=== PATIENT | female | born 1935 | race Caucasian/White ===

== ENCOUNTER 2016-10-14 21:22 | Inpatient (IN) ==
--- NOTE | 2016-10-14 21:45 | EKG Report ---
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
--- NOTE | 2016-10-14 22:12 | CT Report ---
Referring physician: Masood Johnson Exam: CT brain without contrast Date: October 14, 2016 Comparison: CT brain without contrast August 17, 2014 Reason: Right leg numbness The patient is an Emergency Department patient on October 14, 2016. Technique: Axial images of the head were obtained without the use of contrast. Total DLP was 970.1 mGy*cm. Findings: There is mild generalized cerebral and cerebellar atrophy/volume loss and probable chronic microvascular ischemic change. 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 No hydrocephalus or midline shift is present. There is no evidence of recent intracranial hemorrhage, abnormal mass effect or acute infarction. No acute osseous process is seen. There is mild fluid within the right sphenoid sinus. The mastoid air cells are clear. Impression: 1. No acute intracranial process process is identified. 2. Chronic intracranial findings, similar to before. 3. Mild right sphenoid sinus disease. The CT exam was performed using one or more of the following dose reduction techniques: Automated exposure control and adjustment of the mA and/or kV according to patient size. PROCEDURE INTERPRETED AT [facility] DEPARTMENT OF RADIOLOGY Final Report Signed by: Dr. Annabelle Kruse
[2016-10-14 22:17] LABS: Basophils % 0.5 % (0.0-0.8); Eosinophils # 0.1 10*3/uL (0.0-0.87); Eosinophils % 2.7 % (0.00-10.9); Hematocrit 27.5 VOL% (35.7-47.0); Hemoglobin 9.3 GM/DL (12.0-16.0); Immature Granulocytes % 0.2 %; Immature Granulocytes Absolute 0.01 #; Lymphocytes # 1.1 10*3/uL (1.4-4.0); Lymphocytes % 27.2 % (21.3-54.2); Mean Corpuscular HGB Conc 33.8 GM/DL (32-36); Mean Corpuscular Hemoglobin 31 PG (27-34); Mean Corpuscular Volume 90.2 FL (87-102); Mean Platelet Volume 10.1 FL (9.6-12.0); Monocytes # 0.6 10*3/uL (0.11-0.8); Monocytes % 15.7 % (1.7-12.7); Neutrophils # 2.2 10*3/uL (1.4-7.4); Neutrophils % 53.7 % (38.7-73.9); Platelet Count 271 T/CUMM (130-400); Red Blood Count 3.05 MC/CUMM (3.8-5.5); Red Cell Distribution Width 13.8 % (9.3-17.3); White Blood Count 4.1 T/CUMM (4-12)
[2016-10-14 22:41] LABS: Band Neutrophils 2 % (0-10); Lymphocytes 17 % (20-55); Segmented Neutrophils 70 % (50-85); Total Cells Counted 100
[2016-10-14 22:45] LABS: INR 3.3
[2016-10-14 22:47] LABS: PT Patient Result 38.1 SECS; Partial Thromboplastin Time 45.7 SECS (0-40)
--- NOTE | 2016-10-14 22:47 | XRay Report ---
Referring Physician: Masood Johnson Exam: XR chest 1V portable Date: October 14, 2016 at 10:21 PM Reason: Chest pain Comparison: Chest one view portable July 29, 2016 Findings: The cardiac silhouette is mildly enlarged, and the patient is status post sternotomy. A cardiac pacing device is also again present. A nonspecific linear metallic device projects at the heart today. No focal consolidation, pneumothorax or pleural effusion is identified. No acute osseous process is seen. Impression: 1. Cardiomegaly. 2. No acute pulmonary process is identified. PROCEDURE INTERPRETED AT [facility] DEPARTMENT OF RADIOLOGY Final Report Signed by: Dr. Annabelle Kruse
[2016-10-14 23:21] LABS: Blood Urea Nitrogen 19 MG/DL (7-18); Calcium 8.6 MG/DL (8.5-10.1); Glucose 101 MG/DL (74-106); Magnesium 2.1 MG/DL (1.8-2.4); Osmolality,Calculated 280.4 MOS/KG (273-304); Potassium 3.4 MMOL/L (3.5-5.1); Sodium 140 MMOL/L (136-145); Troponin I Only < 0.015 NG/ML (0.00-0.045)
--- NOTE | 2016-10-14 23:29 | Emergency Department Note ---
I, Mely Dinh, am scribing for, and in the presence of, Masood Johnson MD 21:48 . IElizabeth Hans, MD, personally performed the services described in this documentation, ascribed by Mely Dinh in my presence, and it is both accurate and complete 328 . Arrival - Arrival Chief Complaint: Chest Pain Stated Complaint: chest pain ED Nursing Triage Note: patient to room via ems. 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 Pt has associated sxs of nausea and right leg numbness but denies diaphoresis. Pt describes the CP as a heavy feeling and states it has eased up some. Pt reports she took nitroglycerin at home with no relief. Pt states she had a TIA 3 years ago and sxs are similar. Pt has a PMHx of HTN and states her blood pressure was elevated tonight along with the current sxs. Pt reports her blood pressure has been under control lately with an increase in her dosage of Norvasc. Pt denies a Hx of CO but states she has a mechanical mitrovalve, Afib, and AV node ablation. Pt reports she does have a pacemaker. Pt denies tobacco use or alcohol consumption. Pt's desktop support engineer is Dr. Rios and she last seen him in May 2016 or June 2016. No other complaints/pain in ED. Onset (ago): hour(s) Consistency: constant Severity: moderate Severity scale (1-10): 4 Quality: other Allergies/Adverse Reactions: Allergies Allergy/AdvReac Type Severity Reaction Status Date / Time atropine Allergy Unknown/Unable Verified 10/14/16 21:30 to obtain Beta-Blockers Allergy Unknown/Unable Verified 10/14/16 21:30 (Beta-Adrenergic Bloc to obtain cephalexin Allergy Unknown/Unable Verified 10/14/16 21:30 to obtain citalopram [From Celexa] Allergy Unknown/Unable Verified 10/14/16 21:30 to obtain clindamycin Allergy Unknown/Unable Verified 10/14/16 21:30 to obtain clonazepam Allergy Unknown/Unable Verified 10/14/16 21:30 to obtain codeine Allergy Unknown/Unable Verified 10/14/16 21:30 to obtain diatrizoate meglumine Allergy Unknown/Unable Verified 10/14/16 21:30 to obtain Diatrizoic Acid Allergy Unknown/Unable Verified 10/14/16 21:30 [From Hypaque] to obtain digoxin Allergy Unknown/Unable Verified 10/14/16 21:30 to obtain diltiazem [From Cardizem] Allergy Unknown/Unable Verified 10/14/16 21:30 to obtain Diphenoxylate Allergy Unknown/Unable Verified 10/14/16 21:30 to obtain duloxetine [From Cymbalta] Allergy Unknown/Unable Verified 10/14/16 21:30 to obtain Erythromycin Base Allergy Unknown/Unable Verified 10/14/16 21:30 to obtain guaifenesin Allergy Unknown/Unable Verified 10/14/16 21:30 to obtain hydrocodone Allergy Unknown/Unable Verified 10/14/16 21:30 to obtain Hydromorphone [From Dilaudid] Allergy Unknown/Unable Verified 10/14/16 21:30 to obtain Hyoscyamine Allergy Unknown/Unable Verified 10/14/16 21:30 to obtain Imipramine Allergy Unknown/Unable Verified 10/14/16 21:30 to obtain isradipine [From DynaCirc] Allergy Unknown/Unable Verified 10/14/16 21:30 to obtain levofloxacin Allergy Unknown/Unable Verified 10/14/16 21:30 to obtain lincomycin Allergy Unknown/Unable Verified 10/14/16 21:30 to obtain morphine Allergy Unknown/Unable Verified 10/14/16 21:30 to obtain Nisoldipine Allergy Unknown/Unable Verified 10/14/16 21:30 to obtain Nortriptyline [From Pamelor] Allergy Unknown/Unable Verified 10/14/16 21:30 to obtain omeprazole Allergy Unknown/Unable Verified 10/14/16 21:30 to obtain Opium (Anthroposophic) Allergy Unknown/Unable Verified 10/14/16 21:30 to obtain Oxycodone Allergy Unknown/Unable Verified 10/14/16 21:30 to obtain pantoprazole [From Protonix] Allergy Unknown/Unable Verified 10/14/16 21:30 to obtain Paregoric Allergy Unknown/Unable Verified 10/14/16 21:30 to obtain pentazocine Allergy Unknown/Unable Verified 10/14/16 21:30 to obtain potassium guaiacolsulfonate Allergy Unknown/Unable Verified 10/14/16 21:30 [From Humibid L.A.] to obtain pregabalin [From Lyrica] Allergy Unknown/Unable Verified 10/14/16 21:30 to obtain prochlorperazine Allergy Unknown/Unable Verified 10/14/16 21:30 to obtain promethazine Allergy Unknown/Unable Verified 10/14/16 21:30 to obtain propoxyphene [From Darvon] Allergy Unknown/Unable Verified 10/14/16 21:30 to obtain quinidine Allergy Unknown/Unable Verified 10/14/16 21:30 to obtain rosuvastatin [From Crestor] Allergy Unknown/Unable Verified 10/14/16 21:30 to obtain Sulfa (Sulfonamide Allergy Unknown/Unable Verified 10/14/16 21:30 Antibiotics) to obtain tramadol Allergy Unknown/Unable Verified 10/14/16 21:30 to obtain aspirin [From Percodan] AdvReac Unknown/Unable Verified 10/14/16 21:30 to obtain Home Medications: Home Medications Medication Instructions Recorded Confirmed Type ALPRAZolam [Xanax] 0.5 tablet PO BID 12/13/14 03/17/16 History Aspirin [Ecotrin] 325 mg PO DAILY 12/13/14 03/17/16 History Chlorthalidone 25 mg PO DAILY 12/13/14 03/17/16 History Cyanocobalamin Inj [Vitamin B12 1,000 mcg SUBCUT Q30D 12/13/14 03/17/16 History Inj] Gemfibrozil [Lopid] 600 mg PO BIDAC 12/13/14 03/17/16 History Levothyroxine Tab [Synthroid Tab] 25 mcg PO DAILY@0700 12/13/14 03/17/16 History Nitroglycerin [place] 1 spray TRANSLING PRN PRN 12/13/14 03/17/16 History Potassium Chloride Cap/Tab [K Dur] 10 meq PO DAILY 12/13/14 03/17/16 History Warfarin [Coumadin] 5 mg PO DAILY@1800 #30 tablet 03/14/15 03/17/16 Rx Famotidine Tab [Pepcid Tab] 20 mg PO BID 03/17/16 03/17/16 History Ipratropium Inhaler [Atrovent 2 puff INH Q6HR PRN 03/17/16 03/17/16 History Inhaler] Loratadine 10 mg PO BEDTIME 03/17/16 03/17/16 History Losartan Potassium [Losartan 50 mg PO BID 03/17/16 03/17/16 History Potassium] Montelukast Tab [Singulair Tab] 10 mg PO BEDTIME 03/17/16 03/17/16 History Nitrofurantoin Macro/[place] 100 mg PO BID 03/17/16 03/17/16 History [Macrobid] Metoprolol Tartrate Tab [Lopressor 25 mg PO BID #10 tablet 07/29/16 Rx Tab] Review of System - Review of System 12 point system: reviewed and no additional remarkable complaints except as stated - Review of System Constitutional: Absent: chills, diaphoresis, fever Respiratory: Absent: cough Cardiovascular: Present: chest pain Gastrointestinal: Present: nausea. Absent: abdominal pain, vomiting Musculoskeletal: Absent: arm pain, back pain, leg pain, neck pain Neurological: Present: numbness (numbness in right leg). Absent: headache, confusion Psychiatric: Absent: anxiety Medical,Surgical,& Family Hx - Medical History Cardio: History of: Cardiac Dysrhythmia (afib), Cerebrovascular Disease, CHF ( diastolic yes grade Sarath ([place] and no wheezing or ON Tuesday but quit que), Hypertension, Pacemaker, Valvular Heart Disease, Cardiovascular Problems ( Ablation 2004) Psychological: History of: Anxiety Disorders Neurology: History of: Cerebrovascular Accident, Migraine, TIA No history of: Seizures HEENT: History of: Eye Problem, Glaucoma Endocrine: History of: Dyslipidemia, Thyroid Disorder (hypothyroidism) Rheumatology: History of;: Rheumatological Problems Respiratory: History of: Asthma, Bronchitis, Obstructive Sleep Apnea Renal: No history of: Renal Failure Gastrointestinal: History of: Diverticulitis/ Diverticulosis, GERD, Hemorrhoids , GI Problems Musculoskeletal: History of: Musculoskeletal Problems Hematology: History of: Anemia (pre-hysterectomy), Clotting Problems Other: History of: Miscellaneous Medical Problems - Surgical History Cardiac Surgeries: Sugical HX of: Cardiac Catheterization, Cardiac Surgery ( VVIR pacemaker) HEENT Surgeries: Surgical HX of: Eye Surgery (cataract bilat), Tonsilectomy & Adenoidectomy Abdominal Surgeries: Surgical HX of: Cholecystectomy, Colonoscopy, EGD ( esophageal dilation) Reproductive Surgeries: Surgical HX of;: Hysterectomy - Family History Family History: Reports;: Family Heart Disease, Family Hypertension, Family Stroke - Social History Smoking Status: Never smoker Frequency of Alcohol Use: None Type of Drug Use: None Exam Vital Signs: Vital Signs Temperature 96.5 F L 10/14/16 21:22 Pulse Rate 70 10/14/16 21:22 Respiratory Rate 17 10/14/16 21:22 Blood Pressure 164/59 10/14/16 21:22 O2 Sat by Pulse Oximetry 100 10/14/16 21:22 - General General appearance: alert, in no apparent distress - Head Head exam: Present: atraumatic, normocephalic - Eye Eye exam: Present: PERRL, EOMI - ENT ENT exam: Present: mucous membranes moist. Absent: mucous membranes dry - Neck Neck exam: Present: full ROM. Absent: tenderness - Chest Chest inspection: Present: symmetric chest wall rise. Absent: tenderness - Respiratory Respiratory exam: Present: normal lung sounds bilaterally. Absent: respiratory distress - Cardiovascular Cardiovascular exam: Present: regular rate, normal rhythm, normal heart sounds - Abdominal Exam Abdominal exam: Present: soft. Absent: tenderness - Back Exam Back exam: Present: full ROM. Absent: tenderness - Neurological Exam Neurological exam: Present: alert, oriented X3, CN II-XII intact. Absent: motor sensory deficit - Psychiatric Psychiatric exam: Present: normal affect, normal mood - Skin Skin exam: Present: warm, dry Course Course Narrative: This patient was evaluated with a chest x-ray, EKG, and lab work. She had a normal troponin and no significant ST changes. She also had a head CT for some right leg numbness which was negative. She will be admitted for anginal symptoms to Dr. Zavaleta and I discussed her care with Dr. Jewell who is covering for her. A cardiology consult has been placed for the a.m. Her INR is therapeutic. Results - Labs CBC & BMP: 10/14/16 22:11 10/14/16 22:11 Lab Results: I have reviewed the patients labs Labs: Laboratory Tests 10/14/16 22:11 RBC 3.05 L Hgb 9.3 L Hct 27.5 L Cannon % (Auto) 15.7 H Lymph # (Auto) 1.1 L Laboratory Tests 10/14/16 22:11 Lymphocytes 17 L Laboratory Tests 10/14/16 22:11 INR 3.3 PT Patient/Control Mix 38.1 Circ Anticoag PTT 45.7 H Laboratory Tests 10/14/16 22:11 Potassium 3.4 L Chloride 108 H BUN 19 H Creatinine 1.10 H - Diagnostic Findings Procedure: Chest x-ray: report reviewed by me (1. Cardiomegaly. 2. No acute pulmonary process is identified.), CT: report reviewed by me (Head: 1. No acute intracranial process is identified. 2. Chronic intracranial findings, similar to before. 3. Mild right sphenoid sinus disease.) Disposition Clinical Impression: Chest pain Case discussed with: patient Disposition: Still a Patient Condition: Stable Instructions: Angina (ED) Time of Disposition: 23:28
[2016-10-15] MEDS ORDERED: MAGNESIUM SULF RIDER 2 GM in PREMIX 1 EACH IV PRN (00:15)
[2016-10-15] MEDS ORDERED: MAGNESIUM SULF RIDER 4 GM in PREMIX 1 EACH IV PRN (00:15)
--- NOTE | 2016-10-15 08:26 | EKG Report ---
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
[2016-10-15] MEDS ORDERED: IPRATROPIUM 500 MCG/2.5 ML NEB RESP TX PRN (11:01)
[2016-10-15] MEDS ORDERED: NITROGLYCERIN TRANSLING PRN (11:01)
[2016-10-15] MEDS ORDERED: LORATADINE 10 MG TABLET PO PRN (11:01)
[2016-10-15] MEDS ORDERED: POTASSIUM CHLORIDE RIDER 10 MEQ in PREMIX 1 EACH IV PRN (11:06)
--- NOTE | 2016-10-15 11:08 | Cardiology Consult Note ---
<Yady Dotson - Last Filed: 10/15/16 11:55> Assessment and Plan - Time spent with patient Time spent with patient: Greater than 30 minutes (1) Chest pain Status: Acute Assessment and plan: See plan of care listed below. Current Visit: Yes (2) Anemia Status: Acute Assessment and plan: See plan of care listed below. Current Visit: No (3) Anxiety Status: Chronic Assessment and plan: See plan of care listed below. Current Visit: No (4) Chronic anticoagulation Status: Chronic Assessment and plan: See plan of care listed below. Current Visit: No (5) History of GI bleed Problem details: She was scheduled for colonoscopy on Tuesday. She will require IV heparin. Plan to monitor in the hospital. IV heparin when INR is less than 2. She has had a TIA in the past when not adequately anticoagulated. I feel there is a component of anxiety involved here. Status: Chronic Assessment and plan: See plan of care listed below. Current Visit: No (6) History of mitral valve replacement with mechanical valve Status: Chronic Assessment and plan: See plan of care listed below. Current Visit: No (7) Pacemaker Status: Chronic Assessment and plan: See plan of care listed below. Current Visit: No (8) Sleep apnea Status: Chronic Assessment and plan: See plan of care listed below. Current Visit: No (9) Asthma Status: Chronic Assessment and plan: See plan of care listed below. Current Visit: Yes (10) Hypertension Status: Chronic Assessment and plan: See plan of care listed below. Current Visit: Yes (11) Hyperlipidemia Status: Acute Current Visit: Yes (12) Status post ablation of atrial fibrillation Status: Chronic Current Visit: Yes (13) Hypothyroidism Status: Chronic Assessment and plan: See plan of care listed below. Current Visit: Yes (14) History of rheumatic heart disease Status: Chronic Current Visit: Yes (15) GERD (gastroesophageal reflux disease) Status: Chronic Current Visit: Yes (16) History of TIA (transient ischemic attack) Status: Chronic Current Visit: Yes History of Present Illness - Data of Consult Consult date: 10/15/16 Requesting Physician: Masood Johnson Primary care physician: Lou Zavaleta - Consult Narrative Reason for consult: Chest pain History of present illness: Silk Spreader: Dr. Rios PCP: Dr. Lou Zavaleta Ms. Faith is a 81 year old female patient without known history of coronary artery disease, routinely followed by Dr. Rios. Patient presented to emergency department yesterday evening with complaints of chest pain and weakness. Patient has cardiac risk factors significant for hypertension, hyperlipidemia, sedentary lifestyle, advanced age and family history of coronary artery disease (father age 57 from myocardial infarction). Patient confirms that she is a lifetime non-smoker. She has a past medical history of TIA, atrial fibrillation (status post AV ablation at [facility]), pacemaker , irritable bowel syndrome, asthma, diverticulosis, obstructive sleep apnea ( wears CPAP), hypothyroidism, anxiety, rheumatic heart disease and mechanical mitral valve with chronic anticoagulation with Coumadin. Her last heart catheterization was done in 2003. She reports that she has had 4 heart catheterizations which did not reveal any significant obstructive coronary artery disease. She last saw Dr. Rios in the cardiology clinic May 2016. At that time she had complaints of dyspnea on exertion. He offered her a cardiac stress test at that time. However she declined having this done at that time. Patient presented to [facility] yesterday evening with complaints of moderate chest pain and weakness. She reports that she did not feel well all day yesterday. After waking up from a nap, she experienced tingling in her hands and feet. At that time, she took her blood pressure. Systolic blood pressure was 190. She also reports blurry vision in her left eye. Shortly after that, her right leg became extremely weak. She reports that she could not ambulate for several hours because of this. She had a TIA approximately three years ago, reports symptoms are somewhat similar. Several hours later, she developed chest pain. She describes this as a heaviness located under her left breast that radiates to her neck and left shoulder. She rates her chest pain and 8 out of 10. She reports that this was not worsened with exertion or activity. She is unable to identify any alleviating or aggravating factors. Her chest pain was ongoing for about 1 hour. She reports that it was made better after receiving nitroglycerin in the ambulance. This was associated with nausea, shortness of breath and diaphoresis. Chest pain was relieved after arriving in the ER. Patient has been admitted under Dr. Lou Zavaleta's service and housed on the telemetry unit. Cardiology has been consulted to further evaluate patient's chest pain. Of note, she also reports a 3 month history of dyspnea on exertion and easy fatigability. She reports that she can only walk a very short distance before having to stop and rest. She does report a history of asthma with longstanding history of shortness of breath. She denies chest pain, heaviness or tightness with exertion. She was offered cardiac stress test by Dr. Rios in the cardiology clinic May of 2016. She declined at that time. Patient was seen and examined on the telemetry unit. Patient continues to complain of mild chest discomfort. Currently, she is describing her pain as a burning/heaviness located under her left breast. She rates his pain a 4 out of 10 currently. Troponin has been negative 1 check. EKG is unchanged. On exam , patient's chest is tender to light palpation. However, she reports that this is not the same pain that this is a different pain. Chest x-ray does not reveal any acute cardiopulmonary processes. Head CT did not reveal any acute intracranial processes. Patient is anemic with H&H of 9.3 and 27.5. INR today was therapeutic at 3.3. Potassium is borderline low at 3.4. Patient is currently in pacer rhythm. Will keep patient NPO at this time and further discuss with Dr. Simpson. Further plan and an addendum to follow. Assessment/plan: 1. CHEST PAIN: Patient's troponin has been negative 1 check. EKG is unchanged. Patient was offered cardiac stress test May 2016 in the cardiology clinic. However, at that time she declined having this done. Will discuss his case further with Dr. Simpson and await his recommendations. 2. HYPERTENSION: Patient's home medications have been reinitiated. Will adjust as needed during her hospitalization. 3. STATUS POST MECHANICAL MITRAL VALVE WITH CHRONIC ANTICOAGULATION: Coumadin has been reinitiated. INR today is therapeutic at 3.4. Daily INRs. 4. HYPERLIPIDEMIA: Lipid-lowering agent has been continued. I will check a lipid panel. Patient reports that she is statin intolerant. 5. OBSTRUCTIVE SLEEP APNEA: CPAP nightly. 6. HYPOTHYROIDISM: Synthroid has been reinitiated. I will check a TSH and make further adjustments if needed. 7. ANXIETY: This is clinically stable. Defer management to attending. 8. RIGHT LEG WEAKNESS: This is now resolved. Head CT did not reveal any acute intracranial processes. I have ordered carotid Dopplers. Consider consulting neurology. 9. DYSPNEA ON EXERTION: I have ordered echocardiogram. We will review these results and make further recommendations thereafter. 10. HYPOKALEMIA: Potassium 3.4. Potassium replaced per protocol ordered. 11. ASTHMA: This possibly contributing to her dyspnea on exertion. Will defer further management of this to her attending. 12. ANEMIA: No overt bleeding noted. Will check stool for occult blood as patient has history of lower GI bleed. Daily CBC. Will defer further workup of this to attending. 13. GERD: Pepcid has been initiated. CC: Lou Zavaleta, DO - Home Medications and Allergies Home Medications: Home Medications Medication Instructions Recorded Confirmed Type ALPRAZolam [Xanax] 0.25 tablet PO BID 12/13/14 10/15/16 History Aspirin [Ecotrin] 325 mg PO DAILY 12/13/14 10/15/16 History Chlorthalidone 25 mg PO DAILY 12/13/14 10/15/16 History Gemfibrozil [Lopid] 600 mg PO BIDAC 12/13/14 10/15/16 History Levothyroxine Tab [Synthroid Tab] 25 mcg PO DAILY@0700 12/13/14 10/15/16 History Nitroglycerin [place] 1 spray TRANSLING PRN PRN 12/13/14 10/15/16 History Potassium Chloride Cap/Tab [K Dur] 10 meq PO DAILY 12/13/14 10/15/16 History Warfarin [Coumadin] 5 mg PO DAILY@1800 #30 tablet 03/14/15 10/15/16 Rx Famotidine Tab [Pepcid Tab] 20 mg PO BID 03/17/16 10/15/16 History Ipratropium Inhaler [Atrovent 2 puff INH Q6HR PRN 03/17/16 10/15/16 History Inhaler] Loratadine 10 mg PO BEDTIME PRN 03/17/16 10/15/16 History Losartan Potassium [Losartan 50 mg PO BID 03/17/16 10/15/16 History Potassium] Montelukast Tab [Singulair Tab] 10 mg PO BEDTIME 03/17/16 10/15/16 History Cholecalciferol (Vitamin D3) 50,000 unit PO DIRECTED 10/15/16 10/15/16 History [Vitamin D3] Ferrous Sulfate 325 mg PO DAILY W/BREAKFAST 10/15/16 10/15/16 History amLODIPine [Norvasc] 10 mg PO DAILY 10/15/16 10/15/16 History Allergies/Adverse Reactions: Allergies Allergy/AdvReac Type Severity Reaction Status Date / Time atropine Allergy Unknown/Unable Verified 10/14/16 21:30 to obtain Beta-Blockers Allergy Unknown/Unable Verified 10/14/16 21:30 (Beta-Adrenergic Bloc to obtain cephalexin Allergy Unknown/Unable Verified 10/14/16 21:30 to obtain citalopram [From Celexa] Allergy Unknown/Unable Verified 10/14/16 21:30 to obtain clindamycin Allergy Unknown/Unable Verified 10/14/16 21:30 to obtain clonazepam Allergy Unknown/Unable Verified 10/14/16 21:30 to obtain codeine Allergy Unknown/Unable Verified 10/14/16 21:30 to obtain diatrizoate meglumine Allergy Unknown/Unable Verified 10/14/16 21:30 to obtain Diatrizoic Acid Allergy Unknown/Unable Verified 10/14/16 21:30 [From Hypaque] to obtain digoxin Allergy Unknown/Unable Verified 10/14/16 21:30 to obtain diltiazem [From Cardizem] Allergy Unknown/Unable Verified 10/14/16 21:30 to obtain Diphenoxylate Allergy Unknown/Unable Verified 10/14/16 21:30 to obtain duloxetine [From Cymbalta] Allergy Unknown/Unable Verified 10/14/16 21:30 to obtain Erythromycin Base Allergy Unknown/Unable Verified 10/14/16 21:30 to obtain guaifenesin Allergy Unknown/Unable Verified 10/14/16 21:30 to obtain hydrocodone Allergy Unknown/Unable Verified 10/14/16 21:30 to obtain Hydromorphone [From Dilaudid] Allergy Unknown/Unable Verified 10/14/16 21:30 to obtain Hyoscyamine Allergy Unknown/Unable Verified 10/14/16 21:30 to obtain Imipramine Allergy Unknown/Unable Verified 10/14/16 21:30 to obtain isradipine [From DynaCirc] Allergy Unknown/Unable Verified 10/14/16 21:30 to obtain levofloxacin Allergy Unknown/Unable Verified 10/14/16 21:30 to obtain lincomycin Allergy Unknown/Unable Verified 10/14/16 21:30 to obtain morphine Allergy Unknown/Unable Verified 10/14/16 21:30 to obtain Nisoldipine Allergy Unknown/Unable Verified 10/14/16 21:30 to obtain Nortriptyline [From Pamelor] Allergy Unknown/Unable Verified 10/14/16 21:30 to obtain omeprazole Allergy Unknown/Unable Verified 10/14/16 21:30 to obtain Opium (Anthroposophic) Allergy Unknown/Unable Verified 10/14/16 21:30 to obtain Oxycodone Allergy Unknown/Unable Verified 10/14/16 21:30 to obtain pantoprazole [From Protonix] Allergy Unknown/Unable Verified 10/14/16 21:30 to obtain Paregoric Allergy Unknown/Unable Verified 10/14/16 21:30 to obtain pentazocine Allergy Unknown/Unable Verified 10/14/16 21:30 to obtain potassium guaiacolsulfonate Allergy Unknown/Unable Verified 10/14/16 21:30 [From Humibid L.A.] to obtain pregabalin [From Lyrica] Allergy Unknown/Unable Verified 10/14/16 21:30 to obtain prochlorperazine Allergy Unknown/Unable Verified 10/14/16 21:30 to obtain promethazine Allergy Unknown/Unable Verified 10/14/16 21:30 to obtain propoxyphene [From Darvon] Allergy Unknown/Unable Verified 10/14/16 21:30 to obtain quinidine Allergy Unknown/Unable Verified 10/14/16 21:30 to obtain rosuvastatin [From Crestor] Allergy Unknown/Unable Verified 10/14/16 21:30 to obtain Sulfa (Sulfonamide Allergy Unknown/Unable Verified 10/14/16 21:30 Antibiotics) to obtain tramadol Allergy Unknown/Unable Verified 10/14/16 21:30 to obtain aspirin [From Percodan] AdvReac Unknown/Unable Verified 10/14/16 21:30 to obtain - Constitutional Constitutional: Present: fatigue, headache(s), lethargy, malaise, weakness. Absent: chills, fever(s), weight gain, weight loss - EENT Eyes: Present: blurry vision - Cardiovascular Cardiovascular: Present: chest pain at rest, diaphoresis, dyspnea, dyspnea on exertion, radiating jaw, neck or arm pain. Absent: chest pain with activity, claudication, edema, lightheadedness, orthopnea, palpitations, PND - Respiratory Respiratory: Present: dyspnea, dyspnea on exertion. Absent: cough, hemoptysis, wheezing, snoring, pain on inspiration, change in phlegm color - Gastrointestinal Gastrointestinal: Present: nausea. Absent: abdominal pain, change in bowel habits, hematemesis, hematochezia, loose stools, melena, vomiting - Neurological Neurological: Present: abnormal gait, headache(s), numbness, paresthesias, other (Right leg weakness). Absent: abnormal speech, behavioral changes, confusion, dizziness, syncope - Psychiatric Psychiatric: Present: anxiety, depression Medical,Surgical,& Family Hx - Medical History Cardio: History of: Cardiac Dysrhythmia (afib, status post AV ablation), Cerebrovascular Disease, Hypertension, Pacemaker, Valvular Heart Disease Psychological: History of: Anxiety Disorders Neurology: History of: Migraine, TIA No history of: Seizures HEENT: History of: Eye Problem, Glaucoma Endocrine: History of: Dyslipidemia, Thyroid Disorder (hypothyroidism) Rheumatology: History of;: Rheumatological Problems Respiratory: History of: Asthma, Obstructive Sleep Apnea Renal: No history of: Renal Failure Gastrointestinal: History of: Diverticulitis/ Diverticulosis, GERD, Hemorrhoids , GI Problems (Irritable bowel syndrome) Musculoskeletal: History of: Musculoskeletal Problems - Surgical History Cardiac Surgeries: Sugical HX of: Cardiac Catheterization, Cardiac Surgery ( Mechanical mitral valve, pacemaker) HEENT Surgeries: Surgical HX of: Eye Surgery (cataract bilat), Tonsilectomy & Adenoidectomy Abdominal Surgeries: Surgical HX of: Cholecystectomy, Colonoscopy, EGD ( esophageal dilation) Reproductive Surgeries: Surgical HX of;: Hysterectomy - Family History Family History: Reports;: Family Heart Disease, Family Hypertension, Family Stroke - Social History Smoking Status: Never smoker Frequency of Alcohol Use: None Type of Drug Use: None Physical Examination Vital Signs Temp Pulse Resp BP Pulse Ox 96.5 F L 70 22 164/59 100 10/14/16 21:22 10/14/16 21:22 10/14/16 21:22 10/14/16 21:22 10/14/16 21:22 General: Present: Appears Well, No Apparent Distress HEENT: Present: Normocephaly Neck: Present: Supple Neck, Midline Trachea, No JVD/HJR Cardiac: Present: Reg Rate and Rhythm, Regular Rate, Regular Rhythm, S1/S2, Other (Mechanical mitral valve click appreciated. ) Lungs: Present: Normal Exam, Clear Ascult./Percussion, Normal Breath Sounds, No Wheeze, Rales, Rhonchi Neuro: Present: Grossly Intact Abdomen: Present: Soft, Active Bowel Sounds, No Masses, Non-Tender. Absent: Firm, Distended Skin: Present: Clear. Absent: Rash, Suspicious Lesions, Ulceration Extremities: Present: Normal Gait, No Clubbing, No Cyanosis, No Edema, Normal Upper Extr. Pulses, Normal Lower Extr. Pulses Result/EKG - Labs CBC & BMP: 10/14/16 22:11 10/14/16 22:11 Lab Results: I have reviewed the past 24 hour labs Specialty Discharge - Follow Up or Referrals <Charly Simpson - Last Filed: 10/15/16 12:55> History of Present Illness - Consult Narrative History of present illness: Patient personally interviewed and examined and chart reviewed. Discussed this case with Yady Dotson NP. Agree with this assessment and evaluation and plan. In summation and addition Ms. Faith is a 81 year old female who has a mitral valve replacement mechanical valve. She also has had AV node ablation because of persistent atrial fibrillation with a biventricular pacemaker. She has never had documented coronary disease or anginal symptomatology. She has had issues with acute blood pressure elevations and she had one these episodes last night. She had some chest pain below the left breast there was a sharp pain may be a little heavy but nonradiating and not short of breath. The pain that was exacerbated by motion cough and deep breath. She took a nitroglycerin in the form of the spray that may have helped some but did not resolve any symptoms. She was presented to emergency room evaluated and admitted. Her initial troponin is nondetectable. Her ECG is ventricular paced. At present she still has the pain is still exacerbated by this same movements as noted above. Impression her blood pressure stable. Exam as noted and indeed she does have chest wall tenderness below the left breast reproduces her pain. She has good mechanical valve sounds of her mitral valve replacement. Her abdomen is unremarkable. Lungs are clear. Extremities without edema. Neurologic intact. If her repeat troponins are nondetectable would carry out no further evaluation. She should be to keep her follow with Dr. Rios and [facility]. CC: Lou Zavaleta, DO Physical Examination Vital Signs Temp Pulse Resp BP Pulse Ox 96.5 F L 70 22 164/59 100 10/14/16 21:22 10/14/16 21:22 10/14/16 21:22 10/14/16 21:22 10/14/16 21:22 Result/EKG - Labs CBC & BMP: 10/14/16 22:11 10/14/16 22:11 Labs: Laboratory Results - last 24 hr 10/15/16 11:16 Total Creatine Kinase 81 CK-MB (CK-2) 2.0 Troponin I < 0.015
--- NOTE | 2016-10-15 11:27 | Ultrasound Report ---
US carotid duplex BI Indication: Dizziness, right lower extremity weakness. Comparison: None. Technique: Multiple longitudinal and transverse real-time sonographic images of the bilateral carotid arterial systems are obtained with grayscale, spectral, and color Doppler analysis. Findings: Peak systolic velocities within the right CCA, proximal ICA, and distal ICA are 63, 37, and 72 cm/s respectively. Peak systolic velocities within the left CCA, proximal ICA, and distal ICA are 66, 50, and 93 cm/s respectively. ICA/CCA ratios on the right and left are 1.1 and 1.4 respectively. Antegrade flow demonstrated within the bilateral vertebral arteries. Grayscale imaging demonstrates mild bilateral atherosclerotic plaque. IMPRESSION: No convincing sonographic evidence of significant (50% or greater) narrowing of either cervical internal carotid artery. NASCET criteria utilized. PROCEDURE INTERPRETED AT [facility] DEPARTMENT OF RADIOLOGY Final Report Signed by: Dr Corey Eaton
[2016-10-15 12:40] LABS: Troponin I Only < 0.015 NG/ML (0.00-0.045)
[2016-10-15 12:45] LABS: Risk Ratio 2.75; Thyroid Stimulating Hormone 1.53 uIU/ml (0.358-3.74); VLDL CHOLESTEROL 15.2 MG/DL
[2016-10-15] MEDS: POTASSIUM CHLORIDE 10 MEQ TABLET PO SCH (13:30)
[2016-10-15] MEDS: ASPIRIN EC 325 MG TABLET PO SCH (13:30)
[2016-10-15] MEDS: LOSARTAN 50 MG TABLET PO SCH ×2 (13:30→20:42)
[2016-10-15] MEDS: amLODIPine 10 MG TABLET PO SCH (13:31)
--- NOTE | 2016-10-15 14:27 | Internal Med History&Physical ---
Assessment and Plan (1) Chest pain Status: Acute Current Visit: Yes (2) Hyperlipidemia Status: Chronic Current Visit: Yes Qualifiers: Hyperlipidemia type: pure hypercholesterolemia Qualified Code(s): E78.00 - Pure hypercholesterolemia, unspecified; E78.0 - Pure hypercholesterolemia (3) Asthma Status: Chronic Current Visit: Yes (4) GERD (gastroesophageal reflux disease) Status: Chronic Current Visit: Yes (5) History of TIA (transient ischemic attack) Status: Chronic Current Visit: Yes (6) Hypertension Status: Chronic Current Visit: Yes Qualifiers: Hypertension type: essential hypertension Qualified Code(s): I10 - Essential (primary) hypertension (7) Hypothyroidism Status: Chronic Current Visit: No Qualifiers: Hypothyroidism type: acquired Qualified Code(s): E03.9 - Hypothyroidism, unspecified (8) Chronic atrial fibrillation Status: Chronic Current Visit: No (9) Chronic anticoagulation Status: Chronic Current Visit: Yes (10) History of GI bleed Problem details: She was scheduled for colonoscopy on Tuesday. She will require IV heparin. Plan to monitor in the hospital. IV heparin when INR is less than 2. She has had a TIA in the past when not adequately anticoagulated. I feel there is a component of anxiety involved here. Status: Chronic Current Visit: Yes (11) History of mitral valve replacement with mechanical valve Status: Chronic Current Visit: Yes (12) Pacemaker Status: Chronic Current Visit: No (13) Guaiac positive stools Status: Acute Current Visit: Yes History of Present Illness Chief complaint: chest pain History of present illness: Ms. Faith is a 81 year old female with history of HTN, dyslipidemia, DM, a fib, pacemaker, CHF, asthma, OA, stroke, TIA, multiple allergies and drug intolerances, acid reflux, who presented to ER with chest pain, acute right sided weakness, and worsening acid reflux. INR was slightly hyper therapeutic level. She has mitral valve replacement mechanical valve. She describes a heaviness in her chest with breathing. Home Medications Medication Instructions Recorded Confirmed Type ALPRAZolam [Xanax] 0.25 tablet PO BID 12/13/14 10/15/16 History Aspirin [Ecotrin] 325 mg PO DAILY 12/13/14 10/15/16 History Chlorthalidone 25 mg PO DAILY 12/13/14 10/15/16 History Gemfibrozil [Lopid] 600 mg PO BIDAC 12/13/14 10/15/16 History Levothyroxine Tab [Synthroid Tab] 25 mcg PO DAILY@0700 12/13/14 10/15/16 History Nitroglycerin [place] 1 spray TRANSLING PRN PRN 12/13/14 10/15/16 History Potassium Chloride Cap/Tab [K Dur] 10 meq PO DAILY 12/13/14 10/15/16 History Warfarin [Coumadin] 5 mg PO DAILY@1800 #30 tablet 03/14/15 10/15/16 Rx Famotidine Tab [Pepcid Tab] 20 mg PO BID 03/17/16 10/15/16 History Ipratropium Inhaler [Atrovent 2 puff INH Q6HR PRN 03/17/16 10/15/16 History Inhaler] Loratadine 10 mg PO BEDTIME PRN 03/17/16 10/15/16 History Losartan Potassium [Losartan 50 mg PO BID 03/17/16 10/15/16 History Potassium] Montelukast Tab [Singulair Tab] 10 mg PO BEDTIME 03/17/16 10/15/16 History Cholecalciferol (Vitamin D3) 50,000 unit PO DIRECTED 10/15/16 10/15/16 History [Vitamin D3] Ferrous Sulfate 325 mg PO DAILY W/BREAKFAST 10/15/16 10/15/16 History amLODIPine [Norvasc] 10 mg PO DAILY 10/15/16 10/15/16 History Allergies Allergy/AdvReac Type Severity Reaction Status Date / Time atropine Allergy Unknown/Unable Verified 10/14/16 21:30 to obtain Beta-Blockers Allergy Unknown/Unable Verified 10/14/16 21:30 (Beta-Adrenergic [place]oc to obtain cephalexin Allergy Unknown/Unable Verified 10/14/16 21:30 to obtain citalopram [From Celexa] Allergy Unknown/Unable Verified 10/14/16 21:30 to obtain clindamycin Allergy Unknown/Unable Verified 10/14/16 21:30 to obtain clonazepam Allergy Unknown/Unable Verified 10/14/16 21:30 to obtain codeine Allergy Unknown/Unable Verified 10/14/16 21:30 to obtain diatrizoate meglumine Allergy Unknown/Unable Verified 10/14/16 21:30 to obtain Diatrizoic Acid Allergy Unknown/Unable Verified 10/14/16 21:30 [From Hypaque] to obtain digoxin Allergy Unknown/Unable Verified 10/14/16 21:30 to obtain diltiazem [From Cardizem] Allergy Unknown/Unable Verified 10/14/16 21:30 to obtain Diphenoxylate Allergy Unknown/Unable Verified 10/14/16 21:30 to obtain duloxetine [From Cymbalta] Allergy Unknown/Unable Verified 10/14/16 21:30 to obtain Erythromycin Base Allergy Unknown/Unable Verified 10/14/16 21:30 to obtain guaifenesin Allergy Unknown/Unable Verified 10/14/16 21:30 to obtain hydrocodone Allergy Unknown/Unable Verified 10/14/16 21:30 to obtain Hydromorphone [From Dilaudid] Allergy Unknown/Unable Verified 10/14/16 21:30 to obtain Hyoscyamine Allergy Unknown/Unable Verified 10/14/16 21:30 to obtain Imipramine Allergy Unknown/Unable Verified 10/14/16 21:30 to obtain isradipine [From DynaCirc] Allergy Unknown/Unable Verified 10/14/16 21:30 to obtain levofloxacin Allergy Unknown/Unable Verified 10/14/16 21:30 to obtain lincomycin Allergy Unknown/Unable Verified 10/14/16 21:30 to obtain morphine Allergy Unknown/Unable Verified 10/14/16 21:30 to obtain Nisoldipine Allergy Unknown/Unable Verified 10/14/16 21:30 to obtain Nortriptyline [From Pamelor] Allergy Unknown/Unable Verified 10/14/16 21:30 to obtain omeprazole Allergy Unknown/Unable Verified 10/14/16 21:30 to obtain Opium (Anthroposophic) Allergy Unknown/Unable Verified 10/14/16 21:30 to obtain Oxycodone Allergy Unknown/Unable Verified 10/14/16 21:30 to obtain pantoprazole [From Protonix] Allergy Unknown/Unable Verified 10/14/16 21:30 to obtain Paregoric Allergy Unknown/Unable Verified 10/14/16 21:30 to obtain pentazocine Allergy Unknown/Unable Verified 10/14/16 21:30 to obtain potassium guaiacolsulfonate Allergy Unknown/Unable Verified 10/14/16 21:30 [From Humibid L.A.] to obtain pregabalin [From Lyrica] Allergy Unknown/Unable Verified 10/14/16 21:30 to obtain prochlorperazine Allergy Unknown/Unable Verified 10/14/16 21:30 to obtain promethazine Allergy Unknown/Unable Verified 10/14/16 21:30 to obtain propoxyphene [From Darvon] Allergy Unknown/Unable Verified 10/14/16 21:30 to obtain quinidine Allergy Unknown/Unable Verified 10/14/16 21:30 to obtain rosuvastatin [From Crestor] Allergy Unknown/Unable Verified 10/14/16 21:30 to obtain Sulfa (Sulfonamide Allergy Unknown/Unable Verified 10/14/16 21:30 Antibiotics) to obtain tramadol Allergy Unknown/Unable Verified 10/14/16 21:30 to obtain aspirin [From Percodan] AdvReac Unknown/Unable Verified 10/14/16 21:30 to obtain Medical,Surgical,& Family Hx - Medical History Cardio: History of: Cardiac Dysrhythmia (afib, status post AV ablation), Cerebrovascular Disease, CHF (diastolic yes grade [place] ([place] and no wheezing or ON Tuesday but quit que), Hypertension, Pacemaker, Valvular Heart Disease, Cardiovascular Problems (Ablation 2004) Psychological: History of: Anxiety Disorders Neurology: History of: Cerebrovascular Accident, Migraine, TIA No history of: Seizures HEENT: History of: Eye Problem, Glaucoma Endocrine: History of: Dyslipidemia, Thyroid Disorder (hypothyroidism) Rheumatology: History of;: Rheumatological Problems Respiratory: History of: Asthma, Bronchitis, Obstructive Sleep Apnea Renal: No history of: Renal Failure Gastrointestinal: History of: Diverticulitis/ Diverticulosis, GERD, Hemorrhoids , GI Problems (Irritable bowel syndrome) Musculoskeletal: History of: Musculoskeletal Problems Hematology: History of: Anemia (pre-hysterectomy), Clotting Problems Other: History of: Miscellaneous Medical Problems - Surgical History Cardiac Surgeries: Sugical HX of: Cardiac Catheterization, Cardiac Surgery ( Mechanical mitral valve, pacemaker) HEENT Surgeries: Surgical HX of: Eye Surgery (cataract bilat), Tonsilectomy & Adenoidectomy Abdominal Surgeries: Surgical HX of: Cholecystectomy, Colonoscopy, EGD ( esophageal dilation) Reproductive Surgeries: Surgical HX of;: Hysterectomy - Family History Family History: Reports;: Family Heart Disease, Family Hypertension, Family Stroke - Social History Smoking Status: Never smoker Frequency of Alcohol Use: None Type of Drug Use: None Functional capacity: uses cane/walker - Constitutional Constitutional: Present: fatigue, malaise, weakness - Cardiovascular Cardiovascular: Present: chest pain at rest - Respiratory Respiratory: Present: dyspnea - Gastrointestinal Gastrointestinal: Present: dyspepsia, nausea - Musculoskeletal Musculoskeletal: Present: arthralgias - Neurological Neurological: Present: headache(s) - Psychiatric Psychiatric: Present: anxiety Exam - Constitutional General appearance: no acute distress - Head Head exam: Present: normocephalic - Eye Eye exam: Present: EOMI - Respiratory Respiratory exam: Present: clear to auscultation bilaterally - Cardiovascular Cardiovascular exam: Present: regular rate and rhythm, other (mechanical valve) - GI/Abdominal GI/Abdominal exam: Present: soft. Absent: tenderness - Extremities Exam Extremities exam: Absent: edema - Neurological Exam Neurological exam: Present: alert, oriented X3 - Psychiatric Psychiatric exam: Present: normal affect, normal mood - Skin Skin exam: Present: warm, dry Results - Labs CBC & BMP: 10/14/16 22:11 10/14/16 22:11 - EKG EKG shows: atrial fibrillation (pacemaker) - Diagnostic Findings Procedure: Chest x-ray: report reviewed by me, CT: report reviewed by me
[2016-10-15] MEDS ORDERED: SODIUM CHLORIDE 0.9% 250 ML IV PRN (14:33)
[2016-10-15] MEDS ORDERED: DEXTROSE 50% 25 GM/50 ML VIAL IV PRN (14:38)
[2016-10-15] MEDS ORDERED: GLUCAGON 1 MG VIAL IM PRN (14:38)
[2016-10-15] MEDS: ALBUTEROL 2.5 MG/3 ML NEB RESP TX SCH ×2 (14:54→23:56)
[2016-10-15] MEDS: methylPREDNISolone SOD SUC 40 MG/1 ML VIAL IV SCH ×2 (16:20→22:24)
[2016-10-15] MEDS: GEMFIBROZIL 600 MG TABLET PO SCH (16:24)
[2016-10-15] MEDS: INSULIN REGULAR 100 UNIT/ML SUBCUT SCH ×2 (16:57→20:42)
--- NOTE | 2016-10-15 17:32 | ECHO Report ---
Nydia Faith Exam Date: 10/15/2016 11:34 Referring Physician: Technologist: Rita Long Age: 81 Ht (in): 66 Wt (lb): 134 Gender: F Exam Location: [facility] Echo Indications: chest pain, dyspnea, TIA, Hypothyroid, VPB, HTN, asthma BP: 123 / 60 HR: 70 Rhythm: Sinus Technical Quality: Fair IMPRESSIONS 1. Left ventricle is normal size with mild concentric left ventricular hypertrophy with hyperdynamic contractility and ejection fraction greater than 65%. 2. Right atrium is probably normal size but made worse mildly dilated. 3. Left atrium is probably moderately dilated. 4. Mitral valve is a mechanical prosthetic valve. Is functioning appropriately. 5. Aortic valve is minimally sclerotic without stenosis and only trace insufficiency. 6. Right ventricle is normal size and systolic function. 7. No evidence of elevated right-sided pressures. MEASUREMENTS (Male / Female) Normal Values 2D ECHO LV Diastolic Diameter PLAX 4.7 cm 4.2 - 5.9 / 3.9 - 5.3 cm LV Systolic Diameter PLAX 2.7 cm LV Fractional Shortening PLAX 43.4 % IVS Diastolic Thickness 1.3 cm 0.6 - 1.0 / 0.6 - 0.9 cm LVPW Diastolic Thickness 1.2 cm 0.6 - 1.0 / 0.6 - 0.9 cm RV Internal Dim ED PLAX 1.7 cm Aortic Root Diameter 2.2 cm LA Systolic Diameter LX 3.0 cm 3.0 - 4.0 / 2.7 - 3.8 cm DOPPLER Mitral E to A Ratio 1.5 TR Peak Velocity 196.0 cm/s TR Peak Gradient 15.4 mmHg FINDINGS Left Ventricle Left ventricle is normal size and systolic function in fact there is hyperdynamic contractility with an ejection fraction of greater than 65%. No segmental wall motion normality's. There is at least mild concentric left ventricular hypertrophy. Right Ventricle Normal right ventricular size. Right Atrium Right atrium is normal size to mildly dilated it worse. Left Atrium Moderately increased left atrial size. Mitral Valve Mitral valve mechanical prosthesis. Mitral valve mean gradient is 3 mmHg. Mitral valve mean gradient is 3 mmHg at a heart rate of 70 bpm. Valve appears to be well seated and functioning appropriately. Aortic Valve Aortic valve appears to be grossly a tricuspid structure with sclerosis but without stenosis and only.trace aortic valve regurgitation. Tricuspid Valve Morphologically normal tricuspid valve. Mild tricuspid valve regurgitation. Tricuspid regurgitation velocities suggest a PAP of 20 - 25 mmHg. Pulmonic Valve Pulmonic valve not well visualized. Pericardium No pericardial effusion. Aorta Normal size aortic root and proximal ascending aorta. Charly Simpson MD (Electronically Signed) Final Date: 15 Oct 2016 17:31
[2016-10-15 17:36] LABS: Troponin I Only < 0.015 NG/ML (0.00-0.045)
[2016-10-15] MEDS ORDERED: WARFARIN 5 MG TABLET PO SCH (18:00)
[2016-10-15] MEDS: MONTELUKAST 10 MG TABLET PO SCH (20:42)
[2016-10-15] MEDS: FAMOTIDINE 20 MG TABLET PO SCH (20:42)
[2016-10-15] MEDS: ALPRAZolam 0.25 MG TABLET PO SCH (20:42)
[2016-10-16 00:16] LABS: Troponin I Only < 0.015 NG/ML (0.00-0.045)
[2016-10-16 04:49] LABS: Basophils % 0.2 % (0.0-0.8); Hematocrit 33.4 VOL% (35.7-47.0); Hemoglobin 11.2 GM/DL (12.0-16.0); Immature Granulocytes % 0.8 %; Immature Granulocytes Absolute 0.05 #; Lymphocytes # 0.5 10*3/uL (1.4-4.0); Lymphocytes % 6.9 % (21.3-54.2); Mean Corpuscular HGB Conc 33.5 GM/DL (32-36); Mean Corpuscular Hemoglobin 30 PG (27-34); Mean Corpuscular Volume 89.5 FL (87-102); Mean Platelet Volume 10.1 FL (9.6-12.0); Monocytes # 0.2 10*3/uL (0.11-0.8); Monocytes % 2.8 % (1.7-12.7); Neutrophils # 5.8 10*3/uL (1.4-7.4); Neutrophils % 89.3 % (38.7-73.9); Platelet Count 285 T/CUMM (130-400); Red Blood Count 3.73 MC/CUMM (3.8-5.5); Red Cell Distribution Width 14.2 % (9.3-17.3); White Blood Count 6.5 T/CUMM (4-12)
[2016-10-16 05:00] LABS: INR 2.1
[2016-10-16 05:03] LABS: PT Patient Result 23.6 SECS
[2016-10-16 05:37] LABS: Albumin 3.7 G/DL (3.4-5.0); Bilirubin,Total 0.4 MG/DL (0.2-1.0); Calcium 9.3 MG/DL (8.5-10.1); Osmolality,Calculated 287.3 MOS/KG (273-304)
[2016-10-16] MEDS: methylPREDNISolone SOD SUC 40 MG/1 ML VIAL IV SCH ×3 (06:12→22:04)
[2016-10-16] MEDS: LEVOTHYROXINE 25 MCG TABLET PO SCH (06:12)
[2016-10-16] MEDS: ALBUTEROL 2.5 MG/3 ML NEB RESP TX SCH ×2 (07:03→15:08)
--- NOTE | 2016-10-16 07:42 | EKG Report ---
Stationary ECG Study [facility] Test Date: 10/16/2016 7:42:22 AM Pat Name: COLLEEN WAGGONER Department: Room: 289 Gender: F Manager Vehicle: INDU : 1935 Requested by: Yady Dotson Order Number: [id number] Reading MD: MAGGI SEO Intervals [place] Rate: 71 P: 70 ME: 286 QRS: 263 QRSD: 162 T: 81 QT: 471 QTc: 494 Interpretive Statements ELECTRONIC VENTRICULAR PACEMAKER NORMAL SINUS RHYTHM Electronically Signed On 10-18-16 16:32:02 CDT by MAGGI SEO [email or web address]
[2016-10-16] MEDS: INSULIN REGULAR 100 UNIT/ML SUBCUT SCH ×4 (08:27→22:00)
[2016-10-16] MEDS: ERGOCALCIFEROL 50,000 UNIT CAPSULE PO SCH (08:34)
[2016-10-16] MEDS: FAMOTIDINE 20 MG TABLET PO SCH ×2 (08:35→21:58)
[2016-10-16] MEDS: POTASSIUM CHLORIDE 10 MEQ TABLET PO SCH (08:35)
[2016-10-16] MEDS: CHLORTHALIDONE 25 MG TABLET PO SCH (08:35)
[2016-10-16] MEDS: GEMFIBROZIL 600 MG TABLET PO SCH ×2 (08:35→15:56)
[2016-10-16] MEDS: amLODIPine 10 MG TABLET PO SCH (08:35)
[2016-10-16] MEDS: ASPIRIN EC 325 MG TABLET PO SCH (08:35)
[2016-10-16] MEDS: LOSARTAN 50 MG TABLET PO SCH ×2 (08:35→21:58)
[2016-10-16] MEDS: FERROUS SULFATE 325 MG TABLET PO SCH (08:36)
[2016-10-16] MEDS: ALPRAZolam 0.25 MG TABLET PO SCH ×2 (08:36→21:59)
--- NOTE | 2016-10-16 10:30 | Cardiology Progress Note ---
Assessment and Plan (1) Occult blood positive stool Status: Acute Assessment and plan: We await GIs evaluation. She has received blood transfusions doing well. Current Visit: No (2) History of mitral valve replacement with mechanical valve Status: Chronic Assessment and plan: She is on warfarin. Her INR is adequate today. Once her INR treat just low enough we will have to start her on heparin to protect her mechanical mitral valve. Current Visit: Yes (3) Chronic anticoagulation Status: Chronic Assessment and plan: This is on hold at this time in terms of her warfarin and await GI evaluation. This is for her GI bleed/positive stools for blood. Current Visit: Yes (4) Chronic atrial fibrillation Status: Chronic Assessment and plan: This is chronic and she has had AV ablation in her electronic ventricular pacemaker is functioning appropriately. Current Visit: No (5) Pacemaker Status: Chronic Assessment and plan: This appears to be functioning appropriately. Current Visit: No Cardiology - PN: Subj Interval history: Patient cardiac standpoint is doing well. She has had transfusion and feels much better. Will await GI evaluation for her GI bleed and positive blood in stools. Her rhythm remains stable she is chronic atrial fibrillation with ventricular pacing. Her H&H is 11.2/33.4. Her INR is 2.1. Exam (Progress Note) - Constitutional Vitals: Period Temp Pulse Resp BP Sys/C[place]allos Pulse Ox Last 24 Hr 96.5 F-98.1 F 7-80 3-20 105-155/44-89 97-100 Exam: General appearance: normal weight, no acute distress HEENT exam: normal inspection, atraumatic Neck exam: normal inspection no JVD. No carotid bruit. Trachea is in midline Respiratory/lungs exam: clear to auscultation bilaterally good air movement. Cardiovascular exam: regular rate and rhythm, no murmur or gallop or rub. She has normal mechanical valve sounds for her mitral valve prosthesis. No precordial lift. Chest wall exam: nontender GI/Abdominal exam: normal bowel sounds, soft, nontender, no abdominal bruits or pulsatile masses. Extremeties/musculoskeletal: normal inspection without edema or cyanosis. Neurological exam: alert, oriented X3, no focal deficits Psychiatric exam: normal affect, normal mood. Cognitive function is grossly normal. Skin exam: normal color, warm Result/EKG - Labs CBC & BMP: 10/16/16 03:51 10/16/16 03:51 Lab Results: I have reviewed the past 24 hour labs (H&H is better.) Labs: Laboratory Results - last 24 hr 10/15/16 10/15/16 10/15/16 16:51 16:52 19:33 WBC RBC Hgb Hct MCV MCH MCHC RDW Plt Count MPV Neut % (Auto) Lymph % (Auto) [place] % (Auto) Eos % (Auto) Baso % (Auto) Neut # (Auto) Lymph # (Auto) [place] # (Auto) Eos # (Auto) Baso # (Auto) Immature Gran % Nucleated RBC % Immature Gran # Nucleated RBCs # INR PT Patient/Control Mix Sodium Potassium Chloride Carbon Dioxide Anion Gap BUN Creatinine GFR Calculation BUN/Creatinine Ratio Glucose POC Glucose 101 224 H Calculated Osmolality Calcium Total Bilirubin AST ALT Alkaline Phosphatase Total Creatine Kinase 80 CK-MB (CK-2) 1.6 Troponin I < 0.015 Total Protein Albumin Globulin Albumin/Globulin Ratio 10/15/16 10/16/16 10/16/16 23:27 03:51 03:51 WBC 6.5 D RBC 3.73 L D Hgb 11.2 L D Hct 33.4 L MCV 89.5 MCH 30 MCHC 33.5 RDW 14.2 Plt Count 285 MPV 10.1 Neut % (Auto) 89.3 H Lymph % (Auto) 6.9 L [place] % (Auto) 2.8 Eos % (Auto) 0.0 Baso % (Auto) 0.2 Neut # (Auto) 5.8 Lymph # (Auto) 0.5 L [place] # (Auto) 0.2 Eos # (Auto) 0.0 Baso # (Auto) 0.0 Immature Gran % 0.8 Nucleated RBC % 0.0 Immature Gran # 0.05 Nucleated RBCs # 0.00 INR PT Patient/Control Mix Sodium 141 Potassium 4.0 Chloride 108 H Carbon Dioxide 22 Anion Gap 15.0 BUN 20 H Creatinine 1.00 GFR Calculation 52 BUN/Creatinine Ratio 20.00 Glucose 169 H POC Glucose Calculated Osmolality 287.3 Calcium 9.3 Total Bilirubin 0.40 AST 21 ALT 15 Alkaline Phosphatase 79 Total Creatine Kinase 74 CK-MB (CK-2) 1.4 Troponin I < 0.015 Total Protein 7.0 Albumin 3.7 Globulin 3.3 Albumin/Globulin Ratio 1.1 10/16/16 10/16/16 03:51 07:26 WBC RBC Hgb Hct MCV MCH MCHC RDW Plt Count MPV Neut % (Auto) Lymph % (Auto) [place] % (Auto) Eos % (Auto) Baso % (Auto) Neut # (Auto) Lymph # (Auto) [place] # (Auto) Eos # (Auto) Baso # (Auto) Immature Gran % Nucleated RBC % Immature Gran # Nucleated RBCs # INR 2.1 PT Patient/Control Mix 23.6 D Sodium Potassium Chloride Carbon Dioxide Anion Gap BUN Creatinine GFR Calculation BUN/Creatinine Ratio Glucose POC Glucose 148 H Calculated Osmolality Calcium Total Bilirubin AST ALT Alkaline Phosphatase Total Creatine Kinase CK-MB (CK-2) Troponin I Total Protein Albumin Globulin Albumin/Globulin Ratio - Impressions Impressions: Rhythm is atrial fibrillation with electronic ventricular pacing. Specialty Discharge - Follow Up or Referrals
--- NOTE | 2016-10-16 10:34 | Gastrointestinal Consult Note ---
Assessment and Plan - Time spent with patient Time spent with patient: Greater than 30 minutes (1) Anemia Status: Acute Current Visit: No (2) Occult blood positive stool Status: Acute Current Visit: No (3) Other specified counseling Status: Acute Current Visit: Yes History of Present Illness History of present illness: Ms. Faith is a 81 year old female Home Medications Medication Instructions Recorded Confirmed Type ALPRAZolam [Xanax] 0.25 tablet PO BID 12/13/14 10/15/16 History Aspirin [Ecotrin] 325 mg PO DAILY 12/13/14 10/15/16 History Chlorthalidone 25 mg PO DAILY 12/13/14 10/15/16 History Gemfibrozil [Lopid] 600 mg PO BIDAC 12/13/14 10/15/16 History Levothyroxine Tab [Synthroid Tab] 25 mcg PO DAILY@0700 12/13/14 10/15/16 History Nitroglycerin Bonsall 1 spray TRANSLING PRN PRN 12/13/14 10/15/16 History Potassium Chloride Cap/Tab [K Dur] 10 meq PO DAILY 12/13/14 10/15/16 History Warfarin [Coumadin] 5 mg PO DAILY@1800 #30 tablet 03/14/15 10/15/16 Rx Famotidine Tab [Pepcid Tab] 20 mg PO BID 03/17/16 10/15/16 History Ipratropium Inhaler [Atrovent 2 puff INH Q6HR PRN 03/17/16 10/15/16 History Inhaler] Loratadine 10 mg PO BEDTIME PRN 03/17/16 10/15/16 History Losartan Potassium [Losartan 50 mg PO BID 03/17/16 10/15/16 History Potassium] Montelukast Tab [Singulair Tab] 10 mg PO BEDTIME 03/17/16 10/15/16 History Cholecalciferol (Vitamin D3) 50,000 unit PO DIRECTED 10/15/16 10/15/16 History [Vitamin D3] Ferrous Sulfate 325 mg PO DAILY W/BREAKFAST 10/15/16 10/15/16 History amLODIPine [Norvasc] 10 mg PO DAILY 10/15/16 10/15/16 History Allergies Allergy/AdvReac Type Severity Reaction Status Date / Time atropine Allergy Unknown/Unable Verified 10/14/16 21:30 to obtain Beta-Blockers Allergy Unknown/Unable Verified 10/14/16 21:30 (Beta-Adrenergic Bloc to obtain cephalexin Allergy Unknown/Unable Verified 10/14/16 21:30 to obtain citalopram [From Celexa] Allergy Unknown/Unable Verified 10/14/16 21:30 to obtain clindamycin Allergy Unknown/Unable Verified 10/14/16 21:30 to obtain clonazepam Allergy Unknown/Unable Verified 10/14/16 21:30 to obtain codeine Allergy Unknown/Unable Verified 10/14/16 21:30 to obtain diatrizoate meglumine Allergy Unknown/Unable Verified 10/14/16 21:30 to obtain Diatrizoic Acid Allergy Unknown/Unable Verified 10/14/16 21:30 [From Hypaque] to obtain digoxin Allergy Unknown/Unable Verified 10/14/16 21:30 to obtain diltiazem [From Cardizem] Allergy Unknown/Unable Verified 10/14/16 21:30 to obtain Diphenoxylate Allergy Unknown/Unable Verified 10/14/16 21:30 to obtain duloxetine [From Cymbalta] Allergy Unknown/Unable Verified 10/14/16 21:30 to obtain Erythromycin Base Allergy Unknown/Unable Verified 10/14/16 21:30 to obtain guaifenesin Allergy Unknown/Unable Verified 10/14/16 21:30 to obtain hydrocodone Allergy Unknown/Unable Verified 10/14/16 21:30 to obtain Hydromorphone [From Dilaudid] Allergy Unknown/Unable Verified 10/14/16 21:30 to obtain Hyoscyamine Allergy Unknown/Unable Verified 10/14/16 21:30 to obtain Imipramine Allergy Unknown/Unable Verified 10/14/16 21:30 to obtain isradipine [From DynaCirc] Allergy Unknown/Unable Verified 10/14/16 21:30 to obtain levofloxacin Allergy Unknown/Unable Verified 10/14/16 21:30 to obtain lincomycin Allergy Unknown/Unable Verified 10/14/16 21:30 to obtain morphine Allergy Unknown/Unable Verified 10/14/16 21:30 to obtain Nisoldipine Allergy Unknown/Unable Verified 10/14/16 21:30 to obtain Nortriptyline [From Pamelor] Allergy Unknown/Unable Verified 10/14/16 21:30 to obtain omeprazole Allergy Unknown/Unable Verified 10/14/16 21:30 to obtain Opium (Anthroposophic) Allergy Unknown/Unable Verified 10/14/16 21:30 to obtain Oxycodone Allergy Unknown/Unable Verified 10/14/16 21:30 to obtain pantoprazole [From Protonix] Allergy Unknown/Unable Verified 10/14/16 21:30 to obtain Paregoric Allergy Unknown/Unable Verified 10/14/16 21:30 to obtain pentazocine Allergy Unknown/Unable Verified 10/14/16 21:30 to obtain potassium guaiacolsulfonate Allergy Unknown/Unable Verified 10/14/16 21:30 [From Humibid L.A.] to obtain pregabalin [From Lyrica] Allergy Unknown/Unable Verified 10/14/16 21:30 to obtain prochlorperazine Allergy Unknown/Unable Verified 10/14/16 21:30 to obtain promethazine Allergy Unknown/Unable Verified 10/14/16 21:30 to obtain propoxyphene [From Darvon] Allergy Unknown/Unable Verified 10/14/16 21:30 to obtain quinidine Allergy Unknown/Unable Verified 10/14/16 21:30 to obtain rosuvastatin [From Crestor] Allergy Unknown/Unable Verified 10/14/16 21:30 to obtain Sulfa (Sulfonamide Allergy Unknown/Unable Verified 10/14/16 21:30 Antibiotics) to obtain tramadol Allergy Unknown/Unable Verified 10/14/16 21:30 to obtain aspirin [From Percodan] AdvReac Unknown/Unable Verified 10/14/16 21:30 to obtain Medical,Surgical,& Family Hx - Medical History Cardio: History of: Cardiac Dysrhythmia (afib, status post AV ablation), Cerebrovascular Disease, CHF (diastolic yes grade Sarath ([place] and no wheezing or ON Tuesday but quit que), Hypertension, Pacemaker, Valvular Heart Disease, Cardiovascular Problems (Ablation 2004) Psychological: History of: Anxiety Disorders Neurology: History of: Cerebrovascular Accident, Migraine, TIA No history of: Seizures HEENT: History of: Eye Problem, Glaucoma Endocrine: History of: Dyslipidemia, Thyroid Disorder (hypothyroidism) Rheumatology: History of;: Rheumatological Problems Respiratory: History of: Asthma, Bronchitis, Obstructive Sleep Apnea Renal: No history of: Renal Failure Gastrointestinal: History of: Diverticulitis/ Diverticulosis, GERD, Hemorrhoids , GI Problems (Irritable bowel syndrome) Musculoskeletal: History of: Musculoskeletal Problems Hematology: History of: Anemia (pre-hysterectomy), Clotting Problems Other: History of: Miscellaneous Medical Problems - Surgical History Cardiac Surgeries: Sugical HX of: Cardiac Catheterization, Cardiac Surgery ( Mechanical mitral valve, pacemaker) HEENT Surgeries: Surgical HX of: Eye Surgery (cataract bilat), Tonsilectomy & Adenoidectomy Abdominal Surgeries: Surgical HX of: Cholecystectomy, Colonoscopy, EGD ( esophageal dilation) Reproductive Surgeries: Surgical HX of;: Hysterectomy - Family History Family History: Reports;: Family Heart Disease, Family Hypertension, Family Stroke - Social History Smoking Status: Never smoker Frequency of Alcohol Use: None Type of Drug Use: None Exam - Constitutional Vitals: Period Temp Pulse Resp BP Sys/Ceballos Pulse Ox Last 24 Hr 96.5 F-98.1 F 7-80 3-20 105-155/44-89 97-100 Results - Labs CBC & BMP: 10/16/16 03:51 10/16/16 03:51 Specialty Discharge - Follow Up or Referrals Note Addendum: PLEASE NOTE -- automatic citation of patient information is unavoidable in this electronic note. I have made a reasonable effort to review the information cited , but it is not a part of my evaluation, impression, or recommendation unless specifically discussed in the dictated text that follows. As well, voice recognition software was used in the creation of this clinical note. Reasonable effort was made to identify and correct gross errors. Despite proofreading, errors in cookie breaker may be present, including nonsense verbiage at times. If you encounter such an error, please contact me at for discussion and correction. -- Shalonda Chief complaint: anemia, positive fecal occult blood testing History of present illness: This is a new patient, a 81-year-old female seen by consultation for evaluation of anemia in the setting of positive fecal occult blood testing. The patient is admitted to the telemetry floor under the care of Dr. Lou Zavaleta with a primary diagnosis of chest pain. The patient was admitted on October 14 through the emergency department with primary complaint of chest pain, unilateral weakness, and worsening esophageal reflux. Evaluation at that time revealed anemia with hemoglobin less than 10 g/dL, coagulopathy ( minimal), and mild electrolyte abnormalities. Cardiac consultation has been taken and, so far, there is not evidence of acute coronary syndrome. The patient was previously evaluated by gastroenterology, Dr. Goetz, in March 2015 under similar circumstances. Colonoscopy at that time revealed only diverticulosis. The patient has otherwise been treated supportively and reports she is feeling a good deal better with no further abdominal discomfort. The patient does report a history of chronic epistaxis and is treated in otolaryngology for this. While not flatly refusing, she does not wish to undergo another colonoscopy if it is avoidable. Patient denies fever, chills, night sweats, rigors, headache, dizziness, neck pain, redness of the eyes, dysphagia, odynophagia, difficulty chewing, weight loss, nausea, vomiting, regurgitation, hematemesis, diarrhea, hematochezia, melena, proctalgia, constipation, change in bowel pattern generally, dysuria, skin changes, temperature regulation issues, flushing, easy bleeding/bruising, mental status change, numbness/weakness in the extremities, yellowing of the eyes/skin, cutaneous eruptions, family history of gastrointestinal cancer and colon polyps, and other complaints in general. Review of systems: 12 point review of systems was negative except as documented above. Outpatient medications: Coumadin, potassium chloride, nitroglycerin spray, Singulair, losartan, loratadine, Synthroid, Atrovent inhaler, Kaushal, Pepcid, vitamin D3, chlorthalidone, aspirin, Xanax, Norvasc, iron sulfate Inpatient medications: albuterol, Xanax, Norvasc, aspirin, chlorthalidone, Pepcid, iron sulfate, Lopid, glucagon, Humulin, Atrovent, Synthroid, Claritin, Cozaar, magnesium sulfate, Solu-Medrol, Singulair, potassium chloride, Coumadin , normal saline infusion Past Medical History: atrial fibrillation, cerebrovascular disease, congestive heart failure, hypertension, pacemaker, mitral valve replacement, anxiety disorder, cerebrovascular accident, migraine, transient ischemic attack, glaucoma, dyslipidemia, hypothyroidism, asthma, bronchitis, abstract of sleep apnea, rheumatologic problems, diverticulitis, gastroesophageal reflux disease, hemorrhoids, irritable bowel syndrome, chronic musculoskeletal pain, anemia, others Social history: negative tobacco. Negative alcohol Family history: no gastrointestinal cancers Physical examination: Vital Signs: Current vital signs reviewed and documented above. General Appearance: well-appearing. Not acutely ill. Head: Normocephalic. Neck: Palpation of the neck revealed no abnormalities. Eyes: No scleral icterus. No scleral injection. No conjunctival pallor. Oral Cavity: Odor of breath was normal. No drooling was observed. Lips showed no abnormalities. Floor of the mouth showed no abnormalities. Pharynx: Oropharynx was normal. Lungs: Respiration rhythm and depth was normal. Cardiovascular: Heart rate and rhythm were normal. No murmurs were appreciated. Abdomen: abdomen was not distended. Abdominal palpation revealed no tenderness and no hepatosplenomegaly. Ascites was not discovered. Abdominal auscultation revealed positive bowel sounds. Musculoskeletal System: Musculoskeletal system was grossly normal. Neurological: level of consciousness was normal. Speech was normal. Skin: General appearance was normal. Color and pigmentation were normal. No skin lesions. Laboratory: white blood count 6.5, hemoglobin 11.2, hematocrit 33.4, platelets 285, PT 24, INR 2.1, ALT 15, AST 21, total bilirubin 0.4, alkaline phosphatase 79, albumin 3.7, total protein 7.0 Radiology: reviewed Prior endoscopy: -- colonoscopy, March 11, 2015: left-sided diverticulosis, otherwise normal -- upper endoscopy, March 10, 2015: no pathologic funding per the patient's recollection Impressions: 1. Anemia -- the patient notes no overt blood loss from her G.I. tract. She does have chronic epistaxis and this is a plausible explanation. She has had both upper endoscopy and colonoscopy recently with no finding and it is not clear that repeating these examinations is likely to provide additional information. Neither does the patient wish to pursue these examinations. I recommend continued monitoring with transfusion as indicated. Should the patient develop overt bleeding, we would reconsider endoscopic evaluation. 2. Positive fecal occult blood test -- while this is an important finding, the patient does admit persistent epistaxis which is a possible explanation for positive fecal occult blood testing. As well, the patient has had colonoscopy on more than one occasion in the past with no evidence of colorectal cancer. As she does not wish to pursue colonoscopy at this time, continued monitoring is reasonable. 2. Other specified counseling -- The patient was seen for greater than 30 minutes. The patient was counseled for greater than 50% of this time regarding differential diagnosis, likely diagnosis, diagnostic and therapeutic alternatives, risks/benefits/alternatives of medications and procedures, and plan of care generally. The patient expressed understanding and wishes to proceed. Recommendations: -- continued volume management -- continued monitoring of blood counts with transfusion as indicated -- repeat colonoscopy offered and declined at present -- monitor for alternative etiologies vis--vis blood loss -- thank you for this consultation. We will follow with you.
--- NOTE | 2016-10-16 13:10 | Internal Med Progress Note ---
Assessment and Plan (1) Chest pain Status: Resolved Current Visit: Yes (2) Asthma Status: Chronic Current Visit: Yes (3) GERD (gastroesophageal reflux disease) Status: Chronic Current Visit: Yes (4) History of TIA (transient ischemic attack) Status: Chronic Current Visit: Yes (5) Hypertension Status: Chronic Current Visit: Yes Qualifiers: Hypertension type: essential hypertension Qualified Code(s): I10 - Essential (primary) hypertension (6) Chronic atrial fibrillation Status: Chronic Current Visit: No (7) Chronic anticoagulation Status: Chronic Current Visit: Yes (8) History of GI bleed Problem details: She was scheduled for colonoscopy on Tuesday. She will require IV heparin. Plan to monitor in the hospital. IV heparin when INR is less than 2. She has had a TIA in the past when not adequately anticoagulated. I feel there is a component of anxiety involved here. Status: Chronic Current Visit: Yes (9) History of mitral valve replacement with mechanical valve Status: Chronic Current Visit: Yes (10) Pacemaker Status: Chronic Current Visit: No (11) Guaiac positive stools Status: Acute Current Visit: Yes Internal Medicine - PN: Subj Interval history: Ms. Faith is a 81 year old female with history of HTN, dyslipidemia, DM, a fib, pacemaker, CHF, asthma, OA, stroke, TIA, multiple allergies and drug intolerances, acid reflux, who presented to ER with chest pain, acute right sided weakness, and worsening acid reflux. INR was slightly hyper therapeutic level. She has mitral valve replacement mechanical valve. She describes a heaviness in her chest with breathing. Tuesday, she reports feeling better. Will continue current treatment. Exam (Progress Note) - Constitutional Vitals: Period Temp Pulse Resp BP Sys/Ceballos Pulse Ox Last 24 Hr 96.5 F-99 F 7-80 3-20 105-155/44-89 93-100 General appearance: no acute distress - Respiratory Respiratory exam: Present: clear to auscultation bilaterally - Cardiovascular Cardiovascular exam: Present: regular rate and rhythm - GI/Abdominal GI/Abdominal exam: Present: normal bowel sounds, soft - Extremities Exam Extremities exam: Absent: edema - Neurological Exam Neurological exam: Present: alert, oriented X3 - Psychiatric Psychiatric exam: Present: normal affect, normal mood - Skin Skin exam: Present: warm, dry Results - Labs CBC & BMP: 10/18/16 04:17 10/18/16 04:17 Specialty Discharge - Follow Up or Referrals
[2016-10-16] MEDS: MONTELUKAST 10 MG TABLET PO SCH (22:00)
[2016-10-17] MEDS ORDERED: ONDANSETRON 4 MG TABLET PO PRN (00:27)
[2016-10-17] MEDS: ALBUTEROL 2.5 MG/3 ML NEB RESP TX SCH ×3 (00:39→17:15)
[2016-10-17 04:27] LABS: Hemoglobin 10.2 GM/DL (12.0-16.0); Immature Granulocytes % 0.7 %; Immature Granulocytes Absolute 0.06 #; Lymphocytes # 0.4 10*3/uL (1.4-4.0); Lymphocytes % 4.3 % (21.3-54.2); Mean Corpuscular HGB Conc 32.9 GM/DL (32-36); Mean Corpuscular Hemoglobin 30 PG (27-34); Mean Corpuscular Volume 89.9 FL (87-102); Mean Platelet Volume 10.3 FL (9.6-12.0); Monocytes # 0.3 10*3/uL (0.11-0.8); Monocytes % 3.3 % (1.7-12.7); Neutrophils # 7.8 10*3/uL (1.4-7.4); Neutrophils % 91.7 % (38.7-73.9); Platelet Count 267 T/CUMM (130-400); Red Blood Count 3.45 MC/CUMM (3.8-5.5); Red Cell Distribution Width 14.6 % (9.3-17.3); White Blood Count 8.5 T/CUMM (4-12)
[2016-10-17 04:37] LABS: INR 1.5; PT Patient Result 15.8 SECS
[2016-10-17 04:50] LABS: Calcium 8.8 MG/DL (8.5-10.1); Osmolality,Calculated 292.3 MOS/KG (273-304)
[2016-10-17 06:48] LABS: Band Neutrophils 1 % (0-10); Lymphocytes 8 % (20-55); Myelocytes 1 %; Segmented Neutrophils 90 % (50-85)
[2016-10-17 06:49] LABS: Platelet Estimate Normal; Total Cells Counted 100
[2016-10-17] MEDS: methylPREDNISolone SOD SUC 40 MG/1 ML VIAL IV SCH ×3 (07:19→15:40)
[2016-10-17] MEDS: LEVOTHYROXINE 25 MCG TABLET PO SCH (07:20)
--- NOTE | 2016-10-17 08:37 | Gastrointestinal Progress Note ---
Assessment and Plan (1) Anemia Status: Acute Current Visit: No (2) Occult blood positive stool Status: Acute Current Visit: No (3) Other specified counseling Status: Acute Current Visit: Yes Exam (Progress Note) - Constitutional Vitals: Period Temp Pulse Resp BP Sys/Ceballos Pulse Ox Last 24 Hr 96.7 F-99.4 F 70-80 15-20 108-164/51-72 93-99 Results - Labs CBC & BMP: 10/17/16 04:06 10/17/16 04:06 Specialty Discharge - Follow Up or Referrals Note Addendum: PLEASE NOTE -- automatic citation of patient information is unavoidable in this electronic note. I have made a reasonable effort to review the information cited , but it is not a part of my evaluation, impression, or recommendation unless specifically discussed in the dictated text that follows. As well, voice recognition software was used in the creation of this clinical note. Reasonable effort was made to identify and correct gross errors. Despite proofreading, errors in cleat feeder may be present, including nonsense verbiage at times. If you encounter such an error, please contact me at for discussion and correction. -- Shalonda Chief complaint: anemia, positive fecal occult blood testing Subjective: This is a follow-up patient, a 81-year-old female seen for follow- up of anemia in the setting of positive fecal occult blood testing. The patient reports one bowel movement overnight without obvious blood. Neither has she noted other overt bleeding from any other source. She is having some abdominal cramping but that is subsiding, she reports. Review of systems: 12 point review of systems was negative except as documented above. Inpatient medications: albuterol, Xanax, Norvasc, aspirin, chlorthalidone, Pepcid, iron sulfate, Lopid, glucagon, Humulin, Atrovent, Synthroid, Claritin, Cozaar, magnesium sulfate, Solu-Medrol, Singulair, potassium chloride, Coumadin , normal saline infusion Physical examination: Vital Signs: Current vital signs reviewed and documented above. General Appearance: well-appearing. Not acutely ill. Head: Normocephalic. Neck: Palpation of the neck revealed no abnormalities. Eyes: No scleral icterus. No scleral injection. No conjunctival pallor. Oral Cavity: Odor of breath was normal. No drooling was observed. Lips showed no abnormalities. Floor of the mouth showed no abnormalities. Pharynx: Oropharynx was normal. Lungs: Respiration rhythm and depth was normal. Cardiovascular: Heart rate and rhythm were normal. No murmurs were appreciated. Abdomen: abdomen was not distended. Abdominal palpation revealed no tenderness and no hepatosplenomegaly. Ascites was not discovered. Abdominal auscultation revealed positive bowel sounds. Musculoskeletal System: Musculoskeletal system was grossly normal. Neurological: level of consciousness was normal. Speech was normal. Skin: General appearance was normal. Color and pigmentation were normal. No skin lesions. Laboratory: white blood count 8.5, hemoglobin 10.2, hematocrit 31.0, platelets 267, INR 1.5 Radiology: reviewed Prior endoscopy: -- colonoscopy, March 11, 2015: left-sided diverticulosis, otherwise normal -- upper endoscopy, March 10, 2015: no pathologic funding per the patient's recollection Impressions: 1. Anemia -- the patient notes no overt blood loss from her G.I. tract. She has had both upper endoscopy and colonoscopy recently with no finding and it is not clear that repeating these examinations is likely to provide additional information. Neither does the patient wish to pursue these examinations. I recommend continued monitoring with transfusion as indicated. Should the patient develop overt bleeding, we would reconsider endoscopic evaluation. 2. Abdominal pain -- this is likely multifactorial. The patient has extensive radiology in the past with no culprit lesion or lesions identified. The overall pattern is consistent with irritable bowel syndrome. If pain continues, some consideration could be given to cross-sectional imaging to ensure no evidence of infection/inflammation or other acute etiology. 3. Positive fecal occult blood test -- while this is an important finding, the patient does admit persistent epistaxis which is a possible explanation for positive fecal occult blood testing. As well, the patient has had colonoscopy on more than one occasion in the past with no evidence of colorectal cancer. As she does not wish to pursue colonoscopy at this time, continued monitoring is reasonable. 4. Other specified counseling -- The patient was seen for 30 minutes. The patient was counseled for greater than 50% of this time regarding differential diagnosis, likely diagnosis, diagnostic and therapeutic alternatives, risks/ benefits/alternatives of medications and procedures, and plan of care generally. The patient expressed understanding and wishes to proceed. Recommendations: -- continued volume management -- continued monitoring of blood counts with transfusion as indicated -- consider cross-sectional imaging against abdominal pain -- monitor for alternative etiologies vis--vis blood loss -- thank you for this consultation. Dr. Goetz will assume G.I. care for this patient tomorrow.
[2016-10-17] MEDS: INSULIN REGULAR 100 UNIT/ML SUBCUT SCH ×4 (09:20→21:32)
[2016-10-17] MEDS: amLODIPine 10 MG TABLET PO SCH (09:23)
[2016-10-17] MEDS: LOSARTAN 50 MG TABLET PO SCH ×2 (09:23→21:31)
[2016-10-17] MEDS: POTASSIUM CHLORIDE 10 MEQ TABLET PO SCH (09:23)
[2016-10-17] MEDS: ALPRAZolam 0.25 MG TABLET PO SCH ×2 (09:23→21:31)
[2016-10-17] MEDS: FERROUS SULFATE 325 MG TABLET PO SCH (09:23)
[2016-10-17] MEDS: FAMOTIDINE 20 MG TABLET PO SCH ×2 (09:23→21:32)
[2016-10-17] MEDS: GEMFIBROZIL 600 MG TABLET PO SCH (09:23)
[2016-10-17] MEDS: ASPIRIN EC 325 MG TABLET PO SCH (09:23)
[2016-10-17] MEDS: CHLORTHALIDONE 25 MG TABLET PO SCH (09:23)
--- NOTE | 2016-10-17 14:55 | Cardiology Progress Note ---
Assessment and Plan (1) Occult blood positive stool Status: Acute Assessment and plan: This may certainly be from her chronic epistaxis.. She has had GI evaluation recent history and had negative workup. She does have some abdominal discomfort and apparently further evaluation is planned. Current Visit: No (2) History of mitral valve replacement with mechanical valve Status: Chronic Assessment and plan: She is on warfarin. We need to restart her warfarin. Current Visit: Yes (3) Chronic anticoagulation Status: Chronic Assessment and plan: We need to restart her warfarin. Apparently she has had GI evaluations and recent history. Current Visit: Yes (4) Chronic atrial fibrillation Status: Chronic Assessment and plan: This is chronic and she has had AV ablation in her electronic ventricular pacemaker is functioning appropriately. Current Visit: No (5) Pacemaker Status: Chronic Assessment and plan: This appears to be functioning appropriately. Current Visit: No Cardiology - PN: Subj Interval history: Patient doing well without any overt bleeding issues. She really has not had any significant chest pain. His muscle skeletal anyway. In regard to her guaiac positive stools she has a lot of epistaxis and apparently has had Dr. Lou rubin cauterization as previously apparently was seen by him last week and one was carried out. According to GIs note the patient has had upper endoscopy and lower endoscopy over the last several months. Those reports are not available at this time. He has not felt that they need to be repeated. Certainly the patient's epistaxis may be causing her guaiac positive stool. She probably has some element of chronic anemia. Probably the issue is that she has a mechanical mitral valve that needs anticoagulation and we need to restart this. I will start her warfarin today. We will need to monitor this closely. Her lab is been reviewed. Her telemetry is stable electronic ventricular pacing. Exam (Progress Note) - Constitutional Vitals: Period Temp Pulse Resp BP Sys/Ceballos Pulse Ox Last 24 Hr 96.7 F-99.4 F 70-80 15-20 108-164/51-72 96-100 Exam: General appearance: normal weight, no acute distress HEENT exam: normal inspection, atraumatic Neck exam: normal inspection no JVD. No carotid bruit. Trachea is in midline Respiratory/lungs exam: clear to auscultation bilaterally good air movement. Cardiovascular exam: regular rate and rhythm, no murmur or gallop or rub. She has normal mechanical valve sounds for her mitral valve prosthesis. No precordial lift. Chest wall exam: nontender GI/Abdominal exam: normal bowel sounds, soft, nontender, no abdominal bruits or pulsatile masses. Extremeties/musculoskeletal: normal inspection without edema or cyanosis. Neurological exam: alert, oriented X3, no focal deficits Psychiatric exam: normal affect, normal mood. Cognitive function is grossly normal. Skin exam: normal color, warm Result/EKG - Labs CBC & BMP: 10/17/16 04:06 10/17/16 04:06 Lab Results: I have reviewed the past 24 hour labs Labs: Laboratory Results - last 24 hr 10/16/16 10/16/16 10/17/16 16:28 19:54 04:06 WBC 8.5 D RBC 3.45 L Hgb 10.2 L Hct 31.0 L MCV 89.9 MCH 30 MCHC 32.9 RDW 14.6 Plt Count 267 MPV 10.3 Neut % (Auto) 91.7 H Lymph % (Auto) 4.3 L [place] % (Auto) 3.3 Eos % (Auto) 0.0 Baso % (Auto) 0.0 Neut # (Auto) 7.8 H Lymph # (Auto) 0.4 L [place] # (Auto) 0.3 Eos # (Auto) 0.0 Baso # (Auto) 0.0 Total Counted 100 Immature Gran % 0.7 Nucleated RBC % 0.0 Immature Gran # 0.06 Segmented Neutrophils 90 H Band Neutrophils 1 Lymphocytes 8 L Myelocytes 1 Nucleated RBCs # 0.00 Platelet Estimate Normal INR PT Patient/Control Mix Sodium Potassium Chloride Carbon Dioxide Anion Gap BUN Creatinine GFR Calculation BUN/Creatinine Ratio Glucose POC Glucose 179 H 164 H Calculated Osmolality Calcium 10/17/16 10/17/16 10/17/16 04:06 04:06 07:50 WBC RBC Hgb Hct MCV MCH MCHC RDW Plt Count MPV Neut % (Auto) Lymph % (Auto) [place] % (Auto) Eos % (Auto) Baso % (Auto) Neut # (Auto) Lymph # (Auto) [place] # (Auto) Eos # (Auto) Baso # (Auto) Total Counted Immature Gran % Nucleated RBC % Immature Gran # Segmented Neutrophils Band Neutrophils Lymphocytes Myelocytes Nucleated RBCs # Platelet Estimate INR 1.5 PT Patient/Control Mix 15.8 D Sodium 141 Potassium 4.0 Chloride 109 H Carbon Dioxide 21 Anion Gap 15.0 BUN 31 H Creatinine 1.20 H GFR Calculation 41 BUN/Creatinine Ratio 25.00 H Glucose 181 H POC Glucose 136 H Calculated Osmolality 292.3 Calcium 8.8 - Impressions Impressions: Telemetry with atrial fibrillation electronic ventricular pacing. Specialty Discharge - Follow Up or Referrals
[2016-10-17] MEDS ORDERED: WARFARIN 10 MG TABLET PO ONE (14:59)
[2016-10-17] MEDS ORDERED: WARFARIN 5 MG TABLET ONE (15:26)
--- NOTE | 2016-10-17 15:35 | Internal Med Progress Note ---
Assessment and Plan (1) Asthma Status: Chronic Current Visit: Yes (2) GERD (gastroesophageal reflux disease) Status: Chronic Current Visit: Yes (3) History of TIA (transient ischemic attack) Status: Chronic Current Visit: Yes (4) Hypertension Status: Chronic Current Visit: Yes Qualifiers: Hypertension type: essential hypertension Qualified Code(s): I10 - Essential (primary) hypertension (5) Chronic atrial fibrillation Status: Chronic Current Visit: No (6) Chronic anticoagulation Status: Chronic Current Visit: Yes (7) History of GI bleed Problem details: She was scheduled for colonoscopy on Tuesday. She will require IV heparin. Plan to monitor in the hospital. IV heparin when INR is less than 2. She has had a TIA in the past when not adequately anticoagulated. I feel there is a component of anxiety involved here. Status: Chronic Current Visit: Yes (8) History of mitral valve replacement with mechanical valve Status: Chronic Current Visit: Yes (9) Pacemaker Status: Chronic Current Visit: No (10) Guaiac positive stools Status: Acute Current Visit: Yes Internal Medicine - PN: Subj Interval history: Ms. Faith is a 81 year old female with history of HTN, dyslipidemia, DM, a fib, pacemaker, CHF, asthma, OA, stroke, TIA, multiple allergies and drug intolerances, acid reflux, who presented to ER with chest pain, acute right sided weakness, and worsening acid reflux. INR was slightly hyper therapeutic level. She has mitral valve replacement mechanical valve. She describes a heaviness in her chest with breathing. Tuesday, she reports feeling better. Will continue current treatment. Tuesday, she reports history of diverticulitis recurrent RLQ, and feels abdominal pain. Will consult Dr. Jennifer III to further evaluate. She has never had a surgical repair, but has had multiple episodes of recurrence, about three episodes per year for several years. Will start antibiotic. She has guaiac positive stool. Had started Cipro, but Nurse called that she developed acutely red streak to her arm and shortness of breath. Cipro has now been added to allergy list ( multiple drug allergies), and Augmentin started. She reported to the nurse that she can tolerate Augmentin. She does not want to try Flagyl. Exam (Progress Note) - Constitutional Vitals: Period Temp Pulse Resp BP Sys/Ceballos Pulse Ox Last 24 Hr 96.7 F-99.4 F 70-80 16-20 108-164/51-72 96-100 General appearance: no acute distress - Respiratory Respiratory exam: Present: clear to auscultation bilaterally - Cardiovascular Cardiovascular exam: Present: regular rate and rhythm - GI/Abdominal GI/Abdominal exam: Present: normal bowel sounds, tenderness (to palapation at specific site RLQ), soft - Extremities Exam Extremities exam: Absent: edema - Neurological Exam Neurological exam: Present: alert, oriented X3 - Psychiatric Psychiatric exam: Present: normal mood - Skin Skin exam: Present: warm, dry Results - Labs CBC & BMP: 10/18/16 04:17 10/18/16 04:17 Specialty Discharge - Follow Up or Referrals
[2016-10-17] MEDS: CIPROFLOXACIN INJ 200 MG in PREMIX 1 EACH IV SCH (17:55)
[2016-10-17] MEDS ORDERED: methylPREDNISolone SOD SUC 40 MG/1 ML VIAL IV ONE (18:22)
[2016-10-17] MEDS ORDERED: ACETAMINOPHEN 500 MG TABLET PO PRN (18:35)
[2016-10-17] MEDS: OXYMETAZOLINE 0.05% NASAL SPRAY 15 ML BOTTLE BOTH NARES SCH (21:31)
[2016-10-17] MEDS: MONTELUKAST 10 MG TABLET PO SCH (21:31)
[2016-10-18] MEDS: ALBUTEROL 2.5 MG/3 ML NEB RESP TX SCH ×3 (00:32→14:32)
[2016-10-18 04:50] LABS: Hematocrit 31.8 VOL% (35.7-47.0); Hemoglobin 10.5 GM/DL (12.0-16.0); Immature Granulocytes % 0.8 %; Immature Granulocytes Absolute 0.06 #; Lymphocytes # 0.4 10*3/uL (1.4-4.0); Lymphocytes % 5.7 % (21.3-54.2); Mean Corpuscular Hemoglobin 30 PG (27-34); Mean Corpuscular Volume 89.8 FL (87-102); Mean Platelet Volume 10.5 FL (9.6-12.0); Monocytes # 0.2 10*3/uL (0.11-0.8); Monocytes % 2.1 % (1.7-12.7); Neutrophils # 6.6 10*3/uL (1.4-7.4); Neutrophils % 91.4 % (38.7-73.9); Platelet Count 291 T/CUMM (130-400); Red Blood Count 3.54 MC/CUMM (3.8-5.5); Red Cell Distribution Width 14.3 % (9.3-17.3); White Blood Count 7.2 T/CUMM (4-12)
[2016-10-18 04:55] LABS: INR 1.4; PT Patient Result 15.1 SECS
[2016-10-18 05:26] LABS: Albumin 3.5 G/DL (3.4-5.0); Bilirubin,Total 0.4 MG/DL (0.2-1.0); Calcium 8.9 MG/DL (8.5-10.1); Osmolality,Calculated 290.4 MOS/KG (273-304); Potassium 3.8 MMOL/L (3.5-5.1); Total Protein 6.7 G/DL (6.4-8.3)
[2016-10-18 05:38] LABS: Band Neutrophils 1 % (0-10); Lymphocytes 4 % (20-55); Platelet Estimate Adequate; Segmented Neutrophils 94 % (50-85); Total Cells Counted 100
[2016-10-18 05:39] LABS: Hypochromasia 1+; Ovalocytes Slight
[2016-10-18] MEDS: CIPROFLOXACIN INJ 200 MG in PREMIX 1 EACH IV SCH (07:27)
--- NOTE | 2016-10-18 08:56 | General Surgery Consult Note ---
Assessment and Plan - Time spent with patient Time spent with patient: Greater than 30 minutes (1) Abdominal pain Status: Acute Assessment and plan: The etiology of her pain is unclear. She does not have the classical presentation for acute diverticulitis. The previous diagnosis of diverticulitis sounds to be presumptive as I cannot find any records of previous active diverticulitis by imaging. She has had diverticulosis by colonoscopy in the past. Because of the recurrence of her symptoms I think that it would be worthwhile to get an abdominal CT scan. Unfortunately she has a severe contrast allergy so we will need to do this without contrast which is going to be less diagnostic. I do not see signs of an acute abdomen which is fortunate because she is a very poor surgical candidate. Current Visit: Yes Qualifiers: Abdominal location: right lower quadrant Qualified Code(s): R10.31 - Right lower quadrant pain History of Present Illness Chief complaint: Abdominal pain History of present illness: Ms. Faith is a 81 year old female Who was admitted with chest pain but since that time is related a history of about a 1 week lower abdominal pain history similar to other episodes in the past which have been treated as diverticulitis with p.o. antibiotics by Dr. Garzon. She states that the pain was more severe last week and is actually not as noticeable at this time. She thinks that she may have had some chills but is unsure about fever. She has had some heme positive stools but is anticoagulated and does take iron. This is been a problem in the past as well. She states that her pain is mild to moderate and she does not know of any aggravating or alleviating factors. It is more in the right lower quadrant and left lower quadrant. She has had colonoscopy in the past and has been told that she had diverticulosis. She does not know of any recent abdominal CT scans. Home Medications Medication Instructions Recorded Confirmed Type ALPRAZolam [Xanax] 0.25 tablet PO BID 12/13/14 10/15/16 History Aspirin [Ecotrin] 325 mg PO DAILY 12/13/14 10/15/16 History Chlorthalidone 25 mg PO DAILY 12/13/14 10/15/16 History Gemfibrozil [Lopid] 600 mg PO BIDAC 12/13/14 10/15/16 History Levothyroxine Tab [Synthroid Tab] 25 mcg PO DAILY@0700 12/13/14 10/15/16 History Nitroglycerin [place] 1 spray TRANSLING PRN PRN 12/13/14 10/15/16 History Potassium Chloride Cap/Tab [K Dur] 10 meq PO DAILY 12/13/14 10/15/16 History Warfarin [Coumadin] 5 mg PO DAILY@1800 #30 tablet 03/14/15 10/15/16 Rx Famotidine Tab [Pepcid Tab] 20 mg PO BID 03/17/16 10/15/16 History Ipratropium Inhaler [Atrovent 2 puff INH Q6HR PRN 03/17/16 10/15/16 History Inhaler] Loratadine 10 mg PO BEDTIME PRN 03/17/16 10/15/16 History Losartan Potassium [Losartan 50 mg PO BID 03/17/16 10/15/16 History Potassium] Montelukast Tab [Singulair Tab] 10 mg PO BEDTIME 03/17/16 10/15/16 History Cholecalciferol (Vitamin D3) 50,000 unit PO DIRECTED 10/15/16 10/15/16 History [Vitamin D3] Ferrous Sulfate 325 mg PO DAILY W/BREAKFAST 10/15/16 10/15/16 History amLODIPine [Norvasc] 10 mg PO DAILY 10/15/16 10/15/16 History Allergies Allergy/AdvReac Type Severity Reaction Status Date / Time atropine Allergy Unknown/Unable Verified 10/14/16 21:30 to obtain Beta-Blockers Allergy Unknown/Unable Verified 10/14/16 21:30 (Beta-Adrenergic Bloc to obtain cephalexin Allergy Unknown/Unable Verified 10/14/16 21:30 to obtain citalopram [From Celexa] Allergy Unknown/Unable Verified 10/14/16 21:30 to obtain clindamycin Allergy Unknown/Unable Verified 10/14/16 21:30 to obtain clonazepam Allergy Unknown/Unable Verified 10/14/16 21:30 to obtain codeine Allergy Unknown/Unable Verified 10/14/16 21:30 to obtain diatrizoate meglumine Allergy Unknown/Unable Verified 10/14/16 21:30 to obtain Diatrizoic Acid Allergy Unknown/Unable Verified 10/14/16 21:30 [From Hypaque] to obtain digoxin Allergy Unknown/Unable Verified 10/14/16 21:30 to obtain diltiazem [From Cardizem] Allergy Unknown/Unable Verified 10/14/16 21:30 to obtain Diphenoxylate Allergy Unknown/Unable Verified 10/14/16 21:30 to obtain duloxetine [From Cymbalta] Allergy Unknown/Unable Verified 10/14/16 21:30 to obtain Erythromycin Base Allergy Unknown/Unable Verified 10/14/16 21:30 to obtain guaifenesin Allergy Unknown/Unable Verified 10/14/16 21:30 to obtain hydrocodone Allergy Unknown/Unable Verified 10/14/16 21:30 to obtain Hydromorphone [From Dilaudid] Allergy Unknown/Unable Verified 10/14/16 21:30 to obtain Hyoscyamine Allergy Unknown/Unable Verified 10/14/16 21:30 to obtain Imipramine Allergy Unknown/Unable Verified 10/14/16 21:30 to obtain isradipine [From DynaCirc] Allergy Unknown/Unable Verified 10/14/16 21:30 to obtain levofloxacin Allergy Unknown/Unable Verified 10/14/16 21:30 to obtain lincomycin Allergy Unknown/Unable Verified 10/14/16 21:30 to obtain morphine Allergy Unknown/Unable Verified 10/14/16 21:30 to obtain Nisoldipine Allergy Unknown/Unable Verified 10/14/16 21:30 to obtain Nortriptyline [From Pamelor] Allergy Unknown/Unable Verified 10/14/16 21:30 to obtain omeprazole Allergy Unknown/Unable Verified 10/14/16 21:30 to obtain Opium (Anthroposophic) Allergy Unknown/Unable Verified 10/14/16 21:30 to obtain Oxycodone Allergy Unknown/Unable Verified 10/14/16 21:30 to obtain pantoprazole [From Protonix] Allergy Unknown/Unable Verified 10/14/16 21:30 to obtain Paregoric Allergy Unknown/Unable Verified 10/14/16 21:30 to obtain pentazocine Allergy Unknown/Unable Verified 10/14/16 21:30 to obtain potassium guaiacolsulfonate Allergy Unknown/Unable Verified 10/14/16 21:30 [From Humibid L.A.] to obtain pregabalin [From Lyrica] Allergy Unknown/Unable Verified 10/14/16 21:30 to obtain prochlorperazine Allergy Unknown/Unable Verified 10/14/16 21:30 to obtain promethazine Allergy Unknown/Unable Verified 10/14/16 21:30 to obtain propoxyphene [From Darvon] Allergy Unknown/Unable Verified 10/14/16 21:30 to obtain quinidine Allergy Unknown/Unable Verified 10/14/16 21:30 to obtain rosuvastatin [From Crestor] Allergy Unknown/Unable Verified 10/14/16 21:30 to obtain Sulfa (Sulfonamide Allergy Unknown/Unable Verified 10/14/16 21:30 Antibiotics) to obtain tramadol Allergy Unknown/Unable Verified 10/14/16 21:30 to obtain ciprofloxacin AdvReac Intermediate Redness of Verified 10/17/16 18:34 Skin aspirin [From Percodan] AdvReac Unknown/Unable Verified 10/14/16 21:30 to obtain Medical,Surgical,& Family Hx - Medical History Cardio: History of: Cardiac Dysrhythmia (afib, status post AV ablation), Cerebrovascular Disease, CHF (diastolic yes grade Sarath ([place] and no wheezing or ON Tuesday but quit que), Hypertension, Pacemaker, Valvular Heart Disease, Cardiovascular Problems (Ablation 2004) Psychological: History of: Anxiety Disorders Neurology: History of: Cerebrovascular Accident, Migraine, TIA No history of: Seizures HEENT: History of: Eye Problem, Glaucoma Endocrine: History of: Dyslipidemia, Thyroid Disorder (hypothyroidism) Rheumatology: History of;: Rheumatological Problems Respiratory: History of: Asthma, Bronchitis, Obstructive Sleep Apnea Renal: No history of: Renal Failure Gastrointestinal: History of: Diverticulitis/ Diverticulosis, GERD, Hemorrhoids , GI Problems (Irritable bowel syndrome) Musculoskeletal: History of: Musculoskeletal Problems Hematology: History of: Anemia (pre-hysterectomy), Clotting Problems Other: History of: Miscellaneous Medical Problems - Surgical History Cardiac Surgeries: Sugical HX of: Cardiac Catheterization, Cardiac Surgery ( Mechanical mitral valve, pacemaker) HEENT Surgeries: Surgical HX of: Eye Surgery (cataract bilat), Tonsilectomy & Adenoidectomy Abdominal Surgeries: Surgical HX of: Cholecystectomy, Colonoscopy, EGD ( esophageal dilation) Reproductive Surgeries: Surgical HX of;: Hysterectomy - Family History Family History: Reports;: Family Heart Disease, Family Hypertension, Family Stroke - Social History Smoking Status: Never smoker Frequency of Alcohol Use: None Type of Drug Use: None - Constitutional Constitutional: Present: chills. Absent: anorexia, fever(s) - EENT Nose, mouth and throat: Absent: dysphagia - Cardiovascular Cardiovascular: Present: chest pain at rest, chest pain with activity, dyspnea, dyspnea on exertion. Absent: syncope - Respiratory Respiratory: Present: cough, dyspnea, hemoptysis, dyspnea on exertion - Gastrointestinal Gastrointestinal: Present: abdominal pain, bloating, nausea. Absent: cramping, diarrhea, hematemesis, hematochezia, melena, vomiting, jaundice - Genitourinary Genitourinary: Absent: hematuria - Musculoskeletal Musculoskeletal: Absent: back pain - Neurological Neurological: Absent: focal weakness, syncope - Endocrine Endocrine: Absent: polyuria Hematologic/Lymphatic: Present: easy bleeding, easy bruising Exam - Constitutional Vitals: Period Temp Pulse Resp BP Sys/Ceballos Pulse Ox Last 24 Hr 97.4 F-98.3 F 70-76 18-25 120-155/39-89 93-100 General appearance: no acute distress - Head Head exam: Present: normocephalic - Eye Eye exam: Absent: scleral icterus - ENT Mouth exam: Present: normal voice - Neck Neck exam: Present: trachea midline - Respiratory Respiratory exam: Present: clear to auscultation bilaterally. Absent: accessory muscle use - Cardiovascular Cardiovascular exam: Present: RRR - GI/Abdominal GI/Abdominal exam: Present: normal bowel sounds, soft. Absent: distended, guarding, mass, Augustine's sign, tenderness, rebound - Extremities Exam Extremities exam: Absent: edema - Neurological Exam Neurological exam: Present: alert, oriented X3. Absent: motor sensory deficit Speech: Present: normal - Skin Skin exam: Present: normal color Results - Labs CBC & BMP: 10/18/16 04:17 10/18/16 04:17 Lab Results: I have reviewed the past 24 hour labs Specialty Discharge - Follow Up or Referrals
[2016-10-18] MEDS: LOSARTAN 50 MG TABLET PO SCH ×2 (09:02→20:24)
[2016-10-18] MEDS: ALPRAZolam 0.25 MG TABLET PO SCH ×2 (09:02→20:25)
[2016-10-18] MEDS: FERROUS SULFATE 325 MG TABLET PO SCH (09:02)
[2016-10-18] MEDS: CHLORTHALIDONE 25 MG TABLET PO SCH (09:02)
[2016-10-18] MEDS: LEVOTHYROXINE 25 MCG TABLET PO SCH (09:02)
[2016-10-18] MEDS: AMOXICILLIN/CLAV 500 MG TABLET PO SCH ×2 (09:02→20:25)
[2016-10-18] MEDS: amLODIPine 10 MG TABLET PO SCH (09:02)
[2016-10-18] MEDS: FAMOTIDINE 20 MG TABLET PO SCH ×2 (09:02→20:25)
[2016-10-18] MEDS: POTASSIUM CHLORIDE 10 MEQ TABLET PO SCH (09:03)
[2016-10-18] MEDS: INSULIN REGULAR 100 UNIT/ML SUBCUT SCH ×4 (09:03→20:25)
[2016-10-18] MEDS: OXYMETAZOLINE 0.05% NASAL SPRAY 15 ML BOTTLE BOTH NARES SCH ×2 (09:03→20:25)
[2016-10-18] MEDS: ASPIRIN EC 325 MG TABLET PO SCH (09:03)
[2016-10-18] MEDS: methylPREDNISolone SOD SUC 40 MG/1 ML VIAL IV SCH ×3 (09:08→22:26)
--- NOTE | 2016-10-18 10:54 | Gastrointestinal Progress Note ---
Assessment and Plan (1) Anemia Status: Acute Assessment and plan: 10/18-Hgb stable at 10.[address] with no overt bleeding. CT of abdomen pending d/t abd cramping complaints. Plan and addendum to follow by DR goetz. Current Visit: No Gastroenterology - PN: Subj Interval history: CC: Anemia, heme positive stools Pt is seen awake and alert sitting up in chair. States she is feeling some better today. She states that she is still having some mild abdominal cramping but denies any rectal bleeding at present time. She had a CT of abdomen and pelvis this morning however this report is still pending. Abdomen is soft, nontender. Hemoglobin is stable at 10.5. Her last colonoscopy was in [address] Goetz with findings of diverticulosis and she does not wish to pursue this again. She has been followed by ENT for her nose bleeds in the past. ROS: Denies SOB or chest pain Exam (Progress Note) - Constitutional Vitals: Period Temp Pulse Resp BP Sys/Ceballos Pulse Ox Last 24 Hr 97.4 F-98.3 F 70-76 18-25 120-155/39-89 93-100 General appearance: normal weight, no acute distress - Head Head exam: Present: normal inspection, normocephalic - Eye Eye exam: Present: other (lids and conjunctiva unremarkable). Absent: scleral icterus - ENT ENT exam: Present: normal exam, normal oropharynx - Neck Neck exam: Present: normal inspection - Respiratory Respiratory exam: Present: clear to auscultation bilaterally. Absent: rales, rhonchi, wheezes - Cardiovascular Cardiovascular exam: Present: regular rate and rhythm. Absent: diastolic murmur , JVD, systolic murmur - GI/Abdominal GI/Abdominal exam: Present: normal bowel sounds, soft. Absent: ascites, distended, mass, organomegaly, tenderness - Extremities Exam Extremities exam: Present: normal inspection, full ROM - Back Exam Back exam: Present: normal inspection - Neurological Exam Neurological exam: Present: alert, oriented X3 - Psychiatric Psychiatric exam: Present: normal affect, normal mood - Skin Skin exam: Present: normal color, warm, dry Results - Labs CBC & BMP: 10/18/16 04:17 10/18/16 04:17 Lab Results: I have reviewed the past 24 hour labs Specialty Discharge - Follow Up or Referrals
--- NOTE | 2016-10-18 13:06 | Cardiology Progress Note ---
Assessment and Plan (1) Chest pain Status: Resolved Assessment and plan: See plan of care listed below. Current Visit: Yes (2) Anemia Status: Acute Assessment and plan: See plan of care listed below. Current Visit: No (3) Anxiety Status: Chronic Assessment and plan: See plan of care listed below. Current Visit: No (4) Chronic anticoagulation Status: Chronic Assessment and plan: See plan of care listed below. Current Visit: Yes (5) History of GI bleed Problem details: She was scheduled for colonoscopy on Tuesday. She will require IV heparin. Plan to monitor in the hospital. IV heparin when INR is less than 2. She has had a TIA in the past when not adequately anticoagulated. I feel there is a component of anxiety involved here. Status: Chronic Assessment and plan: See plan of care listed below. Current Visit: Yes (6) History of mitral valve replacement with mechanical valve Status: Chronic Assessment and plan: See plan of care listed below. Current Visit: Yes (7) Pacemaker Status: Chronic Assessment and plan: See plan of care listed below. Current Visit: No (8) Sleep apnea Status: Chronic Assessment and plan: See plan of care listed below. Current Visit: No (9) Asthma Status: Chronic Assessment and plan: See plan of care listed below. Current Visit: Yes (10) Hypertension Status: Chronic Assessment and plan: See plan of care listed below. Current Visit: Yes Qualifiers: Hypertension type: essential hypertension Qualified Code(s): I10 - Essential (primary) hypertension (11) Hyperlipidemia Status: Chronic Current Visit: Yes Qualifiers: Hyperlipidemia type: pure hypercholesterolemia Qualified Code(s): E78.00 - Pure hypercholesterolemia, unspecified; E78.0 - Pure hypercholesterolemia (12) Status post ablation of atrial fibrillation Status: Chronic Current Visit: Yes (13) Hypothyroidism Status: Chronic Assessment and plan: See plan of care listed below. Current Visit: No Qualifiers: Hypothyroidism type: acquired Qualified Code(s): E03.9 - Hypothyroidism, unspecified (14) History of rheumatic heart disease Status: Chronic Current Visit: Yes (15) GERD (gastroesophageal reflux disease) Status: Chronic Current Visit: Yes (16) History of TIA (transient ischemic attack) Status: Chronic Current Visit: Yes (17) Abdominal pain Status: Acute Assessment and plan: See plan of care listed below. Current Visit: Yes Qualifiers: Abdominal location: right lower quadrant Qualified Code(s): R10.31 - Right lower quadrant pain (18) Guaiac positive stools Status: Acute Assessment and plan: See plan of care listed below. Current Visit: Yes (19) Atypical chest pain Problem details: She has been evaluated on multiple occasions. No significant coronary artery disease. Status: Resolved Assessment and plan: See plan of care listed below. Current Visit: No Cardiology - PN: Subj Interval history: Employment Recruiter: Dr. Rios PCP: Dr. Lou Zavaleta SUMMARY: Ms. Faith is a 81 year old female patient without known history of coronary artery disease, routinely followed by Dr. Rios. PMH include: hypertension, hyperlipidemia, TIA, atrial fibrillation (status post AV ablation at [facility]), pacemaker, irritable bowel syndrome, asthma, diverticulosis, obstructive sleep apnea (wears CPAP), hypothyroidism, anxiety, rheumatic heart disease and mechanical mitral valve with chronic anticoagulation with Coumadin. Her last heart catheterization was done in 2003. She reports that she has had 4 heart catheterizations which did not reveal any significant obstructive coronary artery disease. She last saw Dr. Rios in the cardiology clinic May 2016. At that time she had complaints of dyspnea on exertion. He offered her a cardiac stress test at that time. However she declined having this done at that time. Patient presented to emergency department yesterday evening with complaints of chest pain and weakness. She was admitted under Dr. Lou Zavaleta's service and housed on the telemetry unit. Cardiology was consulted to further evaluate patient's chest pain. On exam, patient's chest pain was reproducible to light palpation, consistent with chest wall pain. Patient was noted to be anemic this hospitalization. Stool was positive for occult blood 1. Subsequently, Coumadin was placed on hold and she was transfused with packed red blood cells. GI was consulted. Patient had echocardiogram which revealed normal sized LV with mild concentric left ventricular hypertrophy, ejection fraction greater than 65%. This morning, she continues to complain of mild abdominal pain. GI is following. Abdominal CT results pending. H&H is stable at 10.5 and 31.8. No overt bleeding noted. Reports that her right leg weakness has now resolved. Dr. Hernandez is to see patient today. Patient denies chest pain, heaviness and tightness. INR this morning 1.4. At this time, we will bridge with heparin drip in order to protect patient's mitral valve. PTT per protocol. Vital signs are stable. Currently in a ventricular pacer rhythm with heart rates in the 70s. Assessment/plan: 1. ATYPICAL CHEST PAIN: Resolved. Cardiac biomarkers negative 4. EKG unchanged. No further workup is recommended. 2. HYPERTENSION: This is clinically stable. Continue current plan of care. 3. STATUS POST MECHANICAL MITRAL VALVE WITH CHRONIC ANTICOAGULATION: INR today is 1.4. After discussing with Dr. Edmondson, will bridge with heparin drip in order to protect patient's mechanical mitral valve. PTT per protocol. 4. HYPERLIPIDEMIA: Continue current plan of care with lipid lowering agent. Patient reports that she is statin intolerant. 5. OBSTRUCTIVE SLEEP APNEA: CPAP nightly. 6. HYPOTHYROIDISM: Continue current plan of care with Synthroid. Defer further management to attending. 7. ANXIETY: This is clinically stable. Defer management to attending. 8. RIGHT LEG WEAKNESS: This has now resolved. Head CT did not reveal any acute intracranial processes. Carotid ultrasound did not reveal any evidence of significant narrowing of either internal carotid artery. Hashmat has been consulted. 9. ASTHMA: Will defer further management of this to her attending. 10. OCCULT BLOOD POSITIVE STOOL: No overt bleeding noted. This may certainly be from her chronic epistaxis.. She has had GI evaluation recent history and had negative workup. She does have some abdominal discomfort and apparently further evaluation is planned. Daily CBC. Will defer further workup of this to attending. 11. GERD: Continue current plan of care. 12. PACEMAKER: This appears to be functioning appropriately. 13. ABDOMINAL PAIN: Workup is underway per GI. Abdominal CT is pending. Exam (Progress Note) - Constitutional Vitals: Period Temp Pulse Resp BP Sys/Ceballos Pulse Ox Last 24 Hr 97.1 F-98.3 F 70-76 18-25 120-155/39-89 93-100 Exam: General appearance: normal weight, no acute distress HEENT exam: normal inspection, atraumatic Neck exam: normal inspection no JVD. No carotid bruit. Trachea is in midline Respiratory/lungs exam: clear to auscultation bilaterally good air movement. Cardiovascular exam: regular rate and rhythm, no murmur or gallop or rub. She has normal mechanical valve sounds for her mitral valve prosthesis. No precordial lift. Chest wall exam: nontender GI/Abdominal exam: normal bowel sounds, soft, nontender, no abdominal bruits or pulsatile masses. Extremeties/musculoskeletal: normal inspection without edema or cyanosis. Neurological exam: alert, oriented X3, no focal deficits Psychiatric exam: normal affect, normal mood. Cognitive function is grossly normal. Skin exam: normal color, warm Result/EKG - Labs CBC & BMP: 10/18/16 04:17 10/18/16 04:17 Lab Results: I have reviewed the past 24 hour labs Labs: Laboratory Results - last 24 hr 10/17/16 10/17/16 10/17/16 11:59 16:41 20:46 WBC RBC Hgb Hct MCV MCH MCHC RDW Plt Count MPV Neut % (Auto) Lymph % (Auto) Ransom % (Auto) Eos % (Auto) Baso % (Auto) Neut # (Auto) Lymph # (Auto) Ransom # (Auto) Eos # (Auto) Baso # (Auto) Total Counted Immature Gran % Nucleated RBC % Immature Gran # Segmented Neutrophils Band Neutrophils Lymphocytes Monocytes Nucleated RBCs # Platelet Estimate Hypochromasia Ovalocytes Morphology Comment INR PT Patient/Control Mix Sodium Potassium Chloride Carbon Dioxide Anion Gap BUN Creatinine GFR Calculation BUN/Creatinine Ratio Glucose POC Glucose 237 H 95 236 H Calculated Osmolality Calcium Total Bilirubin AST ALT Alkaline Phosphatase Total Protein Albumin Globulin Albumin/Globulin Ratio 10/18/16 10/18/16 10/18/16 04:17 04:17 04:17 WBC 7.2 RBC 3.54 L Hgb 10.5 L Hct 31.8 L MCV 89.8 MCH 30 MCHC 33.0 RDW 14.3 Plt Count 291 MPV 10.5 Neut % (Auto) 91.4 H Lymph % (Auto) 5.7 L Ransom % (Auto) 2.1 Eos % (Auto) 0.0 Baso % (Auto) 0.0 Neut # (Auto) 6.6 Lymph # (Auto) 0.4 L Ransom # (Auto) 0.2 Eos # (Auto) 0.0 Baso # (Auto) 0.0 Total Counted 100 Immature Gran % 0.8 Nucleated RBC % 0.0 Immature Gran # 0.06 Segmented Neutrophils 94 H Band Neutrophils 1 Lymphocytes 4 L Monocytes 1 L Nucleated RBCs # 0.00 Platelet Estimate Adequate Hypochromasia 1+ Ovalocytes Slight Morphology Comment INR 1.4 PT Patient/Control Mix 15.1 Sodium 140 Potassium 3.8 Chloride 106 Carbon Dioxide 21 Anion Gap 16.8 H BUN 28 H Creatinine 1.00 GFR Calculation 52 BUN/Creatinine Ratio 28.00 H Glucose 198 H POC Glucose Calculated Osmolality 290.4 Calcium 8.9 Total Bilirubin 0.40 AST 16 ALT 13 Alkaline Phosphatase 68 Total Protein 6.7 Albumin 3.5 Globulin 3.2 Albumin/Globulin Ratio 1.0 L 10/18/16 10/18/16 07:34 11:27 WBC RBC Hgb Hct MCV MCH MCHC RDW Plt Count MPV Neut % (Auto) Lymph % (Auto) Ransom % (Auto) Eos % (Auto) Baso % (Auto) Neut # (Auto) Lymph # (Auto) Ransom # (Auto) Eos # (Auto) Baso # (Auto) Total Counted Immature Gran % Nucleated RBC % Immature Gran # Segmented Neutrophils Band Neutrophils Lymphocytes Monocytes Nucleated RBCs # Platelet Estimate Hypochromasia Ovalocytes Morphology Comment INR PT Patient/Control Mix Sodium Potassium Chloride Carbon Dioxide Anion Gap BUN Creatinine GFR Calculation BUN/Creatinine Ratio Glucose POC Glucose 156 H 148 H Calculated Osmolality Calcium Total Bilirubin AST ALT Alkaline Phosphatase Total Protein Albumin Globulin Albumin/Globulin Ratio Specialty Discharge - Follow Up or Referrals
--- NOTE | 2016-10-18 14:06 | CT Report ---
Referring physician: Lou Zavaleta EXAM: CT abdomen and pelvis without contrast DATE: 10/18/2016 COMPARISON: None REASON: Right lower quadrant pain TECHNIQUE: Axial images of the abdomen and pelvis were obtained without the use of contrast. Coronal and sagittal reformatted images were also provided. Total DLP is 246.60 mGy*cm. FINDINGS: The MR is enlarged with prior median sternotomy, cardiac valve replacement, and permanent pacemaker. Calcified granuloma in the left lower lobe with chronic scarring/atelectasis. Calcified granulomata in the nonenlarged liver and spleen. 21 mm hypodensity in the right lobe of the liver. Dilatation of CBD measuring 14 mm in the head of the pancreas. Prior cholecystectomy. The pancreas and adrenal glands have an unremarkable appearance. Cortical scarring in the kidneys with 2 mm right lower pole renal calculus. No definite ureteral calculi are identified. Calcification in the wall of the nondilated abdominal aorta with no adjacent adenopathy. 95 mm hiatal hernia with no significant dilatation of the small bowel. Diverticulosis of the colon with no evidence of definite diverticulitis, free air, or free fluid. Increased fecal material. Prior appendectomy and hysterectomy. Decompressed urinary bladder which makes it difficult to exclude minimal bladder wall thickening. Degenerative changes are noted especially at L3-L4 with minimal chronic compression of the superior vertebral endplate of L1 and minimal dextroscoliosis. IMPRESSION: Cardiomegaly with prior median sternotomy, cardiac valve replacement, and permanent pacemaker. Evidence of old healed granulomatous disease. 21 mm probable right hepatic cyst. Minimal dilatation of CBD which could be related to prior cholecystectomy, aging, etc. Cortical scarring in the kidneys with 2 mm nonobstructing right lower pole renal calculus. 95 mm hiatal hernia with diverticulosis of the colon. Increased fecal material. Prior appendectomy and hysterectomy. Decompressed urinary bladder which makes it difficult to exclude nonspecific minimal bladder wall thickening. Chronic minimal compression of L1. The CT exam was performed using one or more of the following dose reduction techniques: Automated exposure control and adjustment of the mA and/or kV according to patient size. PROCEDURE INTERPRETED AT [facility] DEPARTMENT OF RADIOLOGY Final Report Signed by: Dr. Alberta Virgen
[2016-10-18] MEDS: HEPARIN DRIP 25,000 UNITS/500 ML PREMIX IV SCH (14:39)
--- NOTE | 2016-10-18 14:45 | Neurology Consult Note ---
History of Present Illness History of present illness: Ms. Faith is a 81 year old right handed white lady without known history of coronary artery disease, with history of TIA routinely followed by Dr. Rios. Patient presented to emergency department with complaints of chest pain and weakness. She has a past medical history of TIA, atrial fibrillation ( status post AV ablation at [facility]), pacemaker, irritable bowel syndrome, asthma, diverticulosis, obstructive sleep apnea (wears CPAP), hypothyroidism, anxiety, rheumatic heart disease and mechanical mitral valve with chronic anticoagulation with Coumadin. Her last heart catheterization was done in 2003. She reports that she has had 4 heart catheterizations which did not reveal any significant obstructive coronary artery disease. She last saw Dr. Rios in the cardiology clinic May 2016. At that time she had complaints of dyspnea on exertion. Patient also noted that her right leg got weaker as well. That lasted for a few hours and resolved completely. She says it felt like this up to see me when she had lost TIA. CT of the head and carotid Dopplers are unremarkable. Her INR was therapeutic at the time of admission. Coumadin is on hold now because of possible GI bleed. Home Medications Medication Instructions Recorded Confirmed Type ALPRAZolam [Xanax] 0.25 tablet PO BID 12/13/14 10/15/16 History Aspirin [Ecotrin] 325 mg PO DAILY 12/13/14 10/15/16 History Chlorthalidone 25 mg PO DAILY 12/13/14 10/15/16 History Gemfibrozil [Lopid] 600 mg PO BIDAC 12/13/14 10/15/16 History Levothyroxine Tab [Synthroid Tab] 25 mcg PO DAILY@0700 12/13/14 10/15/16 History Nitroglycerin [place] 1 spray TRANSLING PRN PRN 12/13/14 10/15/16 History Potassium Chloride Cap/Tab [K Dur] 10 meq PO DAILY 12/13/14 10/15/16 History Warfarin [Coumadin] 5 mg PO DAILY@1800 #30 tablet 03/14/15 10/15/16 Rx Famotidine Tab [Pepcid Tab] 20 mg PO BID 03/17/16 10/15/16 History Ipratropium Inhaler [Atrovent 2 puff INH Q6HR PRN 03/17/16 10/15/16 History Inhaler] Loratadine 10 mg PO BEDTIME PRN 10/12/16 05/12/17 History Losartan Potassium [Losartan 50 mg PO BID 03/17/16 10/15/16 History Potassium] Montelukast Tab [Singulair Tab] 10 mg PO BEDTIME 03/17/16 10/15/16 History Cholecalciferol (Vitamin D3) 50,000 unit PO DIRECTED 10/15/16 10/15/16 History [Vitamin D3] Ferrous Sulfate 325 mg PO DAILY W/BREAKFAST 10/15/16 10/15/16 History amLODIPine [Norvasc] 10 mg PO DAILY 10/15/16 10/15/16 History Allergies Allergy/AdvReac Type Severity Reaction Status Date / Time atropine Allergy Unknown/Unable Verified 10/14/16 21:30 to obtain Beta-Blockers Allergy Unknown/Unable Verified 10/14/16 21:30 (Beta-Adrenergic Bloc to obtain cephalexin Allergy Unknown/Unable Verified 10/14/16 21:30 to obtain citalopram [From Celexa] Allergy Unknown/Unable Verified 10/14/16 21:30 to obtain clindamycin Allergy Unknown/Unable Verified 10/14/16 21:30 to obtain clonazepam Allergy Unknown/Unable Verified 10/14/16 21:30 to obtain codeine Allergy Unknown/Unable Verified 10/14/16 21:30 to obtain diatrizoate meglumine Allergy Unknown/Unable Verified 10/14/16 21:30 to obtain Diatrizoic Acid Allergy Unknown/Unable Verified 10/14/16 21:30 [From Hypaque] to obtain digoxin Allergy Unknown/Unable Verified 10/14/16 21:30 to obtain diltiazem [From Cardizem] Allergy Unknown/Unable Verified 10/14/16 21:30 to obtain Diphenoxylate Allergy Unknown/Unable Verified 10/14/16 21:30 to obtain duloxetine [From Cymbalta] Allergy Unknown/Unable Verified 10/14/16 21:30 to obtain Erythromycin Base Allergy Unknown/Unable Verified 10/14/16 21:30 to obtain guaifenesin Allergy Unknown/Unable Verified 10/14/16 21:30 to obtain hydrocodone Allergy Unknown/Unable Verified 10/14/16 21:30 to obtain Hydromorphone [From Dilaudid] Allergy Unknown/Unable Verified 10/14/16 21:30 to obtain Hyoscyamine Allergy Unknown/Unable Verified 10/14/16 21:30 to obtain Imipramine Allergy Unknown/Unable Verified 10/14/16 21:30 to obtain isradipine [From DynaCirc] Allergy Unknown/Unable Verified 10/14/16 21:30 to obtain levofloxacin Allergy Unknown/Unable Verified 10/14/16 21:30 to obtain lincomycin Allergy Unknown/Unable Verified 10/14/16 21:30 to obtain morphine Allergy Unknown/Unable Verified 10/14/16 21:30 to obtain Nisoldipine Allergy Unknown/Unable Verified 10/14/16 21:30 to obtain Nortriptyline [From Pamelor] Allergy Unknown/Unable Verified 10/14/16 21:30 to obtain omeprazole Allergy Unknown/Unable Verified 10/14/16 21:30 to obtain Opium (Anthroposophic) Allergy Unknown/Unable Verified 10/14/16 21:30 to obtain Oxycodone Allergy Unknown/Unable Verified 10/14/16 21:30 to obtain pantoprazole [From Protonix] Allergy Unknown/Unable Verified 10/14/16 21:30 to obtain Paregoric Allergy Unknown/Unable Verified 10/14/16 21:30 to obtain pentazocine Allergy Unknown/Unable Verified 10/14/16 21:30 to obtain potassium guaiacolsulfonate Allergy Unknown/Unable Verified 10/14/16 21:30 [From Humibid L.A.] to obtain pregabalin [From Lyrica] Allergy Unknown/Unable Verified 10/14/16 21:30 to obtain prochlorperazine Allergy Unknown/Unable Verified 10/14/16 21:30 to obtain promethazine Allergy Unknown/Unable Verified 10/14/16 21:30 to obtain propoxyphene [From Darvon] Allergy Unknown/Unable Verified 10/14/16 21:30 to obtain quinidine Allergy Unknown/Unable Verified 10/14/16 21:30 to obtain rosuvastatin [From Crestor] Allergy Unknown/Unable Verified 10/14/16 21:30 to obtain Sulfa (Sulfonamide Allergy Unknown/Unable Verified 10/14/16 21:30 Antibiotics) to obtain tramadol Allergy Unknown/Unable Verified 10/14/16 21:30 to obtain ciprofloxacin AdvReac Intermediate Redness of Verified 10/17/16 18:34 Skin aspirin [From Percodan] AdvReac Unknown/Unable Verified 10/14/16 21:30 to obtain 12 point system: reviewed and no additional remarkable complaints except as stated Medical,Surgical,& Family Hx - Medical History Cardio: History of: Cardiac Dysrhythmia (afib, status post AV ablation), Cerebrovascular Disease, CHF (diastolic yes grade Sarath ([place] and no wheezing or ON Tuesday but quit que), Hypertension, Pacemaker, Valvular Heart Disease, Cardiovascular Problems (Ablation 2004) Psychological: History of: Anxiety Disorders Neurology: History of: Cerebrovascular Accident, Migraine, TIA No history of: Seizures HEENT: History of: Eye Problem, Glaucoma Endocrine: History of: Dyslipidemia, Thyroid Disorder (hypothyroidism) Rheumatology: History of;: Rheumatological Problems Respiratory: History of: Asthma, Bronchitis, Obstructive Sleep Apnea Renal: No history of: Renal Failure Gastrointestinal: History of: Diverticulitis/ Diverticulosis, GERD, Hemorrhoids , GI Problems (Irritable bowel syndrome) Musculoskeletal: History of: Musculoskeletal Problems Hematology: History of: Anemia (pre-hysterectomy), Clotting Problems Other: History of: Miscellaneous Medical Problems - Surgical History Cardiac Surgeries: Sugical HX of: Cardiac Catheterization, Cardiac Surgery ( Mechanical mitral valve, pacemaker) HEENT Surgeries: Surgical HX of: Eye Surgery (cataract bilat), Tonsilectomy & Adenoidectomy Abdominal Surgeries: Surgical HX of: Cholecystectomy, Colonoscopy, EGD ( esophageal dilation) Reproductive Surgeries: Surgical HX of;: Hysterectomy - Family History Family History: Reports;: Family Heart Disease, Family Hypertension, Family Stroke - Social History Smoking Status: Never smoker Frequency of Alcohol Use: None Type of Drug Use: None Exam - Constitutional Vitals: Period Temp Pulse Resp BP Sys/Ceballos Pulse Ox Last 24 Hr 97.1 F-98.3 F 70-76 18-25 120-155/39-89 93-100 Exam: GENERAL: Patient is in no acute distress. NECK: Neck is supple. There is no JVD. No carotid bruits present. No thyroid masses. CVS: First and second heart sounds are normal. There is no S3 present. Regular rate and rhythm. RESPIRATORY: Lungs are clear to auscultation without any rales or rhonchi. ABDOMEN: Soft and non-tender. Bowel sounds are present. There is no hepatosplenomegaly. EXT: There is no palpable edema. Peripheral pulses are present. Skin: No rashes Central Nervous system: General: Alert, awake and Oriented x 3 Speech: Fluent Comprehension: Intact and normal Facial expressions: Normal Cranial Nerves: CN1/Olfactory: Normal CN II/ Optic: Normal, Visual [place] unreliable CN III, and : EUGENIO & EOMI CN V: Normal & intact CN VII: face is symmetric CNVIII: Normal CN XI/X/XI/XII: Intact and Normal Motor: Bulk and Tone is normal. Strength in the right 5/5 Strength in the left 5/5 Sensory: Grossly intact for all the modalities of PP, LT and temp sense Reflexes: 1+ and symmetrical Cerebellar function: Normal finger to nose and heel to palacios testing. Toes: Equivocal Gait: Able to get up and walk without assistance Results - Labs CBC & BMP: 10/18/16 04:17 10/18/16 04:17 Assessment and Plan (1) TIA (transient ischemic attack) Status: Acute Assessment and plan: Continue aspirin for now. We will put her back on Coumadin after colonoscopy tomorrow. Continue IV heparin for now Neuro exam is nonfocal Thank you for the consult Current Visit: Yes Specialty Discharge - Follow Up or Referrals
--- NOTE | 2016-10-18 16:53 | Internal Med Progress Note ---
Assessment and Plan (1) Asthma Status: Chronic Current Visit: Yes (2) GERD (gastroesophageal reflux disease) Status: Chronic Current Visit: Yes (3) History of TIA (transient ischemic attack) Status: Chronic Current Visit: Yes (4) Hypertension Status: Chronic Current Visit: Yes Qualifiers: Hypertension type: essential hypertension Qualified Code(s): I10 - Essential (primary) hypertension (5) Chronic atrial fibrillation Status: Chronic Current Visit: No (6) Chronic anticoagulation Status: Chronic Current Visit: Yes (7) History of GI bleed Problem details: She was scheduled for colonoscopy on Tuesday. She will require IV heparin. Plan to monitor in the hospital. IV heparin when INR is less than 2. She has had a TIA in the past when not adequately anticoagulated. I feel there is a component of anxiety involved here. Status: Chronic Current Visit: Yes (8) History of mitral valve replacement with mechanical valve Status: Chronic Current Visit: Yes (9) Pacemaker Status: Chronic Current Visit: No (10) Guaiac positive stools Status: Acute Current Visit: Yes (11) Anxiety Status: Chronic Current Visit: Yes Internal Medicine - PN: Subj Interval history: Ms. Faith is a 81 year old female with history of HTN, dyslipidemia, DM, a fib, pacemaker, CHF, asthma, OA, stroke, TIA, multiple allergies and drug intolerances, acid reflux, who presented to ER with chest pain, acute right sided weakness, and worsening acid reflux. INR was slightly hyper therapeutic level. She has mitral valve replacement mechanical valve. She describes a heaviness in her chest with breathing. Tuesday, she reports feeling better. Will continue current treatment. Tuesday, she reports history of diverticulitis recurrent RLQ, and feels abdominal pain. Will consult Dr. Jennifer III to further evaluate. She has never had a surgical repair, but has had multiple episodes of recurrence, about three episodes per year for several years. Will start antibiotic. She has guaiac positive stool. Had started Cipro, but Nurse called that she developed acutely red streak to her arm and shortness of breath. Cipro has now been added to allergy list ( multiple drug allergies), and Augmentin started. She reported to the nurse that she can tolerate Augmentin. She does not want to try Flagyl. Tuesday, she is tolerating Augmentin and abdominal pain has improved after two doses. Exam (Progress Note) - Constitutional Vitals: Period Temp Pulse Resp BP Sys/Ceballos Pulse Ox Last 24 Hr 97.1 F-98.2 F 70-76 18-25 120-138/39-89 93-100 General appearance: no acute distress - Respiratory Respiratory exam: Present: clear to auscultation bilaterally - Cardiovascular Cardiovascular exam: Present: regular rate and rhythm - GI/Abdominal GI/Abdominal exam: Present: tenderness (mild RLQ pain and improved), soft - Extremities Exam Extremities exam: Absent: edema - Neurological Exam Neurological exam: Present: alert - Psychiatric Psychiatric exam: Present: normal mood - Skin Skin exam: Present: warm, dry Results - Labs CBC & BMP: 10/20/16 00:42 10/20/16 00:42 Specialty Discharge - Follow Up or Referrals
[2016-10-18] MEDS: MONTELUKAST 10 MG TABLET PO SCH (20:24)
[2016-10-18] MEDS ORDERED: HEPARIN 5,000 UNIT/1 ML VIAL ONE (22:20)
[2016-10-18] MEDS ORDERED: HEPARIN 5,000 UNIT/1 ML VIAL IV PRN (22:28)
[2016-10-19] MEDS: ALBUTEROL 2.5 MG/3 ML NEB RESP TX SCH ×3 (00:03→15:02)
[2016-10-19 05:31] LABS: Hematocrit 32.5 VOL% (35.7-47.0); Immature Granulocytes % 0.8 %; Immature Granulocytes Absolute 0.05 #; Lymphocytes # 0.4 10*3/uL (1.4-4.0); Lymphocytes % 6.4 % (21.3-54.2); Mean Corpuscular HGB Conc 33.8 GM/DL (32-36); Mean Corpuscular Hemoglobin 30 PG (27-34); Mean Corpuscular Volume 89.5 FL (87-102); Mean Platelet Volume 10.3 FL (9.6-12.0); Monocytes # 0.2 10*3/uL (0.11-0.8); Monocytes % 3.1 % (1.7-12.7); Neutrophils # 5.9 10*3/uL (1.4-7.4); Neutrophils % 89.7 % (38.7-73.9); Platelet Count 276 T/CUMM (130-400); Red Blood Count 3.63 MC/CUMM (3.8-5.5); White Blood Count 6.5 T/CUMM (4-12)
[2016-10-19 05:40] LABS: INR 1.7
[2016-10-19 05:57] LABS: Calcium 8.7 MG/DL (8.5-10.1); Magnesium 2.2 MG/DL (1.8-2.4); Osmolality,Calculated 291.3 MOS/KG (273-304); Potassium 3.6 MMOL/L (3.5-5.1)
[2016-10-19] MEDS: methylPREDNISolone SOD SUC 40 MG/1 ML VIAL IV SCH ×2 (06:37→15:14)
[2016-10-19] MEDS: LEVOTHYROXINE 25 MCG TABLET PO SCH (06:38)
[2016-10-19] MEDS: amLODIPine 10 MG TABLET PO SCH (08:58)
[2016-10-19] MEDS: ERGOCALCIFEROL 50,000 UNIT CAPSULE PO SCH (08:58)
[2016-10-19] MEDS: ALPRAZolam 0.25 MG TABLET PO SCH ×2 (08:58→21:28)
[2016-10-19] MEDS: FERROUS SULFATE 325 MG TABLET PO SCH (08:58)
[2016-10-19] MEDS: FAMOTIDINE 20 MG TABLET PO SCH ×2 (08:59→21:28)
[2016-10-19] MEDS: CHLORTHALIDONE 25 MG TABLET PO SCH (08:59)
[2016-10-19] MEDS: POTASSIUM CHLORIDE 10 MEQ TABLET PO SCH (08:59)
[2016-10-19] MEDS: ASPIRIN EC 325 MG TABLET PO SCH (08:59)
[2016-10-19] MEDS: LOSARTAN 50 MG TABLET PO SCH ×2 (08:59→21:27)
[2016-10-19] MEDS: OXYMETAZOLINE 0.05% NASAL SPRAY 15 ML BOTTLE BOTH NARES SCH ×2 (08:59→21:27)
[2016-10-19] MEDS: AMOXICILLIN/CLAV 500 MG TABLET PO SCH ×2 (08:59→21:27)
[2016-10-19] MEDS: INSULIN REGULAR 100 UNIT/ML SUBCUT SCH ×4 (09:00→21:29)
--- NOTE | 2016-10-19 09:48 | Gastrointestinal Progress Note ---
Assessment and Plan (1) Anemia Status: Acute Assessment and plan: 10/19-Hgb 10, no overt bleeding. Stool for occult blood pending. Abd pain improved. Plan and addendum to follow by Dr Goetz. 10/18-Hgb stable at 10.5 with no overt bleeding. CT of abdomen pending d/t abd cramping complaints. Plan and addendum to follow by DR goetz. Current Visit: No Gastroenterology - PN: Subj Interval history: CC: Anemia Pt is seen awake and alert, states she rested well overnight. She states the abdominal pain is better at this time. Her hemoglobin is improved at 11 in absence of any overt bleeding. Abdomen is soft, nontender. She has a good appetite at present time. She is tolerating the IV antibiotics. She did have a very small bowel movement this morning and stool is pending for occult blood. No further nose bleeds since prior to admission. ROS: Denies SOB or chest pain Exam (Progress Note) - Constitutional Vitals: Period Temp Pulse Resp BP Sys/Ceballos Pulse Ox Last 24 Hr 96.8 F-98.2 F 70-76 12-20 122-147/57-82 94-100 General appearance: normal weight, no acute distress - Head Head exam: Present: normal inspection, normocephalic - Eye Eye exam: Present: other (lids and conjunctiva unremarkable). Absent: scleral icterus - ENT ENT exam: Present: normal exam, normal oropharynx - Neck Neck exam: Present: normal inspection - Respiratory Respiratory exam: Present: clear to auscultation bilaterally. Absent: rales, rhonchi, wheezes - Cardiovascular Cardiovascular exam: Present: regular rate and rhythm. Absent: diastolic murmur , JVD, systolic murmur - GI/Abdominal GI/Abdominal exam: Present: normal bowel sounds, soft. Absent: ascites, distended, mass, organomegaly, tenderness - Extremities Exam Extremities exam: Present: normal inspection, full ROM - Back Exam Back exam: Present: normal inspection - Neurological Exam Neurological exam: Present: alert, oriented X3 - Psychiatric Psychiatric exam: Present: normal affect, normal mood - Skin Skin exam: Present: normal color, warm, dry Results - Labs CBC & BMP: 10/19/16 05:14 10/19/16 05:14 Lab Results: I have reviewed the past 24 hour labs Specialty Discharge - Follow Up or Referrals
--- NOTE | 2016-10-19 12:54 | General Surgery Progress Note ---
Assessment and Plan (1) Abdominal pain Status: Acute Assessment and plan: The etiology of her pain is unclear. She does not have the classical presentation for acute diverticulitis. The previous diagnosis of diverticulitis sounds to be presumptive as I cannot find any records of previous active diverticulitis by imaging. She has had diverticulosis by colonoscopy in the past. Because of the recurrence of her symptoms I think that it would be worthwhile to get an abdominal CT scan. Unfortunately she has a severe contrast allergy so we will need to do this without contrast which is going to be less diagnostic. I do not see signs of an acute abdomen which is fortunate because she is a very poor surgical candidate. 10/19: She feels better. Her CT scan did not really show active diverticulitis but she seems to have responded to IV antibiotics. I will continue to treat her for what is probably a mild diverticulitis with antibiotics. I think we need feel she is ready medically she could be discharged home on antibiotics by mouth. I would not recommend surgical intervention at this point and the patient does not want surgery at this point Current Visit: Yes Qualifiers: Abdominal location: right lower quadrant Qualified Code(s): R10.31 - Right lower quadrant pain Subjective Patient reports: Present: feels better, pain is less. Absent: nausea, vomiting , fever Exam - Constitutional Vitals: Period Temp Pulse Resp BP Sys/Ceballos Pulse Ox Last 24 Hr 96.8 F-98.2 F 70-76 12-20 119-147/59-82 94-100 General appearance: no acute distress - Eye Eye exam: Absent: scleral icterus - Respiratory Respiratory exam: Absent: accessory muscle use - GI/Abdominal GI/Abdominal exam: Present: soft. Absent: distended, tenderness, rebound Results - Labs CBC & BMP: 10/19/16 05:14 10/19/16 05:14 Lab Results: I have reviewed the past 24 hour labs Specialty Discharge - Follow Up or Referrals
--- NOTE | 2016-10-19 13:24 | Cardiology Progress Note ---
<Yady Dotson - Last Filed: 10/19/16 13:15> Assessment and Plan (1) Chest pain Status: Resolved Assessment and plan: See plan of care listed below. Current Visit: Yes (2) Anemia Status: Acute Assessment and plan: See plan of care listed below. Current Visit: No (3) Anxiety Status: Chronic Assessment and plan: See plan of care listed below. Current Visit: No (4) Chronic anticoagulation Status: Chronic Assessment and plan: See plan of care listed below. Current Visit: Yes (5) History of GI bleed Problem details: She was scheduled for colonoscopy on Tuesday. She will require IV heparin. Plan to monitor in the hospital. IV heparin when INR is less than 2. She has had a TIA in the past when not adequately anticoagulated. I feel there is a component of anxiety involved here. Status: Chronic Assessment and plan: See plan of care listed below. Current Visit: Yes (6) History of mitral valve replacement with mechanical valve Status: Chronic Assessment and plan: See plan of care listed below. Current Visit: Yes (7) Pacemaker Status: Chronic Assessment and plan: See plan of care listed below. Current Visit: No (8) Sleep apnea Status: Chronic Assessment and plan: See plan of care listed below. Current Visit: No (9) Asthma Status: Chronic Assessment and plan: See plan of care listed below. Current Visit: Yes (10) Hypertension Status: Chronic Assessment and plan: See plan of care listed below. Current Visit: Yes Qualifiers: Hypertension type: essential hypertension Qualified Code(s): I10 - Essential (primary) hypertension (11) Hyperlipidemia Status: Chronic Current Visit: Yes Qualifiers: Hyperlipidemia type: pure hypercholesterolemia Qualified Code(s): E78.00 - Pure hypercholesterolemia, unspecified; E78.0 - Pure hypercholesterolemia (12) Status post ablation of atrial fibrillation Status: Chronic Current Visit: Yes (13) Hypothyroidism Status: Chronic Assessment and plan: See plan of care listed below. Current Visit: No Qualifiers: Hypothyroidism type: acquired Qualified Code(s): E03.9 - Hypothyroidism, unspecified (14) History of rheumatic heart disease Status: Chronic Current Visit: Yes (15) GERD (gastroesophageal reflux disease) Status: Chronic Current Visit: Yes (16) History of TIA (transient ischemic attack) Status: Chronic Current Visit: Yes (17) Abdominal pain Status: Acute Assessment and plan: See plan of care listed below. Current Visit: Yes Qualifiers: Abdominal location: right lower quadrant Qualified Code(s): R10.31 - Right lower quadrant pain (18) Guaiac positive stools Status: Acute Assessment and plan: See plan of care listed below. Current Visit: Yes (19) Atypical chest pain Problem details: She has been evaluated on multiple occasions. No significant coronary artery disease. Status: Resolved Assessment and plan: See plan of care listed below. Current Visit: No Cardiology - PN: Subj Interval history: Mandrel Puller: Dr. Rios PCP: Dr. Lou Zavaleta SUMMARY: Ms. Faith is a 81 year old female patient without known history of coronary artery disease, routinely followed by Dr. Rios. PMH include: hypertension, hyperlipidemia, TIA, atrial fibrillation (status post AV ablation at [facility]), pacemaker, irritable bowel syndrome, asthma, diverticulosis, obstructive sleep apnea (wears CPAP), hypothyroidism, anxiety, rheumatic heart disease and mechanical mitral valve with chronic anticoagulation with Coumadin. Her last heart catheterization was done in 2003. She reports that she has had 4 heart catheterizations which did not reveal any significant obstructive coronary artery disease. She last saw Dr. Rios in the cardiology clinic May 2016. At that time she had complaints of dyspnea on exertion. He offered her a cardiac stress test at that time. However she declined having this done at that time. Patient presented to emergency department with complaints of chest pain and weakness. She was admitted under Dr. Lou Zavaleta's service and housed on the telemetry unit. Cardiology was consulted to further evaluate patient's chest pain. On exam, patient's chest pain was reproducible to light palpation, consistent with chest wall pain. Patient was noted to be anemic this hospitalization. Stool was positive for occult blood 1. Subsequently, Coumadin was placed on hold and she was transfused with packed red blood cells. GI was consulted. Positive occult stool was felt to be secondary to epistaxis. Patient had echocardiogram which revealed normal sized LV with mild concentric left ventricular hypertrophy, ejection fraction greater than 65%. Patient was seen and examined on the telemetry unit. Patient is currently on heparin infusion. PTT 52.6. INR 1.7. This morning, she continues to complain of mild abdominal pain. GI is following. Abdominal CT was nondiagnostic for source of her pain. She is currently being treated for clinical diverticulitis with IV antibiotics as she has had this in the past. H&H is stable at 11.0 and 32.5. No overt bleeding noted. Patient reports that she had a bowel movement this morning. Sample was sent to lab to check for occult blood. This is pending. Reports that her right leg weakness has now resolved. Dr. Hernandez evaluated patient yesterday and feels that this was secondary to TIA. Patient denies chest pain, heaviness and tightness. Vital signs are stable. Currently in a ventricular pacer rhythm with heart rates in the 70s. Assessment/plan: 1. ATYPICAL CHEST PAIN: Resolved. Cardiac biomarkers negative 4. EKG unchanged. No further workup is recommended. 2. HYPERTENSION: This is clinically stable. Continue current plan of care. 3. STATUS POST MECHANICAL MITRAL VALVE WITH CHRONIC ANTICOAGULATION: INR today is 1.7. Coumadin 2mg initiated today. At this point, we will continue heparin drip until INR reaches 2.0. Continue to monitor PTT per protocol. 4. HYPERLIPIDEMIA: Continue current plan of care with lipid lowering agent. Patient reports that she is statin intolerant. 5. OBSTRUCTIVE SLEEP APNEA: CPAP nightly. 6. HYPOTHYROIDISM: Continue current plan of care with Synthroid. Defer further management to attending. 7. ANXIETY: This is clinically stable. Defer management to attending. 8. RIGHT LEG WEAKNESS: This has now resolved. Head CT did not reveal any acute intracranial processes. Carotid ultrasound did not reveal any evidence of significant narrowing of either internal carotid artery. David evaluated patient yesterday and feels as though she had TIA. He recommends to continue ASA and Coumadin at discharge. 9. ASTHMA: Will defer further management of this to her attending. 10. OCCULT BLOOD POSITIVE STOOL: No overt bleeding noted. This may certainly be from her chronic epistaxis.. She has had GI evaluation recently and had negative workup. Her last colonoscopy was in 2014. She apparently did not do well after this procedure and has declined colonoscopy this admission. Daily CBC. 11. GERD: Continue current plan of care. 12. PACEMAKER: This appears to be functioning appropriately. 13. ABDOMINAL PAIN: Abdominal CT was nondiagnostic for source of her pain. She is currently being treated for clinical diverticulitis with IV antibiotics as she has had this in the past. Exam (Progress Note) - Constitutional Vitals: Period Temp Pulse Resp BP Sys/Ceballos Pulse Ox Last 24 Hr 96.8 F-98.2 F 70-79 12-20 119-147/59-82 94-100 Exam: General appearance: normal weight, no acute distress HEENT exam: normal inspection, atraumatic Neck exam: normal inspection no JVD. No carotid bruit. Trachea is in midline Respiratory/lungs exam: clear to auscultation bilaterally good air movement. Cardiovascular exam: regular rate and rhythm, no murmur or gallop or rub. She has normal mechanical valve sounds for her mitral valve prosthesis. No precordial lift. Chest wall exam: nontender GI/Abdominal exam: normal bowel sounds, soft, nontender, no abdominal bruits or pulsatile masses. Extremeties/musculoskeletal: normal inspection without edema or cyanosis. Neurological exam: alert, oriented X3, no focal deficits Psychiatric exam: normal affect, normal mood. Cognitive function is grossly normal. Skin exam: normal color, warm Result/EKG - Labs CBC & BMP: 10/19/16 05:14 10/19/16 05:14 Lab Results: I have reviewed the past 24 hour labs Labs: Laboratory Results - last 24 hr 10/18/16 10/18/16 10/18/16 13:17 16:22 16:36 WBC RBC Hgb Hct MCV MCH MCHC RDW Plt Count MPV Neut % (Auto) Lymph % (Auto) [place] % (Auto) Eos % (Auto) Baso % (Auto) Neut # (Auto) Lymph # (Auto) [place] # (Auto) Eos # (Auto) Baso # (Auto) Immature Gran % Nucleated RBC % Immature Gran # Nucleated RBCs # INR PT Patient/Control Mix Circ Anticoag PTT 31.3 D 33.1 Sodium Potassium Chloride Carbon Dioxide Anion Gap BUN Creatinine GFR Calculation BUN/Creatinine Ratio Glucose POC Glucose 225 H Calculated Osmolality Calcium Magnesium 10/18/16 10/18/16 10/19/16 19:53 21:17 05:14 WBC 6.5 RBC 3.63 L Hgb 11.0 L Hct 32.5 L MCV 89.5 MCH 30 MCHC 33.8 RDW 14.0 Plt Count 276 MPV 10.3 Neut % (Auto) 89.7 H Lymph % (Auto) 6.4 L [place] % (Auto) 3.1 Eos % (Auto) 0.0 Baso % (Auto) 0.0 Neut # (Auto) 5.9 Lymph # (Auto) 0.4 L [place] # (Auto) 0.2 Eos # (Auto) 0.0 Baso # (Auto) 0.0 Immature Gran % 0.8 Nucleated RBC % 0.0 Immature Gran # 0.05 Nucleated RBCs # 0.00 INR PT Patient/Control Mix Circ Anticoag PTT 36.1 Sodium Potassium Chloride Carbon Dioxide Anion Gap BUN Creatinine GFR Calculation BUN/Creatinine Ratio Glucose POC Glucose 183 H Calculated Osmolality Calcium Magnesium 10/19/16 10/19/16 10/19/16 05:14 05:14 05:14 WBC RBC Hgb Hct MCV MCH MCHC RDW Plt Count MPV Neut % (Auto) Lymph % (Auto) [place] % (Auto) Eos % (Auto) Baso % (Auto) Neut # (Auto) Lymph # (Auto) [place] # (Auto) Eos # (Auto) Baso # (Auto) Immature Gran % Nucleated RBC % Immature Gran # Nucleated RBCs # INR 1.7 PT Patient/Control Mix 18.0 Circ Anticoag PTT 68.5 H D Sodium 141 Potassium 3.6 Chloride 107 Carbon Dioxide 23 Anion Gap 14.6 BUN 30 H Creatinine 1.00 GFR Calculation 51 BUN/Creatinine Ratio 30.00 H Glucose 189 H POC Glucose Calculated Osmolality 291.3 Calcium 8.7 Magnesium 2.2 10/19/16 10/19/16 10/19/16 07:52 11:42 11:57 WBC RBC Hgb Hct MCV MCH MCHC RDW Plt Count MPV Neut % (Auto) Lymph % (Auto) [place] % (Auto) Eos % (Auto) Baso % (Auto) Neut # (Auto) Lymph # (Auto) [place] # (Auto) Eos # (Auto) Baso # (Auto) Immature Gran % Nucleated RBC % Immature Gran # Nucleated RBCs # INR PT Patient/Control Mix Circ Anticoag PTT 52.6 H D Sodium Potassium Chloride Carbon Dioxide Anion Gap BUN Creatinine GFR Calculation BUN/Creatinine Ratio Glucose POC Glucose 161 H 172 H Calculated Osmolality Calcium Magnesium Specialty Discharge - Follow Up or Referrals <Richie Edmondson - Last Filed: 10/19/16 16:16> Cardiology - PN: Subj Interval history: Patient has had no significant GI bleeding and my suspicion is that this is all related to swallowing blood from her posterior pharyngeal bleed. I think we can continue the heparin and discharge her when her INR is around 1.8 and shoot for 2.5 as our goal. Exam (Progress Note) - Constitutional Vitals: Period Temp Pulse Resp BP Sys/Ceballos Pulse Ox Last 24 Hr 96.8 F-97.9 F 70-79 14-20 119-147/59-82 94-100 Result/EKG - Labs CBC & BMP: 10/19/16 05:14 10/19/16 05:14 Labs: Laboratory Results - last 24 hr 10/18/16 10/18/16 10/18/16 16:22 16:36 19:53 WBC RBC Hgb Hct MCV MCH MCHC RDW Plt Count MPV Neut % (Auto) Lymph % (Auto) [place] % (Auto) Eos % (Auto) Baso % (Auto) Neut # (Auto) Lymph # (Auto) [place] # (Auto) Eos # (Auto) Baso # (Auto) Immature Gran % Nucleated RBC % Immature Gran # Nucleated RBCs # INR PT Patient/Control Mix Circ Anticoag PTT 33.1 Sodium Potassium Chloride Carbon Dioxide Anion Gap BUN Creatinine GFR Calculation BUN/Creatinine Ratio Glucose POC Glucose 225 H 183 H Calculated Osmolality Calcium Magnesium 10/18/16 10/19/16 10/19/16 21:17 05:14 05:14 WBC 6.5 RBC 3.63 L Hgb 11.0 L Hct 32.5 L MCV 89.5 MCH 30 MCHC 33.8 RDW 14.0 Plt Count 276 MPV 10.3 Neut % (Auto) 89.7 H Lymph % (Auto) 6.4 L [place] % (Auto) 3.1 Eos % (Auto) 0.0 Baso % (Auto) 0.0 Neut # (Auto) 5.9 Lymph # (Auto) 0.4 L [place] # (Auto) 0.2 Eos # (Auto) 0.0 Baso # (Auto) 0.0 Immature Gran % 0.8 Nucleated RBC % 0.0 Immature Gran # 0.05 Nucleated RBCs # 0.00 INR PT Patient/Control Mix Circ Anticoag PTT 36.1 Sodium 141 Potassium 3.6 Chloride 107 Carbon Dioxide 23 Anion Gap 14.6 BUN 30 H Creatinine 1.00 GFR Calculation 51 BUN/Creatinine Ratio 30.00 H Glucose 189 H POC Glucose Calculated Osmolality 291.3 Calcium 8.7 Magnesium 2.2 10/19/16 10/19/16 10/19/16 05:14 05:14 07:52 WBC RBC Hgb Hct MCV MCH MCHC RDW Plt Count MPV Neut % (Auto) Lymph % (Auto) [place] % (Auto) Eos % (Auto) Baso % (Auto) Neut # (Auto) Lymph # (Auto) [place] # (Auto) Eos # (Auto) Baso # (Auto) Immature Gran % Nucleated RBC % Immature Gran # Nucleated RBCs # INR 1.7 PT Patient/Control Mix 18.0 Circ Anticoag PTT 68.5 H D Sodium Potassium Chloride Carbon Dioxide Anion Gap BUN Creatinine GFR Calculation BUN/Creatinine Ratio Glucose POC Glucose 161 H Calculated Osmolality Calcium Magnesium 10/19/16 10/19/16 11:42 11:57 WBC RBC Hgb Hct MCV MCH MCHC RDW Plt Count MPV Neut % (Auto) Lymph % (Auto) [place] % (Auto) Eos % (Auto) Baso % (Auto) Neut # (Auto) Lymph # (Auto) [place] # (Auto) Eos # (Auto) Baso # (Auto) Immature Gran % Nucleated RBC % Immature Gran # Nucleated RBCs # INR PT Patient/Control Mix Circ Anticoag PTT 52.6 H D Sodium Potassium Chloride Carbon Dioxide Anion Gap BUN Creatinine GFR Calculation BUN/Creatinine Ratio Glucose POC Glucose 172 H Calculated Osmolality Calcium Magnesium
--- NOTE | 2016-10-19 14:30 | Neurology Progress Note ---
Neurology - PN : Subjective Interval history: Patient seems to be doing okay. No more spells reported of any kind. She is on IV heparin. Walking good and his speech is good. Exam (Progress Note) - Constitutional Vitals: Period Temp Pulse Resp BP Sys/Ceballos Pulse Ox Last 24 Hr 96.8 F-98.2 F 70-79 12-20 119-147/59-82 94-100 Exam: GENERAL: Patient is in no acute distress. NECK: Neck is supple. There is no JVD. No carotid bruits present. No thyroid masses. CVS: First and second heart sounds are normal. There is no S3 present. Regular rate and rhythm. RESPIRATORY: Lungs are clear to auscultation without any rales or rhonchi. ABDOMEN: Soft and non-tender. Bowel sounds are present. There is no hepatosplenomegaly. EXT: There is no palpable edema. Peripheral pulses are present. Skin: No rashes Central Nervous system: General: Alert, awake and Oriented x 3 Speech: Fluent Comprehension: Intact and normal Facial expressions: Normal Cranial Nerves: CN1/Olfactory: Normal CN II/ Optic: Normal, Visual [place] unreliable CN III, and : EUGENIO & EOMI CN V: Normal & intact CN VII: face is symmetric CNVIII: Normal CN XI/X/XI/XII: Intact and Normal Motor: Bulk and Tone is normal. Strength in the right 5/5 Strength in the left 5/5 Sensory: Grossly intact for all the modalities of PP, LT and temp sense Reflexes: 1+ and symmetrical Cerebellar function: Normal finger to nose and heel to palacios testing. Toes: Equivocal Gait: Able to get up and walk without assistance Results - Labs CBC & BMP: 10/19/16 05:14 10/19/16 05:14 Assessment and Plan (1) TIA (transient ischemic attack) Status: Acute Assessment and plan: patient is back on Coumadin. INR is 1.7 Continue present treatment Current Visit: Yes Specialty Discharge - Follow Up or Referrals
[2016-10-19] MEDS ORDERED: POLYETHYLENE GLYCOL POWDER 17 GM PACK PO PRN (15:21)
[2016-10-19] MEDS ORDERED: WARFARIN 4 MG TABLET ONE (17:14)
[2016-10-19] MEDS: WARFARIN 2 MG TABLET PO SCH (17:28)
[2016-10-19] MEDS: HEPARIN DRIP 25,000 UNITS/500 ML PREMIX IV SCH (17:29)
--- NOTE | 2016-10-19 19:21 | Internal Med Progress Note ---
Assessment and Plan (1) Asthma Status: Chronic Current Visit: Yes (2) GERD (gastroesophageal reflux disease) Status: Chronic Current Visit: Yes (3) History of TIA (transient ischemic attack) Status: Chronic Current Visit: Yes (4) Hypertension Status: Chronic Current Visit: Yes Qualifiers: Hypertension type: essential hypertension Qualified Code(s): I10 - Essential (primary) hypertension (5) Chronic atrial fibrillation Status: Chronic Current Visit: No (6) Chronic anticoagulation Status: Chronic Current Visit: Yes (7) History of GI bleed Problem details: She was scheduled for colonoscopy on Tuesday. She will require IV heparin. Plan to monitor in the hospital. IV heparin when INR is less than 2. She has had a TIA in the past when not adequately anticoagulated. I feel there is a component of anxiety involved here. Status: Chronic Current Visit: Yes (8) History of mitral valve replacement with mechanical valve Status: Chronic Current Visit: Yes (9) Pacemaker Status: Chronic Current Visit: No (10) Guaiac positive stools Status: Acute Current Visit: Yes Internal Medicine - PN: Subj Interval history: Ms. Faith is a 81 year old female with history of HTN, dyslipidemia, DM, a fib, pacemaker, CHF, asthma, OA, stroke, TIA, multiple allergies and drug intolerances, acid reflux, who presented to ER with chest pain, acute right sided weakness, and worsening acid reflux. INR was slightly hyper therapeutic level. She has mitral valve replacement mechanical valve. She describes a heaviness in her chest with breathing. Tuesday, she reports feeling better. Will continue current treatment. Tuesday, she reports history of diverticulitis recurrent RLQ, and feels abdominal pain. Will consult Dr. Jennifer III to further evaluate. She has never had a surgical repair, but has had multiple episodes of recurrence, about three episodes per year for several years. Will start antibiotic. She has guaiac positive stool. Had started Cipro, but Nurse called that she developed acutely red streak to her arm and shortness of breath. Cipro has now been added to allergy list ( multiple drug allergies), and Augmentin started. She reported to the nurse that she can tolerate Augmentin. She does not want to try Flagyl. Tuesday, she is tolerating Augmentin and abdominal pain has improved after two doses. Tuesday, she is not feeling as well today. Fatigued. Hemoglobin stable. Exam (Progress Note) - Constitutional Vitals: Period Temp Pulse Resp BP Sys/Ceballos Pulse Ox Last 24 Hr 96.8 F-98.0 F 70-89 14-20 119-164/59-82 94-100 Exam: General appearance: no acute distress; fatigued - Respiratory Respiratory exam: Present: clear to auscultation bilaterally - Cardiovascular Cardiovascular exam: Present: regular rate and rhythm - GI/Abdominal GI/Abdominal exam: Present: tenderness (mild RLQ pain and improved), soft - Extremities Exam Extremities exam: Absent: edema - Neurological Exam Neurological exam: Present: alert - Psychiatric Psychiatric exam: Present: normal mood - Skin Skin exam: Present: warm, dry Results - Labs CBC & BMP: 10/20/16 00:42 10/20/16 00:42 Specialty Discharge - Follow Up or Referrals
[2016-10-19] MEDS: MONTELUKAST 10 MG TABLET PO SCH (21:27)
[2016-10-20] MEDS: ALBUTEROL 2.5 MG/3 ML NEB RESP TX SCH ×3 (00:24→14:31)
[2016-10-20] MEDS: methylPREDNISolone SOD SUC 40 MG/1 ML VIAL IV SCH ×4 (00:28→23:37)
[2016-10-20 01:17] LABS: Hemoglobin 11.1 GM/DL (12.0-16.0); Immature Granulocytes % 0.5 %; Immature Granulocytes Absolute 0.04 #; Lymphocytes # 0.7 10*3/uL (1.4-4.0); Lymphocytes % 9.7 % (21.3-54.2); Mean Corpuscular HGB Conc 33.6 GM/DL (32-36); Mean Corpuscular Hemoglobin 30 PG (27-34); Mean Corpuscular Volume 88.2 FL (87-102); Mean Platelet Volume 10.4 FL (9.6-12.0); Monocytes # 0.8 10*3/uL (0.11-0.8); Monocytes % 10.3 % (1.7-12.7); Neutrophils # 5.8 10*3/uL (1.4-7.4); Neutrophils % 79.5 % (38.7-73.9); Platelet Count 278 T/CUMM (130-400); Red Blood Count 3.74 MC/CUMM (3.8-5.5); Red Cell Distribution Width 14.1 % (9.3-17.3); White Blood Count 7.3 T/CUMM (4-12)
[2016-10-20 01:26] LABS: INR 1.4
[2016-10-20 02:28] LABS: Magnesium 2.3 MG/DL (1.8-2.4); Osmolality,Calculated 286.3 MOS/KG (273-304); Potassium 3.7 MMOL/L (3.5-5.1)
[2016-10-20] MEDS: LEVOTHYROXINE 25 MCG TABLET PO SCH (07:47)
--- NOTE | 2016-10-20 08:46 | General Surgery Progress Note ---
Assessment and Plan (1) Abdominal pain Status: Acute Assessment and plan: The etiology of her pain is unclear. She does not have the classical presentation for acute diverticulitis. The previous diagnosis of diverticulitis sounds to be presumptive as I cannot find any records of previous active diverticulitis by imaging. She has had diverticulosis by colonoscopy in the past. Because of the recurrence of her symptoms I think that it would be worthwhile to get an abdominal CT scan. Unfortunately she has a severe contrast allergy so we will need to do this without contrast which is going to be less diagnostic. I do not see signs of an acute abdomen which is fortunate because she is a very poor surgical candidate. 10/19: She feels better. Her CT scan did not really show active diverticulitis but she seems to have responded to IV antibiotics. I will continue to treat her for what is probably a mild diverticulitis with antibiotics. I think we need feel she is ready medically she could be discharged home on antibiotics by mouth. I would not recommend surgical intervention at this point and the patient does not want surgery at this point 10/20: She feels well. She denies abdominal pain today and states that she feels better. She is for colonoscopy. It appears that her abdominal pain has resolved and this may have been from low-grade diverticulitis though this is unclear. She has had a normal white blood cell count and no fever. I will sign off for now. I am going out of town but my partners are covering over the weekend if needed. At this point it does not appear that surgical intervention will be needed. Current Visit: Yes Qualifiers: Abdominal location: right lower quadrant Qualified Code(s): R10.31 - Right lower quadrant pain Subjective Patient reports: Present: feels better, tolerating a regular diet. Absent: still having pain, nausea, vomiting Exam - Constitutional Vitals: Period Temp Pulse Resp BP Sys/Ceballos Pulse Ox Last 24 Hr 96.8 F-98.9 F 69-89 16-20 119-164/54-70 94-100 General appearance: no acute distress - Respiratory Respiratory exam: Absent: accessory muscle use - GI/Abdominal GI/Abdominal exam: Present: soft. Absent: distended, tenderness Results - Labs CBC & BMP: 10/20/16 00:42 10/20/16 00:42 Lab Results: I have reviewed the past 24 hour labs Specialty Discharge - Follow Up or Referrals
[2016-10-20] MEDS: amLODIPine 10 MG TABLET PO SCH (09:46)
[2016-10-20] MEDS: POTASSIUM CHLORIDE 10 MEQ TABLET PO SCH (09:46)
[2016-10-20] MEDS: FAMOTIDINE 20 MG TABLET PO SCH ×2 (09:46→21:53)
[2016-10-20] MEDS: AMOXICILLIN/CLAV 500 MG TABLET PO SCH ×2 (09:46→21:52)
[2016-10-20] MEDS: CHLORTHALIDONE 25 MG TABLET PO SCH (09:46)
[2016-10-20] MEDS: ALPRAZolam 0.25 MG TABLET PO SCH ×2 (09:47→21:53)
[2016-10-20] MEDS: ASPIRIN EC 325 MG TABLET PO SCH (09:47)
[2016-10-20] MEDS: FERROUS SULFATE 325 MG TABLET PO SCH (09:47)
[2016-10-20] MEDS: INSULIN REGULAR 100 UNIT/ML SUBCUT SCH ×4 (09:47→23:38)
[2016-10-20] MEDS: LOSARTAN 50 MG TABLET PO SCH ×2 (09:47→21:52)
[2016-10-20] MEDS: OXYMETAZOLINE 0.05% NASAL SPRAY 15 ML BOTTLE BOTH NARES SCH ×2 (09:48→21:54)
--- NOTE | 2016-10-20 10:28 | Gastrointestinal Progress Note ---
Assessment and Plan (1) Anemia Status: Acute Assessment and plan: 10/20-Hgb 11.1, no bleeding reported. Tolerating diet. Denies abd pain. Plan and addendum to follow by Dr Goetz. 10/19-Hgb 10, no overt bleeding. Stool for occult blood pending. Abd pain improved. Plan and addendum to follow by Dr Goetz. 10/18-Hgb stable at 10.5 with no overt bleeding. CT of abdomen pending d/t abd cramping complaints. Plan and addendum to follow by DR goetz. Current Visit: No Gastroenterology - PN: Subj Interval history: CC: Anemia Pt is seen awake and alert lying in bed. States she is feeling better today. She had a very small bowel movement on yesterday but states she never received her Mirilax. She has had no further bleeding episodes with her epistaxis. Hemoglobin is stable at 11.1. Abdomen is soft, nontender. Afebrile. She is tolerating her diet well. ROS: Denies SOB or chest pain Exam (Progress Note) - Constitutional Vitals: Period Temp Pulse Resp BP Sys/Ceballos Pulse Ox Last 24 Hr 96.8 F-98.9 F 69-89 16-20 119-164/54-70 94-100 General appearance: normal weight, no acute distress - Head Head exam: Present: normal inspection, normocephalic - Eye Eye exam: Present: other (lids and conjunctiva unremarkable). Absent: scleral icterus - ENT ENT exam: Present: normal exam, normal oropharynx - Neck Neck exam: Present: normal inspection - Respiratory Respiratory exam: Present: clear to auscultation bilaterally. Absent: rales, rhonchi, wheezes - Cardiovascular Cardiovascular exam: Present: regular rate and rhythm. Absent: diastolic murmur , JVD, systolic murmur - GI/Abdominal GI/Abdominal exam: Present: normal bowel sounds, soft. Absent: ascites, distended, mass, organomegaly, tenderness - Extremities Exam Extremities exam: Present: normal inspection, full ROM - Back Exam Back exam: Present: normal inspection - Neurological Exam Neurological exam: Present: alert, oriented X3 - Psychiatric Psychiatric exam: Present: normal affect, normal mood - Skin Skin exam: Present: normal color, warm, dry Results - Labs CBC & BMP: 10/20/16 00:42 05/17/17 00:42 Lab Results: I have reviewed the past 24 hour labs Specialty Discharge - Follow Up or Referrals
[2016-10-20] MEDS: HEPARIN DRIP 25,000 UNITS/500 ML PREMIX IV SCH (14:31)
--- NOTE | 2016-10-20 15:40 | Cardiology Progress Note ---
<Yady Dotson - Last Filed: 10/20/16 15:23> Assessment and Plan (1) Chest pain Status: Resolved Assessment and plan: See plan of care listed below. Current Visit: Yes (2) Anemia Status: Acute Assessment and plan: See plan of care listed below. Current Visit: No (3) Anxiety Status: Chronic Assessment and plan: See plan of care listed below. Current Visit: No (4) Chronic anticoagulation Status: Chronic Assessment and plan: See plan of care listed below. Current Visit: Yes (5) History of GI bleed Problem details: She was scheduled for colonoscopy on Tuesday. She will require IV heparin. Plan to monitor in the hospital. IV heparin when INR is less than 2. She has had a TIA in the past when not adequately anticoagulated. I feel there is a component of anxiety involved here. Status: Chronic Assessment and plan: See plan of care listed below. Current Visit: Yes (6) History of mitral valve replacement with mechanical valve Status: Chronic Assessment and plan: See plan of care listed below. Current Visit: Yes (7) Pacemaker Status: Chronic Assessment and plan: See plan of care listed below. Current Visit: No (8) Sleep apnea Status: Chronic Assessment and plan: See plan of care listed below. Current Visit: No (9) Asthma Status: Chronic Assessment and plan: See plan of care listed below. Current Visit: Yes (10) Hypertension Status: Chronic Assessment and plan: See plan of care listed below. Current Visit: Yes Qualifiers: Hypertension type: essential hypertension Qualified Code(s): I10 - Essential (primary) hypertension (11) Hyperlipidemia Status: Chronic Current Visit: Yes Qualifiers: Hyperlipidemia type: pure hypercholesterolemia Qualified Code(s): E78.00 - Pure hypercholesterolemia, unspecified; E78.0 - Pure hypercholesterolemia (12) Status post ablation of atrial fibrillation Status: Chronic Current Visit: Yes (13) Hypothyroidism Status: Chronic Assessment and plan: See plan of care listed below. Current Visit: No Qualifiers: Hypothyroidism type: acquired Qualified Code(s): E03.9 - Hypothyroidism, unspecified (14) History of rheumatic heart disease Status: Chronic Current Visit: Yes (15) GERD (gastroesophageal reflux disease) Status: Chronic Current Visit: Yes (16) History of TIA (transient ischemic attack) Status: Chronic Current Visit: Yes (17) Abdominal pain Status: Acute Assessment and plan: See plan of care listed below. Current Visit: Yes Qualifiers: Abdominal location: right lower quadrant Qualified Code(s): R10.31 - Right lower quadrant pain (18) Guaiac positive stools Status: Acute Assessment and plan: See plan of care listed below. Current Visit: Yes (19) Atypical chest pain Problem details: She has been evaluated on multiple occasions. No significant coronary artery disease. Status: Resolved Assessment and plan: See plan of care listed below. Current Visit: No Cardiology - PN: Subj Interval history: Director Of Diagnostic Imaging: Dr. Rios PCP: Dr. Lou Zavaleta SUMMARY: Ms. Faith is a 81 year old female patient without known history of coronary artery disease, routinely followed by Dr. Rios. PMH include: hypertension, hyperlipidemia, TIA, atrial fibrillation (status post AV ablation at [facility]), pacemaker, irritable bowel syndrome, asthma, diverticulosis, obstructive sleep apnea (wears CPAP), hypothyroidism, anxiety, rheumatic heart disease and mechanical mitral valve with chronic anticoagulation with Coumadin. Her last heart catheterization was done in 2003. She reports that she has had 4 heart catheterizations which did not reveal any significant obstructive coronary artery disease. She last saw Dr. Rios in the cardiology clinic May 2016. At that time she had complaints of dyspnea on exertion. He offered her a cardiac stress test at that time. However she declined having this done at that time. Patient presented to emergency department with complaints of chest pain and weakness. She was admitted under Dr. Lou Zavaleta's service and housed on the telemetry unit. Cardiology was consulted to further evaluate patient's chest pain. On exam, patient's chest pain was reproducible to light palpation, consistent with chest wall pain. Patient was noted to be anemic this hospitalization. Stool was positive for occult blood 1. Subsequently, Coumadin was placed on hold and she was transfused with packed red blood cells. GI was consulted. Positive occult stool was felt to be secondary to epistaxis. Patient had echocardiogram which revealed normal sized LV with mild concentric left ventricular hypertrophy, ejection fraction greater than 65%. Patient was seen and examined on the telemetry unit. Patient remains on heparin infusion. PTT 55.8. INR 1.4. Reports that her abdominal pain has improved. Tolerating diet well. GI is following. Abdominal CT was nondiagnostic for source of her pain. She is currently being treated empirically for diverticulitis. H&H is stable at 11.1 and 33.0. No overt bleeding noted. Reports that her right leg weakness has now resolved. Dr. Hernandez evaluated patient yesterday and feels that this was secondary to TIA. Patient denies chest pain, heaviness and tightness. Vital signs are stable. Currently in a ventricular pacer rhythm with heart rates in the 70s. Assessment/plan: 1. ATYPICAL CHEST PAIN: Resolved. Cardiac biomarkers negative 4. EKG unchanged. No further workup is recommended. 2. HYPERTENSION: This is clinically stable. Continue current plan of care. 3. STATUS POST MECHANICAL MITRAL VALVE WITH CHRONIC ANTICOAGULATION: INR today is 1.4. Coumadin 2mg initiated yesterday. We will give her an extra 5 mg of Coumadin today and continue to bridge with heparin drip until INR is reaches at least 1.8. Continue to monitor PTT per protocol. Daily INR. 4. HYPERLIPIDEMIA: Continue current plan of care with lipid lowering agent. Patient reports that she is statin intolerant. 5. OBSTRUCTIVE SLEEP APNEA: CPAP nightly. 6. HYPOTHYROIDISM: Continue current plan of care with Synthroid. Defer further management to attending. 7. ANXIETY: This is clinically stable. Defer management to attending. 8. RIGHT LEG WEAKNESS: This has now resolved. Head CT did not reveal any acute intracranial processes. Carotid ultrasound did not reveal any evidence of significant narrowing of either internal carotid artery. David has evaluated patient and feels as though she had TIA. He recommends to continue ASA and Coumadin, bridge with heparin until INR is therapeutic. 9. ASTHMA: Will defer further management of this to her attending. 10. OCCULT BLOOD POSITIVE STOOL: No overt bleeding noted. This may certainly be from her chronic epistaxis.. She has had GI evaluation recently and had negative workup. Her last colonoscopy was in 2014. She apparently did not do well after this procedure and has declined colonoscopy this admission. Daily CBC. 11. GERD: Continue current plan of care. 12. PACEMAKER: This appears to be functioning appropriately. 13. ABDOMINAL PAIN: Abdominal CT was nondiagnostic for source of her pain. She is currently being treated empirically for diverticulitis. Further plan an addendum to follow per Dr. Edmondson. Exam (Progress Note) - Constitutional Vitals: Period Temp Pulse Resp BP Sys/Ceballos Pulse Ox Last 24 Hr 96.8 F-98.9 F 69-82 16-20 123-164/54-70 94-100 Exam: General appearance: normal weight, no acute distress HEENT exam: normal inspection, atraumatic Neck exam: normal inspection no JVD. No carotid bruit. Trachea is in midline Respiratory/lungs exam: clear to auscultation bilaterally good air movement. Cardiovascular exam: regular rate and rhythm, no murmur or gallop or rub. She has normal mechanical valve sounds for her mitral valve prosthesis. No precordial lift. Chest wall exam: nontender GI/Abdominal exam: normal bowel sounds, soft, nontender, no abdominal bruits or pulsatile masses. Extremeties/musculoskeletal: normal inspection without edema or cyanosis. Neurological exam: alert, oriented X3, no focal deficits Psychiatric exam: normal affect, normal mood. Cognitive function is grossly normal. Skin exam: normal color, warm Result/EKG - Labs CBC & BMP: 10/20/16 00:42 10/20/16 00:42 Lab Results: I have reviewed the past 24 hour labs Labs: Laboratory Results - last 24 hr 10/19/16 10/19/16 10/19/16 16:27 18:10 20:36 WBC RBC Hgb Hct MCV MCH MCHC RDW Plt Count MPV Neut % (Auto) Lymph % (Auto) Clare % (Auto) Eos % (Auto) Baso % (Auto) Neut # (Auto) Lymph # (Auto) Clare # (Auto) Eos # (Auto) Baso # (Auto) Immature Gran % Nucleated RBC % Immature Gran # Nucleated RBCs # INR PT Patient/Control Mix Circ Anticoag PTT 49.7 H Sodium Potassium Chloride Carbon Dioxide Anion Gap BUN Creatinine GFR Calculation BUN/Creatinine Ratio Glucose POC Glucose 152 H 214 H Calculated Osmolality Calcium Magnesium 10/20/16 10/20/16 10/20/16 00:42 00:42 00:42 WBC 7.3 RBC 3.74 L Hgb 11.1 L Hct 33.0 L MCV 88.2 MCH 30 MCHC 33.6 RDW 14.1 Plt Count 278 MPV 10.4 Neut % (Auto) 79.5 H Lymph % (Auto) 9.7 L Clare % (Auto) 10.3 Eos % (Auto) 0.0 Baso % (Auto) 0.0 Neut # (Auto) 5.8 Lymph # (Auto) 0.7 L Clare # (Auto) 0.8 Eos # (Auto) 0.0 Baso # (Auto) 0.0 Immature Gran % 0.5 Nucleated RBC % 0.0 Immature Gran # 0.04 Nucleated RBCs # 0.00 INR PT Patient/Control Mix Circ Anticoag PTT 50.8 H Sodium 141 Potassium 3.7 Chloride 106 Carbon Dioxide 25 Anion Gap 13.7 BUN 30 H Creatinine 0.90 GFR Calculation 58 BUN/Creatinine Ratio 33.00 H Glucose 98 POC Glucose Calculated Osmolality 286.3 Calcium 9.0 Magnesium 2.3 10/20/16 10/20/16 10/20/16 00:42 05:51 07:35 WBC RBC Hgb Hct MCV MCH MCHC RDW Plt Count MPV Neut % (Auto) Lymph % (Auto) Clare % (Auto) Eos % (Auto) Baso % (Auto) Neut # (Auto) Lymph # (Auto) Clare # (Auto) Eos # (Auto) Baso # (Auto) Immature Gran % Nucleated RBC % Immature Gran # Nucleated RBCs # INR 1.4 PT Patient/Control Mix 15.0 Circ Anticoag PTT 55.8 H Sodium Potassium Chloride Carbon Dioxide Anion Gap BUN Creatinine GFR Calculation BUN/Creatinine Ratio Glucose POC Glucose 170 H Calculated Osmolality Calcium Magnesium 10/20/16 11:52 WBC RBC Hgb Hct MCV MCH MCHC RDW Plt Count MPV Neut % (Auto) Lymph % (Auto) Clare % (Auto) Eos % (Auto) Baso % (Auto) Neut # (Auto) Lymph # (Auto) Clare # (Auto) Eos # (Auto) Baso # (Auto) Immature Gran % Nucleated RBC % Immature Gran # Nucleated RBCs # INR PT Patient/Control Mix Circ Anticoag PTT Sodium Potassium Chloride Carbon Dioxide Anion Gap BUN Creatinine GFR Calculation BUN/Creatinine Ratio Glucose POC Glucose 283 H Calculated Osmolality Calcium Magnesium Specialty Discharge - Follow Up or Referrals <Richie Edmondson - Last Filed: 10/20/16 17:13> Cardiology - PN: Subj Interval history: This patient continues stable on heparin with an INR today 1.4. She is comfortable and free of significant complaints and our plan will be to continue her anticoagulation is presently and have her discharge once her INR is in the 1.8 range. Exam (Progress Note) - Constitutional Vitals: Period Temp Pulse Resp BP Sys/Ceballos Pulse Ox Last 24 Hr 96.8 F-98.9 F 69-82 16-20 123-149/54-68 94-100 Result/EKG - Labs CBC & BMP: 10/20/16 00:42 10/20/16 00:42 Labs: Laboratory Results - last 24 hr 10/19/16 10/19/16 10/20/16 18:10 20:36 00:42 WBC 7.3 RBC 3.74 L Hgb 11.1 L Hct 33.0 L MCV 88.2 MCH 30 MCHC 33.6 RDW 14.1 Plt Count 278 MPV 10.4 Neut % (Auto) 79.5 H Lymph % (Auto) 9.7 L Clare % (Auto) 10.3 Eos % (Auto) 0.0 Baso % (Auto) 0.0 Neut # (Auto) 5.8 Lymph # (Auto) 0.7 L Clare # (Auto) 0.8 Eos # (Auto) 0.0 Baso # (Auto) 0.0 Immature Gran % 0.5 Nucleated RBC % 0.0 Immature Gran # 0.04 Nucleated RBCs # 0.00 INR PT Patient/Control Mix Circ Anticoag PTT 49.7 H Sodium Potassium Chloride Carbon Dioxide Anion Gap BUN Creatinine GFR Calculation BUN/Creatinine Ratio Glucose POC Glucose 214 H Calculated Osmolality Calcium Magnesium 10/20/16 10/20/16 10/20/16 00:42 00:42 00:42 WBC RBC Hgb Hct MCV MCH MCHC RDW Plt Count MPV Neut % (Auto) Lymph % (Auto) Clare % (Auto) Eos % (Auto) Baso % (Auto) Neut # (Auto) Lymph # (Auto) Clare # (Auto) Eos # (Auto) Baso # (Auto) Immature Gran % Nucleated RBC % Immature Gran # Nucleated RBCs # INR 1.4 PT Patient/Control Mix 15.0 Circ Anticoag PTT 50.8 H Sodium 141 Potassium 3.7 Chloride 106 Carbon Dioxide 25 Anion Gap 13.7 BUN 30 H Creatinine 0.90 GFR Calculation 58 BUN/Creatinine Ratio 33.00 H Glucose 98 POC Glucose Calculated Osmolality 286.3 Calcium 9.0 Magnesium 2.3 10/20/16 10/20/16 10/20/16 05:51 07:35 11:52 WBC RBC Hgb Hct MCV MCH MCHC RDW Plt Count MPV Neut % (Auto) Lymph % (Auto) Clare % (Auto) Eos % (Auto) Baso % (Auto) Neut # (Auto) Lymph # (Auto) Clare # (Auto) Eos # (Auto) Baso # (Auto) Immature Gran % Nucleated RBC % Immature Gran # Nucleated RBCs # INR PT Patient/Control Mix Circ Anticoag PTT 55.8 H Sodium Potassium Chloride Carbon Dioxide Anion Gap BUN Creatinine GFR Calculation BUN/Creatinine Ratio Glucose POC Glucose 170 H 283 H Calculated Osmolality Calcium Magnesium 10/20/16 16:03 WBC RBC Hgb Hct MCV MCH MCHC RDW Plt Count MPV Neut % (Auto) Lymph % (Auto) Clare % (Auto) Eos % (Auto) Baso % (Auto) Neut # (Auto) Lymph # (Auto) Clare # (Auto) Eos # (Auto) Baso # (Auto) Immature Gran % Nucleated RBC % Immature Gran # Nucleated RBCs # INR PT Patient/Control Mix Circ Anticoag PTT Sodium Potassium Chloride Carbon Dioxide Anion Gap BUN Creatinine GFR Calculation BUN/Creatinine Ratio Glucose POC Glucose 186 H Calculated Osmolality Calcium Magnesium
[2016-10-20] MEDS ORDERED: WARFARIN 5 MG TABLET PO ONE (16:00)
[2016-10-20] MEDS ORDERED: WARFARIN 4 MG TABLET ONE (17:50)
[2016-10-20] MEDS: WARFARIN 2 MG TABLET PO SCH (17:53)
--- NOTE | 2016-10-20 20:06 | Internal Med Progress Note ---
Assessment and Plan (1) Asthma Status: Chronic Current Visit: Yes (2) GERD (gastroesophageal reflux disease) Status: Chronic Current Visit: Yes (3) History of TIA (transient ischemic attack) Status: Chronic Current Visit: Yes (4) Hypertension Status: Chronic Current Visit: Yes Qualifiers: Hypertension type: essential hypertension Qualified Code(s): I10 - Essential (primary) hypertension (5) Chronic atrial fibrillation Status: Chronic Current Visit: No (6) Chronic anticoagulation Status: Chronic Current Visit: Yes (7) History of GI bleed Problem details: She was scheduled for colonoscopy on Tuesday. She will require IV heparin. Plan to monitor in the hospital. IV heparin when INR is less than 2. She has had a TIA in the past when not adequately anticoagulated. I feel there is a component of anxiety involved here. Status: Chronic Current Visit: Yes (8) History of mitral valve replacement with mechanical valve Status: Chronic Current Visit: Yes (9) Pacemaker Status: Chronic Current Visit: No (10) Guaiac positive stools Status: Acute Current Visit: Yes Internal Medicine - PN: Subj Interval history: Ms. Faith is a 81 year old female with history of HTN, dyslipidemia, DM, a fib, pacemaker, CHF, asthma, OA, stroke, TIA, multiple allergies and drug intolerances, acid reflux, who presented to ER with chest pain, acute right sided weakness, and worsening acid reflux. INR was slightly hyper therapeutic level. She has mitral valve replacement mechanical valve. She describes a heaviness in her chest with breathing. Tuesday, she reports feeling better. Will continue current treatment. Tuesday, she reports history of diverticulitis recurrent RLQ, and feels abdominal pain. Will consult Dr. Jennifer III to further evaluate. She has never had a surgical repair, but has had multiple episodes of recurrence, about three episodes per year for several years. Will start antibiotic. She has guaiac positive stool. Had started Cipro, but Nurse called that she developed acutely red streak to her arm and shortness of breath. Cipro has now been added to allergy list ( multiple drug allergies), and Augmentin started. She reported to the nurse that she can tolerate Augmentin. She does not want to try Flagyl. Tuesday, she is tolerating Augmentin and abdominal pain has improved after two doses. Tuesday, she is not feeling as well today. Fatigued. Hemoglobin stable. Tuesday, she is feeling fatigued today. Ordering extra breathing treatment. She reports fatigue. She had been sitting up, and when crossing the room to her bed became short of breath. Exam (Progress Note) - Constitutional Vitals: Period Temp Pulse Resp BP Sys/Ceballos Pulse Ox Last 24 Hr 96.8 F-98.8 F 69-82 16-20 123-148/54-68 94-100 Exam: General appearance: no acute distress; fatigued - Respiratory Respiratory exam: Present: clear to auscultation bilaterally - Cardiovascular Cardiovascular exam: Present: regular rate and rhythm - GI/Abdominal GI/Abdominal exam: Present: tenderness largely resolved, soft - Extremities Exam Extremities exam: Absent: edema - Neurological Exam Neurological exam: Present: alert - Psychiatric Psychiatric exam: Present: normal mood - Skin Skin exam: Present: warm, dry Results - Labs CBC & BMP: 10/20/16 00:42 10/20/16 00:42 Specialty Discharge - Follow Up or Referrals
[2016-10-20] MEDS: MONTELUKAST 10 MG TABLET PO SCH (21:53)
[2016-10-21] MEDS: ALBUTEROL 2.5 MG/3 ML NEB RESP TX SCH ×4 (00:41→22:48)
[2016-10-21] MEDS: HEPARIN DRIP 25,000 UNITS/500 ML PREMIX IV SCH (01:39)
[2016-10-21 05:34] LABS: Hematocrit 34.9 VOL% (35.7-47.0); Hemoglobin 11.8 GM/DL (12.0-16.0); Immature Granulocytes % 1.2 %; Immature Granulocytes Absolute 0.09 #; Lymphocytes # 0.6 10*3/uL (1.4-4.0); Lymphocytes % 7.5 % (21.3-54.2); Mean Corpuscular HGB Conc 33.8 GM/DL (32-36); Mean Corpuscular Hemoglobin 30 PG (27-34); Mean Corpuscular Volume 89.5 FL (87-102); Mean Platelet Volume 9.9 FL (9.6-12.0); Monocytes # 0.6 10*3/uL (0.11-0.8); Monocytes % 7.3 % (1.7-12.7); Neutrophils # 6.4 10*3/uL (1.4-7.4); Platelet Count 283 T/CUMM (130-400); Red Cell Distribution Width 13.7 % (9.3-17.3); White Blood Count 7.7 T/CUMM (4-12)
[2016-10-21 05:39] LABS: INR 1.5; PT Patient Result 16.1 SECS
[2016-10-21 06:46] LABS: Magnesium 2.4 MG/DL (1.8-2.4); Osmolality,Calculated 285.5 MOS/KG (273-304); Potassium 4.2 MMOL/L (3.5-5.1)
[2016-10-21] MEDS: FERROUS SULFATE 325 MG TABLET PO SCH (09:13)
[2016-10-21] MEDS: amLODIPine 10 MG TABLET PO SCH (09:13)
[2016-10-21] MEDS: CHLORTHALIDONE 25 MG TABLET PO SCH (09:13)
[2016-10-21] MEDS: FAMOTIDINE 20 MG TABLET PO SCH ×2 (09:13→21:40)
[2016-10-21] MEDS: LEVOTHYROXINE 25 MCG TABLET PO SCH (09:14)
[2016-10-21] MEDS: ASPIRIN EC 325 MG TABLET PO SCH (09:14)
[2016-10-21] MEDS: ALPRAZolam 0.25 MG TABLET PO SCH ×2 (09:14→21:41)
[2016-10-21] MEDS: INSULIN REGULAR 100 UNIT/ML SUBCUT SCH ×4 (09:14→21:57)
[2016-10-21] MEDS: AMOXICILLIN/CLAV 500 MG TABLET PO SCH ×2 (09:14→21:49)
[2016-10-21] MEDS: LOSARTAN 50 MG TABLET PO SCH ×2 (09:14→21:40)
[2016-10-21] MEDS: POTASSIUM CHLORIDE 10 MEQ TABLET PO SCH (09:14)
[2016-10-21] MEDS: methylPREDNISolone SOD SUC 40 MG/1 ML VIAL IV SCH ×3 (09:23→23:12)
[2016-10-21] MEDS: OXYMETAZOLINE 0.05% NASAL SPRAY 15 ML BOTTLE BOTH NARES SCH ×2 (09:23→21:39)
--- NOTE | 2016-10-21 14:48 | Cardiology Progress Note ---
<Yady Dotson - Last Filed: 10/21/16 15:06> Assessment and Plan (1) Chest pain Status: Resolved Assessment and plan: See plan of care listed below. Current Visit: Yes (2) Anemia Status: Acute Assessment and plan: See plan of care listed below. Current Visit: No (3) Anxiety Status: Chronic Assessment and plan: See plan of care listed below. Current Visit: No (4) Chronic anticoagulation Status: Chronic Assessment and plan: See plan of care listed below. Current Visit: Yes (5) History of GI bleed Problem details: She was scheduled for colonoscopy on Tuesday. She will require IV heparin. Plan to monitor in the hospital. IV heparin when INR is less than 2. She has had a TIA in the past when not adequately anticoagulated. I feel there is a component of anxiety involved here. Status: Chronic Assessment and plan: See plan of care listed below. Current Visit: Yes (6) History of mitral valve replacement with mechanical valve Status: Chronic Assessment and plan: See plan of care listed below. Current Visit: Yes (7) Pacemaker Status: Chronic Assessment and plan: See plan of care listed below. Current Visit: No (8) Sleep apnea Status: Chronic Assessment and plan: See plan of care listed below. Current Visit: No (9) Asthma Status: Chronic Assessment and plan: See plan of care listed below. Current Visit: Yes (10) Hypertension Status: Chronic Assessment and plan: See plan of care listed below. Current Visit: Yes Qualifiers: Hypertension type: essential hypertension Qualified Code(s): I10 - Essential (primary) hypertension (11) Hyperlipidemia Status: Chronic Current Visit: Yes Qualifiers: Hyperlipidemia type: pure hypercholesterolemia Qualified Code(s): E78.00 - Pure hypercholesterolemia, unspecified; E78.0 - Pure hypercholesterolemia (12) Status post ablation of atrial fibrillation Status: Chronic Current Visit: Yes (13) Hypothyroidism Status: Chronic Assessment and plan: See plan of care listed below. Current Visit: No Qualifiers: Hypothyroidism type: acquired Qualified Code(s): E03.9 - Hypothyroidism, unspecified (14) History of rheumatic heart disease Status: Chronic Current Visit: Yes (15) GERD (gastroesophageal reflux disease) Status: Chronic Current Visit: Yes (16) History of TIA (transient ischemic attack) Status: Chronic Current Visit: Yes (17) Abdominal pain Status: Acute Assessment and plan: See plan of care listed below. Current Visit: Yes Qualifiers: Abdominal location: right lower quadrant Qualified Code(s): R10.31 - Right lower quadrant pain (18) Guaiac positive stools Status: Acute Assessment and plan: See plan of care listed below. Current Visit: Yes (19) Atypical chest pain Problem details: She has been evaluated on multiple occasions. No significant coronary artery disease. Status: Resolved Assessment and plan: See plan of care listed below. Current Visit: No Cardiology - PN: Subj Interval history: [employer]: Dr. Rios PCP: Dr. Lou Zavaleta SUMMARY: Ms. Faith is a 81 year old female patient without known history of coronary artery disease, routinely followed by Dr. Rios. PMH include: hypertension, hyperlipidemia, TIA, atrial fibrillation (status post AV ablation at [facility]), pacemaker, irritable bowel syndrome, asthma, diverticulosis, obstructive sleep apnea (wears CPAP), hypothyroidism, anxiety, rheumatic heart disease and mechanical mitral valve with chronic anticoagulation with Coumadin. Her last heart catheterization was done in 2003. She reports that she has had 4 heart catheterizations which did not reveal any significant obstructive coronary artery disease. She last saw Dr. Rios in the cardiology clinic May 2016. At that time she had complaints of dyspnea on exertion. He offered her a cardiac stress test at that time. However she declined having this done at that time. Patient presented to emergency department with complaints of chest pain and weakness. She was admitted under Dr. Lou Zavaleta's service and housed on the telemetry unit. Cardiology was consulted to further evaluate patient's chest pain. On exam, patient's chest pain was reproducible to light palpation, consistent with chest wall pain. Patient was noted to be anemic this hospitalization. Stool was positive for occult blood 1. Subsequently, Coumadin was placed on hold and she was transfused with packed red blood cells. GI was consulted. Positive occult stool was felt to be secondary to epistaxis. Patient had echocardiogram which revealed normal sized LV with mild concentric left ventricular hypertrophy, ejection fraction greater than 65%. Patient was seen and examined on the telemetry unit. Patient remains on heparin infusion. PTT 50.0. INR 1.5. Denies abdominal pain. Tolerating diet well. Abdominal CT was nondiagnostic for source of her pain. She is currently being treated empirically for diverticulitis. H&H is stable at 11.8 and 34.9. No overt bleeding noted. Patient continues to be weak and will most likely benefit from swing bed placement at discharge. Patient denies chest pain, heaviness and tightness. Vital signs are stable. Currently in a ventricular pacer rhythm with heart rates in the 70s. Assessment/plan: 1. ATYPICAL CHEST PAIN: Resolved. Cardiac biomarkers negative 4. EKG unchanged. No further workup is recommended. 2. HYPERTENSION: This is clinically stable. Continue current plan of care. 3. STATUS POST MECHANICAL MITRAL VALVE WITH CHRONIC ANTICOAGULATION: INR today is 1.5. Coumadin 2mg initiated Tuesday. We will give her an extra 5 mg of Coumadin today and continue to bridge with heparin drip until INR is reaches at least 1.8. Continue to monitor PTT per protocol. Daily INR. 4. HYPERLIPIDEMIA: Continue current plan of care with lipid lowering agent. Patient reports that she is statin intolerant. 5. OBSTRUCTIVE SLEEP APNEA: CPAP nightly. 6. HYPOTHYROIDISM: Continue current plan of care with Synthroid. Defer further management to attending. 7. ANXIETY: This is clinically stable. Defer management to attending. 8. RIGHT LEG WEAKNESS: This has now resolved. Head CT did not reveal any acute intracranial processes. Carotid ultrasound did not reveal any evidence of significant narrowing of either internal carotid artery. Dr. Hernandez has evaluated patient and feels as though she had TIA. He recommends to continue ASA and Coumadin, bridge with heparin until INR is therapeutic. 9. ASTHMA: Will defer further management of this to her attending. 10. OCCULT BLOOD POSITIVE STOOL: No overt bleeding noted. This may certainly have been chronic epistaxis. She has had GI evaluation recently and had negative workup. Her last colonoscopy was in 2014. She apparently did not do well after this procedure and has declined colonoscopy this admission. Daily CBC. 11. GERD: Continue current plan of care. 12. PACEMAKER: This appears to be functioning appropriately. 13. ABDOMINAL PAIN: Abdominal CT was nondiagnostic for source of her pain. She is currently being treated empirically for diverticulitis. Further plan an addendum to follow per Dr. Edmondson. Exam (Progress Note) - Constitutional Vitals: Period Temp Pulse Resp BP Sys/Ceballos Pulse Ox Last 24 Hr 97.4 F-98.2 F 70-82 16-20 113-155/58-68 94-100 Exam: General appearance: normal weight, no acute distress HEENT exam: normal inspection, atraumatic Neck exam: normal inspection no JVD. No carotid bruit. Trachea is in midline Respiratory/lungs exam: clear to auscultation bilaterally good air movement. Cardiovascular exam: regular rate and rhythm, no murmur or gallop or rub. She has normal mechanical valve sounds for her mitral valve prosthesis. No precordial lift. Chest wall exam: nontender GI/Abdominal exam: normal bowel sounds, soft, nontender, no abdominal bruits or pulsatile masses. Extremeties/musculoskeletal: normal inspection without edema or cyanosis. Neurological exam: alert, oriented X3, no focal deficits Psychiatric exam: normal affect, normal mood. Cognitive function is grossly normal. Skin exam: normal color, warm Result/EKG - Labs CBC & BMP: 10/21/16 05:18 10/21/16 05:18 Lab Results: I have reviewed the past 24 hour labs Labs: Laboratory Results - last 24 hr 10/20/16 10/20/16 10/21/16 16:03 20:03 05:04 WBC RBC Hgb Hct MCV MCH MCHC RDW Plt Count MPV Neut % (Auto) Lymph % (Auto) Leon % (Auto) Eos % (Auto) Baso % (Auto) Neut # (Auto) Lymph # (Auto) Leon # (Auto) Eos # (Auto) Baso # (Auto) Immature Gran % Nucleated RBC % Immature Gran # Nucleated RBCs # INR PT Patient/Control Mix Circ Anticoag PTT Sodium Potassium Chloride Carbon Dioxide Anion Gap BUN Creatinine GFR Calculation BUN/Creatinine Ratio Glucose POC Glucose 186 H 279 H 178 H Calculated Osmolality Calcium Magnesium 10/21/16 10/21/16 10/21/16 05:18 05:18 05:18 WBC 7.7 RBC 3.90 Hgb 11.8 L Hct 34.9 L MCV 89.5 MCH 30 MCHC 33.8 RDW 13.7 Plt Count 283 MPV 9.9 Neut % (Auto) 84.0 H Lymph % (Auto) 7.5 L Leon % (Auto) 7.3 Eos % (Auto) 0.0 Baso % (Auto) 0.0 Neut # (Auto) 6.4 Lymph # (Auto) 0.6 L Leon # (Auto) 0.6 Eos # (Auto) 0.0 Baso # (Auto) 0.0 Immature Gran % 1.2 Nucleated RBC % 0.0 Immature Gran # 0.09 Nucleated RBCs # 0.00 INR 1.5 PT Patient/Control Mix 16.1 Circ Anticoag PTT Sodium 139 Potassium 4.2 Chloride 104 Carbon Dioxide 25 Anion Gap 14.2 BUN 25 H Creatinine 1.10 H GFR Calculation 46 BUN/Creatinine Ratio 22.00 H Glucose 186 H POC Glucose Calculated Osmolality 285.5 Calcium 9.0 Magnesium 2.4 10/21/16 10/21/16 10/21/16 05:18 07:44 11:16 WBC RBC Hgb Hct MCV MCH MCHC RDW Plt Count MPV Neut % (Auto) Lymph % (Auto) Leon % (Auto) Eos % (Auto) Baso % (Auto) Neut # (Auto) Lymph # (Auto) Leon # (Auto) Eos # (Auto) Baso # (Auto) Immature Gran % Nucleated RBC % Immature Gran # Nucleated RBCs # INR PT Patient/Control Mix Circ Anticoag PTT 50.0 H Sodium Potassium Chloride Carbon Dioxide Anion Gap BUN Creatinine GFR Calculation BUN/Creatinine Ratio Glucose POC Glucose 164 H 121 H Calculated Osmolality Calcium Magnesium Specialty Discharge - Follow Up or Referrals <Richie Edmondson - Last Filed: 10/21/16 17:08> Cardiology - PN: Subj Interval history: Patient is stable with continuing subtherapeutic INR is which we are trying to support with additional Coumadin. She continues on heparin until we can get her adequately anticoagulated. She can be discharged once that is accomplished. When she gets to 1.8 we can continue her p.o. Coumadin and discharged continue her heparin and let her be discharged from our standpoint. Exam (Progress Note) - Constitutional Vitals: Period Temp Pulse Resp BP Sys/Ceballos Pulse Ox Last 24 Hr 97.4 F-98.2 F 70-83 16-20 113-155/58-68 94-100 Result/EKG - Labs CBC & BMP: 10/21/16 05:18 10/21/16 05:18 Labs: Laboratory Results - last 24 hr 10/20/16 10/21/16 10/21/16 20:03 05:04 05:18 WBC 7.7 RBC 3.90 Hgb 11.8 L Hct 34.9 L MCV 89.5 MCH 30 MCHC 33.8 RDW 13.7 Plt Count 283 MPV 9.9 Neut % (Auto) 84.0 H Lymph % (Auto) 7.5 L Leon % (Auto) 7.3 Eos % (Auto) 0.0 Baso % (Auto) 0.0 Neut # (Auto) 6.4 Lymph # (Auto) 0.6 L Leon # (Auto) 0.6 Eos # (Auto) 0.0 Baso # (Auto) 0.0 Immature Gran % 1.2 Nucleated RBC % 0.0 Immature Gran # 0.09 Nucleated RBCs # 0.00 INR PT Patient/Control Mix Circ Anticoag PTT Sodium Potassium Chloride Carbon Dioxide Anion Gap BUN Creatinine GFR Calculation BUN/Creatinine Ratio Glucose POC Glucose 279 H 178 H Calculated Osmolality Calcium Magnesium 10/21/16 10/21/16 10/21/16 05:18 05:18 05:18 WBC RBC Hgb Hct MCV MCH MCHC RDW Plt Count MPV Neut % (Auto) Lymph % (Auto) Leon % (Auto) Eos % (Auto) Baso % (Auto) Neut # (Auto) Lymph # (Auto) Leon # (Auto) Eos # (Auto) Baso # (Auto) Immature Gran % Nucleated RBC % Immature Gran # Nucleated RBCs # INR 1.5 PT Patient/Control Mix 16.1 Circ Anticoag PTT 50.0 H Sodium 139 Potassium 4.2 Chloride 104 Carbon Dioxide 25 Anion Gap 14.2 BUN 25 H Creatinine 1.10 H GFR Calculation 46 BUN/Creatinine Ratio 22.00 H Glucose 186 H POC Glucose Calculated Osmolality 285.5 Calcium 9.0 Magnesium 2.4 10/21/16 10/21/16 10/21/16 07:44 11:16 16:44 WBC RBC Hgb Hct MCV MCH MCHC RDW Plt Count MPV Neut % (Auto) Lymph % (Auto) Leon % (Auto) Eos % (Auto) Baso % (Auto) Neut # (Auto) Lymph # (Auto) Leon # (Auto) Eos # (Auto) Baso # (Auto) Immature Gran % Nucleated RBC % Immature Gran # Nucleated RBCs # INR PT Patient/Control Mix Circ Anticoag PTT Sodium Potassium Chloride Carbon Dioxide Anion Gap BUN Creatinine GFR Calculation BUN/Creatinine Ratio Glucose POC Glucose 164 H 121 H 146 H Calculated Osmolality Calcium Magnesium
[2016-10-21] MEDS: WARFARIN 2 MG TABLET PO SCH (17:22)
[2016-10-21] MEDS ORDERED: WARFARIN 4 MG TABLET ONE (17:23)
[2016-10-21] MEDS ORDERED: WARFARIN 5 MG TABLET PO ONE (18:00)
--- NOTE | 2016-10-21 18:47 | Internal Med Progress Note ---
Assessment and Plan (1) Asthma Status: Chronic Current Visit: Yes (2) GERD (gastroesophageal reflux disease) Status: Chronic Current Visit: Yes (3) History of TIA (transient ischemic attack) Status: Chronic Current Visit: Yes (4) Hypertension Status: Chronic Current Visit: Yes Qualifiers: Hypertension type: essential hypertension Qualified Code(s): I10 - Essential (primary) hypertension (5) Chronic atrial fibrillation Status: Chronic Current Visit: No (6) Chronic anticoagulation Status: Chronic Current Visit: Yes (7) History of GI bleed Problem details: She was scheduled for colonoscopy on Tuesday. She will require IV heparin. Plan to monitor in the hospital. IV heparin when INR is less than 2. She has had a TIA in the past when not adequately anticoagulated. I feel there is a component of anxiety involved here. Status: Chronic Current Visit: Yes (8) History of mitral valve replacement with mechanical valve Status: Chronic Current Visit: Yes (9) Pacemaker Status: Chronic Current Visit: No (10) Guaiac positive stools Status: Acute Current Visit: Yes Internal Medicine - PN: Subj Interval history: Ms. Faith is a 81 year old female with history of HTN, dyslipidemia, DM, a fib, pacemaker, CHF, asthma, OA, stroke, TIA, multiple allergies and drug intolerances, acid reflux, who presented to ER with chest pain, acute right sided weakness, and worsening acid reflux. INR was slightly hyper therapeutic level. She has mitral valve replacement mechanical valve. She describes a heaviness in her chest with breathing. Tuesday, she reports feeling better. Will continue current treatment. Tuesday, she reports history of diverticulitis recurrent RLQ, and feels abdominal pain. Will consult Dr. Jennifer III to further evaluate. She has never had a surgical repair, but has had multiple episodes of recurrence, about three episodes per year for several years. Will start antibiotic. She has guaiac positive stool. Had started Cipro, but Nurse called that she developed acutely red streak to her arm and shortness of breath. Cipro has now been added to allergy list ( multiple drug allergies), and Augmentin started. She reported to the nurse that she can tolerate Augmentin. She does not want to try Flagyl. Tuesday, she is tolerating Augmentin and abdominal pain has improved after two doses. Tuesday, she is not feeling as well today. Fatigued. Hemoglobin stable. Tuesday, she is feeling fatigued today. Ordering extra breathing treatment. She reports fatigue. She had been sitting up, and when crossing the room to her bed became short of breath. , still fatigued but overall better. Awaiting INR to come up and she will go to swing bed. Exam (Progress Note) - Constitutional Vitals: Period Temp Pulse Resp BP Sys/Ceballos Pulse Ox Last 24 Hr 97.4 F-98.2 F 70-83 16-20 113-155/58-68 94-100 Exam: General appearance: no acute distress; fatigued - Respiratory Respiratory exam: Present: clear to auscultation bilaterally - Cardiovascular Cardiovascular exam: Present: regular rate and rhythm - GI/Abdominal GI/Abdominal exam: Present: tenderness resolved, soft - Extremities Exam Extremities exam: Absent: edema - Neurological Exam Neurological exam: Present: alert - Psychiatric Psychiatric exam: Present: normal mood - Skin Skin exam: Present: warm, dry Results - Labs CBC & BMP: 10/22/16 05:15 10/22/16 05:15 Specialty Discharge - Follow Up or Referrals
[2016-10-21] MEDS: MONTELUKAST 10 MG TABLET PO SCH (21:41)
--- NOTE | 2016-10-21 23:30 | Progress Note ---
INTERVAL HISTORY: Ms. Faith seems to be doing really well. No new problems reported. She is still on IV heparin. Speech is fine. No more spells reported of any kind. PHYSICAL EXAMINATION: VITAL SIGNS: Her vital signs are stable. She is afebrile. LUNGS: Clear. HEART: Regular rate and rhythm. ABDOMEN: Soft and nontender. NEUROLOGIC: She is alert, awake, and oriented x3. Fluent speech with comprehension. Cranial nerve s II through XII are intact. Motor exam: Strength is symmetrical at 5/5. Sensory exam is grossly intact. Gait is normal. IMPRESSION: TIA. RECOMMENDATIONS: 1. Continue Coumadin and her INR is 1.5. 2. Continue IV heparin. 3. Okay to go home from neurologic standpoint when okay with PCP. 4. Sign off. Please call p.r.n.
[2016-10-22 05:32] LABS: Hematocrit 33.1 VOL% (35.7-47.0); Hemoglobin 11.3 GM/DL (12.0-16.0); Immature Granulocytes % 1.1 %; Immature Granulocytes Absolute 0.08 #; Lymphocytes # 0.6 10*3/uL (1.4-4.0); Lymphocytes % 7.7 % (21.3-54.2); Mean Corpuscular HGB Conc 34.1 GM/DL (32-36); Mean Corpuscular Hemoglobin 30 PG (27-34); Mean Corpuscular Volume 87.6 FL (87-102); Mean Platelet Volume 10.3 FL (9.6-12.0); Monocytes # 0.5 10*3/uL (0.11-0.8); Monocytes % 6.4 % (1.7-12.7); Neutrophils # 6.4 10*3/uL (1.4-7.4); Neutrophils % 84.8 % (38.7-73.9); Platelet Count 273 T/CUMM (130-400); Red Blood Count 3.78 MC/CUMM (3.8-5.5); Red Cell Distribution Width 13.7 % (9.3-17.3); White Blood Count 7.5 T/CUMM (4-12)
[2016-10-22 05:43] LABS: INR 2.1
[2016-10-22 06:24] LABS: Calcium 9.1 MG/DL (8.5-10.1); Magnesium 2.4 MG/DL (1.8-2.4); Osmolality,Calculated 284.7 MOS/KG (273-304); Potassium 4.2 MMOL/L (3.5-5.1)
[2016-10-22] MEDS: methylPREDNISolone SOD SUC 40 MG/1 ML VIAL IV SCH ×2 (06:38→16:17)
[2016-10-22] MEDS: LEVOTHYROXINE 25 MCG TABLET PO SCH (06:39)
[2016-10-22] MEDS: ALBUTEROL 2.5 MG/3 ML NEB RESP TX SCH ×2 (07:48→14:00)
[2016-10-22] MEDS: ASPIRIN EC 325 MG TABLET PO SCH (08:34)
[2016-10-22] MEDS: FERROUS SULFATE 325 MG TABLET PO SCH (08:34)
[2016-10-22] MEDS: ALPRAZolam 0.25 MG TABLET PO SCH (08:35)
[2016-10-22] MEDS: CHLORTHALIDONE 25 MG TABLET PO SCH (08:35)
[2016-10-22] MEDS: FAMOTIDINE 20 MG TABLET PO SCH (08:35)
[2016-10-22] MEDS: LOSARTAN 50 MG TABLET PO SCH (08:35)
[2016-10-22] MEDS: amLODIPine 10 MG TABLET PO SCH (08:35)
[2016-10-22] MEDS: POTASSIUM CHLORIDE 10 MEQ TABLET PO SCH (08:35)
[2016-10-22] MEDS: INSULIN REGULAR 100 UNIT/ML SUBCUT SCH ×3 (08:36→17:12)
[2016-10-22] MEDS: OXYMETAZOLINE 0.05% NASAL SPRAY 15 ML BOTTLE BOTH NARES SCH (08:36)
[2016-10-22] MEDS: AMOXICILLIN/CLAV 500 MG TABLET PO SCH (08:41)
[2016-10-22] MEDS: HEPARIN DRIP 25,000 UNITS/500 ML PREMIX IV SCH (08:42)
[2016-10-22] MEDS ORDERED: WARFARIN 5 MG TABLET PO SCH (12:00)
--- NOTE | 2016-10-22 12:05 | Cardiology Progress Note ---
Assessment and Plan (1) Chest pain Status: Resolved Assessment and plan: See plan of care listed below. Current Visit: Yes (2) Anemia Status: Acute Assessment and plan: See plan of care listed below. Current Visit: No (3) Anxiety Status: Chronic Assessment and plan: See plan of care listed below. Current Visit: No (4) Chronic anticoagulation Status: Chronic Assessment and plan: See plan of care listed below. Current Visit: Yes (5) History of GI bleed Problem details: She was scheduled for colonoscopy on Tuesday. She will require IV heparin. Plan to monitor in the hospital. IV heparin when INR is less than 2. She has had a TIA in the past when not adequately anticoagulated. I feel there is a component of anxiety involved here. Status: Chronic Assessment and plan: See plan of care listed below. Current Visit: Yes (6) History of mitral valve replacement with mechanical valve Status: Chronic Assessment and plan: See plan of care listed below. Current Visit: Yes (7) Pacemaker Status: Chronic Assessment and plan: See plan of care listed below. Current Visit: No (8) Sleep apnea Status: Chronic Assessment and plan: See plan of care listed below. Current Visit: No (9) Asthma Status: Chronic Assessment and plan: See plan of care listed below. Current Visit: Yes (10) Hypertension Status: Chronic Assessment and plan: See plan of care listed below. Current Visit: Yes Qualifiers: Hypertension type: essential hypertension Qualified Code(s): I10 - Essential (primary) hypertension (11) Hyperlipidemia Status: Chronic Current Visit: Yes Qualifiers: Hyperlipidemia type: pure hypercholesterolemia Qualified Code(s): E78.00 - Pure hypercholesterolemia, unspecified; E78.0 - Pure hypercholesterolemia (12) Status post ablation of atrial fibrillation Status: Chronic Current Visit: Yes (13) Hypothyroidism Status: Chronic Assessment and plan: See plan of care listed below. Current Visit: No Qualifiers: Hypothyroidism type: acquired Qualified Code(s): E03.9 - Hypothyroidism, unspecified (14) History of rheumatic heart disease Status: Chronic Current Visit: Yes (15) GERD (gastroesophageal reflux disease) Status: Chronic Current Visit: Yes (16) History of TIA (transient ischemic attack) Status: Chronic Current Visit: Yes (17) Abdominal pain Status: Acute Assessment and plan: See plan of care listed below. Current Visit: Yes Qualifiers: Abdominal location: right lower quadrant Qualified Code(s): R10.31 - Right lower quadrant pain (18) Guaiac positive stools Status: Acute Assessment and plan: See plan of care listed below. Current Visit: Yes (19) Atypical chest pain Problem details: She has been evaluated on multiple occasions. No significant coronary artery disease. Status: Resolved Assessment and plan: See plan of care listed below. Current Visit: No Cardiology - PN: Subj Interval history: Crank Hand: Dr. Rios PCP: Dr. Lou Zavaleta SUMMARY: Ms. Faith is a 81 year old female patient without known history of coronary artery disease, routinely followed by Dr. Rios. PMH include: hypertension, hyperlipidemia, TIA, atrial fibrillation (status post AV ablation at [facility]), pacemaker, irritable bowel syndrome, asthma, diverticulosis, obstructive sleep apnea (wears CPAP), hypothyroidism, anxiety, rheumatic heart disease and mechanical mitral valve with chronic anticoagulation with Coumadin. Her last heart catheterization was done in 2003. She reports that she has had 4 heart catheterizations which did not reveal any significant obstructive coronary artery disease. She last saw Dr. Rios in the cardiology clinic May 2016. At that time she had complaints of dyspnea on exertion. He offered her a cardiac stress test at that time. However she declined having this done at that time. Patient presented to emergency department with complaints of chest pain and weakness. She was admitted under Dr. Lou Zavaleta's service and housed on the telemetry unit. Cardiology was consulted to further evaluate patient's chest pain. On exam, patient's chest pain was reproducible to light palpation, consistent with chest wall pain. Patient was noted to be anemic this hospitalization. Stool was positive for occult blood 1. Subsequently, Coumadin was placed on hold and she was transfused with packed red blood cells. GI was consulted. Positive occult stool was felt to be secondary to epistaxis. Patient had echocardiogram which revealed normal sized LV with mild concentric left ventricular hypertrophy, ejection fraction greater than 65%. Patient was seen and examined on the telemetry unit. Patient remains on heparin infusion. PTT 73.8. INR 2.1. Denies abdominal pain. Tolerating diet well. H&H is stable at 11.3 and 33.1. No overt bleeding noted. Denies chest pain, heaviness and tightness and is without cardiac complaints. Patient continues to be weak and will most likely benefit from swing bed placement at discharge. Vital signs are stable. Currently in a ventricular pacer rhythm with heart rates in the 70s. Patient's INR is now 2.1. At this time, we will discontinue patient's heparin infusion and resume patient's preadmission Coumadin dose of 5 mg daily. Patient continues to be weak and will most likely benefit from swing bed placement at discharge. Patient is stable from a cardiac standpoint. At this time we will sign off. Please call if needed. Patient will be given a follow- up appointment with Dr. Rios in 2 weeks. At that time she will have the following labs obtained: CBC, BMP and INR. Assessment/plan: 1. ATYPICAL CHEST PAIN: Resolved. Cardiac biomarkers negative 4. EKG unchanged. No further workup is recommended. 2. HYPERTENSION: This is clinically stable. Continue current plan of care. 3. STATUS POST MECHANICAL MITRAL VALVE WITH CHRONIC ANTICOAGULATION: INR today is 2.1. At this time, we will discontinue patient's heparin infusion and resume patient's preadmission Coumadin dose of 5 mg daily. Patient is stable from a cardiac standpoint. At this time we will sign off. Please call if needed. Patient will be given a follow-up appointment with Dr. Rios in 2 weeks. At that time she will have the following labs obtained: CBC, BMP and INR. 4. HYPERLIPIDEMIA: Continue current plan of care with lipid lowering agent. Patient reports that she is statin intolerant. 5. OBSTRUCTIVE SLEEP APNEA: CPAP nightly. 6. HYPOTHYROIDISM: Continue current plan of care with Synthroid. Defer further management to attending. 7. ANXIETY: This is clinically stable. Defer management to attending. 8. RIGHT LEG WEAKNESS: This has now resolved. Head CT did not reveal any acute intracranial processes. Carotid ultrasound did not reveal any evidence of significant narrowing of either internal carotid artery. Dr. Hernandez has evaluated patient and feels as though she had TIA. He recommends to continue ASA and Coumadin, bridge with heparin until INR is therapeutic. 9. ASTHMA: Will defer further management of this to her attending. 10. OCCULT BLOOD POSITIVE STOOL: No overt bleeding noted. This may certainly have been from her chronic epistaxis. She has had GI evaluation recently and had negative workup. Her last colonoscopy was in 2014. She apparently did not do well after this procedure and has declined colonoscopy this admission. Daily CBC. 11. GERD: Continue current plan of care. 12. PACEMAKER: This appears to be functioning appropriately. 13. ABDOMINAL PAIN: Abdominal CT was nondiagnostic for source of her pain. She is currently being treated empirically for diverticulitis. Further plan an addendum to follow per Dr. Edmondson. Exam (Progress Note) - Constitutional Vitals: Period Temp Pulse Resp BP Sys/Ceballos Pulse Ox Last 24 Hr 96.9 F-97.7 F 70-83 16-20 135-146/65-83 93-100 Exam: General appearance: normal weight, no acute distress HEENT exam: normal inspection, atraumatic Neck exam: normal inspection no JVD. No carotid bruit. Trachea is in midline Respiratory/lungs exam: clear to auscultation bilaterally good air movement. Cardiovascular exam: regular rate and rhythm, no murmur or gallop or rub. She has normal mechanical valve sounds for her mitral valve prosthesis. No precordial lift. Chest wall exam: nontender GI/Abdominal exam: normal bowel sounds, soft, nontender, no abdominal bruits or pulsatile masses. Extremeties/musculoskeletal: normal inspection without edema or cyanosis. Neurological exam: alert, oriented X3, no focal deficits Psychiatric exam: normal affect, normal mood. Cognitive function is grossly normal. Skin exam: normal color, warm Result/EKG - Labs CBC & BMP: 10/22/16 05:15 10/22/16 05:15 Lab Results: I have reviewed the past 24 hour labs Labs: Laboratory Results - last 24 hr 10/21/16 10/21/16 10/22/16 16:44 21:52 05:15 WBC 7.5 RBC 3.78 L Hgb 11.3 L Hct 33.1 L MCV 87.6 MCH 30 MCHC 34.1 RDW 13.7 Plt Count 273 MPV 10.3 Neut % (Auto) 84.8 H Lymph % (Auto) 7.7 L [place] % (Auto) 6.4 Eos % (Auto) 0.0 Baso % (Auto) 0.0 Neut # (Auto) 6.4 Lymph # (Auto) 0.6 L [place] # (Auto) 0.5 Eos # (Auto) 0.0 Baso # (Auto) 0.0 Immature Gran % 1.1 Nucleated RBC % 0.0 Immature Gran # 0.08 Nucleated RBCs # 0.00 INR PT Patient/Control Mix Circ Anticoag PTT Sodium Potassium Chloride Carbon Dioxide Anion Gap BUN Creatinine GFR Calculation BUN/Creatinine Ratio Glucose POC Glucose 146 H 198 H Calculated Osmolality Calcium Magnesium 10/22/16 10/22/16 10/22/16 05:15 05:15 05:15 WBC RBC Hgb Hct MCV MCH MCHC RDW Plt Count MPV Neut % (Auto) Lymph % (Auto) [place] % (Auto) Eos % (Auto) Baso % (Auto) Neut # (Auto) Lymph # (Auto) [place] # (Auto) Eos # (Auto) Baso # (Auto) Immature Gran % Nucleated RBC % Immature Gran # Nucleated RBCs # INR 2.1 PT Patient/Control Mix 23.0 D Circ Anticoag PTT 73.8 H D Sodium 138 Potassium 4.2 Chloride 103 Carbon Dioxide 24 Anion Gap 15.2 H BUN 26 H Creatinine 1.00 GFR Calculation 51 BUN/Creatinine Ratio 26.00 H Glucose 192 H POC Glucose Calculated Osmolality 284.7 Calcium 9.1 Magnesium 2.4 10/22/16 07:41 WBC RBC Hgb Hct MCV MCH MCHC RDW Plt Count MPV Neut % (Auto) Lymph % (Auto) [place] % (Auto) Eos % (Auto) Baso % (Auto) Neut # (Auto) Lymph # (Auto) [place] # (Auto) Eos # (Auto) Baso # (Auto) Immature Gran % Nucleated RBC % Immature Gran # Nucleated RBCs # INR PT Patient/Control Mix Circ Anticoag PTT Sodium Potassium Chloride Carbon Dioxide Anion Gap BUN Creatinine GFR Calculation BUN/Creatinine Ratio Glucose POC Glucose 173 H Calculated Osmolality Calcium Magnesium Specialty Discharge - Follow Up or Referrals Follow up with: Sarath Rios MD [Physician] - 2 Weeks (Please schedule follow-up appointment with Dr. Rios in 2 weeks with CBC, BMP and INR.)
[2016-10-22 15:27] VITALS: BP 144/66
--- NOTE | 2016-10-22 17:11 | Discharge Summary ---
Hospital Course - Hospital Course Hospital Course: Ms. Faith is a 81 year old female with history of HTN, dyslipidemia, DM, a fib, pacemaker, CHF, asthma, OA, stroke, TIA, multiple allergies and drug intolerances, acid reflux, who presented to ER with chest pain, acute right sided weakness, and worsening acid reflux. INR was slightly hyper therapeutic level. She has mitral valve replacement mechanical valve. She has history of diverticulitis with recurrent episodes. She reports 2-3 episodes per year. A surgical consult was requested to further evaluate. She was seen by Dr. Jennifer ESCOBAR. She was placed on antibiotic while here. Abdominal pain did improve. She responded to Augmentin. Cipro has been added to her long allergy list. She had redness along her arm at the IV site when Cipro was administered. Coumadin was restarted, and today was at an acceptable level of 2.1. She will be discharged to [facility] in [place] for physical therapy. She has generalized weakness and would benefit from the strengthening of physical therapy. Diagnosis - Discharge Diagnosis (1) Asthma Status: Chronic (2) GERD (gastroesophageal reflux disease) Status: Chronic (3) History of TIA (transient ischemic attack) Status: Chronic (4) Hypertension Status: Chronic (5) Chronic atrial fibrillation Status: Chronic (6) Chronic anticoagulation Status: Chronic (7) History of GI bleed Status: Chronic (8) History of mitral valve replacement with mechanical valve Status: Chronic (9) Pacemaker Status: Chronic (10) Guaiac positive stools Status: Acute Specialty Discharge - Follow Up or Referrals Follow up with: Sarath Rios MD [Physician] - 2 Weeks (Please schedule follow-up appointment with Dr. Rios in 2 weeks with CBC, BMP and INR.) Discharge Plan - Discharge Data Disposition: Disch/Xfer-Ip Rehab Fac Condition at Discharge: Stable Discharge Diet: heart healthy, low fat, low cholesterol Activity: as per physical therapy, increase activity as tolerated - Discharge Medications New Acetaminophen Tab [Tylenol Tab] 500 mg PO TID PRN #0 tablet PRN Reason: Fever, Headache, Mild Pain Albuterol Neb [Proventil Neb] 2.5 mg RESP TX RT Q8H Ondansetron Tab [Zofran Tab] 4 mg PO QID PRN #14 tablet PRN Reason: Nausea/Vomiting Polyethylene Glycol Powder [Miralax] 17 gm PO DAILY PRN #0 PRN Reason: Constipation Amoxicillin/Clav Tab [Augmentin Tab] 500 mg PO BID #20 tablet Continue Nitroglycerin [place] 1 spray TRANSLING PRN PRN PRN Reason: Chest Pain Levothyroxine Tab [Synthroid Tab] 25 mcg PO DAILY@0700 ALPRAZolam [Xanax] 0.25 tablet PO BID Potassium Chloride Cap/Tab [K Dur] 10 meq PO DAILY Gemfibrozil [Lopid] 600 mg PO BIDAC Chlorthalidone 25 mg PO DAILY Aspirin [Ecotrin] 325 mg PO DAILY Warfarin [Coumadin] 5 mg PO DAILY@1800 #30 tablet Montelukast Tab [Singulair Tab] 10 mg PO BEDTIME Loratadine 10 mg PO BEDTIME PRN PRN Reason: Allergy Symptoms Famotidine Tab [Pepcid Tab] 20 mg PO BID Losartan Potassium 50 mg PO BID Ipratropium Inhaler [Atrovent Inhaler] 2 puff INH Q6HR PRN PRN Reason: Shortness Of Breath Ferrous Sulfate 325 mg PO DAILY W/BREAKFAST Cholecalciferol (Vitamin D3) [Vitamin D3] 50,000 unit PO DIRECTED amLODIPine [Norvasc] 10 mg PO DAILY - Follow Up or Referral Follow Up: Sarath Rios MD [Physician] - 2 Weeks (Please schedule follow-up appointment with Dr. Rios in 2 weeks with CBC, BMP and INR.) Lou Zavaleta DO [Physician] - - Forms/Instructions Instructions: Angina (ED) Additional Discharge Instructions: Follow up with Dr. Ambreen Zavaleta after swing bed. Follow up with Dr. Rios per appointment set. Exam - Constitutional Vitals: Period Temp Pulse Resp BP Sys/Ceballos Pulse Ox Last 24 Hr 96.9 F-97.6 F 69-78 16-20 134-146/57-83 93-100 Exam: General appearance: no acute distress - Respiratory Respiratory exam: Present: clear to auscultation bilaterally - Cardiovascular Cardiovascular exam: Present: regular rate and rhythm - GI/Abdominal GI/Abdominal exam: Present: tenderness resolved, soft - Extremities Exam Extremities exam: Absent: edema - Neurological Exam Neurological exam: Present: alert - Psychiatric Psychiatric exam: Present: normal mood - Skin Skin exam: Present: warm, dry Discharge Results Procedures and tests throughout hospitalization: Pending Orders 10/23/16 04:00 BMP w/ Mg [Basic Metabolic Panel w/Mg] IN AM CBC [Comp Blood Count Auto Diff] IN AM Prothrombin Time INR IN AM Labs on day of discharge: Labs from last 24 hours 10/22/16 10/22/16 10/22/16 15:48 12:01 07:41 WBC RBC Hgb Hct MCV MCH MCHC RDW Plt Count MPV Neut % (Auto) Lymph % (Auto) [place] % (Auto) Eos % (Auto) Baso % (Auto) Neut # (Auto) Lymph # (Auto) [place] # (Auto) Eos # (Auto) Baso # (Auto) Immature Gran % Nucleated RBC % Immature Gran # Nucleated RBCs # INR PT Patient/Control Mix Circ Anticoag PTT Sodium Potassium Chloride Carbon Dioxide Anion Gap BUN Creatinine GFR Calculation BUN/Creatinine Ratio Glucose POC Glucose 141 H 107 H 173 H Calculated Osmolality Calcium Magnesium 10/22/16 10/22/16 10/22/16 05:15 05:15 05:15 WBC RBC Hgb Hct MCV MCH MCHC RDW Plt Count MPV Neut % (Auto) Lymph % (Auto) [place] % (Auto) Eos % (Auto) Baso % (Auto) Neut # (Auto) Lymph # (Auto) [place] # (Auto) Eos # (Auto) Baso # (Auto) Immature Gran % Nucleated RBC % Immature Gran # Nucleated RBCs # INR 2.1 PT Patient/Control Mix 23.0 D Circ Anticoag PTT 73.8 H D Sodium 138 Potassium 4.2 Chloride 103 Carbon Dioxide 24 Anion Gap 15.2 H BUN 26 H Creatinine 1.00 GFR Calculation 51 BUN/Creatinine Ratio 26.00 H Glucose 192 H POC Glucose Calculated Osmolality 284.7 Calcium 9.1 Magnesium 2.4 10/22/16 10/21/16 05:15 21:52 WBC 7.5 RBC 3.78 L Hgb 11.3 L Hct 33.1 L MCV 87.6 MCH 30 MCHC 34.1 RDW 13.7 Plt Count 273 MPV 10.3 Neut % (Auto) 84.8 H Lymph % (Auto) 7.7 L [place] % (Auto) 6.4 Eos % (Auto) 0.0 Baso % (Auto) 0.0 Neut # (Auto) 6.4 Lymph # (Auto) 0.6 L [place] # (Auto) 0.5 Eos # (Auto) 0.0 Baso # (Auto) 0.0 Immature Gran % 1.1 Nucleated RBC % 0.0 Immature Gran # 0.08 Nucleated RBCs # 0.00 INR PT Patient/Control Mix Circ Anticoag PTT Sodium Potassium Chloride Carbon Dioxide Anion Gap BUN Creatinine GFR Calculation BUN/Creatinine Ratio Glucose POC Glucose 198 H Calculated Osmolality Calcium Magnesium DS: Provider Date of admission: 10/15/16 11:53 Primary care physician: . No PCP Attending physician on admission: Lou Zavaleta DO Consults: 10/15/16 14:29 Consult to Physician [CONS] Routine Comment: occult blood and epigastric pain; anemia Consulting Provider: Jairo Goetz Consult Notification Comment: [id number] Sylvester. Notified him of patient. Instructed to call [facility] and have put on Dr. Liz's list for tomorrow. TT Briseyda on [facility]. States she will add pt to the list. 10/15/16 14:44 Consult to Physician [CONS] Routine Comment: stoke-like activity with R sided weakness Consulting Provider: Mohsen Hernandez Consult to Specialist Group: Neurology Person Notified: MELODIE Date Notified: 10/18/16 Time Notified: 09:00 10/17/16 16:22 Consult to Physician [CONS] Routine Comment: recurrent RLQ diverticulitis/abdominal pain Consulting Provider: James Rodriguez III. Consult to Specialist Group: Surgery Person Notified: VON Date Notified: 10/18/16 Time Notified: 08:55 10/21/16 16:00 PT [Consult to Physical Therapy] [CONS] Routine Reason for Physical Therapy: Evaluate and Treat Discharging clinician: Lou Zavaleta DO Expected date of discharge: 10/22/16
== END 2016-10-22 17:50 | disposition swing bed (61) | DRG 69 ==
LOC: EDBD → EDUNIT# → N.EDINP 21:22 → N.ED 21:22 → N.TELEN 23:51
PROVIDERS: ADMIT Internal Medicine; ATTEND Internal Medicine

== ENCOUNTER 2016-11-09 17:29 | Inpatient (IN) ==
[2016-11-09] MEDS ORDERED: ONDANSETRON 4 MG/2 ML VIAL IV STA (18:21)
[2016-11-09] MEDS ORDERED: ALUM/MAG/SIMETH/LIDO VISC 1:1 30 ML BOTTLE PO STA (18:21)
[2016-11-09] MEDS ORDERED: SODIUM CHLORIDE 0.9% 500 ML IV STA (18:21)
--- NOTE | 2016-11-09 18:43 | Emergency Department Note ---
Daniel Richard Brittany, am scribing for, and in the presence of, Gregory Bob MD 18:35. Lisbeth Richard Charles R, MD, personally performed the services described in this documentation, ascribed by Antonia Sanchez in my presence, and it is both accurate and complete 839 . Arrival - Arrival Chief Complaint: Abdominal / Flank Pain ED Nursing Triage Note: Brought in per EMS from home with c/o lower abdominal pain radiating into back onset 11/07/16. +painful urination. Seen at [place] ER on 11/07/16 f0or same complaint, given Macrobid but did not start until . Also c/o bilateral leg pain. +diarrhea. Mode of Arrival: Stretcher Limitations: No Limitations Source: Patient Time Seen by Provider: 11/09/16 18:12 - History of Present Illness HPI Narrative: This is an 81 y/o ill appearing female,who presents to the ED with c/o pain to the back, neck, and abdomen which started 4 days ago. She states she was seen at [facility] on 11/07 for the same complaint and was written an RX for Macrobid for the Dx UTI. She reports while at [place] her Hemaglobin was 10.1. She reports diarrhea, nausea and vomiting but denies any hematochiza or fever. She states she is on iron pills. Pt states she has had a Hx of constipation in the past. Pt's PCP is Dr. Zavaleta. Pt has no other complaints/pain in the ED at this time. Pt has a PMHx of CHF, HTN, CVA, pacemaker, dyslipidemia, thyroid diosrder, A-fib, TIA, obstructive sleep apnea, anemia, GERD, and diverticulitis. PT has had a cardiac cath, eye surgery, cholecystectomy, EGD, colonoscopy, hysterectomy, and tonsilectomy. Pt has a family medical hx of heart disease and HTN. Pt denies a social hx. Onset (ago): day(s) (Started 2 days ago) Consistency: constant Severity: moderate Date of Last Menstrual Period: hyst Allergies/Adverse Reactions: Allergies Allergy/AdvReac Type Severity Reaction Status Date / Time ciprofloxacin Allergy Intermediate ITCHING Verified 11/09/16 19:01 atropine Allergy Unknown/Unable Verified 11/09/16 17:41 to obtain Beta-Blockers Allergy Unknown/Unable Verified 11/09/16 17:41 (Beta-Adrenergic Bloc to obtain cephalexin Allergy Unknown/Unable Verified 11/09/16 17:41 to obtain clindamycin Allergy Unknown/Unable Verified 11/09/16 17:41 to obtain diatrizoate meglumine Allergy Unknown/Unable Verified 11/09/16 17:41 to obtain Diatrizoic Acid Allergy Unknown/Unable Verified 11/09/16 17:41 [From Hypaque] to obtain digoxin Allergy Unknown/Unable Verified 11/09/16 17:41 to obtain diltiazem [From Cardizem] Allergy RASH Verified 11/09/16 18:55 Diphenoxylate Allergy Unknown/Unable Verified 11/09/16 17:41 to obtain Erythromycin Base Allergy RASH Verified 11/09/16 18:55 guaifenesin Allergy Unknown/Unable Verified 11/09/16 17:41 to obtain Hyoscyamine Allergy Unknown/Unable Verified 11/09/16 17:41 to obtain isradipine [From DynaCirc] Allergy Unknown/Unable Verified 11/09/16 17:41 to obtain levofloxacin Allergy Unknown/Unable Verified 11/09/16 17:41 to obtain Nisoldipine Allergy Unknown/Unable Verified 11/09/16 17:41 to obtain Opium (Anthroposophic) Allergy Unknown/Unable Verified 11/09/16 17:41 to obtain Oxycodone Allergy Unknown/Unable Verified 11/09/16 17:41 to obtain pantoprazole [From Protonix] Allergy Unknown/Unable Verified 11/09/16 17:41 to obtain Paregoric Allergy Unknown/Unable Verified 11/09/16 17:41 to obtain pentazocine Allergy Unknown/Unable Verified 11/09/16 17:41 to obtain pregabalin [From Lyrica] Allergy Unknown/Unable Verified 11/09/16 17:41 to obtain prochlorperazine Allergy Unknown/Unable Verified 11/09/16 17:41 to obtain quinidine Allergy RASH Verified 11/09/16 19:01 Sulfa (Sulfonamide Allergy Unknown/Unable Verified 11/09/16 17:41 Antibiotics) to obtain aspirin [From Percodan] AdvReac Chest Pain Verified 11/09/16 18:55 budesonide [From Symbicort] AdvReac Chest Pain Verified 11/09/16 18:42 citalopram [From Celexa] AdvReac Dizziness Verified 11/09/16 18:59 clonazepam AdvReac Weakness Verified 11/09/16 18:59 codeine AdvReac Chest Pain Verified 11/09/16 18:55 duloxetine [From Cymbalta] AdvReac Dizziness Verified 11/09/16 18:55 fluticasone AdvReac Chest Pain Verified 11/09/16 18:42 [From Advair Diskus] Formoterol [From Symbicort] AdvReac Chest Pain Verified 11/09/16 18:42 hydrocodone AdvReac Chest Pain Verified 11/09/16 19:01 Hydromorphone [From Dilaudid] AdvReac Vomiting Verified 11/09/16 18:59 Imipramine AdvReac Nightmare Verified 11/09/16 19:01 ipratropium [From Atrovent] AdvReac Dry Eye Verified 11/09/16 19:02 lincomycin AdvReac Diarrhea Verified 11/09/16 18:59 lisinopril AdvReac Cough Verified 11/09/16 18:42 morphine AdvReac Chest Pain Verified 11/09/16 18:55 Nortriptyline [From Pamelor] AdvReac Dizziness Verified 11/09/16 18:55 omeprazole AdvReac Dizziness Verified 11/09/16 18:59 potassium guaiacolsulfonate AdvReac Headache Verified 11/09/16 18:55 [From Humibid L.A.] promethazine AdvReac Chest Pain Verified 11/09/16 18:55 propoxyphene [From Darvon] AdvReac Chest Pain Verified 11/09/16 18:59 rosuvastatin [From Crestor] AdvReac Weakness Verified 11/09/16 18:59 salmeterol AdvReac Chest Pain Verified 11/09/16 18:42 [From Advair Diskus] tramadol AdvReac Dizziness Verified 11/09/16 18:59 Home Medications: Home Medications Medication Instructions Recorded Confirmed Type ALPRAZolam [Xanax] 0.25 tablet PO BID 12/13/14 11/09/16 History Aspirin [Ecotrin] 325 mg PO DAILY 12/13/14 11/09/16 History Chlorthalidone 25 mg PO DAILY 12/13/14 11/09/16 History Gemfibrozil [Lopid] 600 mg PO BIDAC 12/13/14 11/09/16 History Levothyroxine Tab [Synthroid Tab] 25 mcg PO DAILY@0700 12/13/14 11/09/16 History Nitroglycerin [place] 1 spray TRANSLING PRN PRN 12/13/14 11/09/16 History Potassium Chloride Cap/Tab [K Dur] 10 meq PO DAILY 12/13/14 11/09/16 History Warfarin [Coumadin] 5 mg PO DAILY@1800 #30 tablet 03/14/15 11/09/16 Rx Famotidine Tab [Pepcid Tab] 20 mg PO BID 03/17/16 11/09/16 History Ipratropium Inhaler [Atrovent 2 puff INH Q6HR PRN 03/17/16 11/09/16 History Inhaler] Loratadine 10 mg PO BEDTIME PRN 03/17/16 11/09/16 History Losartan Potassium 50 mg PO BID 03/17/16 11/09/16 History Montelukast Tab [Singulair Tab] 10 mg PO BEDTIME 03/17/16 11/09/16 History Cholecalciferol (Vitamin D3) 50,000 unit PO DIRECTED 10/15/16 11/09/16 History [Vitamin D3] Ferrous Sulfate 325 mg PO DAILY W/BREAKFAST 10/15/16 11/09/16 History amLODIPine [Norvasc] 10 mg PO DAILY 10/15/16 11/09/16 History Acetaminophen Tab [Tylenol Tab] 500 mg PO TID PRN #0 tablet 10/22/16 11/09/16 Rx Albuterol Neb [Proventil Neb] 2.5 mg RESP TX RT Q8H 10/22/16 11/09/16 Rx Amoxicillin/Clav Tab [Augmentin 500 mg PO BID #20 tablet 10/22/16 11/09/16 Rx Tab] Ondansetron Tab [Zofran Tab] 4 mg PO QID PRN #14 tablet 10/22/16 11/09/16 Rx Polyethylene Glycol Powder 17 gm PO DAILY PRN #0 10/22/16 11/09/16 Rx [Miralax] Review of System - Review of System 12 point system: reviewed and no additional remarkable complaints except as stated - Review of System Constitutional: Absent: fever Gastrointestinal: Present: abdominal pain, vomiting, diarrhea. Absent: hematochezia Musculoskeletal: Present: back pain Medical,Surgical,& Family Hx - Medical History Cardio: History of: Cardiac Dysrhythmia (afib, status post AV ablation), Cerebrovascular Disease, CHF (diastolic yes grade Sarath ([place] and no wheezing or ON Tuesday but quit que), Hypertension, Pacemaker, Valvular Heart Disease ( Mechanical atrial valve), Cardiovascular Problems (Ablation 2004) Psychological: History of: Anxiety Disorders Neurology: History of: Cerebrovascular Accident, Migraine, TIA No history of: Seizures HEENT: History of: Eye Problem, Glaucoma Endocrine: History of: Dyslipidemia, Thyroid Disorder (hypothyroidism) Rheumatology: History of;: Rheumatological Problems Respiratory: History of: Asthma, Bronchitis, Obstructive Sleep Apnea Renal: No history of: Renal Failure Gastrointestinal: History of: Diverticulitis/ Diverticulosis (fecal occult blood positive stool), GERD, Hemorrhoids, GI Problems (Irritable bowel syndrome) Musculoskeletal: History of: Musculoskeletal Problems Hematology: History of: Anemia (pre-hysterectomy), Clotting Problems Other: History of: Miscellaneous Medical Problems - Surgical History Cardiac Surgeries: Sugical HX of: Cardiac Catheterization, Cardiac Surgery ( Mechanical mitral valve, pacemaker) HEENT Surgeries: Surgical HX of: Eye Surgery (cataract bilat), Tonsilectomy & Adenoidectomy Abdominal Surgeries: Surgical HX of: Cholecystectomy, Colonoscopy, EGD ( esophageal dilation) Reproductive Surgeries: Surgical HX of;: Hysterectomy - Family History Family History: Reports;: Family Heart Disease, Family Hypertension - Social History Smoking Status: Never smoker Frequency of Alcohol Use: None Type of Drug Use: None Exam Vital Signs: Vital Signs Temperature 97.8 F 11/09/16 17:49 Pulse Rate 72 11/09/16 18:00 Respiratory Rate 20 11/09/16 18:00 Blood Pressure 136/49 11/09/16 18:00 O2 Sat by Pulse Oximetry 98 11/09/16 18:00 - General General appearance: alert, in no apparent distress, other (Ill appearing) - Head Head exam: Present: atraumatic, normocephalic, normal inspection - Eye Eye exam: Present: normal appearance, PERRL, EOMI. Absent: nystagmus, miosis, mydriasis - ENT ENT exam: Present: normal exam, normal oropharynx, mucous membranes moist, TM's normal bilaterally, normal external ear exam - Neck Neck exam: Present: normal inspection, full ROM, trachea midline. Absent: tenderness, meningismus, lymphadenopathy, thyromegaly - Chest Chest inspection: Present: normal inspection, symmetric chest wall rise. Absent : tenderness, rash, abscess - Respiratory Respiratory exam: Present: normal lung sounds bilaterally. Absent: rales, respiratory distress, rhonchi, stridor, wheezes - Cardiovascular Cardiovascular exam: Present: regular rate, normal rhythm - Abdominal Exam Abdominal exam: Present: distention (Mild abdomen ), tenderness (Generalized abdomen tenderness), diminished bowel sounds. Absent: guarding, rebound, rigidity - Rectal Exam Rectal exam: Present: deferred, heme (+) stool - Extremities Exam Extremities exam: Present: normal capillary refill, pedal edema (+1 pitting edeam). Absent: joint swelling, calf tenderness - Back Exam Back exam: Present: normal inspection, full ROM. Absent: tenderness, muscle spasm, rashes - Neurological Exam Neurological exam: Present: alert, oriented X3, CN II-XII intact. Absent: motor sensory deficit - Psychiatric Psychiatric exam: Present: normal affect, normal mood. Absent: depressed, agitated, anxious, flat affect - Skin Skin exam: Present: warm, dry, intact, normal color. Absent: rash, cyanosis, diaphoresis, erythema, pallor, mottled Course Course Narrative: Patient is allergic to host of medications. With the list to try to figure out which one she can cannot take. She did state she can take the penicillin drugs. - Consultations Consultation #1: Dr. Jewell will admit patient Time: 20:06 Results - Labs CBC & BMP: 11/09/16 18:53 11/09/16 18:53 Lab Results: I have reviewed the patients labs - Diagnostic Findings Procedure: Abdominal x-ray: report reviewed by me (Evidence of previous granulomatous disease. No acute), Chest x-ray: report reviewed by me (Mild cardiomegaly. No acute abnormality.), CT Abdomen and Pelvis: image reviewed by me, report reviewed by me (Suggestive of bilateral pyelonephritis) Critical Care Time Critical Care Time: Yes Total Critical Care Time: 90 Disposition Clinical Impression: Gastroenteritis, Occult blood positive stool, Acute blood loss anemia, Pyelonephritis, UTI (urinary tract infection), GI bleed, GERD (gastroesophageal reflux disease), History of rheumatic heart disease, Anxiety, Pacemaker, Hyponatremia Case discussed with: patient Disposition: Still a Patient Condition: Guarded Time of Disposition: 20:07
--- NOTE | 2016-11-09 18:46 | CT Report ---
CT of the abdomen and pelvis without intravenous contrast. No oral contrast was administered. Axial images were obtained with sagittal and coronal reconstructions. Comparison is made to a previous exam of October 18, 2016. Indication: Lower abdominal and pelvic pain. The heart is enlarged. There is a pacemaker in place and a prosthetic mitral valve. There is vascular calcification present as well. There is no pericardial or pleural effusion. There is scarring within the lung bases. Calcified granuloma within the lung base and also within the liver and spleen. No pneumothorax. No pleural effusion. Large hiatal hernia is visible containing at least half the stomach. Similar configuration to the previous exam. Hypodense lesion centrally within the liver, most likely representing a cyst, stable. Stable prominence of the extrahepatic biliary ducts at 14 mm. No pancreatic abnormality. No adrenal abnormality. Surrounding both kidneys, right greater than left, stranding opacities are present which were not seen previously. No hydronephrosis. No nephrolithiasis. No space-occupying masses. Scattered calcification is present within a normal caliber abdominal aorta. There is a small amount of free fluid present within the pelvis, not seen previously. The loops of small intestine are not dilated. The terminal ileum presents a normal appearance. The appendix is not discretely seen. Scattered diverticuli are present throughout the length of the colon. The urinary bladder presents a normal appearance. Superior endplate compression fracture of L1 again noted. Degenerative changes most pronounced at L3-L4 and L4-L5, again seen. Impression: 1. Stranding opacities are seen surrounding each kidney, right greater than left. This could be due to pyelonephritis. 2. Diverticulosis. 3. Enlarged heart. 4. Large hiatal hernia. 5. Stable prominence of the extrahepatic biliary ducts. 6. New free fluid within the pelvis, mild in amount. The CT exam was performed using one or more of the following dose reduction techniques: Automated exposure control, adjustment of the mA and/or kV according to patient size, or use of iterative reconstruction technique. PROCEDURE INTERPRETED AT [facility] DEPARTMENT OF RADIOLOGY Final Report Signed by: Dr. Yady Arias
--- NOTE | 2016-11-09 18:50 | XRay Report ---
Single view of the chest. Indication: Chest and abdomen pain. Comparison: October 14, 2016. The heart is enlarged. Postmedian sternotomy. Hiatal hernia is present. Cardiac hardware appears to be in satisfactory position. Pulmonary vasculature is normal. Mild areas of scarring. No consolidation, pneumothorax, or pleural effusion. Impression: Mild cardiomegaly. No acute abnormality. PROCEDURE INTERPRETED AT [facility] DEPARTMENT OF RADIOLOGY Final Report Signed by: Dr. Yady Arias
--- NOTE | 2016-11-09 18:51 | XRay Report ---
Abdomen series, flat and decubitus. Indication: Generalized abdominal pain. Bowel gas pattern is within the range of normal. No evidence of obstruction. No organomegaly. No abnormal calcifications over the renal outlines. No free air. Diffuse demineralization of the osseous structures with degenerative changes of the spinal column. Hepatic granulomas are visible as well as splenic granulomas. Impression: Evidence of previous granulomatous disease. No acute intra-abdominal process is seen. PROCEDURE INTERPRETED AT [facility] DEPARTMENT OF RADIOLOGY Final Report Signed by: Dr. Yady Arias
[2016-11-09 19:02] LABS: Basophils % 0.1 % (0.0-0.8); Eosinophils % 0.1 % (0.00-10.9); Hematocrit 24.8 VOL% (35.7-47.0); Hemoglobin 8.8 GM/DL (12.0-16.0); Immature Granulocytes % 0.6 %; Immature Granulocytes Absolute 0.06 #; Lymphocytes # 0.3 10*3/uL (1.4-4.0); Lymphocytes % 2.5 % (21.3-54.2); Mean Corpuscular HGB Conc 35.5 GM/DL (32-36); Mean Corpuscular Hemoglobin 31 PG (27-34); Mean Corpuscular Volume 86.1 FL (87-102); Mean Platelet Volume 10.3 FL (9.6-12.0); Monocytes % 9.7 % (1.7-12.7); Neutrophils # 9.3 10*3/uL (1.4-7.4); Platelet Count 216 T/CUMM (130-400); Red Blood Count 2.88 MC/CUMM (3.8-5.5); Red Cell Distribution Width 13.2 % (9.3-17.3); White Blood Count 10.7 T/CUMM (4-12)
[2016-11-09] MEDS ORDERED: PIPERACILLIN/TAZOBACTAM 3,375 MG in SODIUM CHLORIDE 0.9% 100 ML IV STA (19:14)
[2016-11-09] MEDS ORDERED: ONDANSETRON 4 MG/2 ML VIAL ONE ×2 (19:17→19:50)
[2016-11-09] MEDS ORDERED: PIPERACILLIN/TAZOBACTAM 3,375 MG VIAL IV ONE (19:17)
[2016-11-09] MEDS ORDERED: SODIUM CHLORIDE 0.9% 100 ML IV ONE (19:17)
[2016-11-09] MEDS ORDERED: ALUM/MAG/SIMETH/LIDO VISC 1:1 30 ML BOTTLE PO ONE (19:18)
--- NOTE | 2016-11-09 19:23 | EKG Report ---
Stationary ECG Study [facility] ER Test Date: 11/09/2016 7:20:55 PM Pat Name: COLLEEN WAGGONER Department: Room: Gender: F Commissary Representative: DENI : 1935 Requested by: Gregory Moody Order Number: [id number] Tracy MD: CLIFF BEAR Intervals [place] Rate: 69 P: 999 [place]: 0 QRS: 244 QRSD: 151 T: 53 QT: 457 QTc: 477 Interpretive Statements ELECTRONIC VENTRICULAR PACEMAKER ABNORMAL RHYTHM ECG Electronically Signed On 11-10-16 17:07:04 CDT by CLIFF BEAR [email or web address]
[2016-11-09 19:27] LABS: Lactic Acid 0.8 MMOL/L (0.4-2.0)
[2016-11-09 19:46] LABS: Calcium 8.2 MG/DL (8.5-10.1)
[2016-11-09 19:47] LABS: Alanine Aminotransferase 31 U/L (13-56); Alkaline Phosphatase 71 U/L (45-117); Aspartate Amino Transferase 74 U/L (0-37)
[2016-11-09 19:47] LABS: Apearance,Urine CLEAR (Clear); Bacteria,Urine Occasional /HPF (Few); Bilirubin,Urine Negative (Negative); Blood, Urine Negative (Negative); Glucose,Urine (UA) Negative (Negative); Ketones,Urine Negative (Negative); Mucus,Urine Occasional /LPF (Occasional); Nitrite,Urine Negative (Negative); Protein,Urine Negative; Urine Color Yellow (Yellow); Urine Specific Gravity 1.009 (1.001-1.035); Urine Urobilinogen < 2.0 EU/DL (0.2-1.0); WBC,Urine 7 /HPF (0-6)
[2016-11-09 19:48] LABS: Albumin 3.2 G/DL (3.4-5.0); Blood Urea Nitrogen 21 MG/DL (7-18); Glucose 122 MG/DL (74-106); Magnesium 1.9 MG/DL (1.8-2.4); Osmolality,Calculated 250.8 MOS/KG (273-304); Potassium 3.8 MMOL/L (3.5-5.1); Sodium 123 MMOL/L (136-145); Total Protein 5.9 G/DL (6.4-8.3)
[2016-11-09 19:49] LABS: Amylase 31 U/L (25-115); Troponin I Only < 0.015 NG/ML (0.00-0.045)
[2016-11-09] MEDS ORDERED: MEPERIDINE 25 MG/1 ML VIAL ONE (19:50)
[2016-11-09] MEDS ORDERED: MEPERIDINE 25 MG/1 ML VIAL IV STA (19:52)
[2016-11-09 20:38] LABS: INR 3.2; PT Patient Result 36.5 SECS
[2016-11-09] MEDS ORDERED: IPRATROPIUM 500 MCG/2.5 ML NEB RESP TX PRN (20:58)
[2016-11-09] MEDS ORDERED: LACTULOSE 20 GM/30 ML UDCUP PO PRN (20:58)
[2016-11-09] MEDS ORDERED: LORATADINE 10 MG TABLET PO PRN (20:58)
[2016-11-09] MEDS ORDERED: POLYETHYLENE GLYCOL POWDER 17 GM PACK PO PRN (20:58)
[2016-11-09] MEDS ORDERED: SODIUM CHLORIDE 0.9% 250 ML IV PRN (20:58)
[2016-11-09] MEDS ORDERED: FAMOTIDINE 20 MG TABLET PO SCH (21:00)
[2016-11-09] MEDS: SODIUM CHLORIDE 0.9% 1,000 ML IV SCH (21:40)
[2016-11-09] MEDS: DOCUSATE SODIUM 100 MG CAPSULE PO SCH (21:40)
[2016-11-09 21:46] LABS: Eosinophils 1 % (0-10); Lymphocytes 7 % (20-55); Platelet Estimate Adequate; Polychromasia Few; Segmented Neutrophils 86 % (50-85); Total Cells Counted 100
[2016-11-09] MEDS: FAMOTIDINE 20 MG/2 ML VIAL IV SCH (21:49)
[2016-11-09] MEDS: LOSARTAN 50 MG TABLET PO SCH (21:49)
[2016-11-09] MEDS: MONTELUKAST 10 MG TABLET PO SCH (21:49)
[2016-11-09] MEDS: ALPRAZolam 0.25 MG TABLET PO SCH (21:49)
[2016-11-09] MEDS: ACETAMINOPHEN 500 MG TABLET PO PRN (22:00)
[2016-11-09 22:06] LABS: Basophils % 0.1 % (0.0-0.8); Eosinophils % 0.1 % (0.00-10.9); Hematocrit 24.7 VOL% (35.7-47.0); Hemoglobin 8.6 GM/DL (12.0-16.0); Immature Granulocytes % 0.5 %; Immature Granulocytes Absolute 0.05 #; Lymphocytes # 0.4 10*3/uL (1.4-4.0); Lymphocytes % 4.2 % (21.3-54.2); Mean Corpuscular HGB Conc 34.8 GM/DL (32-36); Mean Corpuscular Hemoglobin 30 PG (27-34); Mean Corpuscular Volume 87.3 FL (87-102); Mean Platelet Volume 10.7 FL (9.6-12.0); Monocytes % 9.9 % (1.7-12.7); Neutrophils # 8.7 10*3/uL (1.4-7.4); Neutrophils % 85.2 % (38.7-73.9); Platelet Count 226 T/CUMM (130-400); Red Blood Count 2.83 MC/CUMM (3.8-5.5); Red Cell Distribution Width 13.2 % (9.3-17.3); White Blood Count 10.2 T/CUMM (4-12)
[2016-11-09 22:45] LABS: Band Neutrophils 2 % (0-10); Lymphocytes 6 % (20-55); Platelet Estimate Normal; Segmented Neutrophils 88 % (50-85); Total Cells Counted 100
[2016-11-09 22:46] LABS: Polychromasia Few
[2016-11-09] MEDS: ALBUTEROL 2.5 MG/3 ML NEB RESP TX SCH (23:14)
[2016-11-10] MEDS: MEPERIDINE 25 MG/1 ML VIAL IV PRN ×3 (02:28→21:33)
[2016-11-10] MEDS: SODIUM CHLORIDE 0.9% 1,000 ML IV SCH ×5 (05:08→19:00)
--- NOTE | 2016-11-10 05:30 | EKG Report ---
Stationary ECG Study [facility] Test Date: 11/10/2016 5:28 AM Pat Name: COLLEEN WAGGONER Department: Room: 121 Gender: F Disintegrator Operator: : 1935 Requested by: Gregory Moody Order Number: [id number] Tracy MD: CLIFF BEAR Intervals [place] Rate: 72 P: 999 [place]: 0 QRS: 253 QRSD: 153 T: 66 QT: 441 QTc: 465 Interpretive Statements ELECTRONIC VENTRICULAR PACEMAKER ABNORMAL RHYTHM ECG INTERPRETATION BASED ON A DEFAULT AGE OF 40 YEARS Electronically Signed On 11-10-16 17:08:33 CDT by CLIFF BEAR [email or web address]
[2016-11-10] MEDS: PIPERACILLIN/TAZOBACTAM 3,375 MG in SODIUM CHLORIDE 0.9% 100 ML IV SCH ×3 (06:25→21:17)
[2016-11-10] MEDS: LEVOTHYROXINE 25 MCG TABLET PO SCH (06:26)
[2016-11-10 06:42] LABS: Hematocrit 31.7 VOL% (35.7-47.0)
[2016-11-10 06:54] LABS: INR 2.3
[2016-11-10 06:55] LABS: PT Patient Result 25.7 SECS
[2016-11-10 07:22] LABS: Calcium 8.3 MG/DL (8.5-10.1); Osmolality,Calculated 257.2 MOS/KG (273-304); Potassium 4.3 MMOL/L (3.5-5.1); Total Protein 5.9 G/DL (6.4-8.3)
[2016-11-10] MEDS: ALBUTEROL 2.5 MG/3 ML NEB RESP TX SCH ×3 (07:50→23:09)
--- NOTE | 2016-11-10 07:51 | XRay Report ---
XR abdomen 2V Indication: Generalized abdominal pain Comparison: Abdominal x-ray dated November 09, 2016 Technique: Frontal views of the abdomen in the supine and upright position. Findings: Nonspecific nonobstructive bowel gas pattern. No free intraperitoneal air. Granulomatous calcifications of the liver and spleen again suggested. Visualized osseous and surrounding soft tissue structures appear grossly unchanged. Degenerative change of the lumbar spine and mild dextroconvex curvature of the lumbar spine again noted. Prior sternotomy with partially visualized pacemaker leads. IMPRESSION: No acute abnormality demonstrated. PROCEDURE INTERPRETED AT [facility] DEPARTMENT OF RADIOLOGY Final Report Signed by: Dr Corey Eaton
--- NOTE | 2016-11-10 07:51 | XRay Report ---
Exam: Chest 2 views Date: November 10, 2016 at 5:45 AM Comparison: Chest one view portable November 09, 2016 Reason: Shortness of breath Findings: The cardiac silhouette is again enlarged, and the patient is status post sternotomy. A cardiac pacing device is also present, and there is a hiatal hernia. The interstitial markings are prominent bilaterally. This likely represents mild pulmonary edema. There is also minimal atelectasis at the right lung base and minimal bilateral pleural fluid. No pneumothorax is identified. The osseous structures appear stable. Impression: 1. Cardiomegaly. 2. Mild pulmonary edema. There is also minimal atelectasis at the right lung base and minimal bilateral pleural fluid. 3. Hiatal hernia. PROCEDURE INTERPRETED AT [facility] DEPARTMENT OF RADIOLOGY Final Report Signed by: Dr. Annabelle Kruse
[2016-11-10] MEDS: DOCUSATE SODIUM 100 MG CAPSULE PO SCH ×3 (08:09→21:19)
[2016-11-10] MEDS: FERROUS SULFATE 325 MG TABLET PO SCH (08:09)
[2016-11-10] MEDS: LOSARTAN 50 MG TABLET PO SCH (08:09)
[2016-11-10] MEDS: GEMFIBROZIL 600 MG TABLET PO SCH ×2 (08:09→17:17)
[2016-11-10] MEDS: ALPRAZolam 0.25 MG TABLET PO SCH ×2 (08:10→21:17)
[2016-11-10] MEDS: ACETAMINOPHEN 325 MG TABLET PO PRN ×2 (08:10→13:56)
[2016-11-10] MEDS ORDERED: amLODIPine 10 MG TABLET PO SCH (09:00)
[2016-11-10] MEDS ORDERED: CHLORTHALIDONE 25 MG TABLET PO SCH (09:00)
[2016-11-10] MEDS ORDERED: ASPIRIN EC 325 MG TABLET PO SCH (09:00)
[2016-11-10] MEDS ORDERED: POTASSIUM CHLORIDE 10 MEQ TABLET PO SCH (09:00)
[2016-11-10] MEDS: FAMOTIDINE 20 MG/2 ML VIAL IV SCH ×2 (10:04→21:17)
--- NOTE | 2016-11-10 11:15 | Gastrointestinal Consult Note ---
<Tena Anna - Last Filed: 11/10/16 11:06> Assessment and Plan (1) Abdominal pain Status: Acute Assessment and plan: 11/10-onset of right lower quadrant abdominal pain with associated diarrhea and reported nausea and vomiting. No acute abdominal findings noted on noncontrasted CT. History of anemia and heme positive stools in past. Admitted with drop in hemoglobin from baseline and transfused. No overt bleeding. Obtain stool for occult blood. Plan an addendum to follow by Dr. Sylvester (on-call for Dr. Goetz). Current Visit: No Qualifiers: Abdominal location: right lower quadrant Qualified Code(s): R10.31 - Right lower quadrant pain History of Present Illness Chief complaint: Abdominal pain History of present illness: Ms. Faith is a 81 year old female who was admitted to the hospital on yesterday with complaints of back, neck and lower abdominal pain. Patient is a fair historian therefore information is also obtained from chart review. Patient reportedly was seen at [facility] emergency room 3 days ago for the same complaints and was given a prescription for Macrobid after diagnosis of urinary tract infection. Her hemoglobin was noted at that time to be 10.1. She was discharged home from the emergency room however patient states that 2 days ago she had an onset of lower abdominal pain and cramping and presented to the emergency room for further evaluation at our facility. She also reports having several episodes of diarrhea as well as nausea and vomiting. She denies any hematochezia or melena associated with this. She denies any coffee grounds or hematemesis as well. She denies any fever but states she did have some chills. She is on Coumadin therapy for history of atrial fibrillation. Patient was recently seen by Dr. Goetz last month after admission for anemia and Hemoccult positive stools. She underwent colonoscopy in March [address] Goetz with only findings of diverticulosis. Her last EGD was in March 2015 as well with only finding of hiatal hernia. These were performed during an inpatient admission for anemia and heme positive stools as well. At that time patient states that she would not repeat the colonoscopy due to took her several months to recover from the procedure. Patient also has a history of epistaxis however denies any of this recently. On admission she had a CT of abdomen without contrast with only findings of diverticulosis and stable prominence of extrahepatic biliary ducts as well as new free fluid within the pelvis. She was treated empirically during that admission also for clinical diverticulitis despite no findings on CT. She was also found to have a hemoglobin of 8.6 on admission and has been transfused 4 units of packed red blood cells, with hemoglobin now 11. Her INR on admission was noted at 3.2. This is now improved at 2.3. Home Medications Medication Instructions Recorded Confirmed Type ALPRAZolam [Xanax] 0.25 tablet PO BID 12/13/14 11/09/16 History Aspirin [Ecotrin] 325 mg PO DAILY 12/13/14 11/09/16 History Chlorthalidone 25 mg PO DAILY 12/13/14 11/09/16 History Gemfibrozil [Lopid] 600 mg PO BIDAC 12/13/14 11/09/16 History Levothyroxine Tab [Synthroid Tab] 25 mcg PO DAILY@0700 12/13/14 11/09/16 History Nitroglycerin [place] 1 spray TRANSLING PRN PRN 12/13/14 11/09/16 History Potassium Chloride Cap/Tab [K Dur] 10 meq PO DAILY 12/13/14 11/09/16 History Famotidine Tab [Pepcid Tab] 20 mg PO BID 03/17/16 11/09/16 History Ipratropium Inhaler [Atrovent 2 puff INH Q6HR PRN 03/17/16 11/09/16 History Inhaler] Loratadine 10 mg PO BEDTIME PRN 03/17/16 11/09/16 History Losartan Potassium 50 mg PO BID 03/17/16 11/09/16 History Montelukast Tab [Singulair Tab] 10 mg PO BEDTIME 03/17/16 11/09/16 History Cholecalciferol (Vitamin D3) 50,000 unit PO DIRECTED 10/15/16 11/09/16 History [Vitamin D3] Ferrous Sulfate 325 mg PO DAILY W/BREAKFAST 10/15/16 11/09/16 History amLODIPine [Norvasc] 10 mg PO DAILY 10/15/16 11/09/16 History Acetaminophen Tab [Tylenol Tab] 500 mg PO TID PRN #0 tablet 10/22/16 11/09/16 Rx Albuterol Neb [Proventil Neb] 2.5 mg RESP TX RT Q8H 10/22/16 11/09/16 Rx Amoxicillin/Clav Tab [Augmentin 500 mg PO BID #20 tablet 10/22/16 11/09/16 Rx Tab] Ondansetron Tab [Zofran Tab] 4 mg PO QID PRN #14 tablet 10/22/16 11/09/16 Rx Polyethylene Glycol Powder 17 gm PO DAILY PRN #0 10/22/16 11/09/16 Rx [Miralax] Carboxymethylcellulose Sodium 1 drop BOTH EYES QID 11/10/16 11/10/16 History [Refresh Tears] Oxymetazoline 0.05% Nasal Spr 2 spray BOTH NARES BID PRN 11/10/16 11/10/16 History [Afrin Nasal [place]] Warfarin [Coumadin] 4 mg PO DAILY@1800 11/10/16 11/10/16 History Allergies Allergy/AdvReac Type Severity Reaction Status Date / Time ciprofloxacin Allergy Intermediate ITCHING Verified 11/09/16 19:01 atropine Allergy Unknown/Unable Verified 11/09/16 17:41 to obtain Beta-Blockers Allergy Unknown/Unable Verified 11/09/16 17:41 (Beta-Adrenergic Bloc to obtain cephalexin Allergy Unknown/Unable Verified 11/09/16 17:41 to obtain clindamycin Allergy Unknown/Unable Verified 11/09/16 17:41 to obtain diatrizoate meglumine Allergy Unknown/Unable Verified 11/09/16 17:41 to obtain Diatrizoic Acid Allergy Unknown/Unable Verified 11/09/16 17:41 [From Hypaque] to obtain digoxin Allergy Unknown/Unable Verified 11/09/16 17:41 to obtain diltiazem [From Cardizem] Allergy RASH Verified 11/09/16 18:55 Diphenoxylate Allergy Unknown/Unable Verified 11/09/16 17:41 to obtain Erythromycin Base Allergy RASH Verified 11/09/16 18:55 guaifenesin Allergy Unknown/Unable Verified 11/09/16 17:41 to obtain Hyoscyamine Allergy Unknown/Unable Verified 11/09/16 17:41 to obtain isradipine [From DynaCirc] Allergy Unknown/Unable Verified 11/09/16 17:41 to obtain levofloxacin Allergy Unknown/Unable Verified 11/09/16 17:41 to obtain Nisoldipine Allergy Unknown/Unable Verified 11/09/16 17:41 to obtain Opium (Anthroposophic) Allergy Unknown/Unable Verified 11/09/16 17:41 to obtain Oxycodone Allergy Unknown/Unable Verified 11/09/16 17:41 to obtain pantoprazole [From Protonix] Allergy Unknown/Unable Verified 11/09/16 17:41 to obtain Paregoric Allergy Unknown/Unable Verified 11/09/16 17:41 to obtain pentazocine Allergy Unknown/Unable Verified 11/09/16 17:41 to obtain pregabalin [From Lyrica] Allergy Unknown/Unable Verified 11/09/16 17:41 to obtain prochlorperazine Allergy Unknown/Unable Verified 11/09/16 17:41 to obtain quinidine Allergy RASH Verified 11/09/16 19:01 Sulfa (Sulfonamide Allergy Unknown/Unable Verified 11/09/16 17:41 Antibiotics) to obtain aspirin [From Percodan] AdvReac Chest Pain Verified 11/09/16 18:55 budesonide [From Symbicort] AdvReac Chest Pain Verified 11/09/16 18:42 citalopram [From Celexa] AdvReac Dizziness Verified 11/09/16 18:59 clonazepam AdvReac Weakness Verified 11/09/16 18:59 codeine AdvReac Chest Pain Verified 11/09/16 18:55 duloxetine [From Cymbalta] AdvReac Dizziness Verified 11/09/16 18:55 fluticasone AdvReac Chest Pain Verified 11/09/16 18:42 [From Advair Diskus] Formoterol [From Symbicort] AdvReac Chest Pain Verified 11/09/16 18:42 hydrocodone AdvReac Chest Pain Verified 11/09/16 19:01 Hydromorphone [From Dilaudid] AdvReac Vomiting Verified 11/09/16 18:59 Imipramine AdvReac Nightmare Verified 11/09/16 19:01 ipratropium [From Atrovent] AdvReac Dry Eye Verified 11/09/16 19:02 lincomycin AdvReac Diarrhea Verified 11/09/16 18:59 lisinopril AdvReac Cough Verified 11/09/16 18:42 morphine AdvReac Chest Pain Verified 11/09/16 18:55 Nortriptyline [From Pamelor] AdvReac Dizziness Verified 11/09/16 18:55 omeprazole AdvReac Dizziness Verified 11/09/16 18:59 potassium guaiacolsulfonate AdvReac Headache Verified 11/09/16 18:55 [From Humibid L.A.] promethazine AdvReac Chest Pain Verified 11/09/16 18:55 propoxyphene [From Darvon] AdvReac Chest Pain Verified 11/09/16 18:59 rosuvastatin [From Crestor] AdvReac Weakness Verified 11/09/16 18:59 salmeterol AdvReac Chest Pain Verified 11/09/16 18:42 [From Advair Diskus] tramadol AdvReac Dizziness Verified 11/09/16 18:59 Medical,Surgical,& Family Hx - Medical History Cardio: History of: Cardiac Dysrhythmia (afib, status post AV ablation), Cerebrovascular Disease, CHF (diastolic yes grade Sarath ([place] and no wheezing or ON Tuesday but quit que), Hypertension, Pacemaker, Valvular Heart Disease ( Mechanical atrial valve), Cardiovascular Problems (Ablation 2004) Psychological: History of: Anxiety Disorders Neurology: History of: Cerebrovascular Accident, Migraine, TIA No history of: Seizures HEENT: History of: Eye Problem, Glaucoma Endocrine: History of: Dyslipidemia, Thyroid Disorder (hypothyroidism), Endocrine Problems (hypoglycemia) Rheumatology: History of;: Rheumatological Problems Respiratory: History of: Asthma, Bronchitis, Obstructive Sleep Apnea Renal: No history of: Renal Failure Gastrointestinal: History of: Diverticulitis/ Diverticulosis (fecal occult blood positive stool), GERD, Hemorrhoids, GI Problems (Irritable bowel syndrome) Musculoskeletal: History of: Musculoskeletal Problems Hematology: History of: Anemia (pre-hysterectomy), Clotting Problems Other: History of: Miscellaneous Medical Problems - Surgical History Cardiac Surgeries: Sugical HX of: Cardiac Catheterization, Cardiac Surgery ( Mechanical mitral valve, pacemaker) HEENT Surgeries: Surgical HX of: Eye Surgery (cataract bilat), Tonsilectomy & Adenoidectomy Abdominal Surgeries: Surgical HX of: Cholecystectomy, Colonoscopy, EGD ( esophageal dilation) Reproductive Surgeries: Surgical HX of;: Hysterectomy - Family History Family History: Reports;: Family Heart Disease, Family Hypertension, Family Stroke - Social History Smoking Status: Never smoker Frequency of Alcohol Use: None Type of Drug Use: None 12 point system: reviewed and no additional remarkable complaints except as stated - Constitutional Constitutional: Present: as per HPI - EENT Eyes: Present: as per HPI Ears: Present: as per HPI Nose, mouth and throat: Present: as per HPI - Cardiovascular Cardiovascular: Present: as per HPI - Respiratory Respiratory: Present: as per HPI - Gastrointestinal Gastrointestinal: Present: as per HPI, abdominal pain, diarrhea, nausea, vomiting - Genitourinary Genitourinary: Present: as per HPI - Musculoskeletal Musculoskeletal: Present: as per HPI - Neurological Neurological: Present: as per HPI - Psychiatric Psychiatric: Present: as per HPI - Endocrine Endocrine: Present: as per HPI - Hematologic/Lymphatic Hematologic/Lymphatic: Present: as per HPI Exam - Constitutional Vitals: Period Temp Pulse Resp BP Sys/Ceballos Pulse Ox Last 24 Hr 97.4 F-98.4 F 68-79 16-25 109-139/37-88 92-100 General appearance: normal weight, no acute distress - Head Head exam: Present: normal inspection, normocephalic - Eye Eye exam: Present: other (Lids and conjunctive are unremarkable). Absent: scleral icterus - ENT ENT exam: Present: normal exam, normal oropharynx - Neck Neck exam: Present: normal inspection - Respiratory Respiratory exam: Present: clear to auscultation bilaterally. Absent: rales, rhonchi, wheezes - Cardiovascular Cardiovascular exam: Present: regular rate and rhythm. Absent: diastolic murmur , JVD, systolic murmur - GI/Abdominal GI/Abdominal exam: Present: normal bowel sounds, tenderness (Right lower quadrant), soft. Absent: ascites, distended, mass, organomegaly - Extremities Exam Extremities exam: Present: normal inspection, full ROM - Back Exam Back exam: Present: normal inspection - Neurological Exam Neurological exam: Present: alert, oriented X3 - Psychiatric Psychiatric exam: Present: normal affect, normal mood - Skin Skin exam: Present: normal color, warm, dry Results - Labs CBC & BMP: 11/10/16 06:16 11/10/16 06:16 Lab Results: I have reviewed the past 24 hour labs - Diagnostic Findings Procedure: CT Abdomen and Pelvis: report reviewed by me Quality Measures - VTE Contraindication to Pharmacological VTE Prophylaxis: Active Bleeding <Emiliano Sylvester - Last Filed: 11/10/16 19:32> History of Present Illness History of present illness: Ms. Faith is a 81 year old female Exam - Constitutional Vitals: Period Temp Pulse Resp BP Sys/Ceballos Pulse Ox Last 24 Hr 96.5 F-98.4 F 68-77 15-25 106-139/37-88 92-100 Results - Labs CBC & BMP: 11/10/16 06:16 11/10/16 06:16
[2016-11-10] MEDS: methylPREDNISolone SOD SUC 40 MG/1 ML VIAL IV SCH (16:07)
--- NOTE | 2016-11-10 17:39 | Internal Med History&Physical ---
Assessment and Plan (1) Hyponatremia Status: Acute Current Visit: Yes (2) Pyelonephritis Status: Acute Current Visit: Yes (3) Low blood pressure Problem details: excessive antihypertensive meds; history of HTN Status: Acute Current Visit: Yes Qualifiers: Hypotension type: hypotension due to drug Qualified Code(s): I95.2 - Hypotension due to drugs (4) UTI (urinary tract infection) Status: Acute Current Visit: Yes Qualifiers: Hematuria presence: without hematuria (5) Anxiety Status: Chronic Current Visit: Yes (6) Pacemaker Status: Chronic Current Visit: Yes (7) Anemia Status: Chronic Current Visit: Yes Qualifiers: Anemia type: iron deficiency Iron deficiency anemia type: inadequate dietary iron intake Qualified Code(s): D50.8 - Other iron deficiency anemias (8) Chronic anticoagulation Status: Chronic Current Visit: Yes (9) History of TIA (transient ischemic attack) Status: Chronic Current Visit: No (10) History of mitral valve replacement with mechanical valve Status: Chronic Current Visit: Yes (11) Hypothyroidism Status: Chronic Current Visit: No Qualifiers: Hypothyroidism type: acquired Qualified Code(s): E03.9 - Hypothyroidism, unspecified (12) Sleep apnea Status: Chronic Current Visit: Yes Qualifiers: Sleep apnea type: obstructive Qualified Code(s): G47.33 - Obstructive sleep apnea (adult) (pediatric) (13) Status post ablation of atrial fibrillation Status: Chronic Current Visit: No (14) Bacteremia Status: Acute Current Visit: Yes (15) Back pain Status: Acute Current Visit: Yes Qualifiers: Back pain location: thoracic back pain Chronicity: acute Back pain laterality: right Qualified Code(s): M54.6 - Pain in thoracic spine (16) History of GI bleed Status: Chronic Current Visit: Yes History of Present Illness Chief complaint: worsening weakness and back pain History of present illness: Ms. Faith is a 81 year old female with history of atrial fib and status post ablation, pacemaker placement, CHF, hypothyroid, history of HTN, TIA, diverticulosis, asthma, LOLA on CPAP, mitral valve replacement mechanical valve and on coumadin therapy, OA, CAD, history of GI bleed, Glaucoma, who presented to ER with worsening back pain and UTI/pyelonephritis. She has worsening weakness and has been found to have bacteremia. Dr. Diaz will be consulted. She is anemic and there is a question of GI bleed. GI has been consulted through the ER. She was also found to have hyponatremia, which will be addressed. Sodium level needs to be improved. She is complaining of severe back pain. Dr. Garcia will be consulted. Attempting to avoid narcotics. She is hypotensive. Lidoderm patches have been ordered as well as Solumedrol low dose. Home Medications Medication Instructions Recorded Confirmed Type ALPRAZolam [Xanax] 0.25 tablet PO BID 12/13/14 11/09/16 History Aspirin [Ecotrin] 325 mg PO DAILY 12/13/14 11/09/16 History Chlorthalidone 25 mg PO DAILY 12/13/14 11/09/16 History Gemfibrozil [Lopid] 600 mg PO BIDAC 12/13/14 11/09/16 History Levothyroxine Tab [Synthroid Tab] 25 mcg PO DAILY@0700 12/13/14 11/09/16 History Nitroglycerin [place] 1 spray TRANSLING PRN PRN 12/13/14 11/09/16 History Potassium Chloride Cap/Tab [K Dur] 10 meq PO DAILY 12/13/14 11/09/16 History Famotidine Tab [Pepcid Tab] 20 mg PO BID 03/17/16 11/09/16 History Ipratropium Inhaler [Atrovent 2 puff INH Q6HR PRN 03/17/16 11/09/16 History Inhaler] Loratadine 10 mg PO BEDTIME PRN 03/17/16 11/09/16 History Losartan Potassium 50 mg PO BID 03/17/16 11/09/16 History Montelukast Tab [Singulair Tab] 10 mg PO BEDTIME 03/17/16 11/09/16 History Cholecalciferol (Vitamin D3) 50,000 unit PO DIRECTED 10/15/16 11/09/16 History [Vitamin D3] Ferrous Sulfate 325 mg PO DAILY W/BREAKFAST 10/15/16 11/09/16 History amLODIPine [Norvasc] 10 mg PO DAILY 10/15/16 11/09/16 History Acetaminophen Tab [Tylenol Tab] 500 mg PO TID PRN #0 tablet 10/22/16 11/09/16 Rx Albuterol Neb [Proventil Neb] 2.5 mg RESP TX RT Q8H 10/22/16 11/09/16 Rx Amoxicillin/Clav Tab [Augmentin 500 mg PO BID #20 tablet 10/22/16 11/09/16 Rx Tab] Ondansetron Tab [Zofran Tab] 4 mg PO QID PRN #14 tablet 10/22/16 11/09/16 Rx Polyethylene Glycol Powder 17 gm PO DAILY PRN #0 10/22/16 11/09/16 Rx [Miralax] Carboxymethylcellulose Sodium 1 drop BOTH EYES QID 11/10/16 11/10/16 History [Refresh Tears] Oxymetazoline 0.05% Nasal Spr 2 spray BOTH NARES BID PRN 11/10/16 11/10/16 History [Afrin Nasal [place]] Warfarin [Coumadin] 4 mg PO DAILY@1800 11/10/16 11/10/16 History Allergies Allergy/AdvReac Type Severity Reaction Status Date / Time ciprofloxacin Allergy Intermediate ITCHING Verified 11/09/16 19:01 atropine Allergy Unknown/Unable Verified 11/09/16 17:41 to obtain Beta-Blockers Allergy Unknown/Unable Verified 11/09/16 17:41 (Beta-Adrenergic Bloc to obtain cephalexin Allergy Unknown/Unable Verified 11/09/16 17:41 to obtain clindamycin Allergy Unknown/Unable Verified 11/09/16 17:41 to obtain diatrizoate meglumine Allergy Unknown/Unable Verified 11/09/16 17:41 to obtain Diatrizoic Acid Allergy Unknown/Unable Verified 11/09/16 17:41 [From Hypaque] to obtain digoxin Allergy Unknown/Unable Verified 11/09/16 17:41 to obtain diltiazem [From Cardizem] Allergy RASH Verified 11/09/16 18:55 Diphenoxylate Allergy Unknown/Unable Verified 11/09/16 17:41 to obtain Erythromycin Base Allergy RASH Verified 11/09/16 18:55 guaifenesin Allergy Unknown/Unable Verified 11/09/16 17:41 to obtain Hyoscyamine Allergy Unknown/Unable Verified 11/09/16 17:41 to obtain isradipine [From DynaCirc] Allergy Unknown/Unable Verified 11/09/16 17:41 to obtain levofloxacin Allergy Unknown/Unable Verified 11/09/16 17:41 to obtain Nisoldipine Allergy Unknown/Unable Verified 11/09/16 17:41 to obtain Opium (Anthroposophic) Allergy Unknown/Unable Verified 11/09/16 17:41 to obtain Oxycodone Allergy Unknown/Unable Verified 11/09/16 17:41 to obtain pantoprazole [From Protonix] Allergy Unknown/Unable Verified 11/09/16 17:41 to obtain Paregoric Allergy Unknown/Unable Verified 11/09/16 17:41 to obtain pentazocine Allergy Unknown/Unable Verified 11/09/16 17:41 to obtain pregabalin [From Lyrica] Allergy Unknown/Unable Verified 11/09/16 17:41 to obtain prochlorperazine Allergy Unknown/Unable Verified 11/09/16 17:41 to obtain quinidine Allergy RASH Verified 11/09/16 19:01 Sulfa (Sulfonamide Allergy Unknown/Unable Verified 11/09/16 17:41 Antibiotics) to obtain aspirin [From Percodan] AdvReac Chest Pain Verified 11/09/16 18:55 budesonide [From Symbicort] AdvReac Chest Pain Verified 11/09/16 18:42 citalopram [From Celexa] AdvReac Dizziness Verified 11/09/16 18:59 clonazepam AdvReac Weakness Verified 11/09/16 18:59 codeine AdvReac Chest Pain Verified 11/09/16 18:55 duloxetine [From Cymbalta] AdvReac Dizziness Verified 11/09/16 18:55 fluticasone AdvReac Chest Pain Verified 11/09/16 18:42 [From Advair Diskus] Formoterol [From Symbicort] AdvReac Chest Pain Verified 11/09/16 18:42 hydrocodone AdvReac Chest Pain Verified 11/09/16 19:01 Hydromorphone [From Dilaudid] AdvReac Vomiting Verified 11/09/16 18:59 Imipramine AdvReac Nightmare Verified 11/09/16 19:01 ipratropium [From Atrovent] AdvReac Dry Eye Verified 11/09/16 19:02 lincomycin AdvReac Diarrhea Verified 11/09/16 18:59 lisinopril AdvReac Cough Verified 11/09/16 18:42 morphine AdvReac Chest Pain Verified 11/09/16 18:55 Nortriptyline [From Pamelor] AdvReac Dizziness Verified 11/09/16 18:55 omeprazole AdvReac Dizziness Verified 11/09/16 18:59 potassium guaiacolsulfonate AdvReac Headache Verified 11/09/16 18:55 [From Humibid L.A.] promethazine AdvReac Chest Pain Verified 11/09/16 18:55 propoxyphene [From Darvon] AdvReac Chest Pain Verified 11/09/16 18:59 rosuvastatin [From Crestor] AdvReac Weakness Verified 11/09/16 18:59 salmeterol AdvReac Chest Pain Verified 11/09/16 18:42 [From Advair Diskus] tramadol AdvReac Dizziness Verified 11/09/16 18:59 Medical,Surgical,& Family Hx - Medical History Cardio: History of: Cardiac Dysrhythmia (afib, status post AV ablation), Cerebrovascular Disease, CHF (diastolic yes grade Sarath ([place] and no wheezing or ON Tuesday but quit que), Hypertension, Pacemaker, Valvular Heart Disease ( Mechanical atrial valve), Cardiovascular Problems (Ablation 2004) Psychological: History of: Anxiety Disorders Neurology: History of: Cerebrovascular Accident, Migraine, TIA No history of: Seizures HEENT: History of: Eye Problem, Glaucoma Endocrine: History of: Dyslipidemia, Thyroid Disorder (hypothyroidism), Endocrine Problems (hypoglycemia) Rheumatology: History of;: Rheumatological Problems Respiratory: History of: Asthma, Bronchitis, Obstructive Sleep Apnea Renal: No history of: Renal Failure Gastrointestinal: History of: Diverticulitis/ Diverticulosis (fecal occult blood positive stool), GERD, Hemorrhoids, GI Problems (Irritable bowel syndrome) Musculoskeletal: History of: Musculoskeletal Problems Hematology: History of: Anemia (pre-hysterectomy), Clotting Problems Other: History of: Miscellaneous Medical Problems - Surgical History Cardiac Surgeries: Sugical HX of: Cardiac Catheterization, Cardiac Surgery ( Mechanical mitral valve, pacemaker) HEENT Surgeries: Surgical HX of: Eye Surgery (cataract bilat), Tonsilectomy & Adenoidectomy Abdominal Surgeries: Surgical HX of: Cholecystectomy, Colonoscopy, EGD ( esophageal dilation) Reproductive Surgeries: Surgical HX of;: Hysterectomy - Family History Family History: Reports;: Family Heart Disease, Family Hypertension, Family Stroke - Social History Smoking Status: Never smoker Frequency of Alcohol Use: None Type of Drug Use: None - Constitutional Constitutional: Present: fatigue, fever(s), frequent falls, lethargy, malaise, weakness - Respiratory Respiratory: Present: dyspnea on exertion - Gastrointestinal Gastrointestinal: Present: diarrhea - Genitourinary Genitourinary: Present: dysuria, flank pain - Musculoskeletal Musculoskeletal: Present: arthralgias, back pain - Psychiatric Psychiatric: Present: anxiety Exam - Constitutional Vitals: Period Temp Pulse Resp BP Sys/Ceballos Pulse Ox Last 24 Hr 96.5 F-98.4 F 68-79 15-25 106-139/37-88 92-100 General appearance: no acute distress - Head Head exam: Present: normocephalic - Eye Eye exam: Present: EOMI - Respiratory Respiratory exam: Present: clear to auscultation bilaterally - Cardiovascular Cardiovascular exam: Present: regular rate and rhythm (paced rhythm) - GI/Abdominal GI/Abdominal exam: Present: tenderness (right flank), soft - Extremities Exam Extremities exam: Absent: edema - Back Exam Back exam: Present: muscle spasm - Neurological Exam Neurological exam: Present: altered (sluggish) - Psychiatric Psychiatric exam: Present: anxious - Skin Skin exam: Present: warm, dry Results - Labs CBC & BMP: 11/11/16 05:37 11/11/16 05:37 - EKG EKG shows: sinus rhythm (paced rhythm) - Diagnostic Findings Procedure: Chest x-ray: report reviewed by me, CT Abdomen and Pelvis: report reviewed by me Quality Measures - VTE Contraindication to Pharmacological VTE Prophylaxis: Active Bleeding
[2016-11-10] MEDS ORDERED: FUROSEMIDE 20 MG/2 ML VIAL IV ONE (17:55)
[2016-11-10] MEDS ORDERED: WARFARIN 5 MG TABLET PO SCH (18:00)
[2016-11-10] MEDS: WARFARIN 4 MG TABLET PO SCH (18:10)
[2016-11-10] MEDS: CARBOXYMETHYLCELLULOSE 1% OPH SOLN BOTH EYES PRN ×2 (18:33→21:37)
[2016-11-10] MEDS: OXYMETAZOLINE 0.05% NASAL SPRAY 15 ML BOTTLE BOTH NARES PRN (18:33)
[2016-11-10] MEDS: LIDOCAINE 5% PATCH TRANSDERM SCH (18:35)
[2016-11-10] MEDS ORDERED: ALBUTEROL 2.5 MG/3 ML NEB RESP TX SCH (19:00)
[2016-11-10] MEDS: MONTELUKAST 10 MG TABLET PO SCH (21:17)
[2016-11-11] MEDS: ACETAMINOPHEN 325 MG TABLET PO PRN (00:20)
[2016-11-11] MEDS: ALBUTEROL 2.5 MG/3 ML NEB RESP TX SCH ×7 (00:35→23:36)
[2016-11-11] MEDS: methylPREDNISolone SOD SUC 40 MG/1 ML VIAL IV SCH ×2 (04:28→15:01)
[2016-11-11] MEDS: MEPERIDINE 25 MG/1 ML VIAL IV PRN ×3 (04:28→20:48)
--- NOTE | 2016-11-11 04:45 | EKG Report ---
Stationary ECG Study [facility] Test Date: 11/10/2016 1:00:51 PM Pat Name: COLLEEN WAGGONER Department: Room: 121 Gender: F [employer]: SALVADOR : 1935 Requested by: Gregory Moody Order Number: [id number] Tracy MD: CLIFF BEAR Intervals [place] Rate: 72 P: 999 PA: 0 QRS: 252 QRSD: 131 T: 60 QT: 434 QTc: 458 Interpretive Statements ELECTRONIC VENTRICULAR PACEMAKER ABNORMAL RHYTHM ECG INTERPRETATION BASED ON A DEFAULT AGE OF 40 YEARS Electronically Signed On 11-10-16 17:11:10 CDT by CLIFF BEAR [id number]
[2016-11-11 05:52] LABS: Hematocrit 26.4 VOL% (35.7-47.0); Hemoglobin 9.3 GM/DL (12.0-16.0); Immature Granulocytes % 0.9 %; Immature Granulocytes Absolute 0.05 #; Lymphocytes # 0.2 10*3/uL (1.4-4.0); Lymphocytes % 3.9 % (21.3-54.2); Mean Corpuscular HGB Conc 35.2 GM/DL (32-36); Mean Corpuscular Hemoglobin 30 PG (27-34); Mean Corpuscular Volume 84.1 FL (87-102); Mean Platelet Volume 10.7 FL (9.6-12.0); Monocytes # 0.4 10*3/uL (0.11-0.8); Monocytes % 7.6 % (1.7-12.7); Neutrophils % 87.6 % (38.7-73.9); Platelet Count 237 T/CUMM (130-400); Red Blood Count 3.14 MC/CUMM (3.8-5.5); White Blood Count 5.7 T/CUMM (4-12)
[2016-11-11 06:02] LABS: INR 2.7
[2016-11-11 06:12] LABS: PT Patient Result 30.8 SECS
[2016-11-11 06:20] LABS: Band Neutrophils 9 % (0-10); Hypochromasia 1+; Lymphocytes 3 % (20-55); Microcytosis 1+; Segmented Neutrophils 83 % (50-85); Total Cells Counted 100
[2016-11-11 06:21] LABS: Ovalocytes Slight; Platelet Estimate Normal
[2016-11-11 06:38] LABS: Albumin 2.5 G/DL (3.4-5.0); Bilirubin,Total 0.5 MG/DL (0.2-1.0); Calcium 7.9 MG/DL (8.5-10.1); Magnesium 2.3 MG/DL (1.8-2.4); Osmolality,Calculated 274.1 MOS/KG (273-304); Risk Ratio 7.5; Thyroid Stimulating Hormone 0.568 uIU/ml (0.358-3.74); Total Protein 5.4 G/DL (6.4-8.3)
[2016-11-11] MEDS: PIPERACILLIN/TAZOBACTAM 3,375 MG in SODIUM CHLORIDE 0.9% 100 ML IV SCH ×3 (06:39→21:39)
[2016-11-11] MEDS: LEVOTHYROXINE 25 MCG TABLET PO SCH (06:39)
[2016-11-11] MEDS ORDERED: POTASSIUM CHLORIDE 20 MEQ TABLET PO ONE (08:00)
[2016-11-11] MEDS: DOCUSATE SODIUM 100 MG CAPSULE PO SCH ×2 (08:23→20:55)
[2016-11-11] MEDS: GEMFIBROZIL 600 MG TABLET PO SCH ×2 (08:23→17:16)
[2016-11-11] MEDS: ALPRAZolam 0.25 MG TABLET PO SCH ×2 (08:23→20:49)
[2016-11-11] MEDS: ASPIRIN EC 81 MG TABLET PO SCH (08:24)
[2016-11-11] MEDS: LIDOCAINE 5% PATCH TRANSDERM SCH (08:24)
[2016-11-11] MEDS: FERROUS SULFATE 325 MG TABLET PO SCH (08:24)
[2016-11-11] MEDS ORDERED: FUROSEMIDE 20 MG/2 ML VIAL IV SCH (09:00)
--- NOTE | 2016-11-11 09:43 | Infectious Disease Consult ---
Assessment and Plan (1) Bacteremia Status: Acute Assessment and plan: Gram-negative septicemia most likely from urinary tract infection given urine culture positive for gram-negative rods. Imaging studies show bilateral pyelonephritis. Recommendations: 1. Agree with empiric Zosyn 2. Follow-up final cultures and de-escalate antibiotics as able 3. Repeat blood cultures tomorrow 4. Given presence of prosthetic mitral valve and also pacemaker, do echocardiogram to ensure no endocarditis Thank you very much for the consult. Will follow. Current Visit: Yes (2) Pyelonephritis Status: Acute Current Visit: Yes (3) History of mitral valve replacement with mechanical valve Status: Chronic Assessment and plan: TTE to make sure no endocarditis Current Visit: Yes (4) Pacemaker Status: Chronic Current Visit: Yes (5) Chronic atrial fibrillation Status: Chronic Current Visit: No (6) Hyperlipidemia Status: Chronic Current Visit: No Qualifiers: Hyperlipidemia type: pure hypercholesterolemia Qualified Code(s): E78.00 - Pure hypercholesterolemia, unspecified; E78.0 - Pure hypercholesterolemia (7) Hypertension Status: Chronic Current Visit: No Qualifiers: Hypertension type: essential hypertension Qualified Code(s): I10 - Essential (primary) hypertension History of Present Illness Chief complaint: Bacteremia History of present illness: Ms. Faith is a 81 year old female With multiple comorbidities including heart disease with prosthetic mitral valve presented with worsening malaise fever and back pain. Blood cultures have come up positive for gram-negative rods in 2 of 2 sets. Urine also positive for gram-negative rods. She has not experienced dysuria or hematuria or increased frequency just the pain across her lower back. Home Medications Medication Instructions Recorded Confirmed Type ALPRAZolam [Xanax] 0.25 tablet PO BID 12/13/14 11/09/16 History Aspirin [Ecotrin] 325 mg PO DAILY 12/13/14 11/09/16 History Chlorthalidone 25 mg PO DAILY 12/13/14 11/09/16 History Gemfibrozil [Lopid] 600 mg PO BIDAC 12/13/14 11/09/16 History Levothyroxine Tab [Synthroid Tab] 25 mcg PO DAILY@0700 12/13/14 11/09/16 History Nitroglycerin [place] 1 spray TRANSLING PRN PRN 12/13/14 11/09/16 History Potassium Chloride Cap/Tab [K Dur] 10 meq PO DAILY 12/13/14 11/09/16 History Famotidine Tab [Pepcid Tab] 20 mg PO BID 03/17/16 11/09/16 History Ipratropium Inhaler [Atrovent 2 puff INH Q6HR PRN 03/17/16 11/09/16 History Inhaler] Loratadine 10 mg PO BEDTIME PRN 03/17/16 11/09/16 History Losartan Potassium 50 mg PO BID 03/17/16 11/09/16 History Montelukast Tab [Singulair Tab] 10 mg PO BEDTIME 03/17/16 11/09/16 History Cholecalciferol (Vitamin D3) 50,000 unit PO DIRECTED 10/15/16 11/09/16 History [Vitamin D3] Ferrous Sulfate 325 mg PO DAILY W/BREAKFAST 10/15/16 11/09/16 History amLODIPine [Norvasc] 10 mg PO DAILY 10/15/16 11/09/16 History Acetaminophen Tab [Tylenol Tab] 500 mg PO TID PRN #0 tablet 10/22/16 11/09/16 Rx Albuterol Neb [Proventil Neb] 2.5 mg RESP TX RT Q8H 10/22/16 11/09/16 Rx Amoxicillin/Clav Tab [Augmentin 500 mg PO BID #20 tablet 10/22/16 11/09/16 Rx Tab] Ondansetron Tab [Zofran Tab] 4 mg PO QID PRN #14 tablet 10/22/16 11/09/16 Rx Polyethylene Glycol Powder 17 gm PO DAILY PRN #0 10/22/16 11/09/16 Rx [Miralax] Carboxymethylcellulose Sodium 1 drop BOTH EYES QID 11/10/16 11/10/16 History [Refresh Tears] Oxymetazoline 0.05% Nasal Spr 2 spray BOTH NARES BID PRN 11/10/16 11/10/16 History [Afrin Nasal [place]] Warfarin [Coumadin] 4 mg PO DAILY@1800 11/10/16 11/10/16 History Allergies Allergy/AdvReac Type Severity Reaction Status Date / Time ciprofloxacin Allergy Intermediate ITCHING Verified 11/09/16 19:01 atropine Allergy Unknown/Unable Verified 11/09/16 17:41 to obtain Beta-Blockers Allergy Unknown/Unable Verified 11/09/16 17:41 (Beta-Adrenergic Bloc to obtain cephalexin Allergy Unknown/Unable Verified 11/09/16 17:41 to obtain clindamycin Allergy Unknown/Unable Verified 11/09/16 17:41 to obtain diatrizoate meglumine Allergy Unknown/Unable Verified 11/09/16 17:41 to obtain Diatrizoic Acid Allergy Unknown/Unable Verified 11/09/16 17:41 [From Hypaque] to obtain digoxin Allergy Unknown/Unable Verified 11/09/16 17:41 to obtain diltiazem [From Cardizem] Allergy RASH Verified 11/09/16 18:55 Diphenoxylate Allergy Unknown/Unable Verified 11/09/16 17:41 to obtain Erythromycin Base Allergy RASH Verified 11/09/16 18:55 guaifenesin Allergy Unknown/Unable Verified 11/09/16 17:41 to obtain Hyoscyamine Allergy Unknown/Unable Verified 11/09/16 17:41 to obtain isradipine [From DynaCirc] Allergy Unknown/Unable Verified 11/09/16 17:41 to obtain levofloxacin Allergy Unknown/Unable Verified 11/09/16 17:41 to obtain Nisoldipine Allergy Unknown/Unable Verified 11/09/16 17:41 to obtain Opium (Anthroposophic) Allergy Unknown/Unable Verified 11/09/16 17:41 to obtain Oxycodone Allergy Unknown/Unable Verified 11/09/16 17:41 to obtain pantoprazole [From Protonix] Allergy Unknown/Unable Verified 11/09/16 17:41 to obtain Paregoric Allergy Unknown/Unable Verified 11/09/16 17:41 to obtain pentazocine Allergy Unknown/Unable Verified 11/09/16 17:41 to obtain pregabalin [From Lyrica] Allergy Unknown/Unable Verified 11/09/16 17:41 to obtain prochlorperazine Allergy Unknown/Unable Verified 11/09/16 17:41 to obtain quinidine Allergy RASH Verified 11/09/16 19:01 Sulfa (Sulfonamide Allergy Unknown/Unable Verified 11/09/16 17:41 Antibiotics) to obtain aspirin [From Percodan] AdvReac Chest Pain Verified 11/09/16 18:55 budesonide [From Symbicort] AdvReac Chest Pain Verified 11/09/16 18:42 citalopram [From Celexa] AdvReac Dizziness Verified 11/09/16 18:59 clonazepam AdvReac Weakness Verified 11/09/16 18:59 codeine AdvReac Chest Pain Verified 11/09/16 18:55 duloxetine [From Cymbalta] AdvReac Dizziness Verified 11/09/16 18:55 fluticasone AdvReac Chest Pain Verified 11/09/16 18:42 [From Advair Diskus] Formoterol [From Symbicort] AdvReac Chest Pain Verified 11/09/16 18:42 hydrocodone AdvReac Chest Pain Verified 11/09/16 19:01 Hydromorphone [From Dilaudid] AdvReac Vomiting Verified 11/09/16 18:59 Imipramine AdvReac Nightmare Verified 11/09/16 19:01 ipratropium [From Atrovent] AdvReac Dry Eye Verified 11/09/16 19:02 lincomycin AdvReac Diarrhea Verified 11/09/16 18:59 lisinopril AdvReac Cough Verified 11/09/16 18:42 morphine AdvReac Chest Pain Verified 11/09/16 18:55 Nortriptyline [From Pamelor] AdvReac Dizziness Verified 11/09/16 18:55 omeprazole AdvReac Dizziness Verified 11/09/16 18:59 potassium guaiacolsulfonate AdvReac Headache Verified 11/09/16 18:55 [From Humibid L.A.] promethazine AdvReac Chest Pain Verified 11/09/16 18:55 propoxyphene [From Darvon] AdvReac Chest Pain Verified 11/09/16 18:59 rosuvastatin [From Crestor] AdvReac Weakness Verified 11/09/16 18:59 salmeterol AdvReac Chest Pain Verified 11/09/16 18:42 [From Advair Diskus] tramadol AdvReac Dizziness Verified 11/09/16 18:59 12 point system: reviewed and no additional remarkable complaints except as stated (Anorexia. Rest of compressive review of systems negative apart from what was mentioned in HPI) Medical,Surgical,& Family Hx - Medical History Cardio: History of: Cardiac Dysrhythmia (afib, status post AV ablation), Cerebrovascular Disease, CHF (diastolic yes grade Sarath ([place] and no wheezing or ON Tuesday but quit que), Hypertension, Pacemaker, Valvular Heart Disease ( Mechanical atrial valve), Cardiovascular Problems (Ablation 2004) Psychological: History of: Anxiety Disorders Neurology: History of: Cerebrovascular Accident, Migraine, TIA No history of: Seizures HEENT: History of: Eye Problem, Glaucoma Endocrine: History of: Dyslipidemia, Thyroid Disorder (hypothyroidism), Endocrine Problems (hypoglycemia) Rheumatology: History of;: Rheumatological Problems Respiratory: History of: Asthma, Bronchitis, Obstructive Sleep Apnea Renal: No history of: Renal Failure Gastrointestinal: History of: Diverticulitis/ Diverticulosis (fecal occult blood positive stool), GERD, Hemorrhoids, GI Problems (Irritable bowel syndrome) Musculoskeletal: History of: Musculoskeletal Problems Hematology: History of: Anemia (pre-hysterectomy), Clotting Problems Other: History of: Miscellaneous Medical Problems - Surgical History Cardiac Surgeries: Sugical HX of: Cardiac Catheterization, Cardiac Surgery ( Mechanical mitral valve, pacemaker) HEENT Surgeries: Surgical HX of: Eye Surgery (cataract bilat), Tonsilectomy & Adenoidectomy Abdominal Surgeries: Surgical HX of: Cholecystectomy, Colonoscopy, EGD ( esophageal dilation) Reproductive Surgeries: Surgical HX of;: Hysterectomy - Family History Family History: Reports;: Family Heart Disease, Family Hypertension, Family Stroke - Social History Smoking Status: Never smoker Frequency of Alcohol Use: None Type of Drug Use: None Infectious Disease Exam H&P - Constitutional Vitals: Vital Signs Temp Pulse Resp BP Pulse Ox 97.7 F 72 17 116/47 99 11/11/16 08:00 11/11/16 08:00 11/11/16 08:00 11/11/16 08:00 11/11/16 08:00 Intake and Output 11/10/16 11/11/16 11/11/16 23:59 07:59 15:59 Intake Total 740 / 740 340 / 340 Output Total 2024 790 / 790 100 / 100 Balance -1285 / -1285 -450 / -450 -100 / -100 Intake: IV 0 / 0 100 / 100 Zosyn 3,375 mg In Ns 100 0 / 0 100 / 100 ml @ 25 mls/hr IV Q8H [facility] Rx#:[id number] Intake - Additional IV 440 / 440 Volume (mLs) Oral 300 / 300 240 / 240 Output: Urine 1525 / 1525 790 / 790 100 / 100 Post Void Residual Amount 500 / 500 Uretheral (Em) 500 / 500 Other: Voiding Method Indwelling Catheter Indwelling Catheter Indwelling Catheter # Bowel Movements 0 0 Weight 62.188 kg Patient Weight 11/11/16 23:59 Weight 62.188 kg Exam: General: Patient uncomfortable due to back pain, generally unwell appearing HEENT: Mucous membranes pink and moist, anicteric acyanotic, EUGENIO, no oropharyngeal exudates Neck: Supple, no thyroid gland enlargement, no lymphadenopathy Respiratory system: Breath sounds vesicular, no crepitations or wheezes Cardiovascular: Pacemaker present to left upper chest wall, normal S1 and S2, no murmurs appreciated Abdomen: Normal bowel sounds, soft nontender throughout, no organomegaly or mass Genitourinary: No definite CVA tenderness but she is painful in the left loin, No suprapubic pain or bladder distention, clear urine from Em catheter Extremities: no edema Skin: No rash Reports - Labs CBC & BMP: 11/11/16 05:37 11/11/16 05:37 Labs: Laboratory Results - last 24 hr 11/11/16 11/11/16 11/11/16 05:37 05:37 05:37 WBC 5.7 D RBC 3.14 L Hgb 9.3 L Hct 26.4 L MCV 84.1 L MCH 30 MCHC 35.2 RDW 14.0 Plt Count 237 MPV 10.7 Neut % (Auto) 87.6 H Lymph % (Auto) 3.9 L Gilliam % (Auto) 7.6 Eos % (Auto) 0.0 Baso % (Auto) 0.0 Neut # (Auto) 5.0 Lymph # (Auto) 0.2 L Gilliam # (Auto) 0.4 Eos # (Auto) 0.0 Baso # (Auto) 0.0 Total Counted 100 Immature Gran % 0.9 Nucleated RBC % 0.0 Immature Gran # 0.05 Segmented Neutrophils 83 Band Neutrophils 9 Lymphocytes 3 L Monocytes 5 Nucleated RBCs # 0.00 Platelet Estimate Normal Hypochromasia 1+ Microcytosis 1+ Ovalocytes Slight INR 2.7 PT Patient/Control Mix 30.8 Sodium 135 L Potassium 3.0 L Chloride 102 Carbon Dioxide 21 Anion Gap 15.0 BUN 16 Creatinine 0.80 GFR Calculation 68 BUN/Creatinine Ratio 20.00 Glucose 177 H Calculated Osmolality 274.1 Calcium 7.9 L Magnesium 2.3 Total Bilirubin 0.50 AST 48 H ALT 30 Alkaline Phosphatase 62 Total Protein 5.4 L Albumin 2.5 L Globulin 2.9 Albumin/Globulin Ratio 0.8 L Triglycerides 145 Cholesterol 120 LDL Cholesterol 60.0 VLDL Cholesterol 29.0 HDL Cholesterol 16 L Heart Disease Risk Ratio 7.50 TSH 3rd Generation 0.568 - Reports Microbiology: Microbiology 11/10/16 00:00 MRSA Surveillance Culture - Final Nares - Both Nares (Mrsa screen) No MRSA isolated. 11/10/16 12:42 Stool Occult Blood (DENNY) - Final Stool Negative for Occult Blood 11/09/16 Unknown Urine Culture - Preliminary Urine,Voided Gram Negative Rods 11/09/16 18:53 Blood Culture - Preliminary Blood Gram Negative Rods 11/09/16 18:28 Blood Culture - Preliminary Blood Gram Negative Rods - Diagnostic Findings Procedure: CT Abdomen and Pelvis: report reviewed by me (Stranding around both kidneys right greater than left)
[2016-11-11] MEDS: SODIUM CHLORIDE 0.9% 1,000 ML IV SCH ×2 (10:40→20:05)
[2016-11-11] MEDS: FAMOTIDINE 20 MG/2 ML VIAL IV SCH ×2 (10:41→21:39)
[2016-11-11] MEDS: OXYMETAZOLINE 0.05% NASAL SPRAY 15 ML BOTTLE BOTH NARES PRN (10:43)
--- NOTE | 2016-11-11 11:07 | Gastrointestinal Progress Note ---
<Tena Anna Valdez - Last Filed: 11/11/16 11:05> Assessment and Plan (1) Abdominal pain Status: Acute Assessment and plan: 11/11-abdominal pain improved slightly. No nausea or vomiting. Hemoglobin stable. IV antibiotics continued for bacteremia. Plan an addendum to follow by Dr. Sylvester. 11/10-onset of right lower quadrant abdominal pain with associated diarrhea and reported nausea and vomiting. No acute abdominal findings noted on noncontrasted CT. History of anemia and heme positive stools in past. Admitted with drop in hemoglobin from baseline and transfused. No overt bleeding. Obtain stool for occult blood. Plan an addendum to follow by Dr. Sylvester (on-call for Dr. Goetz). Current Visit: No Qualifiers: Abdominal location: right lower quadrant Qualified Code(s): R10.31 - Right lower quadrant pain Gastroenterology - PN: Subj Interval history: CC: Abdominal pain Patient is seen awake and alert sitting up in bed. States she is feeling about the same at this time. However pain is a little more control. Denies any nausea or vomiting. No overt bleeding reported. Hemoglobin stable at 9.3. WBCs unremarkable. INR is 2.[address] Diaz has been consulted for patient's bacteremia and noted echocardiogram ordered due to history of mitral valve replacement. Abdomen is soft, nontender. ROS: No acute distress noted. Exam (Progress Note) - Constitutional Vitals: Period Temp Pulse Resp BP Sys/Ceballos Pulse Ox Last 24 Hr 96.1 F-97.7 F 70-77 13-25 106-137/42-67 92-100 General appearance: normal weight, no acute distress - Head Head exam: Present: normal inspection, normocephalic - Eye Eye exam: Present: other (Lids and conjunctivae unremarkable). Absent: scleral icterus - ENT ENT exam: Present: normal exam, normal oropharynx - Neck Neck exam: Present: normal inspection - Respiratory Respiratory exam: Present: clear to auscultation bilaterally. Absent: rales, rhonchi, wheezes - Cardiovascular Cardiovascular exam: Present: regular rate and rhythm. Absent: diastolic murmur , JVD, systolic murmur - GI/Abdominal GI/Abdominal exam: Present: normal bowel sounds, soft. Absent: ascites, distended, mass, organomegaly, tenderness - Extremities Exam Extremities exam: Present: normal inspection, full ROM - Back Exam Back exam: Present: normal inspection - Neurological Exam Neurological exam: Present: alert, oriented X3 - Psychiatric Psychiatric exam: Present: normal affect, normal mood - Skin Skin exam: Present: normal color, warm, dry Results - Labs CBC & BMP: 11/11/16 05:37 11/11/16 05:37 Lab Results: I have reviewed the past 24 hour labs <Emiliano Sylvester - Last Filed: 11/11/16 18:56> Exam (Progress Note) - Constitutional Vitals: Period Temp Pulse Resp BP Sys/Ceballos Pulse Ox Last 24 Hr 96.1 F-97.7 F 70-76 11-25 110-158/35-67 92-100 Results - Labs CBC & BMP: 11/11/16 05:37 11/11/16 12:57
--- NOTE | 2016-11-11 11:46 | Pain Management Consult Note ---
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 This is not new. Nothing in midline lumbar or thoracic spine. No radicular component, but bilateral GTB present. Even tylenol causes nausea so oral meds problematic. Injection precluded by sepsis and blood thinners. Demerol low dose while not the best opioid for repeated doses is at least tolerated at 25mg and helping her. Recommend PT consult. We can see her outpatient as needed. No need for L/S MRI even with sepsis since unlikely without midline pain, but has to be considered for any worsening of localized pain. Current Visit: Yes Qualifiers: Back pain location: thoracic back pain Chronicity: acute Back pain laterality: right Qualified Code(s): M54.6 - Pain in thoracic spine History of Present Illness Chief complaint: chronic right low back pain with Flare History of present illness: Ms. Faith is a 81 year old female with h/o LBP left or right intermitantly, and past sciatica, and no current midline thoracic or lumbar pain. There is no pain down the legs. Recent gram neg septicemia. Has had PT before. Home Medications Medication Instructions Recorded Confirmed Type ALPRAZolam [Xanax] 0.25 tablet PO BID 12/13/14 11/09/16 History Aspirin [Ecotrin] 325 mg PO DAILY 12/13/14 11/09/16 History Chlorthalidone 25 mg PO DAILY 12/13/14 11/09/16 History Gemfibrozil [Lopid] 600 mg PO BIDAC 12/13/14 11/09/16 History Levothyroxine Tab [Synthroid Tab] 25 mcg PO DAILY@0700 12/13/14 11/09/16 History Nitroglycerin [place] 1 spray TRANSLING PRN PRN 12/13/14 11/09/16 History Potassium Chloride Cap/Tab [K Dur] 10 meq PO DAILY 12/13/14 11/09/16 History Famotidine Tab [Pepcid Tab] 20 mg PO BID 03/17/16 11/09/16 History Ipratropium Inhaler [Atrovent 2 puff INH Q6HR PRN 03/17/16 11/09/16 History Inhaler] Loratadine 10 mg PO BEDTIME PRN 03/17/16 11/09/16 History Losartan Potassium 50 mg PO BID 03/17/16 11/09/16 History Montelukast Tab [Singulair Tab] 10 mg PO BEDTIME 03/17/16 11/09/16 History Cholecalciferol (Vitamin D3) 50,000 unit PO DIRECTED 10/15/16 11/09/16 History [Vitamin D3] Ferrous Sulfate 325 mg PO DAILY W/BREAKFAST 10/15/16 11/09/16 History amLODIPine [Norvasc] 10 mg PO DAILY 10/15/16 11/09/16 History Acetaminophen Tab [Tylenol Tab] 500 mg PO TID PRN #0 tablet 10/22/16 11/09/16 Rx Albuterol Neb [Proventil Neb] 2.5 mg RESP TX RT Q8H 10/22/16 11/09/16 Rx Amoxicillin/Clav Tab [Augmentin 500 mg PO BID #20 tablet 10/22/16 11/09/16 Rx Tab] Ondansetron Tab [Zofran Tab] 4 mg PO QID PRN #14 tablet 10/22/16 11/09/16 Rx Polyethylene Glycol Powder 17 gm PO DAILY PRN #0 10/22/16 11/09/16 Rx [Miralax] Carboxymethylcellulose Sodium 1 drop BOTH EYES QID 11/10/16 11/10/16 History [Refresh Tears] Oxymetazoline 0.05% Nasal Spr 2 spray BOTH NARES BID PRN 11/10/16 11/10/16 History [Afrin Nasal [place]] Warfarin [Coumadin] 4 mg PO DAILY@1800 11/10/16 11/10/16 History Allergies Allergy/AdvReac Type Severity Reaction Status Date / Time ciprofloxacin Allergy Intermediate ITCHING Verified 11/09/16 19:01 atropine Allergy Unknown/Unable Verified 11/09/16 17:41 to obtain Beta-Blockers Allergy Unknown/Unable Verified 11/09/16 17:41 (Beta-Adrenergic Bloc to obtain cephalexin Allergy Unknown/Unable Verified 11/09/16 17:41 to obtain clindamycin Allergy Unknown/Unable Verified 11/09/16 17:41 to obtain diatrizoate meglumine Allergy Unknown/Unable Verified 11/09/16 17:41 to obtain Diatrizoic Acid Allergy Unknown/Unable Verified 11/09/16 17:41 [From Hypaque] to obtain digoxin Allergy Unknown/Unable Verified 11/09/16 17:41 to obtain diltiazem [From Cardizem] Allergy RASH Verified 11/09/16 18:55 Diphenoxylate Allergy Unknown/Unable Verified 11/09/16 17:41 to obtain Erythromycin Base Allergy RASH Verified 11/09/16 18:55 guaifenesin Allergy Unknown/Unable Verified 11/09/16 17:41 to obtain Hyoscyamine Allergy Unknown/Unable Verified 11/09/16 17:41 to obtain isradipine [From DynaCirc] Allergy Unknown/Unable Verified 11/09/16 17:41 to obtain levofloxacin Allergy Unknown/Unable Verified 11/09/16 17:41 to obtain Nisoldipine Allergy Unknown/Unable Verified 11/09/16 17:41 to obtain Opium (Anthroposophic) Allergy Unknown/Unable Verified 11/09/16 17:41 to obtain Oxycodone Allergy Unknown/Unable Verified 11/09/16 17:41 to obtain pantoprazole [From Protonix] Allergy Unknown/Unable Verified 11/09/16 17:41 to obtain Paregoric Allergy Unknown/Unable Verified 11/09/16 17:41 to obtain pentazocine Allergy Unknown/Unable Verified 11/09/16 17:41 to obtain pregabalin [From Lyrica] Allergy Unknown/Unable Verified 11/09/16 17:41 to obtain prochlorperazine Allergy Unknown/Unable Verified 11/09/16 17:41 to obtain quinidine Allergy RASH Verified 11/09/16 19:01 Sulfa (Sulfonamide Allergy Unknown/Unable Verified 11/09/16 17:41 Antibiotics) to obtain aspirin [From Percodan] AdvReac Chest Pain Verified 11/09/16 18:55 budesonide [From Symbicort] AdvReac Chest Pain Verified 11/09/16 18:42 citalopram [From Celexa] AdvReac Dizziness Verified 11/09/16 18:59 clonazepam AdvReac Weakness Verified 11/09/16 18:59 codeine AdvReac Chest Pain Verified 11/09/16 18:55 duloxetine [From Cymbalta] AdvReac Dizziness Verified 11/09/16 18:55 fluticasone AdvReac Chest Pain Verified 11/09/16 18:42 [From Advair Diskus] Formoterol [From Symbicort] AdvReac Chest Pain Verified 11/09/16 18:42 hydrocodone AdvReac Chest Pain Verified 11/09/16 19:01 Hydromorphone [From Dilaudid] AdvReac Vomiting Verified 11/09/16 18:59 Imipramine AdvReac Nightmare Verified 11/09/16 19:01 ipratropium [From Atrovent] AdvReac Dry Eye Verified 11/09/16 19:02 lincomycin AdvReac Diarrhea Verified 11/09/16 18:59 lisinopril AdvReac Cough Verified 11/09/16 18:42 morphine AdvReac Chest Pain Verified 11/09/16 18:55 Nortriptyline [From Pamelor] AdvReac Dizziness Verified 11/09/16 18:55 omeprazole AdvReac Dizziness Verified 11/09/16 18:59 potassium guaiacolsulfonate AdvReac Headache Verified 11/09/16 18:55 [From Humibid L.A.] promethazine AdvReac Chest Pain Verified 11/09/16 18:55 propoxyphene [From Darvon] AdvReac Chest Pain Verified 11/09/16 18:59 rosuvastatin [From Crestor] AdvReac Weakness Verified 11/09/16 18:59 salmeterol AdvReac Chest Pain Verified 11/09/16 18:42 [From Advair Diskus] tramadol AdvReac Dizziness Verified 11/09/16 18:59 Medical,Surgical,& Family Hx - Medical History Cardio: History of: Cardiac Dysrhythmia (afib, status post AV ablation), Cerebrovascular Disease, CHF (diastolic yes grade Sarath ([place] and no wheezing or ON Tuesday but quit que), Hypertension, Pacemaker, Valvular Heart Disease ( Mechanical atrial valve), Cardiovascular Problems (Ablation 2004) Psychological: History of: Anxiety Disorders Neurology: History of: Cerebrovascular Accident, Migraine, TIA No history of: Seizures HEENT: History of: Eye Problem, Glaucoma Endocrine: History of: Dyslipidemia, Thyroid Disorder (hypothyroidism), Endocrine Problems (hypoglycemia) Rheumatology: History of;: Rheumatological Problems Respiratory: History of: Asthma, Bronchitis, Obstructive Sleep Apnea Renal: No history of: Renal Failure Gastrointestinal: History of: Diverticulitis/ Diverticulosis (fecal occult blood positive stool), GERD, Hemorrhoids, GI Problems (Irritable bowel syndrome) Musculoskeletal: History of: Musculoskeletal Problems Hematology: History of: Anemia (pre-hysterectomy), Clotting Problems Other: History of: Miscellaneous Medical Problems - Surgical History Cardiac Surgeries: Sugical HX of: Cardiac Catheterization, Cardiac Surgery ( Mechanical mitral valve, pacemaker) HEENT Surgeries: Surgical HX of: Eye Surgery (cataract bilat), Tonsilectomy & Adenoidectomy Abdominal Surgeries: Surgical HX of: Cholecystectomy, Colonoscopy, EGD ( esophageal dilation) Reproductive Surgeries: Surgical HX of;: Hysterectomy - Family History Family History: Reports;: Family Heart Disease, Family Hypertension, Family Stroke - Social History Smoking Status: Never smoker Frequency of Alcohol Use: None Type of Drug Use: None Quality Measures - VTE Contraindication to Pharmacological VTE Prophylaxis: Active Bleeding Exam - Constitutional Vitals: Period Temp Pulse Resp BP Sys/Ceballos Pulse Ox Last 24 Hr 96.1 F-97.7 F 70-77 13-25 106-137/42-67 92-100 Results - Labs CBC & BMP: 11/11/16 05:37 11/11/16 05:37
[2016-11-11] MEDS: POTASSIUM CHLORIDE 20 MEQ TABLET PO PRN (15:02)
[2016-11-11] MEDS: WARFARIN 4 MG TABLET PO SCH (17:16)
--- NOTE | 2016-11-11 18:05 | Internal Med Progress Note ---
Assessment and Plan (1) Hyponatremia Status: Resolved Current Visit: Yes (2) Pyelonephritis Status: Acute Current Visit: Yes (3) Low blood pressure Problem details: excessive antihypertensive meds; history of HTN Status: Acute Current Visit: Yes Qualifiers: Hypotension type: hypotension due to drug Qualified Code(s): I95.2 - Hypotension due to drugs (4) UTI (urinary tract infection) Status: Acute Current Visit: Yes Qualifiers: Hematuria presence: without hematuria (5) Anxiety Status: Chronic Current Visit: Yes (6) Pacemaker Status: Chronic Current Visit: Yes (7) Anemia Status: Chronic Current Visit: Yes Qualifiers: Anemia type: iron deficiency Iron deficiency anemia type: inadequate dietary iron intake Qualified Code(s): D50.8 - Other iron deficiency anemias (8) Chronic anticoagulation Status: Chronic Current Visit: Yes (9) History of TIA (transient ischemic attack) Status: Chronic Current Visit: No (10) History of mitral valve replacement with mechanical valve Status: Chronic Current Visit: Yes (11) Hypothyroidism Status: Chronic Current Visit: No Qualifiers: Hypothyroidism type: acquired Qualified Code(s): E03.9 - Hypothyroidism, unspecified (12) Sleep apnea Status: Chronic Current Visit: Yes Qualifiers: Sleep apnea type: obstructive Qualified Code(s): G47.33 - Obstructive sleep apnea (adult) (pediatric) (13) Status post ablation of atrial fibrillation Status: Chronic Current Visit: No (14) Bacteremia Status: Acute Current Visit: Yes (15) Back pain Status: Acute Current Visit: Yes Qualifiers: Back pain location: thoracic back pain Chronicity: acute Back pain laterality: right Qualified Code(s): M54.6 - Pain in thoracic spine (16) History of GI bleed Status: Chronic Current Visit: Yes Internal Medicine - PN: Subj Interval history: Ms. Faith is a 81 year old female with history of atrial fib and status post ablation, pacemaker placement, CHF, hypothyroid, history of HTN, TIA, diverticulosis, asthma, LOLA on CPAP, mitral valve replacement mechanical valve and on coumadin therapy, OA, CAD, history of GI bleed, Glaucoma, who presented to ER with worsening back pain and UTI/pyelonephritis. She has worsening weakness and has been found to have bacteremia. Dr. Diaz will be consulted. She is anemic and there is a question of GI bleed. GI has been consulted through the ER. She was also found to have hyponatremia, which will be addressed. Sodium level needs to be improved. She is complaining of severe back pain. Dr. Garcia will be consulted. Attempting to avoid narcotics. She is hypotensive. Lidoderm patches have been ordered as well as Solumedrol low dose. She is much better today, with improved sodium level. Pain has improved. However, lowering Coumadin dose to 3 mg daily, after holding coumadin for two days. Desire INR to be just below 2. Exam (Progress Note) - Constitutional Vitals: Period Temp Pulse Resp BP Sys/Ceballos Pulse Ox Last 24 Hr 96.1 F-97.7 F 70-75 11-25 110-137/35-67 92-100 General appearance: no acute distress - Respiratory Respiratory exam: Present: clear to auscultation bilaterally - Cardiovascular Cardiovascular exam: Present: regular rate and rhythm - GI/Abdominal GI/Abdominal exam: Present: soft. Absent: tenderness - Extremities Exam Extremities exam: Absent: edema - Neurological Exam Neurological exam: Present: alert - Psychiatric Psychiatric exam: Present: normal mood - Skin Skin exam: Present: warm, dry Results - Labs CBC & BMP: 11/11/16 05:37 11/11/16 12:57 Quality Measures - VTE Contraindication to Pharmacological VTE Prophylaxis: Active Bleeding
--- NOTE | 2016-11-11 18:14 | ECHO Report ---
Nydia Faith Exam Date: 11/11/2016 07:32 Referring Physician: Technologist: jonel Owens ARDMS, RVT Age: 81 Ht (in): 66 Wt (lb): 144 Gender: F Exam Location: [facility] Echo Indications: Essential (primary) hypertension, Weakness, Dyspnea, unspecified, LOLA, bacteremia, acute blood loss anemia, Hx: MVR, mechanical mitral valve, Hx: A-Fib, prev ablation, pacemaker BP: 122 / 53 HR: 72 Rhythm: paced, a fib Technical Quality: Good IMPRESSIONS Left ventricular ejection fraction is estimated at 60 %. Mild left ventricular hypertrophy. The right atrium is 2+ enlarged. 2- 3 + left atrial enlargement in apical view (elongated LA). Mitral valve mean gradient is 7 mmHg at a heart rate of 72 bpm. Mitral valve mechanical prosthesis. No prosthetic regurgitation or significant stenosis. Aortic valve sclerosis without stenosis. Moderate aortic valve regurgitation. [id number] tricuspid valve regurgitation. Tricuspid regurgitation velocities suggest a PAP of 51 mmHg. Mild pulmonary valve regurgitation. MEASUREMENTS (Male / Female) Normal Values 2D ECHO LV Diastolic Diameter PLAX 3.5 cm 4.2 - 5.9 / 3.9 - 5.3 cm LV Systolic Diameter PLAX 2.1 cm LV Fractional Shortening PLAX 41.2 % IVS Diastolic Thickness 1.2 cm 0.6 - 1.0 / 0.6 - 0.9 cm LVPW Diastolic Thickness 1.2 cm 0.6 - 1.0 / 0.6 - 0.9 cm RV Internal Dim ED PLAX 2.5 cm Aortic Root Diameter 2.8 cm LA Systolic Diameter LX 3.5 cm 3.0 - 4.0 / 2.7 - 3.8 cm DOPPLER TR Peak Velocity 322.0 cm/s TR Peak Gradient 41.5 mmHg FINDINGS Left Ventricle Normal left ventricular cavity size. Mild left ventricular hypertrophy. Left ventricular ejection fraction is estimated at 60 %. Right Ventricle The right ventricle is normal in size and function. Right Atrium The right atrium is 2+ enlarged. Left Atrium 2- 3 + left atrial enlargement in apical view (elongated LA). Mitral Valve Mitral valve mechanical prosthesis. Mitral valve mean gradient is 7 mmHg at a heart rate of 72 bpm. No prosthetic regurgitation. Aortic Valve Aortic valve sclerosis without stenosis. moderate aortic valve regurgitation. Tricuspid Valve Morphologically normal tricuspid valve. [id number] tricuspid valve regurgitation. Tricuspid regurgitation velocities suggest a PAP of 51 mmHg. Pulmonic Valve Morphologically normal pulmonic valve. Mild pulmonary valve regurgitation. Pericardium Normal pericardium without effusion. Aorta Normal ascending aorta dimension. Sarath Rios MD (Electronically Signed) Final Date: 11 November 2016 18:13
[2016-11-11] MEDS: MONTELUKAST 10 MG TABLET PO SCH (20:49)
[2016-11-12] MEDS: ACETAMINOPHEN 500 MG TABLET PO PRN ×2 (00:56→09:00)
[2016-11-12] MEDS: tiZANidine 4 MG TABLET PO PRN ×3 (01:27→20:12)
[2016-11-12] MEDS: ALBUTEROL 2.5 MG/3 ML NEB RESP TX SCH ×6 (02:58→23:48)
[2016-11-12] MEDS: SODIUM CHLORIDE 0.9% 1,000 ML IV SCH ×3 (03:35→11:06)
[2016-11-12 05:14] LABS: Eosinophils % 0.3 % (0.00-10.9); Hematocrit 27.2 VOL% (35.7-47.0); Hemoglobin 9.2 GM/DL (12.0-16.0); Immature Granulocytes % 0.7 %; Immature Granulocytes Absolute 0.05 #; Lymphocytes # 0.6 10*3/uL (1.4-4.0); Lymphocytes % 7.7 % (21.3-54.2); Mean Corpuscular HGB Conc 33.8 GM/DL (32-36); Mean Corpuscular Hemoglobin 30 PG (27-34); Mean Platelet Volume 10.7 FL (9.6-12.0); Monocytes # 0.9 10*3/uL (0.11-0.8); Monocytes % 12.6 % (1.7-12.7); NRBC # 0.05 10*3/uL; Neutrophils # 5.6 10*3/uL (1.4-7.4); Neutrophils % 78.7 % (38.7-73.9); Platelet Count 275 T/CUMM (130-400); Red Blood Count 3.09 MC/CUMM (3.8-5.5); Red Cell Distribution Width 14.7 % (9.3-17.3); White Blood Count 7.2 T/CUMM (4-12)
[2016-11-12] MEDS: methylPREDNISolone SOD SUC 40 MG/1 ML VIAL IV SCH ×2 (05:17→15:11)
[2016-11-12] MEDS: PIPERACILLIN/TAZOBACTAM 3,375 MG in SODIUM CHLORIDE 0.9% 100 ML IV SCH (05:18)
[2016-11-12 05:46] LABS: Band Neutrophils 2 % (0-10); Lymphocytes 10 % (20-55); Segmented Neutrophils 79 % (50-85); Total Cells Counted 100
[2016-11-12 05:47] LABS: Burr Cells Slight; Hypochromasia Slight; Microcytosis 1+; Ovalocytes Slight; Platelet Estimate Adequate
[2016-11-12 05:49] LABS: Albumin 2.6 G/DL (3.4-5.0); Calcium 8.1 MG/DL (8.5-10.1); Osmolality,Calculated 277.7 MOS/KG (273-304); Potassium 3.8 MMOL/L (3.5-5.1); Total Protein 5.4 G/DL (6.4-8.3)
[2016-11-12] MEDS: LEVOTHYROXINE 25 MCG TABLET PO SCH (06:40)
[2016-11-12] MEDS: POTASSIUM CHLORIDE 20 MEQ TABLET PO PRN (06:40)
[2016-11-12 07:01] LABS: PT Patient Result 71.5 SECS
[2016-11-12 08:54] LABS: INR 6.5
[2016-11-12] MEDS: ONDANSETRON 4 MG/2 ML VIAL IV PRN ×2 (09:00→14:01)
[2016-11-12] MEDS: MEPERIDINE 25 MG/1 ML VIAL IV PRN ×2 (09:00→14:00)
[2016-11-12] MEDS: ASPIRIN EC 81 MG TABLET PO SCH (09:50)
[2016-11-12] MEDS: ALPRAZolam 0.25 MG TABLET PO SCH ×2 (09:50→20:12)
[2016-11-12] MEDS: FERROUS SULFATE 325 MG TABLET PO SCH (09:50)
[2016-11-12] MEDS: POTASSIUM CHLORIDE 10 MEQ TABLET PO SCH ×2 (09:50→20:12)
[2016-11-12] MEDS: LIDOCAINE 5% PATCH TRANSDERM SCH (09:50)
[2016-11-12] MEDS: FAMOTIDINE 20 MG/2 ML VIAL IV SCH ×2 (09:50→22:28)
[2016-11-12] MEDS: GEMFIBROZIL 600 MG TABLET PO SCH ×2 (09:50→15:34)
[2016-11-12] MEDS: DOCUSATE SODIUM 100 MG CAPSULE PO SCH ×2 (09:50→20:13)
--- NOTE | 2016-11-12 10:28 | Gastrointestinal Progress Note ---
Assessment and Plan (1) Abdominal pain Status: Acute Assessment and plan: 11/12-abdominal pain slightly improved. No nausea vomiting reported. Small amount of bright red blood reported in bowel movement on yesterday by nursing staff. Hemoglobin is stable at 9.2. INR is elevated today at 6.2. Plan an addendum to followed by Dr. Goetz. 11/11-abdominal pain improved slightly. No nausea or vomiting. Hemoglobin stable. IV antibiotics continued for bacteremia. Plan an addendum to follow by Dr. Sylvester. 11/10-onset of right lower quadrant abdominal pain with associated diarrhea and reported nausea and vomiting. No acute abdominal findings noted on noncontrasted CT. History of anemia and heme positive stools in past. Admitted with drop in hemoglobin from baseline and transfused. No overt bleeding. Obtain stool for occult blood. Plan an addendum to follow by Dr. Sylvester (on-call for Dr. Goetz). Current Visit: No Qualifiers: Abdominal location: right lower quadrant Qualified Code(s): R10.31 - Right lower quadrant pain Gastroenterology - PN: Subj Interval history: CC: Abdominal pain Patient is seen awake and alert sitting up in bed. States she rested a little last night however she still complaining of some back and abdominal pain. Nursing staff states that she had a small amount of bright red blood with a bowel movement on yesterday however states they have not seen any father since that one movement. Patient states her abdominal pain is a little bit improved. Her INR is noted to be elevated today at 6.5 and was down at 2.7 on yesterday. Hemoglobin stable at 9.2. She is afebrile and no leukocytosis noted. Abdomen soft, nontender. ROS: Denies shortness of breath or chest pain. Exam (Progress Note) - Constitutional Vitals: Period Temp Pulse Resp BP Sys/Ceballos Pulse Ox Last 24 Hr 96.8 F-97.7 F 70-78 11-24 121-168/35-72 96-100 - Other Additional findings: General appearance: normal weight, no acute distress - Head Head exam: Present: normal inspection, normocephalic - Eye Eye exam: Present: other (Lids and conjunctivae unremarkable). Absent: scleral icterus - ENT ENT exam: Present: normal exam, normal oropharynx - Neck Neck exam: Present: normal inspection - Respiratory Respiratory exam: Present: clear to auscultation bilaterally. Absent: rales, rhonchi, wheezes - Cardiovascular Cardiovascular exam: Present: regular rate and rhythm. Absent: diastolic murmur , JVD, systolic murmur - GI/Abdominal GI/Abdominal exam: Present: normal bowel sounds, soft. Absent: ascites, distended, mass, organomegaly, tenderness - Extremities Exam Extremities exam: Present: normal inspection, full ROM - Back Exam Back exam: Present: normal inspection - Neurological Exam Neurological exam: Present: alert, oriented X3 - Psychiatric Psychiatric exam: Present: normal affect, normal mood - Skin Skin exam: Present: normal color, warm, dry Results - Labs CBC & BMP: 11/12/16 04:28 11/12/16 04:28 Lab Results: I have reviewed the past 24 hour labs
--- NOTE | 2016-11-12 11:00 | Infectious Disease Progress ---
Assessment and Plan (1) Bacteremia Status: Acute Assessment and plan: E. coli septicemia due bilateral pyelonephritis. Recommendations: 1. Continue escalate from Zosyn to cefazolin 1 g every 6 hours. Do not expect allergic reaction 2. Repeat blood cultures today Current Visit: Yes (2) Pyelonephritis Status: Acute Current Visit: Yes (3) History of mitral valve replacement with mechanical valve Status: Chronic Assessment and plan: TTE without mention of endocarditis Current Visit: Yes (4) Pacemaker Status: Chronic Current Visit: Yes (5) Chronic atrial fibrillation Status: Chronic Current Visit: No (6) Hyperlipidemia Status: Chronic Current Visit: No Qualifiers: Hyperlipidemia type: pure hypercholesterolemia Qualified Code(s): E78.00 - Pure hypercholesterolemia, unspecified; E78.0 - Pure hypercholesterolemia (7) Hypertension Status: Chronic Current Visit: No Qualifiers: Hypertension type: essential hypertension Qualified Code(s): I10 - Essential (primary) hypertension Infectious Disease - PN: Subj Interval history: Patient doing fairly okay still with some back pain but improved. Less abdominal pain. She has not had fever. She is having diarrhea now has an FMS. Infectious Disease Exam (PN) - Constitutional Vitals: Temp Pulse Resp BP Pulse Ox 97.6 F 73 18 138/56 99 11/12/16 07:00 11/12/16 10:00 11/12/16 10:00 11/12/16 10:00 11/12/16 10:00 General appearance: no acute distress Exam: General appearance: Looks less ill than yesterday - Eye Eye exam: Present: EOMI. no icterus Pupils: Present: EUGENIO - ENT ENT exam: no oral exudates - Respiratory Respiratory exam: vesicular BS, no crepitations or wheezes - Cardiovascular Cardiovascular exam: regular rate and rhythm, no murmurs - GI/Abdominal GI/Abdominal exam: normal bowel sounds, soft, mild lower abdominal tenderness, no organomegaly or mass - Extremities Exam Extremities exam: no edema - Skin Skin exam: no rash Results - Labs CBC & BMP: 11/12/16 04:28 11/12/16 04:28 Lab Results: I have reviewed the past 24 hour labs (Relatively sensitive E. coli cultured from blood and urine) Quality Measures - VTE Contraindication to Pharmacological VTE Prophylaxis: Active Bleeding
[2016-11-12] MEDS: SODIUM CHLORIDE 0.9% IV SCH ×3 (11:12→20:12)
[2016-11-12] MEDS: CEFAZOLIN IV SCH ×3 (11:12→20:12)
[2016-11-12] MEDS ORDERED: NITROGLYCERIN TRANSLING PRN (11:30)
[2016-11-12 12:17] LABS: Bilirubin,Total 0.4 MG/DL (0.2-1.0)
--- NOTE | 2016-11-12 12:47 | Cardiology Consult Note ---
Assessment and Plan - Time spent with patient Time spent with patient: Greater than 30 minutes (1) Back pain Status: Chronic Assessment and plan: SEE PLAN OF CARE LISTED BELOW Current Visit: Yes Qualifiers: Back pain location: thoracic back pain Chronicity: acute Back pain laterality: right Qualified Code(s): M54.6 - Pain in thoracic spine (2) Bacteremia Status: Acute Assessment and plan: SEE PLAN OF CARE LISTED BELOW Current Visit: Yes (3) GI bleed Status: Acute Assessment and plan: SEE PLAN OF CARE LISTED BELOW Current Visit: Yes (4) Pyelonephritis Status: Acute Assessment and plan: SEE PLAN OF CARE LISTED BELOW Current Visit: Yes (5) Anemia Status: Chronic Assessment and plan: SEE PLAN OF CARE LISTED BELOW Current Visit: Yes Qualifiers: Anemia type: iron deficiency Iron deficiency anemia type: inadequate dietary iron intake Qualified Code(s): D50.8 - Other iron deficiency anemias (6) Anxiety Status: Chronic Assessment and plan: SEE PLAN OF CARE LISTED BELOW Current Visit: Yes (7) Chronic anticoagulation Status: Chronic Assessment and plan: SEE PLAN OF CARE LISTED BELOW Current Visit: Yes (8) GERD (gastroesophageal reflux disease) Status: Chronic Current Visit: Yes (9) History of mitral valve replacement with mechanical valve Status: Chronic Assessment and plan: SEE PLAN OF CARE LISTED BELOW Current Visit: Yes (10) Pacemaker Status: Chronic Assessment and plan: SEE PLAN OF CARE LISTED BELOW Current Visit: Yes (11) Sleep apnea Status: Chronic Assessment and plan: SEE PLAN OF CARE LISTED BELOW Current Visit: Yes Qualifiers: Sleep apnea type: obstructive Qualified Code(s): G47.33 - Obstructive sleep apnea (adult) (pediatric) (12) Abdominal pain Status: Acute Assessment and plan: SEE PLAN OF CARE LISTED BELOW Current Visit: No Qualifiers: Abdominal location: right lower quadrant Qualified Code(s): R10.31 - Right lower quadrant pain (13) Hyperlipidemia Status: Chronic Assessment and plan: SEE PLAN OF CARE LISTED BELOW Current Visit: No Qualifiers: Hyperlipidemia type: pure hypercholesterolemia Qualified Code(s): E78.00 - Pure hypercholesterolemia, unspecified; E78.0 - Pure hypercholesterolemia (14) Status post ablation of atrial fibrillation Status: Chronic Assessment and plan: SEE PLAN OF CARE LISTED BELOW Current Visit: No History of Present Illness - Data of Consult Patient: known to practice within the last 3 years Consult date: 11/12/16 Requesting Physician: Lou Zavaleta - Consult Narrative Reason for consult: Known to you, anemia, GI bleed, mechanical mitral valve History of present illness: 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 RIOS Ms. Faith, 81WF, followed by Dr. Rios. Patient has frequent hospitalizations and was discharged home October 22, 2016. She was last seen in cardiology clinic April 2016. She has no known prior history of coronary artery disease. Risk factors include: Advanced age, hypertension, dyslipidemia , sedentary lifestyle, family history of coronary artery disease (father at age 57 from [place]). She has a past medical history of TIA, atrial fibrillation (status post AV ablation at [facility]), pacemaker, irritable bowel syndrome, asthma, diverticulosis, obstructive sleep apnea (wears CPAP), hypothyroidism, anxiety, rheumatic heart disease and mechanical mitral valve with chronic anticoagulation with Coumadin. She also has chronic pain for which she is seen by Dr. Oh. Her last heart catheterization was done in 2003. She reports that she has had 4 heart catheterizations which did not reveal any significant obstructive coronary artery disease. At April 2016 clinic visit, she had complaints of shortness of breath. Dr. Rios offered stress testing and she declined. Patient presented to the emergency department November 09, 2016 with complaints of back pain, neck pain and abdominal discomfort. This discomfort started approximately 4 days prior to arrival. She has been diagnosed with E. coli septicemia due to bilateral pyelonephritis. Initially, after treatment for UTI with antibiotics, abdominal discomfort improved. CT abdomen revealed no acute findings. There is thought that she may have a GI bleed and gastroenterology is following. Nurses did report small amount of bright red blood in her stool yesterday. Hemoglobin and hematocrit have decreased during this admission. (1 stool was 3+ positive for occult blood, the other stool was negative for occult blood.) INR was therapeutic on admission however, this morning reveals 6.5 INR. I will have this repeated to verify its accuracy. Patient denies chest pain, heaviness or tightness. She is chronically short of breath. Echocardiogram November 09, 2016 reveals the following: EF 60%, mechanical mitral valve prosthesis seated well, PAP 51 mmHg. At this time, patient's only complaint is of chronic lower back pain, particularly on the left lower back area. She reports the only relief she gets is when "I get Demerol [address] Oh has been consulting and is following. Attempting to avoid narcotics if able. At this time, blood pressure will not tolerate antihypertensives. Telemetry reveals a paced rhythm. I will reorder stat INR. Hold Coumadin until INR results have returned this morning. Also, will hold aspirin at this time. Will further discuss with Dr. Rios and await additional recommendations. 1. STATUS POST MECHANICAL MITRAL VALVE WITH CHRONIC ANTICOAGULATION - INR supratherapeutic this morning. I have reordered to verify accuracy. Holding Warfarin for now. Discontinuing ASA as she does not need. Daily INRs. 2. HYPERLIPIDEMIA - History of statin intolerance and she has not been taking. AST/ALT mildly elevated during this admission we will not introduce a lipid- lowering agent at this time given her current circumstances. 3. CHRONIC ANTICOAGULATION - supra therapeutic INR. Rechecking stat. Daily INRs 4. CHRONIC BACK PAIN - Dr. Oh addressing. 5. OBSTRUCTIVE SLEEP APNEA - CPAP nightly. 6. HYPOTHYROIDISM: Synthroid has been reinitiated. I will check a TSH and make further adjustments if needed. 7. ANEMIA - will hold Coumadin and stop ASA altogether. Await INR results. 8. GI BLEED - one stool is 3+ positive for occult blood, one is negative. Should patient need invasive work-up, such as colonoscopy, will have to bridge with Heparin. Await GI's recommendations. Continue PPI. 9. CHRONIC DYSPNEA ON EXERTION -this is not a primary complaint during this admission. 10. BACTEREMIA - BC being repeated today. Dr. Diaz-Zeke, [place], following. 11. ATRIAL FIBRILLATION - rate controlled, paced rhythm noted. 12. PYELONEPHRITIS - appropriate antibiotics have been initiated. 13. DEBILITATED PATIENT - high falls risk protocol. 12. ANEMIA: No overt bleeding noted. Will check stool for occult blood as patient has history of lower GI bleed. Daily CBC. Will defer further workup of this to CC: Lou Zavaleta, DO - Home Medications and Allergies Home Medications: Home Medications Medication Instructions Recorded Confirmed Type ALPRAZolam [Xanax] 0.25 tablet PO BID 12/13/14 11/09/16 History Aspirin [Ecotrin] 325 mg PO DAILY 12/13/14 11/09/16 History Chlorthalidone 25 mg PO DAILY 12/13/14 11/09/16 History Gemfibrozil [Lopid] 600 mg PO BIDAC 12/13/14 11/09/16 History Levothyroxine Tab [Synthroid Tab] 25 mcg PO DAILY@0700 12/13/14 11/09/16 History Nitroglycerin [place] 1 spray TRANSLING PRN PRN 12/13/14 11/09/16 History Potassium Chloride Cap/Tab [K Dur] 10 meq PO DAILY 12/13/14 11/09/16 History Famotidine Tab [Pepcid Tab] 20 mg PO BID 03/17/16 11/09/16 History Ipratropium Inhaler [Atrovent 2 puff INH Q6HR PRN 03/17/16 11/09/16 History Inhaler] Loratadine 10 mg PO BEDTIME PRN 03/17/16 11/09/16 History Losartan Potassium 50 mg PO BID 03/17/16 11/09/16 History Montelukast Tab [Singulair Tab] 10 mg PO BEDTIME 03/17/16 11/09/16 History Cholecalciferol (Vitamin D3) 50,000 unit PO DIRECTED 10/15/16 11/09/16 History [Vitamin D3] Ferrous Sulfate 325 mg PO DAILY W/BREAKFAST 10/15/16 11/09/16 History amLODIPine [Norvasc] 10 mg PO DAILY 10/15/16 11/09/16 History Acetaminophen Tab [Tylenol Tab] 500 mg PO TID PRN #0 tablet 10/22/16 11/09/16 Rx Albuterol Neb [Proventil Neb] 2.5 mg RESP TX RT Q8H 10/22/16 11/09/16 Rx Amoxicillin/Clav Tab [Augmentin 500 mg PO BID #20 tablet 10/22/16 11/09/16 Rx Tab] Ondansetron Tab [Zofran Tab] 4 mg PO QID PRN #14 tablet 10/22/16 11/09/16 Rx Polyethylene Glycol Powder 17 gm PO DAILY PRN #0 10/22/16 11/09/16 Rx [Miralax] Carboxymethylcellulose Sodium 1 drop BOTH EYES QID 11/10/16 11/10/16 History [Refresh Tears] Oxymetazoline 0.05% Nasal Spr 2 spray BOTH NARES BID PRN 11/10/16 11/10/16 History [Afrin Nasal [place]] Warfarin [Coumadin] 4 mg PO DAILY@1800 11/10/16 11/10/16 History Allergies/Adverse Reactions: Allergies Allergy/AdvReac Type Severity Reaction Status Date / Time ciprofloxacin Allergy Intermediate ITCHING Verified 11/09/16 19:01 atropine Allergy Unknown/Unable Verified 11/09/16 17:41 to obtain Beta-Blockers Allergy Unknown/Unable Verified 11/09/16 17:41 (Beta-Adrenergic Bloc to obtain cephalexin Allergy Unknown/Unable Verified 11/09/16 17:41 to obtain clindamycin Allergy Unknown/Unable Verified 11/09/16 17:41 to obtain diatrizoate meglumine Allergy Unknown/Unable Verified 11/09/16 17:41 to obtain Diatrizoic Acid Allergy Unknown/Unable Verified 11/09/16 17:41 [From Hypaque] to obtain digoxin Allergy Unknown/Unable Verified 11/09/16 17:41 to obtain diltiazem [From Cardizem] Allergy RASH Verified 11/09/16 18:55 Diphenoxylate Allergy Unknown/Unable Verified 11/09/16 17:41 to obtain Erythromycin Base Allergy RASH Verified 11/09/16 18:55 guaifenesin Allergy Unknown/Unable Verified 11/09/16 17:41 to obtain Hyoscyamine Allergy Unknown/Unable Verified 11/09/16 17:41 to obtain isradipine [From DynaCirc] Allergy Unknown/Unable Verified 11/09/16 17:41 to obtain levofloxacin Allergy Unknown/Unable Verified 11/09/16 17:41 to obtain Nisoldipine Allergy Unknown/Unable Verified 11/09/16 17:41 to obtain Opium (Anthroposophic) Allergy Unknown/Unable Verified 11/09/16 17:41 to obtain Oxycodone Allergy Unknown/Unable Verified 11/09/16 17:41 to obtain pantoprazole [From Protonix] Allergy Unknown/Unable Verified 11/09/16 17:41 to obtain Paregoric Allergy Unknown/Unable Verified 11/09/16 17:41 to obtain pentazocine Allergy Unknown/Unable Verified 11/09/16 17:41 to obtain pregabalin [From Lyrica] Allergy Unknown/Unable Verified 11/09/16 17:41 to obtain prochlorperazine Allergy Unknown/Unable Verified 11/09/16 17:41 to obtain quinidine Allergy RASH Verified 11/09/16 19:01 Sulfa (Sulfonamide Allergy Unknown/Unable Verified 11/09/16 17:41 Antibiotics) to obtain aspirin [From Percodan] AdvReac Chest Pain Verified 11/09/16 18:55 budesonide [From Symbicort] AdvReac Chest Pain Verified 11/09/16 18:42 citalopram [From Celexa] AdvReac Dizziness Verified 11/09/16 18:59 clonazepam AdvReac Weakness Verified 11/09/16 18:59 codeine AdvReac Chest Pain Verified 11/09/16 18:55 duloxetine [From Cymbalta] AdvReac Dizziness Verified 11/09/16 18:55 fluticasone AdvReac Chest Pain Verified 11/09/16 18:42 [From Advair Diskus] Formoterol [From Symbicort] AdvReac Chest Pain Verified 11/09/16 18:42 hydrocodone AdvReac Chest Pain Verified 11/09/16 19:01 Hydromorphone [From Dilaudid] AdvReac Vomiting Verified 11/09/16 18:59 Imipramine AdvReac Nightmare Verified 11/09/16 19:01 ipratropium [From Atrovent] AdvReac Dry Eye Verified 11/09/16 19:02 lincomycin AdvReac Diarrhea Verified 11/09/16 18:59 lisinopril AdvReac Cough Verified 11/09/16 18:42 morphine AdvReac Chest Pain Verified 11/09/16 18:55 Nortriptyline [From Pamelor] AdvReac Dizziness Verified 11/09/16 18:55 omeprazole AdvReac Dizziness Verified 11/09/16 18:59 potassium guaiacolsulfonate AdvReac Headache Verified 11/09/16 18:55 [From Humibid L.A.] promethazine AdvReac Chest Pain Verified 11/09/16 18:55 propoxyphene [From Darvon] AdvReac Chest Pain Verified 11/09/16 18:59 rosuvastatin [From Crestor] AdvReac Weakness Verified 11/09/16 18:59 salmeterol AdvReac Chest Pain Verified 11/09/16 18:42 [From Advair Diskus] tramadol AdvReac Dizziness Verified 11/09/16 18:59 Review of systems: REVIEW OF SYSTEMS: - Constitutional Constitutional: Present: Fatigue. Absent: syncope, anorexia, night sweats - EENT Eyes: Absent: blurry vision, loss of vision, diplopia Ears: Absent: decreased hearing, ear pain, ear discharge - Cardiovascular Cardiovascular: Denies chest pain with exertion, edema. Occasional palpitations , chronic shortness of breath unchanged over a period of months. Absent: chest pain with deep breath, claudication - Respiratory Respiratory: Present: QURESHI, denies cough. Absent: wheezing, hemoptysis, change in phlegm color - Gastrointestinal Gastrointestinal: Occasional constipation. Abdominal pain (see HPI). Denies hematemesis, nausea - Genitourinary Genitourinary: Absent: difficulty urinating, dysuria, urinary hesitancy, flank pain - Musculoskeletal Musculoskeletal: Present: Chronic back pain. Present: General muscle weakness. Absent: joint swelling, muscle cramps - Neurological Neurological: Present: Poor gait without frequent falls. Absent: dizziness, hemiparesis - Psychiatric Psychiatric: Present: Anxiety. Absent: difficulty concentrating - Endocrine Endocrine: Absent: cold intolerance, heat intolerance, polyuria, polyphagia, polydipsia - Hematologic/Lymphatic Hematologic/Lymphatic: Present: easy bruising. Absent: easy bleeding -Integumentary Integumentary: Absent: lesions, rashes, skin breakdown Medical,Surgical,& Family Hx - Medical History Cardio: History of: Cardiac Dysrhythmia (afib, status post AV ablation), Cerebrovascular Disease, CHF (diastolic yes grade Sarath ([place] and no wheezing or ON Tuesday but quit que), Hypertension, Pacemaker, Valvular Heart Disease ( Mechanical atrial valve), Cardiovascular Problems (Ablation 2004) No history of: CAD Psychological: History of: Anxiety Disorders Neurology: History of: Cerebrovascular Accident, Migraine, TIA No history of: Seizures HEENT: History of: Eye Problem, Glaucoma Endocrine: History of: Dyslipidemia, Thyroid Disorder (hypothyroidism), Endocrine Problems (hypoglycemia) Rheumatology: History of;: Rheumatological Problems Respiratory: History of: Asthma, Bronchitis, Obstructive Sleep Apnea Renal: No history of: Renal Failure Gastrointestinal: History of: Diverticulitis/ Diverticulosis (fecal occult blood positive stool), GERD, Hemorrhoids, GI Problems (Irritable bowel syndrome) Musculoskeletal: History of: Musculoskeletal Problems Hematology: History of: Anemia (pre-hysterectomy), Clotting Problems Other: History of: Miscellaneous Medical Problems - Surgical History Cardiac Surgeries: Sugical HX of: Cardiac Catheterization, Cardiac Surgery ( Mechanical mitral valve, pacemaker) HEENT Surgeries: Surgical HX of: Eye Surgery (cataract bilat), Tonsilectomy & Adenoidectomy Abdominal Surgeries: Surgical HX of: Cholecystectomy, Colonoscopy, EGD ( esophageal dilation) Reproductive Surgeries: Surgical HX of;: Hysterectomy - Family History Family History: Reports;: Family Heart Disease, Family Hypertension, Family Stroke - Social History Smoking Status: Never smoker Have you smoked in the last 12 months: No Frequency of Alcohol Use: None Type of Drug Use: None Marital Status: Lives With:: Alone Functional capacity: uses cane/walker Physical Examination Vital Signs Temp Pulse Resp BP Pulse Ox 97.8 F 70 20 126/48 97 11/09/16 17:29 11/09/16 17:29 11/09/16 17:29 11/09/16 17:29 11/09/16 17:29 General: [Appears frail but in no apparent distress.] [Pleasant and cooperative. ] [ HEENT: [PERRL, normocephalic, atraumatic. Mucous membranes moist. No jaundice noted. Conjunctiva moist and clear, sclerae anicteric] Neck: No JVD/HJR, no thyromegaly or lymphadenopathy noted. No carotid bruit appreciated Cardiac: [Irregularly irregular rhythm, controlled rate. ] [No murmur rub or gallop.] Incision to left upper chest wall reveals pacemaker site. Lungs: [Clear to auscultation without accessory muscle use to assist the respiratory pattern.] Using oxygen intermittently Abdomen: Soft, bowel sounds normoactive. Nontender and nondistended. No abdominal bruit or thrill noted. No masses noted. Musculoskeletal: No fluid collection. Decreased range of motion is noted. Extremities: No clubbing, cyanosis noted. [ No edema noted.] Upper extremity pulses 2+. Lower extremity pulses 2+. Capillary refill less than 3 seconds. Skin: No unusual lesions or rashes. No skin breakdown appreciated. Neuro: Awake, alert and oriented 3. Moves all extremities well without hemiparesis or paralysis. No essential tremor is appreciated. Result/EKG - Labs CBC & BMP: 11/12/16 04:28 11/12/16 04:28 Lab Results: I have reviewed the past 24 hour labs Labs: Laboratory Results - last 24 hr 11/11/16 11/12/16 11/12/16 12:57 04:28 04:28 WBC 7.2 RBC 3.09 L Hgb 9.2 L Hct 27.2 L MCV 88.0 MCH 30 MCHC 33.8 RDW 14.7 Plt Count 275 MPV 10.7 Neut % (Auto) 78.7 H Lymph % (Auto) 7.7 L Mcdowell % (Auto) 12.6 Eos % (Auto) 0.3 Baso % (Auto) 0.0 Neut # (Auto) 5.6 Lymph # (Auto) 0.6 L Mcdowell # (Auto) 0.9 H Eos # (Auto) 0.0 Baso # (Auto) 0.0 Total Counted 100 Immature Gran % 0.7 Nucleated RBC % 0.7 Immature Gran # 0.05 Segmented Neutrophils 79 Band Neutrophils 2 Lymphocytes 10 L Monocytes 9 Nucleated RBCs # 0.05 Platelet Estimate Adequate Hypochromasia Slight Microcytosis 1+ Ovalocytes Slight [place] Cells Slight Morphology Comment INR PT Patient/Control Mix Sodium 138 Potassium 3.9 3.8 Chloride 109 H Carbon Dioxide 17 L Anion Gap 15.8 H BUN 12 Creatinine 0.70 GFR Calculation 80 BUN/Creatinine Ratio 17.00 Glucose 149 H Calculated Osmolality 277.7 Calcium 8.1 L Total Bilirubin 0.40 AST 36 ALT 29 Alkaline Phosphatase 57 Total Protein 5.4 L Albumin 2.6 L Globulin 2.8 Albumin/Globulin Ratio 0.9 L 11/12/16 11/12/16 06:40 06:40 WBC RBC Hgb Hct MCV MCH MCHC RDW Plt Count MPV Neut % (Auto) Lymph % (Auto) Mcdowell % (Auto) Eos % (Auto) Baso % (Auto) Neut # (Auto) Lymph # (Auto) Mcdowell # (Auto) Eos # (Auto) Baso # (Auto) Total Counted Immature Gran % Nucleated RBC % Immature Gran # Segmented Neutrophils Band Neutrophils Lymphocytes Monocytes Nucleated RBCs # Platelet Estimate Hypochromasia Microcytosis Ovalocytes Mikal Cells Morphology Comment INR 6.0 H* 6.5 H* PT Patient/Control Mix 71.5 D 78.0 Sodium Potassium Chloride Carbon Dioxide Anion Gap BUN Creatinine GFR Calculation BUN/Creatinine Ratio Glucose Calculated Osmolality Calcium Total Bilirubin AST ALT Alkaline Phosphatase Total Protein Albumin Globulin Albumin/Globulin Ratio - Diagnostic Findings Procedure: Chest x-ray: report reviewed by me - EKG EKG results: interpreted by me EKG shows: sinus rhythm (Paced rhythm), atrial fibrillation Quality Measures - VTE Contraindication to Pharmacological VTE Prophylaxis: Active Bleeding
[2016-11-12 14:14] LABS: PT Patient Result 84.8 SECS
[2016-11-12 14:15] LABS: INR 7.1
[2016-11-12] MEDS ORDERED: PHYTONADIONE 5 MG TABLET PO STA ×2 (14:22→21:49)
[2016-11-12] MEDS ORDERED: tiZANidine 4 MG TABLET PO STA (14:28)
--- NOTE | 2016-11-12 14:38 | Internal Med Progress Note ---
Assessment and Plan (1) Hyponatremia Status: Resolved Current Visit: Yes (2) Pyelonephritis Status: Acute Current Visit: Yes (3) Low blood pressure Problem details: excessive antihypertensive meds; history of HTN Status: Acute Current Visit: Yes Qualifiers: Hypotension type: hypotension due to drug Qualified Code(s): I95.2 - Hypotension due to drugs (4) UTI (urinary tract infection) Status: Acute Current Visit: Yes Qualifiers: Hematuria presence: without hematuria (5) Anxiety Status: Chronic Current Visit: Yes (6) Pacemaker Status: Chronic Current Visit: Yes (7) Anemia Status: Chronic Current Visit: Yes Qualifiers: Anemia type: iron deficiency Iron deficiency anemia type: inadequate dietary iron intake Qualified Code(s): D50.8 - Other iron deficiency anemias (8) Chronic anticoagulation Status: Chronic Current Visit: Yes (9) History of TIA (transient ischemic attack) Status: Chronic Current Visit: No (10) History of mitral valve replacement with mechanical valve Status: Chronic Current Visit: Yes (11) Hypothyroidism Status: Chronic Current Visit: No Qualifiers: Hypothyroidism type: acquired Qualified Code(s): E03.9 - Hypothyroidism, unspecified (12) Sleep apnea Status: Chronic Current Visit: Yes Qualifiers: Sleep apnea type: obstructive Qualified Code(s): G47.33 - Obstructive sleep apnea (adult) (pediatric) (13) Status post ablation of atrial fibrillation Status: Chronic Current Visit: No (14) Bacteremia Status: Acute Current Visit: Yes (15) Back pain Status: Chronic Current Visit: Yes Qualifiers: Back pain location: thoracic back pain Chronicity: acute Back pain laterality: right Qualified Code(s): M54.6 - Pain in thoracic spine (16) History of GI bleed Status: Chronic Current Visit: Yes Internal Medicine - PN: Subj Interval history: Ms. Faith is a 81 year old female with history of atrial fib and status post ablation, pacemaker placement, CHF, hypothyroid, history of HTN, TIA, diverticulosis, asthma, LOLA on CPAP, mitral valve replacement mechanical valve and on coumadin therapy, OA, CAD, history of GI bleed, Glaucoma, who presented to ER with worsening back pain and UTI/pyelonephritis. She has worsening weakness and has been found to have bacteremia. Dr. Diaz will be consulted. She is anemic and there is a question of GI bleed. GI has been consulted through the ER. She was also found to have hyponatremia, which will be addressed. Sodium level needs to be improved. She is complaining of severe back pain. Dr. Garcia will be consulted. Attempting to avoid narcotics. She is hypotensive. Lidoderm patches have been ordered as well as Solumedrol low dose. She is much better today, with improved sodium level. Pain has improved. However, lowering Coumadin dose to 3 mg daily, after holding coumadin for two days. Desire INR to be just below 2. She is complaining of back pain. Will increase Zanaflex frequency. Exam (Progress Note) - Constitutional Vitals: Period Temp Pulse Resp BP Sys/Ceballos Pulse Ox Last 24 Hr 96.8 F-97.8 F 70-78 13-24 128-168/50-72 92-100 General appearance: no acute distress - Respiratory Respiratory exam: Present: clear to auscultation bilaterally - Cardiovascular Cardiovascular exam: Present: regular rate and rhythm - GI/Abdominal GI/Abdominal exam: Present: soft. Absent: tenderness - Extremities Exam Extremities exam: Absent: edema - Neurological Exam Neurological exam: Present: alert - Psychiatric Psychiatric exam: Present: normal affect - Skin Skin exam: Present: warm, dry Results - Labs CBC & BMP: 11/12/16 04:28 11/12/16 04:28 Quality Measures - VTE Contraindication to Pharmacological VTE Prophylaxis: Active Bleeding
[2016-11-12] MEDS: MONTELUKAST 10 MG TABLET PO SCH (20:12)
[2016-11-12 21:43] LABS: PT Patient Result 90.3 SECS
[2016-11-12 21:44] LABS: INR 7.5
[2016-11-12] MEDS ORDERED: PHYTONADIONE 5 MG TABLET ONE (22:32)
[2016-11-13] MEDS: SODIUM CHLORIDE 0.9% 1,000 ML IV SCH ×2 (00:41→16:51)
[2016-11-13] MEDS: CEFAZOLIN IV SCH ×4 (02:16→20:24)
[2016-11-13] MEDS: SODIUM CHLORIDE 0.9% IV SCH ×4 (02:16→20:24)
[2016-11-13] MEDS: tiZANidine 4 MG TABLET PO PRN ×4 (02:16→23:00)
[2016-11-13] MEDS: CARBOXYMETHYLCELLULOSE 1% OPH SOLN BOTH EYES PRN (02:19)
[2016-11-13 02:46] LABS: Eosinophils % 0.5 % (0.00-10.9); Hematocrit 26.6 VOL% (35.7-47.0); Hemoglobin 9.1 GM/DL (12.0-16.0); Immature Granulocytes % 0.9 %; Immature Granulocytes Absolute 0.08 #; Lymphocytes % 11.7 % (21.3-54.2); Mean Corpuscular HGB Conc 34.2 GM/DL (32-36); Mean Corpuscular Hemoglobin 30 PG (27-34); Mean Corpuscular Volume 87.8 FL (87-102); Mean Platelet Volume 10.3 FL (9.6-12.0); Monocytes # 1.4 10*3/uL (0.11-0.8); Monocytes % 15.8 % (1.7-12.7); Neutrophils # 6.2 10*3/uL (1.4-7.4); Neutrophils % 71.1 % (38.7-73.9); Platelet Count 346 T/CUMM (130-400); Red Blood Count 3.03 MC/CUMM (3.8-5.5); Red Cell Distribution Width 14.8 % (9.3-17.3); White Blood Count 8.7 T/CUMM (4-12)
[2016-11-13 03:12] LABS: Calcium 8.4 MG/DL (8.5-10.1); Osmolality,Calculated 273.7 MOS/KG (273-304); Potassium 4.2 MMOL/L (3.5-5.1)
[2016-11-13] MEDS: ALBUTEROL 2.5 MG/3 ML NEB RESP TX SCH ×6 (03:14→23:31)
[2016-11-13 03:20] LABS: INR 5.1; PT Patient Result 60.2 SECS
[2016-11-13 03:21] LABS: Alanine Aminotransferase 28 U/L (13-56); Albumin 2.8 G/DL (3.4-5.0); Alkaline Phosphatase 59 U/L (45-117); Aspartate Amino Transferase 28 U/L (0-37); Bilirubin,Total < 0.39 MG/DL (0.2-1.0); Blood Urea Nitrogen 9 MG/DL (7-18); Calcium 8.6 MG/DL (8.5-10.1); Glucose 105 MG/DL (74-106); Osmolality,Calculated 275.5 MOS/KG (273-304); Potassium 4.3 MMOL/L (3.5-5.1); Sodium 139 MMOL/L (136-145); Total Protein 5.5 G/DL (6.4-8.3)
[2016-11-13] MEDS: methylPREDNISolone SOD SUC 40 MG/1 ML VIAL IV SCH ×2 (04:52→16:51)
[2016-11-13 05:39] LABS: Band Neutrophils 2 % (0-10); Lymphocytes 11 % (20-55); Metamyelocytes 2 %; Myelocytes 7 %; Platelet Estimate Normal; Segmented Neutrophils 72 % (50-85); Total Cells Counted 100
--- NOTE | 2016-11-13 08:40 | Gastrointestinal Progress Note ---
Assessment and Plan - Time spent with patient Time spent with patient: Greater than 30 minutes (1) Abdominal pain Status: Acute Current Visit: No Qualifiers: Abdominal location: right lower quadrant Qualified Code(s): R10.31 - Right lower quadrant pain (2) Diarrhea Status: Acute Current Visit: Yes (3) Occult blood positive stool Status: Acute Current Visit: No (4) Other specified counseling Status: Acute Current Visit: No Gastroenterology - PN: Subj Interval history: PLEASE NOTE -- automatic citation of patient information is unavoidable in this electronic note. I have made a reasonable effort to review the information cited , but it is not a part of my evaluation, impression, or recommendation unless specifically discussed in the dictated text that follows. As well, voice recognition software was used in the creation of this clinical note. Reasonable effort was made to identify and correct gross errors. Despite proofreading, errors in case sealer may be present, including nonsense verbiage at times. If you encounter such an error, please contact me at [phone] for discussion and correction. -- Shalonda Chief complaint: abdominal pain, diarrhea Subjective: the patient is a 81-year-old female seen for follow-up diarrhea. The patient had one episode of bright red blood per rectum two days ago but no further report at present. Patient has also been coagulopathic in the setting of Coumadin therapy and urosepsis. This has been treated with oral vitamin K, and INR has started to come down some. Liver associated enzymes remain normal. The patient produced about 150 mL of liquid stool yesterday. Her fluid balance was overall slightly positive yesterday. She reports feeling weak and miserable with continued back pain and all over abdominal pain. She does not have specific or localizing complaint. She is not having nausea or vomiting at present. She continues with a fecal management system. Medications: Tylenol, albuterol, Xanax, Norvasc, cefazolin, Colace, Pepcid, iron sulfate, Lopid, lactulose, Synthroid, light odor and patch, Claritin, Demerol, Solu-Medrol, Singulair, Zofran, MiraLAX, potassium chloride, normal saline infusion, Zanaflex Review of Symptoms: 12 point review of system was diffusely positive but nonspecific Physical examination: Vital Signs: Current vital signs reviewed. General Appearance: lying in bed. Uncomfortable. No acute distress. Appeared Head: Normocephalic. Eyes: no scleral icterus. No scleral injection. No conjunctival pallor. Oral Cavity: Odor of breath was normal. No drooling was observed. Lips showed no abnormalities. Lungs: Respiration rhythm and depth was normal. Cardiovascular: Heart rate and rhythm were normal. Abdomen: abdomen was not distended. Abdominal auscultation revealed no abnormalities. Ascites was not discovered. Abdominal palpation revealed minimal , nonfocal tenderness and no hepatosplenomegaly. Musculoskeletal System: musculoskeletal system was grossly normal. Neurological: level of consciousness was normal. Speech was normal. No coordination/cerebellum abnormalities were noted. Skin: Gen. appearance was normal. Color and pigmentation were normal. No skin lesions were appreciated. Laboratory: white blood count 8.7, hemoglobin 9.1, hematocrit 26.6, platelets 346, INR 5.1, PT 60, ALT 28, AST 28, total bilirubin 0.4, alkaline phosphatase 59 Microbiology: Clostridium difficile proxy negative, fecal occult blood positive x1 Radiology: reviewed Impressions: 1. Abdominal pain -- likely multifactorial in the setting of severe physical stress with urosepsis. Fortunately, the patient is negative for Clostridium difficile toxin. The patient has responded positively to proton pump inhibitor in the past and it would not be unreasonable to add Protonix to her regimen. Otherwise, continued monitoring for now. 2. Diarrhea -- the patient's overall volume of stool output does not meet the technical diagnosis of diarrhea. It is not uncommon for patients to experience a change in bowel pattern with loosening of stool in the setting of severe physical stress requiring polypharmacy and specifically broad-spectrum antibiotic therapy. Given the negative Clostridium difficile assay, it would be reasonable to screen for fecal white blood cells and stool culture. It is likely , however, this diarrhea will begin to improve as patient gets through the acute phase of this illness and bowel has a chance to recover normal masha. It would not be unreasonable to add a probiotic to her regimen in hopes of jumpstarting this. 3. Positive fecal occult blood testing -- it is not surprising the patient has a positive finding in the setting of significant physical stress and with gloria fecal management system in place. She had normal colonoscopy (other than diverticulosis) in 2014 which argues strongly against a underlying malignancy. Absent over bleeding, urgent colonoscopy is not indicated. Surveillance colonoscopy could be considered during convalescence that will leave this to Dr. Goetz's discretion. 4. Other specified counseling -- Patient seen for greater than 30 minutes. Greater than 50% of this time was spent counseling regarding differential diagnosis, likely diagnosis,, diagnostic and therapeutic options, risks, benefits, and alternatives to procedures and medications, informed consent, and plan of care generally. Patient has expressed understanding and wishes to proceed. Recommendations: -- Protonix 40 mg daily -- continue aggressive volume, glucose, and electrolyte management -- stool culture and fecal white blood cell screen -- consider adding a probiotic -- consider colonoscopy during convalescence -- we will continue to follow with you Exam (Progress Note) - Constitutional Vitals: Period Temp Pulse Resp BP Sys/Ceballos Pulse Ox Last 24 Hr 96.6 F-97.8 F 70-73 12-24 132-191/46-85 92-100 Results - Labs CBC & BMP: 11/13/16 02:25 11/13/16 02:25
--- NOTE | 2016-11-13 08:57 | Cardiology Progress Note ---
Assessment and Plan - Time spent with patient Time spent with patient: Greater than 30 minutes (1) Back pain Status: Chronic Assessment and plan: SEE PLAN OF CARE LISTED BELOW Current Visit: Yes Qualifiers: Back pain location: thoracic back pain Chronicity: acute Back pain laterality: right Qualified Code(s): M54.6 - Pain in thoracic spine (2) Bacteremia Status: Acute Assessment and plan: SEE PLAN OF CARE LISTED BELOW Current Visit: Yes (3) GI bleed Status: Acute Assessment and plan: SEE PLAN OF CARE LISTED BELOW Current Visit: Yes (4) Pyelonephritis Status: Acute Assessment and plan: SEE PLAN OF CARE LISTED BELOW Current Visit: Yes (5) Anemia Status: Chronic Assessment and plan: SEE PLAN OF CARE LISTED BELOW Current Visit: Yes Qualifiers: Anemia type: iron deficiency Iron deficiency anemia type: inadequate dietary iron intake Qualified Code(s): D50.8 - Other iron deficiency anemias (6) Anxiety Status: Chronic Assessment and plan: SEE PLAN OF CARE LISTED BELOW Current Visit: Yes (7) Chronic anticoagulation Status: Chronic Assessment and plan: SEE PLAN OF CARE LISTED BELOW Current Visit: Yes (8) GERD (gastroesophageal reflux disease) Status: Chronic Current Visit: Yes (9) History of mitral valve replacement with mechanical valve Status: Chronic Assessment and plan: SEE PLAN OF CARE LISTED BELOW Current Visit: Yes (10) Pacemaker Status: Chronic Assessment and plan: SEE PLAN OF CARE LISTED BELOW Current Visit: Yes (11) Sleep apnea Status: Chronic Assessment and plan: SEE PLAN OF CARE LISTED BELOW Current Visit: Yes Qualifiers: Sleep apnea type: obstructive Qualified Code(s): G47.33 - Obstructive sleep apnea (adult) (pediatric) (12) Abdominal pain Status: Acute Assessment and plan: SEE PLAN OF CARE LISTED BELOW Current Visit: No Qualifiers: Abdominal location: right lower quadrant Qualified Code(s): R10.31 - Right lower quadrant pain (13) Hyperlipidemia Status: Chronic Assessment and plan: SEE PLAN OF CARE LISTED BELOW Current Visit: No Qualifiers: Hyperlipidemia type: pure hypercholesterolemia Qualified Code(s): E78.00 - Pure hypercholesterolemia, unspecified; E78.0 - Pure hypercholesterolemia (14) Status post ablation of atrial fibrillation Status: Chronic Assessment and plan: SEE PLAN OF CARE LISTED BELOW Current Visit: No Cardiology - PN: Subj Interval history: CONTROL CENTER OPERATOR: DR. RIOS SUMMARY: Ms. Faith, 81WF, followed by Dr. Rios. Patient has frequent hospitalizations and was discharged home October 22, 2016. She was last seen in cardiology clinic April 2016. She has no known prior history of coronary artery disease. Risk factors include: Advanced age, hypertension, dyslipidemia , sedentary lifestyle, family history of coronary artery disease (father at age 57 from [place]). She has a past medical history of TIA, atrial fibrillation (status post AV ablation at [facility]), pacemaker, irritable bowel syndrome, asthma, diverticulosis, obstructive sleep apnea (wears CPAP), hypothyroidism, anxiety, rheumatic heart disease and mechanical mitral valve with chronic anticoagulation with Coumadin. She also has chronic pain for which she is seen by Dr. Oh. Her last heart catheterization was done in 2003. She reports that she has had 4 heart catheterizations which did not reveal any significant obstructive coronary artery disease. At April 2016 clinic visit, she had complaints of shortness of breath. Dr. Rios offered stress testing and she declined. Patient presented to the emergency department November 09, 2016 with complaints of back pain, neck pain and abdominal discomfort. She has been diagnosed with E. coli septicemia due to bilateral pyelonephritis. GI is following for possible GI Bleed. Echocardiogram November 09, 2016 reveals the following: EF 60%, mechanical mitral valve prosthesis seated well, PAP 51 mmHg. She has chronic pain which is treated by Dr. Oh. NOVEMBER 13, 2016: Yesterday, INR was supratherapeutic. This was repeated and found to be 5.1 this morning. We continue to hold her Coumadin. She does have a mechanical mitral valve and therefore will have to follow this closely and reincorporate accordingly. Gastroenterology has evaluated her abdominal pain positive fecal occult blood testing. Colonoscopy may be considered eventually. Will continue with a proton pump inhibitor daily. She denies chest pain and continues to complain of lower back pain. She is requesting Demerol IV. Suboptimally controlled blood pressure is noted. Will introduce Coreg 6.25 mg orally daily and monitor closely. Will add hydralazine as needed for systolic blood pressure greater than 170 mmHg. 1. STATUS POST MECHANICAL MITRAL VALVE WITH CHRONIC ANTICOAGULATION - INR supratherapeutic this morning. INR 5.1. Continue to hold Coumadin and reincorporate when INR is lower. Obviously, should the patient require colonoscopy she will have to be bridged with IV Heparin. 2. HYPERLIPIDEMIA - History of statin intolerance and she has not been taking. AST/ALT mildly elevated during this admission we will not introduce a lipid- lowering agent at this time given her current circumstances. 3. CHRONIC ANTICOAGULATION - supra therapeutic INR. Rechecking daily INR 4. CHRONIC BACK PAIN - Dr. Oh addressing. 5. OBSTRUCTIVE SLEEP APNEA - CPAP nightly. 6. HYPOTHYROIDISM - Synthroid has been reinitiated. I will check a TSH and make further adjustments if needed. 7. ANEMIA - Holding Coumadin> No need for ASA. May require c-scope in future. 8. GI BLEED - continue following. GI seeing. Continue PPI. 9. CHRONIC DYSPNEA ON EXERTION - this is not a primary complaint during this admission. 10. BACTEREMIA - BC repeated yesterday, awaiting results. Dr. Laura Alanis, [place], following. 11. ATRIAL FIBRILLATION - rate controlled, paced rhythm noted. 12. PYELONEPHRITIS - appropriate antibiotics have been initiated. 13. DEBILITATED PATIENT - high falls risk protocol. 14. ANEMIA: No overt bleeding noted. Will check stool for occult blood as patient has history of lower GI bleed. Daily CBC. Will defer further workup of this to Exam (Progress Note) - Constitutional Vitals: Period Temp Pulse Resp BP Sys/Ceballos Pulse Ox Last 24 Hr 96.6 F-97.8 F 70-73 12-24 132-191/46-85 92-100 Exam: General: [Appears well with no apparent distress.] [Pleasant and cooperative. ] [Appears uncomfortable.] HEENT: [PERRL, normocephalic, atraumatic. Mucous membranes moist. No jaundice noted. Conjunctiva moist and clear, sclerae anicteric] Neck: No JVD/HJR, no thyromegaly or lymphadenopathy noted. No carotid bruit appreciated Cardiac: [Regular rate and rhythm.] [No obvious murmur rub or gallop.] Lungs: [Clear to auscultation without accessory muscle use to assist the respiratory pattern.] Using oxygen intermittently Abdomen: Soft, bowel sounds normoactive. Nontender and nondistended. No abdominal bruit or thrill noted. No masses noted. Musculoskeletal: No fluid collection. Decreased range of motion is noted. Extremities: No clubbing, cyanosis noted. [ No edema noted.] Upper extremity pulses 2+. Lower extremity pulses 2+. Capillary refill less than 3 seconds. Skin: No unusual lesions or rashes. No skin breakdown appreciated. Neuro: Awake, alert and oriented 3. Moves all extremities well without hemiparesis or paralysis. No essential tremor is appreciated. Result/EKG - Labs CBC & BMP: 11/13/16 02:25 11/13/16 02:25 Lab Results: I have reviewed the past 24 hour labs Labs: Laboratory Results - last 24 hr 11/12/16 11/12/16 11/12/16 04:28 13:43 20:41 WBC RBC Hgb Hct MCV MCH MCHC RDW Plt Count MPV Neut % (Auto) Lymph % (Auto) Moca % (Auto) Eos % (Auto) Baso % (Auto) Neut # (Auto) Lymph # (Auto) Moca # (Auto) Eos # (Auto) Baso # (Auto) Total Counted Immature Gran % Nucleated RBC % Immature Gran # Segmented Neutrophils Band Neutrophils Lymphocytes Monocytes Metamyelocytes Myelocytes Nucleated RBCs # Platelet Estimate INR 7.1 H* 7.5 H* PT Patient/Control Mix 84.8 90.3 Sodium Potassium Chloride Carbon Dioxide Anion Gap BUN Creatinine GFR Calculation BUN/Creatinine Ratio Glucose Calculated Osmolality Calcium Magnesium Total Bilirubin 0.40 AST ALT Alkaline Phosphatase Total Protein Albumin Globulin Albumin/Globulin Ratio 11/13/16 11/13/16 11/13/16 02:25 02:25 02:25 WBC RBC Hgb Hct MCV MCH MCHC RDW Plt Count MPV Neut % (Auto) Lymph % (Auto) Moca % (Auto) Eos % (Auto) Baso % (Auto) Neut # (Auto) Lymph # (Auto) Moca # (Auto) Eos # (Auto) Baso # (Auto) Total Counted Immature Gran % Nucleated RBC % Immature Gran # Segmented Neutrophils Band Neutrophils Lymphocytes Monocytes Metamyelocytes Myelocytes Nucleated RBCs # Platelet Estimate INR 5.1 H* PT Patient/Control Mix 60.2 D Sodium 139 138 Potassium 4.3 4.2 Chloride 111 H 109 H Carbon Dioxide 19 L 20 L Anion Gap 13.3 13.2 BUN 9 9 Creatinine 0.70 0.80 GFR Calculation 80 68 BUN/Creatinine Ratio 12.00 11.00 Glucose 105 106 Calculated Osmolality 275.5 273.7 Calcium 8.6 8.4 L Magnesium 2.0 Total Bilirubin < 0.39 AST 28 ALT 28 Alkaline Phosphatase 59 Total Protein 5.5 L Albumin 2.8 L Globulin 2.7 Albumin/Globulin Ratio 1.0 L 11/13/16 02:25 WBC 8.7 RBC 3.03 L Hgb 9.1 L Hct 26.6 L MCV 87.8 MCH 30 MCHC 34.2 RDW 14.8 Plt Count 346 D MPV 10.3 Neut % (Auto) 71.1 Lymph % (Auto) 11.7 L Moca % (Auto) 15.8 H Eos % (Auto) 0.5 Baso % (Auto) 0.0 Neut # (Auto) 6.2 Lymph # (Auto) 1.0 L Moca # (Auto) 1.4 H Eos # (Auto) 0.0 Baso # (Auto) 0.0 Total Counted 100 Immature Gran % 0.9 Nucleated RBC % 0.0 Immature Gran # 0.08 Segmented Neutrophils 72 Band Neutrophils 2 Lymphocytes 11 L Monocytes 6 Metamyelocytes 2 Myelocytes 7 Nucleated RBCs # 0.00 Platelet Estimate Normal INR PT Patient/Control Mix Sodium Potassium Chloride Carbon Dioxide Anion Gap BUN Creatinine GFR Calculation BUN/Creatinine Ratio Glucose Calculated Osmolality Calcium Magnesium Total Bilirubin AST ALT Alkaline Phosphatase Total Protein Albumin Globulin Albumin/Globulin Ratio - Diagnostic Findings Procedure: Chest x-ray: report reviewed by me - EKG EKG results: interpreted by me EKG shows: sinus rhythm Quality Measures - VTE Contraindication to Pharmacological VTE Prophylaxis: Active Bleeding
[2016-11-13] MEDS: LEVOTHYROXINE 25 MCG TABLET PO SCH (11:30)
[2016-11-13] MEDS: FERROUS SULFATE 325 MG TABLET PO SCH (11:30)
[2016-11-13] MEDS: MEPERIDINE 25 MG/1 ML VIAL IV PRN ×3 (11:30→23:00)
[2016-11-13] MEDS: GEMFIBROZIL 600 MG TABLET PO SCH ×2 (11:30→16:51)
[2016-11-13] MEDS: ACETAMINOPHEN 325 MG TABLET PO PRN ×2 (11:30→16:52)
[2016-11-13] MEDS: FAMOTIDINE 20 MG/2 ML VIAL IV SCH ×2 (11:30→21:23)
[2016-11-13] MEDS: POTASSIUM CHLORIDE 10 MEQ TABLET PO SCH ×2 (11:30→20:23)
[2016-11-13] MEDS: amLODIPine 10 MG TABLET PO SCH (11:30)
[2016-11-13] MEDS: LIDOCAINE 5% PATCH TRANSDERM SCH (11:30)
[2016-11-13] MEDS: ONDANSETRON 4 MG/2 ML VIAL IV PRN ×2 (11:30→16:52)
[2016-11-13] MEDS: ALPRAZolam 0.25 MG TABLET PO SCH ×2 (11:30→20:23)
[2016-11-13] MEDS: DOCUSATE SODIUM 100 MG CAPSULE PO SCH ×2 (13:04→20:25)
[2016-11-13] MEDS: CARVEDILOL 6.25 MG TABLET PO SCH ×2 (16:50→20:23)
[2016-11-13] MEDS: hydrALAZINE 20 MG/1 ML VIAL IV PRN (16:51)
--- NOTE | 2016-11-13 17:00 | Family Practice Progress Note ---
Family Practice - PN: Subj Interval history: Patient has generally been stable. Her INR has improved from 7.5-5.1 today. Hemoglobin and hematocrit have remained stable. Dr. Rios has adjusted patient's meds. The other labs have remained stable. Patient continues to receive antibiotics for E. coli bacteremia. No new problems identified. We will continue present treatment plan Exam (Progress Note) - Constitutional Vitals: Period Temp Pulse Resp BP Sys/Ceballos Pulse Ox Last 24 Hr 96.6 F-98.1 F 70-75 12-26 132-194/46-85 94-100 Results - Labs CBC & BMP: 11/13/16 02:25 11/13/16 02:25 Quality Measures - VTE Contraindication to Pharmacological VTE Prophylaxis: Active Bleeding
[2016-11-13] MEDS ORDERED: WARFARIN 3 MG TABLET PO SCH (18:00)
[2016-11-13] MEDS: ONDANSETRON 4 MG TABLET PO PRN (20:23)
[2016-11-13] MEDS: MONTELUKAST 10 MG TABLET PO SCH (20:23)
[2016-11-14] MEDS: methylPREDNISolone SOD SUC 40 MG/1 ML VIAL IV SCH ×2 (03:09→15:05)
[2016-11-14] MEDS: CEFAZOLIN IV SCH ×4 (03:09→20:47)
[2016-11-14] MEDS: SODIUM CHLORIDE 0.9% IV SCH ×4 (03:09→20:47)
[2016-11-14 03:22] LABS: Basophils % 0.1 % (0.0-0.8); Eosinophils # 0.1 10*3/uL (0.0-0.87); Eosinophils % 0.7 % (0.00-10.9); Hematocrit 24.8 VOL% (35.7-47.0); Hemoglobin 8.6 GM/DL (12.0-16.0); Immature Granulocytes % 4.4 %; Immature Granulocytes Absolute 0.49 #; Lymphocytes # 1.5 10*3/uL (1.4-4.0); Mean Corpuscular HGB Conc 34.7 GM/DL (32-36); Mean Corpuscular Hemoglobin 30 PG (27-34); Mean Corpuscular Volume 87.6 FL (87-102); Monocytes # 1.6 10*3/uL (0.11-0.8); Monocytes % 14.4 % (1.7-12.7); Neutrophils # 7.6 10*3/uL (1.4-7.4); Neutrophils % 67.4 % (38.7-73.9); Platelet Count 263 T/CUMM (130-400); Red Blood Count 2.83 MC/CUMM (3.8-5.5); Red Cell Distribution Width 14.5 % (9.3-17.3); White Blood Count 11.2 T/CUMM (4-12)
[2016-11-14 03:23] LABS: INR 1.2; PT Patient Result 13.1 SECS
[2016-11-14 03:38] LABS: Calcium 8.5 MG/DL (8.5-10.1); Magnesium 1.8 MG/DL (1.8-2.4); Osmolality,Calculated 276.5 MOS/KG (273-304); Potassium 4.3 MMOL/L (3.5-5.1)
[2016-11-14] MEDS: ALBUTEROL 2.5 MG/3 ML NEB RESP TX SCH ×6 (03:38→23:43)
[2016-11-14 03:48] LABS: Albumin 2.8 G/DL (3.4-5.0); Calcium 8.5 MG/DL (8.5-10.1); Osmolality,Calculated 277.4 MOS/KG (273-304); Potassium 4.1 MMOL/L (3.5-5.1); Total Protein 5.7 G/DL (6.4-8.3)
[2016-11-14 04:47] LABS: Band Neutrophils 6 % (0-10); Lymphocytes 14 % (20-55); Platelet Estimate Normal; Segmented Neutrophils 66 % (50-85); Total Cells Counted 100
[2016-11-14] MEDS: tiZANidine 4 MG TABLET PO PRN ×3 (05:20→20:46)
[2016-11-14] MEDS: LEVOTHYROXINE 25 MCG TABLET PO SCH (06:05)
[2016-11-14] MEDS: ONDANSETRON 4 MG/2 ML VIAL IV PRN ×2 (09:00→15:06)
[2016-11-14] MEDS: ACETAMINOPHEN 325 MG TABLET PO PRN ×2 (09:00→15:06)
[2016-11-14] MEDS: MEPERIDINE 25 MG/1 ML VIAL IV PRN ×3 (09:00→20:47)
--- NOTE | 2016-11-14 09:17 | Gastrointestinal Progress Note ---
Assessment and Plan (1) Abdominal pain Status: Acute Current Visit: No Qualifiers: Abdominal location: right lower quadrant Qualified Code(s): R10.31 - Right lower quadrant pain (2) Diarrhea Status: Acute Current Visit: Yes (3) Occult blood positive stool Status: Acute Current Visit: No (4) Other specified counseling Status: Acute Current Visit: No Gastroenterology - PN: Subj Interval history: PLEASE NOTE -- automatic citation of patient information is unavoidable in this electronic note. I have made a reasonable effort to review the information cited , but it is not a part of my evaluation, impression, or recommendation unless specifically discussed in the dictated text that follows. As well, voice recognition software was used in the creation of this clinical note. Reasonable effort was made to identify and correct gross errors. Despite proofreading, errors in cocoa room operator may be present, including nonsense verbiage at times. If you encounter such an error, please contact me at [phone] for discussion and correction. -- Shalonda Chief complaint: abdominal pain, diarrhea Subjective: the patient is a 81-year-old female seen for follow-up diarrhea and abdominal pain. 200 mL of output has been recorded in the fecal management system. No blood has been documented. The patient reports feeling pretty good this morning, hungry, no abdominal pain, and would like to try advancing her diet. Medications: Tylenol, albuterol, Xanax, Norvasc, cefazolin, Colace, Pepcid, iron sulfate, Lopid, lactulose, Synthroid, light odor and patch, Claritin, Demerol, Solu-Medrol, Singulair, Zofran, MiraLAX, potassium chloride, normal saline infusion, Zanaflex Review of Symptoms: 12 point review of system was diffusely positive but nonspecific Physical examination: Vital Signs: Current vital signs reviewed. General Appearance: lying in bed. Uncomfortable. No acute distress. Appeared Head: Normocephalic. Eyes: no scleral icterus. No scleral injection. No conjunctival pallor. Oral Cavity: Odor of breath was normal. No drooling was observed. Lips showed no abnormalities. Lungs: Respiration rhythm and depth was normal. Cardiovascular: Heart rate and rhythm were normal. Abdomen: abdomen was not distended. Abdominal auscultation revealed no abnormalities. Ascites was not discovered. Abdominal palpation revealed minimal , nonfocal tenderness and no hepatosplenomegaly. Musculoskeletal System: musculoskeletal system was grossly normal. Neurological: level of consciousness was normal. Speech was normal. No coordination/cerebellum abnormalities were noted. Skin: Gen. appearance was normal. Color and pigmentation were normal. No skin lesions were appreciated. Laboratory: white blood count 11.2, hemoglobin 8.6, hematocrit 24.8, platelets 263, INR 1.2, PT 13.1, ALT 21, AST 29, total protein 5.7, albumin 2.8 Microbiology: blood cultures taken on November 12 are negative to date Radiology: reviewed Impressions: 1. Abdominal pain -- likely multifactorial in the setting of severe physical stress with urosepsis. She seems to feel some better this morning and would like to try something more solid with her diet. I recommend a mechanical soft diet, advanced as tolerated. Otherwise, continued to follow. 2. Diarrhea -- as discussed, this is likely the result of polypharmacy and dietary change in the setting of urosepsis. I recommend simplification and reduction of medication regimen to whatever extent possible and as soon as possible along with initiation of probiotic therapy. I also recommend dietary advance as tolerated by the patient. 3. Positive fecal occult blood testing -- Surveillance colonoscopy could be considered during convalescence and I will leave this to Dr. Goetz's discretion. 4. Other specified counseling -- Patient seen for greater than 30 minutes. Greater than 50% of this time was spent counseling regarding differential diagnosis, likely diagnosis,, diagnostic and therapeutic options, risks, benefits, and alternatives to procedures and medications, informed consent, and plan of care generally. Patient has expressed understanding and wishes to proceed. Recommendations: -- advance diet as tolerated -- continue aggressive volume, glucose, and electrolyte management -- stool culture and fecal white blood cell screen -- consider adding a probiotic -- consider colonoscopy during convalescence -- we will continue to follow with you. Dr. Goetz will resume G.I. care for this patient tomorrow. Exam (Progress Note) - Constitutional Vitals: Period Temp Pulse Resp BP Sys/Ceballos Pulse Ox Last 24 Hr 96.8 F-98.1 F 72-77 12-26 120-194/49-84 94-100 Results - Labs CBC & BMP: 11/14/16 03:02 11/14/16 03:02
[2016-11-14] MEDS: DOCUSATE SODIUM 100 MG CAPSULE PO SCH ×2 (09:49→20:47)
[2016-11-14] MEDS: GEMFIBROZIL 600 MG TABLET PO SCH ×2 (09:49→16:30)
[2016-11-14] MEDS: CARVEDILOL 6.25 MG TABLET PO SCH ×2 (09:49→20:46)
[2016-11-14] MEDS: FERROUS SULFATE 325 MG TABLET PO SCH (09:49)
[2016-11-14] MEDS: SODIUM CHLORIDE 0.9% 1,000 ML IV SCH ×2 (09:49→18:59)
[2016-11-14] MEDS: LIDOCAINE 5% PATCH TRANSDERM SCH (09:50)
[2016-11-14] MEDS: POTASSIUM CHLORIDE 10 MEQ TABLET PO SCH ×2 (09:50→20:46)
[2016-11-14] MEDS: ALPRAZolam 0.25 MG TABLET PO SCH ×2 (09:50→20:46)
[2016-11-14] MEDS: FAMOTIDINE 20 MG/2 ML VIAL IV SCH ×2 (09:50→22:00)
[2016-11-14] MEDS: amLODIPine 10 MG TABLET PO SCH (09:50)
[2016-11-14] MEDS: OXYMETAZOLINE 0.05% NASAL SPRAY 15 ML BOTTLE BOTH NARES PRN (09:51)
[2016-11-14] MEDS: CARBOXYMETHYLCELLULOSE 1% OPH SOLN BOTH EYES PRN ×2 (09:51→15:07)
--- NOTE | 2016-11-14 15:05 | Family Practice Progress Note ---
Family Practice - PN: Subj Interval history: Patient seems to continue to improve. Dr. Liz has increased her dietary intake. No signs of active bleeding today. Her INR is back to subtherapeutic at 1.2. Her a.m. hemoglobin was 8. 6 with an hematocrit of 24.8 which is slightly decreased from yesterday. Patient still receiving her antibiotics. We will continue to monitor and probably move to floor in a.m. Exam (Progress Note) - Constitutional Vitals: Period Temp Pulse Resp BP Sys/Ceballos Pulse Ox Last 24 Hr 96.8 F-98.1 F 72-77 12-26 120-181/49-84 94-100 Results - Labs CBC & BMP: 11/14/16 03:02 11/14/16 03:02 Quality Measures - VTE Contraindication to Pharmacological VTE Prophylaxis: Active Bleeding
--- NOTE | 2016-11-14 16:17 | Cardiology Progress Note ---
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 for her ultimate care Current Visit: Yes (2) Diarrhea Status: Acute Current Visit: Yes (3) Low blood pressure Problem details: excessive antihypertensive meds; history of HTN Status: Acute Current Visit: Yes Qualifiers: Hypotension type: hypotension due to drug Qualified Code(s): I95.2 - Hypotension due to drugs (4) UTI (urinary tract infection) Status: Acute Current Visit: Yes Qualifiers: Hematuria presence: without hematuria (5) Anemia Status: Chronic Current Visit: Yes Qualifiers: Anemia type: iron deficiency Iron deficiency anemia type: inadequate dietary iron intake Qualified Code(s): D50.8 - Other iron deficiency anemias (6) Anxiety Status: Chronic Current Visit: Yes (7) Back pain Status: Chronic Current Visit: Yes Qualifiers: Back pain location: thoracic back pain Chronicity: acute Back pain laterality: right Qualified Code(s): M54.6 - Pain in thoracic spine (8) Chronic anticoagulation Status: Chronic Current Visit: Yes (9) GERD (gastroesophageal reflux disease) Status: Chronic Current Visit: Yes (10) History of mitral valve replacement with mechanical valve Status: Chronic Current Visit: Yes (11) Pacemaker Status: Chronic Current Visit: Yes (12) Sleep apnea Status: Chronic Current Visit: Yes Qualifiers: Sleep apnea type: obstructive Qualified Code(s): G47.33 - Obstructive sleep apnea (adult) (pediatric) (13) Depression Status: Acute Current Visit: No (14) Chronic atrial fibrillation Status: Chronic Current Visit: No (15) History of GI bleed Problem details: She was scheduled for colonoscopy on Tuesday. She will require IV heparin. Plan to monitor in the hospital. IV heparin when INR is less than 2. She has had a TIA in the past when not adequately anticoagulated. I feel there is a component of anxiety involved here. Status: Chronic Current Visit: No (16) History of TIA (transient ischemic attack) Status: Chronic Current Visit: No (17) Status post ablation of atrial fibrillation Status: Chronic Current Visit: No Cardiology - PN: Subj Interval history: No chest pain or shortness of breath. Confused at times. Exam (Progress Note) - Constitutional Vitals: Period Temp Pulse Resp BP Sys/Ceballos Pulse Ox Last 24 Hr 96.8 F-98.1 F 72-77 12-26 120-181/46-84 94-100 Exam: HEENT: Pupils equal, reactive to light and accommodation Neck: NoJVD or bruit Lungs clear to auscultation Heart: Regular rhythm rate with normal S1 and S2. Apical S4, 2/6 systolic ejection murmur along left lower sternal border. Abdomen: No hepatosplenomegaly Spine/extremities: No clubbing, cyanosis, or edema Neuro: Somewhat confused about what she thinks is happening at this time Psych: No depression or anxiety Result/EKG - Labs CBC & BMP: 11/14/16 03:02 11/14/16 03:02 Lab Results: I have reviewed the past 24 hour labs Labs: Laboratory Results - last 24 hr 11/14/16 11/14/16 11/14/16 03:02 03:02 03:02 WBC 11.2 RBC 2.83 L Hgb 8.6 L Hct 24.8 L MCV 87.6 MCH 30 MCHC 34.7 RDW 14.5 Plt Count 263 D MPV 11.0 Neut % (Auto) 67.4 Lymph % (Auto) 13.0 L [place] % (Auto) 14.4 H Eos % (Auto) 0.7 Baso % (Auto) 0.1 Neut # (Auto) 7.6 H Lymph # (Auto) 1.5 [place] # (Auto) 1.6 H Eos # (Auto) 0.1 Baso # (Auto) 0.0 Total Counted 100 Immature Gran % 4.4 Nucleated RBC % 0.0 Immature Gran # 0.49 Segmented Neutrophils 66 Band Neutrophils 6 Lymphocytes 14 L Monocytes 14 Nucleated RBCs # 0.00 Platelet Estimate Normal Pappenheimer Bodies Electroplating Technician INR 1.2 PT Patient/Control Mix 13.1 D Sodium 140 Potassium 4.1 Chloride 109 H Carbon Dioxide 21 Anion Gap 14.1 BUN 11 Creatinine 0.70 GFR Calculation 80 BUN/Creatinine Ratio 15.00 Glucose 100 Calculated Osmolality 277.4 Calcium 8.5 Magnesium Total Bilirubin 1.00 AST 29 ALT 21 Alkaline Phosphatase 62 Total Protein 5.7 L Albumin 2.8 L Globulin 2.9 Albumin/Globulin Ratio 0.9 L 11/14/16 03:02 WBC RBC Hgb Hct MCV MCH MCHC RDW Plt Count MPV Neut % (Auto) Lymph % (Auto) [place] % (Auto) Eos % (Auto) Baso % (Auto) Neut # (Auto) Lymph # (Auto) [place] # (Auto) Eos # (Auto) Baso # (Auto) Total Counted Immature Gran % Nucleated RBC % Immature Gran # Segmented Neutrophils Band Neutrophils Lymphocytes Monocytes Nucleated RBCs # Platelet Estimate Pappenheimer Bodies INR PT Patient/Control Mix Sodium 139 Potassium 4.3 Chloride 109 H Carbon Dioxide 20 L Anion Gap 14.3 BUN 12 Creatinine 0.70 GFR Calculation 80 BUN/Creatinine Ratio 17.00 Glucose 98 Calculated Osmolality 276.5 Calcium 8.5 Magnesium 1.8 Total Bilirubin AST ALT Alkaline Phosphatase Total Protein Albumin Globulin Albumin/Globulin Ratio Quality Measures - VTE Contraindication to Pharmacological VTE Prophylaxis: Active Bleeding
[2016-11-14] MEDS: MONTELUKAST 10 MG TABLET PO SCH (20:46)
[2016-11-15] MEDS: ALBUTEROL 2.5 MG/3 ML NEB RESP TX SCH ×5 (02:40→21:36)
[2016-11-15] MEDS: CEFAZOLIN IV SCH ×3 (03:20→17:18)
[2016-11-15] MEDS: SODIUM CHLORIDE 0.9% IV SCH ×3 (03:20→17:18)
[2016-11-15] MEDS: methylPREDNISolone SOD SUC 40 MG/1 ML VIAL IV SCH ×2 (03:21→17:18)
[2016-11-15] MEDS: MEPERIDINE 25 MG/1 ML VIAL IV PRN ×2 (03:21→15:24)
[2016-11-15 05:07] LABS: Basophils % 0.1 % (0.0-0.8); Eosinophils # 0.2 10*3/uL (0.0-0.87); Eosinophils % 1.5 % (0.00-10.9); Hematocrit 23.5 VOL% (35.7-47.0); Hemoglobin 8.1 GM/DL (12.0-16.0); Immature Granulocytes Absolute 0.89 #; Lymphocytes # 1.4 10*3/uL (1.4-4.0); Lymphocytes % 10.6 % (21.3-54.2); Mean Corpuscular HGB Conc 34.5 GM/DL (32-36); Mean Corpuscular Hemoglobin 31 PG (27-34); Mean Platelet Volume 9.9 FL (9.6-12.0); Monocytes # 1.6 10*3/uL (0.11-0.8); Monocytes % 12.3 % (1.7-12.7); NRBC # 0.02 10*3/uL; Neutrophils # 8.8 10*3/uL (1.4-7.4); Neutrophils % 68.5 % (38.7-73.9); Platelet Count 424 T/CUMM (130-400); Red Blood Count 2.64 MC/CUMM (3.8-5.5); Red Cell Distribution Width 14.5 % (9.3-17.3); White Blood Count 12.8 T/CUMM (4-12)
[2016-11-15 05:14] LABS: INR 1.1; PT Patient Result 11.4 SECS
[2016-11-15 05:46] LABS: Calcium 8.3 MG/DL (8.5-10.1); Magnesium 1.9 MG/DL (1.8-2.4); Osmolality,Calculated 275.7 MOS/KG (273-304)
[2016-11-15] MEDS: SODIUM CHLORIDE 0.9% 1,000 ML IV SCH (05:57)
[2016-11-15 06:05] LABS: Band Neutrophils 5 % (0-10); Eosinophils 4 % (0-10); Lymphocytes 9 % (20-55); Segmented Neutrophils 78 % (50-85); Total Cells Counted 100
[2016-11-15 06:06] LABS: Hypochromasia 1+; Microcytosis Slight; Ovalocytes Slight; Platelet Estimate Adequate
[2016-11-15] MEDS: LEVOTHYROXINE 25 MCG TABLET PO SCH (06:37)
[2016-11-15] MEDS: tiZANidine 4 MG TABLET PO PRN (07:36)
[2016-11-15] MEDS: POTASSIUM CHLORIDE 10 MEQ TABLET PO SCH ×2 (08:28→22:38)
[2016-11-15] MEDS: FERROUS SULFATE 325 MG TABLET PO SCH (08:28)
[2016-11-15] MEDS: CARVEDILOL 6.25 MG TABLET PO SCH ×2 (08:28→22:38)
[2016-11-15] MEDS: amLODIPine 10 MG TABLET PO SCH (08:28)
[2016-11-15] MEDS: GEMFIBROZIL 600 MG TABLET PO SCH (08:28)
[2016-11-15] MEDS: ALPRAZolam 0.25 MG TABLET PO SCH ×2 (08:28→22:38)
--- NOTE | 2016-11-15 08:31 | Cardiology Progress Note ---
<PaulinaOdalis loyolae E - Last Filed: 11/15/16 09:07> Assessment and Plan - Time spent with patient Time spent with patient: Greater than 30 minutes (1) Back pain Status: Chronic Assessment and plan: SEE PLAN OF CARE LISTED BELOW Current Visit: Yes Qualifiers: Back pain location: thoracic back pain Chronicity: acute Back pain laterality: right Qualified Code(s): M54.6 - Pain in thoracic spine (2) Bacteremia Status: Acute Assessment and plan: SEE PLAN OF CARE LISTED BELOW Current Visit: Yes (3) GI bleed Status: Acute Assessment and plan: SEE PLAN OF CARE LISTED BELOW Current Visit: Yes (4) Pyelonephritis Status: Acute Assessment and plan: SEE PLAN OF CARE LISTED BELOW Current Visit: Yes (5) Anemia Status: Chronic Assessment and plan: SEE PLAN OF CARE LISTED BELOW Current Visit: Yes Qualifiers: Anemia type: iron deficiency Iron deficiency anemia type: inadequate dietary iron intake Qualified Code(s): D50.8 - Other iron deficiency anemias (6) Anxiety Status: Chronic Assessment and plan: SEE PLAN OF CARE LISTED BELOW Current Visit: Yes (7) Chronic anticoagulation Status: Chronic Assessment and plan: SEE PLAN OF CARE LISTED BELOW Current Visit: Yes (8) GERD (gastroesophageal reflux disease) Status: Chronic Current Visit: Yes (9) History of mitral valve replacement with mechanical valve Status: Chronic Assessment and plan: SEE PLAN OF CARE LISTED BELOW Current Visit: Yes (10) Pacemaker Status: Chronic Assessment and plan: SEE PLAN OF CARE LISTED BELOW Current Visit: Yes (11) Sleep apnea Status: Chronic Assessment and plan: SEE PLAN OF CARE LISTED BELOW Current Visit: Yes Qualifiers: Sleep apnea type: obstructive Qualified Code(s): G47.33 - Obstructive sleep apnea (adult) (pediatric) (12) Abdominal pain Status: Acute Assessment and plan: SEE PLAN OF CARE LISTED BELOW Current Visit: No Qualifiers: Abdominal location: right lower quadrant Qualified Code(s): R10.31 - Right lower quadrant pain (13) Hyperlipidemia Status: Chronic Assessment and plan: SEE PLAN OF CARE LISTED BELOW Current Visit: No Qualifiers: Hyperlipidemia type: pure hypercholesterolemia Qualified Code(s): E78.00 - Pure hypercholesterolemia, unspecified; E78.0 - Pure hypercholesterolemia (14) Status post ablation of atrial fibrillation Status: Chronic Assessment and plan: SEE PLAN OF CARE LISTED BELOW Current Visit: No Cardiology - PN: Subj Interval history: HEAD OF HISTORY: DR. IROS SUMMARY: Ms. Faith, 81WF, followed by Dr. Rios. Patient has frequent hospitalizations and was discharged home October 22, 2016. She was last seen in cardiology clinic April 2016. She has no known prior history of coronary artery disease. Risk factors include: Advanced age, hypertension, dyslipidemia , sedentary lifestyle, family history of coronary artery disease (father at age 57 from [place]). She has a past medical history of TIA, atrial fibrillation (status post AV ablation at [facility]), pacemaker, irritable bowel syndrome, asthma, diverticulosis, obstructive sleep apnea (wears CPAP), hypothyroidism, anxiety, rheumatic heart disease and mechanical mitral valve requiring chronic anticoagulation with Coumadin. She also has chronic pain for which she is seen by Dr. Oh. Her last heart catheterization was done in 2003. She reports that she has had 4 heart catheterizations which did not reveal any significant obstructive coronary artery disease. At April 2016 clinic visit, she had complaints of shortness of breath. Dr. Rios offered stress testing and she declined. Patient presented to the emergency department November 09, 2016 with complaints of back pain, neck pain and abdominal discomfort. She has been diagnosed with E. coli septicemia due to bilateral pyelonephritis. GI is following for possible GI Bleed. Echocardiogram November 09, 2016 reveals the following: EF 60%, mechanical mitral valve prosthesis seated well, PAP 51 mmHg. She has chronic pain which is treated by Dr. Oh. NOVEMBER 15, 2016: Over the weekend, INR has normalized. This morning, INR 1.1. She has be subtherapeutic since Tuesday morning (Tuesday INR 5.1). Suspect her supratherapeutic INR related to antibiotics as she was within acceptable range on admission. Dr. Liz, billboard erector, saw patient over the weekend. Dr. Goetz to return today and determine whether patient is a candidate for or needs colonoscopy. Regardless, patient will need IV Heparin until her INR is therapeutic. Patient is having some episodes of confusion at times. I believe the [facility]psych unit has been consulted. My understanding is she may ultimately go to [facility] at discharge. Denies chest pain, heaviness or tightness. Continues to have cramping of her lower abdomen, chronic lower back pain. Blood pressure medications just administered and we will adjust accordingly during the hospital stay. I will further discuss with Dr. Benson and await additional recommendations. 1. STATUS POST MECHANICAL MITRAL VALVE WITH CHRONIC ANTICOAGULATION - INR subtherapeutic this morning and has been for 48 hours. Will need to start Heparin IV until INR therapeutic. Will discuss with Dr. Luna and start when he deems appropriate. She may require colonscopy and Dr. Goetz will see her today and make additional recommendations regarding. 2. HYPERLIPIDEMIA - History of statin intolerance and she has not been taking. AST/ALT mildly elevated during this admission we will not introduce a lipid- lowering agent at this time given her current circumstances but hopefully soon. 3. CHRONIC ANTICOAGULATION - subtherapeutic INR. Rechecking daily INR but will need IV Heparin, most likely starting this morning. 4. CHRONIC BACK PAIN - Dr. Oh addressing. 5. OBSTRUCTIVE SLEEP APNEA - CPAP nightly. 6. HYPOTHYROIDISM - Synthroid has been reinitiated. 7. ANEMIA - Coumadin has been held for this reason, as well as INR being supratherapeutic when antibiotics initiated. No need for ASA. May require c- scope in future. 8. GI BLEED - continue following. GI seeing. Continue PPI. 9. CHRONIC DYSPNEA ON EXERTION - this is not a primary complaint during this admission. 10. BACTEREMIA - BC repeated November 12, 2016. No growth Day 1. 11. ATRIAL FIBRILLATION - rate controlled, paced rhythm noted. 12. PYELONEPHRITIS - appropriate antibiotics have been initiated. 13. DEBILITATED PATIENT - high falls risk protocol. Exam (Progress Note) - Constitutional Vitals: Period Temp Pulse Resp BP Sys/Ceballos Pulse Ox Last 24 Hr 97.0 F-98.1 F 72-75 11-28 118-182/42-80 93-100 Exam: General: [Appears well with no apparent distress.] [Pleasant and cooperative. ] [Appears uncomfortable.] HEENT: [PERRL, normocephalic, atraumatic. Mucous membranes moist. No jaundice noted. Conjunctiva moist and clear, sclerae anicteric] Neck: No JVD/HJR, no thyromegaly or lymphadenopathy noted. No carotid bruit appreciated Cardiac: [Regular rate and rhythm.] [No obvious murmur rub or gallop.] Lungs: [Clear to auscultation without accessory muscle use to assist the respiratory pattern.] Using oxygen intermittently Abdomen: Soft, bowel sounds normoactive. Nontender and nondistended. No abdominal bruit or thrill noted. No masses noted. Musculoskeletal: No fluid collection. Decreased range of motion is noted. Extremities: No clubbing, cyanosis noted. [ No edema noted.] Upper extremity pulses 2+. Lower extremity pulses 2+. Capillary refill less than 3 seconds. Skin: No unusual lesions or rashes. No skin breakdown appreciated. Neuro: Awake, alert and oriented 3. Moves all extremities well without hemiparesis or paralysis. No essential tremor is appreciated. Result/EKG - Labs CBC & BMP: 11/15/16 04:57 11/15/16 04:57 Lab Results: I have reviewed the past 24 hour labs Labs: Laboratory Results - last 24 hr 11/15/16 11/15/16 11/15/16 04:57 04:57 04:57 WBC 12.8 H RBC 2.64 L Hgb 8.1 L Hct 23.5 L MCV 89.0 MCH 31 MCHC 34.5 RDW 14.5 Plt Count 424 H D MPV 9.9 Neut % (Auto) 68.5 Lymph % (Auto) 10.6 L [place] % (Auto) 12.3 Eos % (Auto) 1.5 Baso % (Auto) 0.1 Neut # (Auto) 8.8 H Lymph # (Auto) 1.4 [place] # (Auto) 1.6 H Eos # (Auto) 0.2 Baso # (Auto) 0.0 Total Counted 100 Immature Gran % 7.0 Nucleated RBC % 0.2 Immature Gran # 0.89 Segmented Neutrophils 78 Band Neutrophils 5 Lymphocytes 9 L Monocytes 4 Eosinophils 4 Nucleated RBCs # 0.02 Platelet Estimate Adequate Hypochromasia 1+ Microcytosis Slight Ovalocytes Slight Morphology Comment INR 1.1 PT Patient/Control Mix 11.4 Sodium 138 Potassium 4.0 Chloride 108 H Carbon Dioxide 20 L Anion Gap 14.0 BUN 15 Creatinine 0.70 GFR Calculation 82 BUN/Creatinine Ratio 21.00 H Glucose 106 Calculated Osmolality 275.7 Calcium 8.3 L Magnesium 1.9 - Diagnostic Findings Procedure: Chest x-ray: report reviewed by me - EKG EKG results: interpreted by me EKG shows: sinus rhythm (Paced rhythm) Quality Measures - VTE Contraindication to Pharmacological VTE Prophylaxis: Active Bleeding <Gregory Luna - Last Filed: 11/15/16 09:25> Exam (Progress Note) - Constitutional Vitals: Period Temp Pulse Resp BP Sys/Ceballos Pulse Ox Last 24 Hr 97.0 F-98.1 F 72-75 11-28 118-182/42-80 93-100 Result/EKG - Labs CBC & BMP: 11/15/16 04:57 11/15/16 04:57 Labs: Laboratory Results - last 24 hr 11/15/16 11/15/16 11/15/16 04:57 04:57 04:57 WBC 12.8 H RBC 2.64 L Hgb 8.1 L Hct 23.5 L MCV 89.0 MCH 31 MCHC 34.5 RDW 14.5 Plt Count 424 H D MPV 9.9 Neut % (Auto) 68.5 Lymph % (Auto) 10.6 L [place] % (Auto) 12.3 Eos % (Auto) 1.5 Baso % (Auto) 0.1 Neut # (Auto) 8.8 H Lymph # (Auto) 1.4 [place] # (Auto) 1.6 H Eos # (Auto) 0.2 Baso # (Auto) 0.0 Total Counted 100 Immature Gran % 7.0 Nucleated RBC % 0.2 Immature Gran # 0.89 Segmented Neutrophils 78 Band Neutrophils 5 Lymphocytes 9 L Monocytes 4 Eosinophils 4 Nucleated RBCs # 0.02 Platelet Estimate Adequate Hypochromasia 1+ Microcytosis Slight Ovalocytes Slight Morphology Comment INR 1.1 PT Patient/Control Mix 11.4 Sodium 138 Potassium 4.0 Chloride 108 H Carbon Dioxide 20 L Anion Gap 14.0 BUN 15 Creatinine 0.70 GFR Calculation 82 BUN/Creatinine Ratio 21.00 H Glucose 106 Calculated Osmolality 275.7 Calcium 8.3 L Magnesium 1.9
[2016-11-15] MEDS: LIDOCAINE 5% PATCH TRANSDERM SCH (08:40)
[2016-11-15] MEDS: FAMOTIDINE 20 MG/2 ML VIAL IV SCH ×2 (08:41→22:38)
[2016-11-15] MEDS: DOCUSATE SODIUM 100 MG CAPSULE PO SCH ×2 (09:10→22:38)
[2016-11-15] MEDS ORDERED: WARFARIN 4 MG TABLET PO ONE (09:14)
--- NOTE | 2016-11-15 10:35 | Gastrointestinal Progress Note ---
Assessment and Plan (1) Abdominal pain Status: Acute Assessment and plan: 11/15-abdominal pain improved. Tolerating diet. Hemoglobin down slightly at 8.1. INR 1.1. BMS with continued liquid dark stool. Plan an addendum to followed by Dr. Goetz. 11/12-abdominal pain slightly improved. No nausea vomiting reported. Small amount of bright red blood reported in bowel movement on yesterday by nursing staff. Hemoglobin is stable at 9.2. INR is elevated today at 6.2. Plan an addendum to followed by Dr. Goetz. 11/11-abdominal pain improved slightly. No nausea or vomiting. Hemoglobin stable. IV antibiotics continued for bacteremia. Plan an addendum to follow by Dr. Sylvester. 11/10-onset of right lower quadrant abdominal pain with associated diarrhea and reported nausea and vomiting. No acute abdominal findings noted on noncontrasted CT. History of anemia and heme positive stools in past. Admitted with drop in hemoglobin from baseline and transfused. No overt bleeding. Obtain stool for occult blood. Plan an addendum to follow by Dr. Sylvester (on-call for Dr. Goetz). Current Visit: No Qualifiers: Abdominal location: right lower quadrant Qualified Code(s): R10.31 - Right lower quadrant pain Gastroenterology - PN: Subj Interval history: CC: Abdominal pain, diarrhea Patient is seen awake and alert sitting up in bed. States she is feeling a little better today. States her appetite is increasing and she is tolerating her diet at this time. She is noted to have a BMS and with continued liquid dark stool output. Stool studies have been negative thus far. Hemoglobin is noted to trend downward at this point from 8.6 to 8.1 and absence of overt bleeding. INR is down today at 1.1 BUN/creatinine ratio noted to be elevated slightly at 21. No overt bleeding has been reported. Abdomen is soft, nontender. ROS: Denies shortness of breath or chest pain Exam (Progress Note) - Constitutional Vitals: Period Temp Pulse Resp BP Sys/Ceballos Pulse Ox Last 24 Hr 97.0 F-98.1 F 72-75 11-28 118-182/42-80 93-100 General appearance: normal weight, no acute distress - Head Head exam: Present: normal inspection, normocephalic - Eye Eye exam: Present: other (Lids and conjunctive are unremarkable). Absent: scleral icterus - ENT ENT exam: Present: normal exam, normal oropharynx - Neck Neck exam: Present: normal inspection - Respiratory Respiratory exam: Present: clear to auscultation bilaterally. Absent: rales, rhonchi, wheezes - Cardiovascular Cardiovascular exam: Present: regular rate and rhythm. Absent: diastolic murmur , JVD, systolic murmur - GI/Abdominal GI/Abdominal exam: Present: normal bowel sounds, soft. Absent: ascites, distended, mass, organomegaly, tenderness - Extremities Exam Extremities exam: Present: normal inspection, full ROM - Back Exam Back exam: Present: normal inspection - Neurological Exam Neurological exam: Present: alert, oriented X3 - Psychiatric Psychiatric exam: Present: normal affect, normal mood - Skin Skin exam: Present: normal color, warm, dry Results - Labs CBC & BMP: 11/15/16 04:57 11/15/16 04:57 Lab Results: I have reviewed the past 24 hour labs
--- NOTE | 2016-11-15 11:18 | Pain Management Progress Note ---
Assessment and Plan (1) Back pain Status: Chronic Assessment and plan: Really too debilitated to participate in PT. Main complaint is right L/S muscle spasm from bed status. Still some pain over right L/S facets, but better. Chronic bilateral GTB remains. Demerol prn helping. Chronic spondylosis LBP over the right facts with bilateral GTB. This is not new. Nothing in midline lumbar or thoracic spine. No radicular component, but bilateral GTB present. Even tylenol causes nausea so oral meds problematic. Injection precluded by sepsis and blood thinners. Demerol low dose while not the best opioid for repeated doses is at least tolerated at 25mg and helping her. No need for L/S MRI even with sepsis since unlikely without midline pain, but has to be considered for any worsening of localized pain. Current Visit: Yes Qualifiers: Back pain location: thoracic back pain Chronicity: acute Back pain laterality: right Qualified Code(s): M54.6 - Pain in thoracic spine Pain - Subjective Interval history: Really too debilitated to participate in PT. Main complaint is right L/S muscle spasm from bed status. Still some pain over right L/S facets, but better. Chronic bilateral GTB remains. Demerol prn helping. Exam - Constitutional Vitals: Period Temp Pulse Resp BP Sys/Ceballos Pulse Ox Last 24 Hr 97.0 F-98.0 F 72-75 11-28 118-182/42-80 93-100 Results - Labs CBC & BMP: 11/15/16 04:57 11/15/16 04:57 Quality Measures - VTE Contraindication to Pharmacological VTE Prophylaxis: Active Bleeding
--- NOTE | 2016-11-15 13:46 | Infectious Disease Progress ---
Assessment and Plan (1) Bacteremia Status: Acute Assessment and plan: E. coli septicemia due bilateral pyelonephritis. Clinically patient is doing better. Recommendations: Continue cefazolin will treat until November 26. When she goes home with probably switch to ceftriaxone for convenient daily dosing. Current Visit: Yes (2) Pyelonephritis Status: Acute Current Visit: Yes (3) History of mitral valve replacement with mechanical valve Status: Chronic Assessment and plan: TTE without mention of endocarditis Current Visit: Yes (4) Pacemaker Status: Chronic Current Visit: Yes (5) Chronic atrial fibrillation Status: Chronic Current Visit: No (6) Hyperlipidemia Status: Chronic Current Visit: No Qualifiers: Hyperlipidemia type: pure hypercholesterolemia Qualified Code(s): E78.00 - Pure hypercholesterolemia, unspecified; E78.0 - Pure hypercholesterolemia (7) Hypertension Status: Chronic Current Visit: No Qualifiers: Hypertension type: essential hypertension Qualified Code(s): I10 - Essential (primary) hypertension Infectious Disease - PN: Subj Interval history: Patient doing okay, uneventful weekend. Remained in ICU for monitoring of GI bleed. She has been afebrile. Tolerating antibiotics without nausea vomiting or diarrhea. She never had an allergic reaction to cefazolin. Infectious Disease Exam (PN) - Constitutional Vitals: Temp Pulse Resp BP Pulse Ox 97.9 F 72 18 138/53 100 11/15/16 12:00 11/15/16 13:00 11/15/16 13:00 11/15/16 13:00 11/15/16 13:00 General appearance: normal weight, no acute distress Exam: General appearance: Relatively comfortable - Eye Eye exam: Present: EOMI. no icterus Pupils: Present: EUGENIO - ENT ENT exam: no oral exudates - Respiratory Respiratory exam: vesicular BS, no crepitations or wheezes - Cardiovascular Cardiovascular exam: regular rate and rhythm, no murmurs - GI/Abdominal GI/Abdominal exam: normal bowel sounds, soft, mild periumbilical tenderness, no organomegaly or mass - Extremities Exam Extremities exam: no edema - Skin Skin exam: no rash Results - Labs CBC & BMP: 11/15/16 04:57 11/15/16 04:57 Lab Results: I have reviewed the past 24 hour labs (Repeat blood cultures negative day 3) Quality Measures - VTE Contraindication to Pharmacological VTE Prophylaxis: Active Bleeding
[2016-11-15] MEDS: hydrALAZINE 20 MG/1 ML VIAL IV PRN (15:07)
[2016-11-15] MEDS: OXYMETAZOLINE 0.05% NASAL SPRAY 15 ML BOTTLE BOTH NARES PRN (15:08)
--- NOTE | 2016-11-15 17:02 | Internal Med Progress Note ---
Assessment and Plan (1) Hyponatremia Status: Resolved Current Visit: Yes (2) Pyelonephritis Status: Acute Current Visit: Yes (3) Low blood pressure Problem details: excessive antihypertensive meds; history of HTN Status: Resolved Current Visit: Yes Qualifiers: Hypotension type: hypotension due to drug Qualified Code(s): I95.2 - Hypotension due to drugs (4) UTI (urinary tract infection) Status: Resolved Current Visit: Yes Qualifiers: Hematuria presence: without hematuria (5) Anxiety Status: Chronic Current Visit: Yes (6) Pacemaker Status: Chronic Current Visit: Yes (7) Anemia Status: Chronic Current Visit: Yes Qualifiers: Anemia type: iron deficiency Iron deficiency anemia type: inadequate dietary iron intake Qualified Code(s): D50.8 - Other iron deficiency anemias (8) Chronic anticoagulation Status: Chronic Current Visit: Yes (9) History of TIA (transient ischemic attack) Status: Chronic Current Visit: No (10) History of mitral valve replacement with mechanical valve Status: Chronic Current Visit: Yes (11) Hypothyroidism Status: Chronic Current Visit: No Qualifiers: Hypothyroidism type: acquired Qualified Code(s): E03.9 - Hypothyroidism, unspecified (12) Sleep apnea Status: Chronic Current Visit: Yes Qualifiers: Sleep apnea type: obstructive Qualified Code(s): G47.33 - Obstructive sleep apnea (adult) (pediatric) (13) Status post ablation of atrial fibrillation Status: Chronic Current Visit: No (14) Bacteremia Status: Acute Current Visit: Yes (15) Back pain Status: Chronic Current Visit: Yes Qualifiers: Back pain location: thoracic back pain Chronicity: acute Back pain laterality: right Qualified Code(s): M54.6 - Pain in thoracic spine (16) History of GI bleed Status: Chronic Current Visit: Yes Internal Medicine - PN: Subj Interval history: Ms. Faith is a 81 year old female with history of atrial fib and status post ablation, pacemaker placement, CHF, hypothyroid, history of HTN, TIA, diverticulosis, asthma, LOLA on CPAP, mitral valve replacement mechanical valve and on coumadin therapy, OA, CAD, history of GI bleed, Glaucoma, who presented to ER with worsening back pain and UTI/pyelonephritis. She has worsening weakness and has been found to have bacteremia. Dr. Diaz will be consulted. She is anemic and there is a question of GI bleed. GI has been consulted through the ER. She was also found to have hyponatremia, which will be addressed. Sodium level needs to be improved. She is complaining of severe back pain. Dr. Garcia will be consulted. Attempting to avoid narcotics. She is hypotensive. Lidoderm patches have been ordered as well as Solumedrol low dose. She is much better today, with improved sodium level. Pain has improved. However, lowering Coumadin dose to 3 mg daily, after holding coumadin for two days. Desire INR to be just below 2. She is complaining of back pain. Will increase Zanaflex frequency. Today, November 15, she has been having hallucinations. Likely from Demerol. Will decrease dose to taper her off. She has behavioral issues. [facility] to see her. Exam (Progress Note) - Constitutional Vitals: Period Temp Pulse Resp BP Sys/Ceballos Pulse Ox Last 24 Hr 97.0 F-98.8 F 72-75 11-28 123-182/48-80 93-100 General appearance: no acute distress - Respiratory Respiratory exam: Present: clear to auscultation bilaterally - Cardiovascular Cardiovascular exam: Present: regular rate and rhythm - GI/Abdominal GI/Abdominal exam: Present: soft. Absent: tenderness - Extremities Exam Extremities exam: Absent: edema - Neurological Exam Neurological exam: Present: alert, altered - Psychiatric Psychiatric exam: Present: normal mood - Skin Skin exam: Present: warm, dry Results - Labs CBC & BMP: 11/15/16 04:57 11/15/16 04:57 Quality Measures - VTE Contraindication to Pharmacological VTE Prophylaxis: Active Bleeding
[2016-11-15] MEDS ORDERED: SODIUM CHLORIDE 0.9% 250 ML IV PRN (17:03)
[2016-11-15] MEDS: MONTELUKAST 10 MG TABLET PO SCH (22:38)
[2016-11-15] MEDS: MEPERIDINE 25 MG/1 ML VIAL IV SCH (23:23)
[2016-11-16] MEDS: ALBUTEROL 2.5 MG/3 ML NEB RESP TX SCH ×7 (00:43→22:55)
[2016-11-16] MEDS: SODIUM CHLORIDE 0.9% IV SCH ×5 (03:16→23:57)
[2016-11-16] MEDS: CEFAZOLIN IV SCH ×5 (03:16→23:57)
[2016-11-16 05:30] LABS: INR 1.1; PT Patient Result 11.7 SECS
[2016-11-16 05:31] LABS: Basophils % 0.1 % (0.0-0.8); Eosinophils % 0.1 % (0.00-10.9); Hematocrit 29.4 VOL% (35.7-47.0); Immature Granulocytes % 6.7 %; Immature Granulocytes Absolute 0.63 #; Lymphocytes # 1.2 10*3/uL (1.4-4.0); Lymphocytes % 13.1 % (21.3-54.2); Mean Corpuscular HGB Conc 34.4 GM/DL (32-36); Mean Corpuscular Hemoglobin 30 PG (27-34); Mean Corpuscular Volume 88.6 FL (87-102); Mean Platelet Volume 9.9 FL (9.6-12.0); Monocytes # 1.1 10*3/uL (0.11-0.8); NRBC # 0.04 10*3/uL; Neutrophils # 6.4 10*3/uL (1.4-7.4); Platelet Count 395 T/CUMM (130-400); Red Cell Distribution Width 14.5 % (9.3-17.3); White Blood Count 9.4 T/CUMM (4-12)
[2016-11-16 05:44] LABS: Hemoglobin 10.1 GM/DL (12.0-16.0); Red Blood Count 3.32 MC/CUMM (3.8-5.5)
[2016-11-16 05:59] LABS: Calcium 8.5 MG/DL (8.5-10.1); Osmolality,Calculated 279.5 MOS/KG (273-304); Potassium 4.8 MMOL/L (3.5-5.1)
[2016-11-16 06:13] LABS: Band Neutrophils 5 % (0-10); Lymphocytes 7 % (20-55); Segmented Neutrophils 79 % (50-85)
[2016-11-16 06:14] LABS: Hypochromasia Slight; Platelet Estimate Increased
[2016-11-16 06:15] LABS: Total Cells Counted 100
[2016-11-16] MEDS: methylPREDNISolone SOD SUC 40 MG/1 ML VIAL IV SCH ×2 (06:40→16:06)
[2016-11-16] MEDS: MEPERIDINE 25 MG/1 ML VIAL IV SCH ×3 (06:41→22:22)
[2016-11-16] MEDS: FAMOTIDINE 20 MG/2 ML VIAL IV SCH ×2 (08:52→20:30)
[2016-11-16] MEDS: LIDOCAINE 5% PATCH TRANSDERM SCH (08:52)
[2016-11-16] MEDS: DOCUSATE SODIUM 100 MG CAPSULE PO SCH ×2 (08:53→20:29)
[2016-11-16] MEDS: POTASSIUM CHLORIDE 10 MEQ TABLET PO SCH ×2 (08:53→20:29)
[2016-11-16] MEDS: hydrALAZINE 25 MG TABLET PO SCH ×2 (08:54→20:29)
[2016-11-16] MEDS: LOSARTAN 50 MG TABLET PO SCH ×2 (08:55→20:30)
[2016-11-16] MEDS: FERROUS SULFATE 325 MG TABLET PO SCH (08:55)
[2016-11-16] MEDS: ALPRAZolam 0.25 MG TABLET PO SCH ×2 (08:56→20:29)
[2016-11-16] MEDS: amLODIPine 10 MG TABLET PO SCH (08:56)
[2016-11-16] MEDS: LEVOTHYROXINE 25 MCG TABLET PO SCH (08:56)
[2016-11-16] MEDS: CARVEDILOL 6.25 MG TABLET PO SCH ×2 (08:56→20:29)
[2016-11-16] MEDS ORDERED: LOSARTAN 50 MG TABLET PO SCH (09:00)
--- NOTE | 2016-11-16 10:24 | Gastrointestinal Progress Note ---
Assessment and Plan (1) Abdominal pain Status: Acute Assessment and plan: 11/16-abdominal pain continues but slightly improved. Hemoglobin improved at 10.1 following transfusion. No overt bleeding. WBCs down at 9.4. Plan an addendum follow Dr. Goetz. 11/15-abdominal pain improved. Tolerating diet. Hemoglobin down slightly at 8.1. INR 1.1. BMS with continued liquid dark stool. Plan an addendum to followed by Dr. Goetz. 11/12-abdominal pain slightly improved. No nausea vomiting reported. Small amount of bright red blood reported in bowel movement on yesterday by nursing staff. Hemoglobin is stable at 9.2. INR is elevated today at 6.2. Plan an addendum to followed by Dr. Goetz. 11/11-abdominal pain improved slightly. No nausea or vomiting. Hemoglobin stable. IV antibiotics continued for bacteremia. Plan an addendum to follow by Dr. Sylvester. 11/10-onset of right lower quadrant abdominal pain with associated diarrhea and reported nausea and vomiting. No acute abdominal findings noted on noncontrasted CT. History of anemia and heme positive stools in past. Admitted with drop in hemoglobin from baseline and transfused. No overt bleeding. Obtain stool for occult blood. Plan an addendum to follow by Dr. Sylvester (on-call for Dr. Goetz). Current Visit: No Qualifiers: Abdominal location: right lower quadrant Qualified Code(s): R10.31 - Right lower quadrant pain Gastroenterology - PN: Subj Interval history: CC: Abdominal pain Patient is seen awake and alert with physical therapy at bedside. States she rested a little better last night after being transferred to private room. States that her pain is a little more controlled at this time. Her BMS was removed and she has had continued episodes of watery stools however feels like it is less in amount. Denies any overt bleeding. She was transfused 2 units of packed red blood cells on yesterday and hemoglobin improved to 10.1. INR remains at 1.1 today. Abdomen soft, nontender. Tolerating small amounts of her diet. ROS: Denies shortness of breath or chest pain Exam (Progress Note) - Constitutional Vitals: Period Temp Pulse Resp BP Sys/Ceballos Pulse Ox Last 24 Hr 97.7 F-98.9 F 72-79 14-22 135-182/53-83 95-100 - Other Additional findings: General appearance: normal weight, no acute distress - Head Head exam: Present: normal inspection, normocephalic - Eye Eye exam: Present: other (Lids and conjunctive are unremarkable). Absent: scleral icterus - ENT ENT exam: Present: normal exam, normal oropharynx - Neck Neck exam: Present: normal inspection - Respiratory Respiratory exam: Present: clear to auscultation bilaterally. Absent: rales, rhonchi, wheezes - Cardiovascular Cardiovascular exam: Present: regular rate and rhythm. Absent: diastolic murmur , JVD, systolic murmur - GI/Abdominal GI/Abdominal exam: Present: normal bowel sounds, soft. Absent: ascites, distended, mass, organomegaly, tenderness - Extremities Exam Extremities exam: Present: normal inspection, full ROM - Back Exam Back exam: Present: normal inspection - Neurological Exam Neurological exam: Present: alert, oriented X3 - Psychiatric Psychiatric exam: Present: normal affect, normal mood - Skin Skin exam: Present: normal color, warm, dry Results - Labs CBC & BMP: 11/16/16 04:57 11/16/16 04:57 Lab Results: I have reviewed the past 24 hour labs
[2016-11-16] MEDS: DESITIN 4OZ/NYSTATIN 15 GRAM MIXTURE PASTE TOP SCH ×2 (12:39→20:47)
[2016-11-16] MEDS: ONDANSETRON 4 MG/2 ML VIAL IV PRN (16:06)
--- NOTE | 2016-11-16 16:10 | Infectious Disease Progress ---
Assessment and Plan (1) Bacteremia Status: Acute Assessment and plan: E. coli septicemia due bilateral pyelonephritis. Clinically patient is doing better. Recommendations: Continue cefazolin; will treat until November 26. Can switch to ceftriaxone if convenient daily dosing required. Current Visit: Yes (2) Pyelonephritis Status: Acute Current Visit: Yes (3) History of mitral valve replacement with mechanical valve Status: Chronic Assessment and plan: TTE without mention of endocarditis Current Visit: Yes (4) Pacemaker Status: Chronic Current Visit: Yes (5) Chronic atrial fibrillation Status: Chronic Current Visit: No (6) Hyperlipidemia Status: Chronic Current Visit: No Qualifiers: Hyperlipidemia type: pure hypercholesterolemia Qualified Code(s): E78.00 - Pure hypercholesterolemia, unspecified; E78.0 - Pure hypercholesterolemia (7) Hypertension Status: Chronic Current Visit: No Qualifiers: Hypertension type: essential hypertension Qualified Code(s): I10 - Essential (primary) hypertension Infectious Disease - PN: Subj Interval history: Patient now out of ICU, says she feels poorly but generally better than when she first came in. She has been afebrile. No nausea or vomiting on the antibiotic but she says she has been having a little diarrhea. Infectious Disease Exam (PN) - Constitutional Vitals: Temp Pulse Resp BP Pulse Ox 98.1 F 75 22 158/74 96 11/16/16 15:49 11/16/16 15:49 11/16/16 15:49 11/16/16 15:49 11/16/16 15:49 General appearance: no acute distress Exam: General appearance: Relatively comfortable, nontoxic appearing - Eye Eye exam: Present: EOMI. no icterus Pupils: Present: EUGENIO - ENT ENT exam: no oral exudates - Respiratory Respiratory exam: vesicular BS, no crepitations or wheezes - Cardiovascular Cardiovascular exam: regular rate and rhythm, audible click from her artificial valve - GI/Abdominal GI/Abdominal exam: normal bowel sounds, soft, mild generalized tenderness, no organomegaly or mass - Extremities Exam Extremities exam: no edema - Skin Skin exam: no rash Results - Labs CBC & BMP: 11/16/16 04:57 11/16/16 04:57 Lab Results: I have reviewed the past 24 hour labs (Repeat blood cultures from the ninth negative to date) Quality Measures - VTE Contraindication to Pharmacological VTE Prophylaxis: Active Bleeding
--- NOTE | 2016-11-16 17:29 | Cardiology Progress Note ---
Sid Richard Vanessa, RN, am scribing for, and in the presence of, Charly Simpson MD 17:25. Assessment and Plan - Time spent with patient Time spent with patient: Greater than 30 minutes (1) Chronic atrial fibrillation Status: Chronic Assessment and plan: Continue beta-adin as present. She apparently has had ablation before for this. She has ventricular pacemaker. She has been on chronic anticoagulation. This is being restarted. Current Visit: No (2) Chronic anticoagulation Status: Chronic Assessment and plan: Supratherapeutic INR 7.5 on November 13. Trended down, and November 14 INR 1.2. Coumadin 4 mg on the afternoon of November 15, and to receive 3 mg by mouth this evening and daily. INR today 1.1. This is for her mechanical mitral valve as well as for her chronic atrial fibrillation. Will monitor her with you in regard to this. Current Visit: Yes (3) History of mitral valve replacement with mechanical valve Status: Chronic Assessment and plan: Placed per Dr. Greco 13 years ago. History of rheumatic fever as a child. This is been stable but needs to be on chronic anti-coagulation with warfarin. Current Visit: Yes (4) Status post ablation of atrial fibrillation Status: Chronic Assessment and plan: Status post AV node ablation. Pacemaker in place and functioning appropriately. Current Visit: No (5) Bacteremia Status: Acute Assessment and plan: She is on appropriate IV antibiotics. Patient is also followed by infectious disease medicine. Current Visit: Yes (6) GI bleed Status: Acute Assessment and plan: H&H stable. Status post total of 4 units PRBCs transfusion. No overt bleeding. Gastroenterology has evaluated for possible endoscopy. Current Visit: Yes (7) Abdominal pain Status: Acute Assessment and plan: She has also experienced some bright red bleeding and dark stools. Abdominal pain with no significant increase or improvement. She is anemic, and is being evaluated by GI. Current Visit: No Qualifiers: Abdominal location: right lower quadrant Qualified Code(s): R10.31 - Right lower quadrant pain (8) Anemia Status: Chronic Assessment and plan: Stable today. Monitor carefully. Transfuse as needed. Current Visit: Yes Qualifiers: Anemia type: iron deficiency Iron deficiency anemia type: inadequate dietary iron intake Qualified Code(s): D50.8 - Other iron deficiency anemias (9) Pyelonephritis Status: Acute Current Visit: Yes (10) Anxiety Status: Chronic Assessment and plan: This is chronic. Patient is on appropriate medication. Will defer to attending physician. Current Visit: Yes (11) Back pain Status: Chronic Assessment and plan: Chronic. She is routinely followed by Dr. Oh for pain management. Her pain medicines are being adjusted and managed per pain management and attending physician. Current Visit: Yes Qualifiers: Back pain location: thoracic back pain Chronicity: acute Back pain laterality: right Qualified Code(s): M54.6 - Pain in thoracic spine (12) GERD (gastroesophageal reflux disease) Status: Chronic Assessment and plan: Continue PPI Current Visit: Yes (13) History of GI bleed Status: Chronic Assessment and plan: Reports recurrent GI bleeding when INR greater than 2.5. Gastroenterology following at this time also. Current Visit: Yes (14) Pacemaker Status: Chronic Assessment and plan: Device appears to be functioning appropriately, and she is ventricularly pacing per EKG. Current Visit: Yes (15) Sleep apnea Status: Chronic Assessment and plan: Continue CPAP. Current Visit: Yes Qualifiers: Sleep apnea type: obstructive Qualified Code(s): G47.33 - Obstructive sleep apnea (adult) (pediatric) (16) History of TIA (transient ischemic attack) Status: Chronic Assessment and plan: Stable at this time without neurological finding for acute event. And noted she has had TIA in the past when INR has been less than 2. Current Visit: No (17) Hypertension Status: Chronic Assessment and plan: Suboptimally controlled. Current Visit: No Qualifiers: Hypertension type: essential hypertension Qualified Code(s): I10 - Essential (primary) hypertension (18) Hypothyroidism Status: Chronic Assessment and plan: Thyroid supplement continued. Current Visit: No Qualifiers: Hypothyroidism type: acquired Qualified Code(s): E03.9 - Hypothyroidism, unspecified Cardiology - PN: Subj Interval history: PRIMARY CARNIVAL WORKER: DR. RIOS SUMMARY: Ms. Faith is an 81-year-old white female with risk factors significant for age, hypertension, dyslipidemia, sedentary lifestyle, family history of CAD. Past medical history includes chronic atrial fibrillation and now status post ablation at [facility], pacemaker implant, LOLA with CPAP use, hypothyroidism, TIA, rheumatic heart disease now with mechanical mitral valve. She is chronically anticoagulated with Coumadin. Patient also has chronic pain and is followed by Dr. Oh. She does not have a history of known coronary artery disease. She has had multiple cardiac catheterizations with the most recent being in 2003, and she had no significant or fixed obstructive coronary artery disease. She was offered a stress test by Dr. Rios at the clinic visit in April 2016 when she had complaints of shortness of breath, and she declined. Patient admitted to the hospital on November 09 with complaints of back pain, neck pain, abdominal pain, and since admission has been diagnosed with E. coli septicemia due to bilateral pyelonephritis. Antibiotics have been administered, and she has since developed anemia with dark stools. Required 4 units PRBCs total transfusion. Supratherapeutic INR 7.5 on November 12, consecutively trended with INR 5.1 on November 13, and has now been SUBtherapeutic (1.2) since November 14. It is noted she has suffered TIA in the past due to insufficient anticoagulation with INR less than 2.0. November: Patient was transferred from CCU to [facility] floor yesterday, and she is awake and alert this morning. Reports she has not rested well overnight due to "bruising on arms". No chest pain shortness of breath. Patient is having some lower abdominal pain this morning. Denies further overt bleeding but does admit watery stools. Coumadin was held for 2 days due to supratherapeutic INR. Yesterday, patient received Coumadin 4 mg 1 dose, and this evening she is scheduled to receive lower dosage at Coumadin 3 mg by mouth daily. INR this morning 1.1. Patient reports she has a history of numerous bleeding issues when INR is 2.5-3.5. H&H improved 10.1/29.4 today status post transfusion 2 units PRBCs for H&H 8.1/23.5. Systolic BP 145-180 mmHg. Labs reviewed. As above. Potassium is 4.8. Magnesium 2.0. Creatinine 0.8 with GFR of 70. Gastroenterology has also been consulted, and they are evaluating for possible endoscopy. Certainly of colonoscopy discomfort proceed need to be done it would be of benefit to do it while her INR is down. The patient is requesting to have her cardiac care completely transferred to [facility]. She has been seeing a refueling ramp supervisor apparently at [place]. Certainly we can arrange her to be seen here in [place]. Exam (Progress Note) - Constitutional Vitals: Period Temp Pulse Resp BP Sys/Ceballos Pulse Ox Last 24 Hr 97.7 F-98.9 F 72-79 14-22 123-182/50-83 95-100 Exam: General: [Appears well with no apparent distress.] [Pleasant and cooperative. ] [Appears comfortable.] HEENT: [PERRL, normocephalic, atraumatic. Mucous membranes moist. No jaundice noted. Conjunctiva moist and clear, sclerae anicteric] Neck: No JVD/HJR, no thyromegaly or lymphadenopathy noted. No carotid bruit appreciated Cardiac: [Regular rate and rhythm.] [No obvious murmur rub or gallop.] Appropriate sounds of her mechanical mitral valve. Lungs: [Clear to auscultation without accessory muscle use to assist the respiratory pattern.] No supplemental oxygen required. Abdomen: Soft, bowel sounds normoactive. Tender to palpation and nondistended. No abdominal bruit or thrill noted. No masses noted. Musculoskeletal: No fluid collection. Decreased range of motion is noted. Extremities: No clubbing, cyanosis noted. [ No edema noted.] Upper extremity pulses 2+. Lower extremity pulses 2+. Capillary refill less than 3 seconds. Skin: No unusual lesions or rashes. No skin breakdown appreciated. Ecchymotic bruising bilateral upper extremities. Neuro: Awake, alert and oriented 3. Moves all extremities well without hemiparesis or paralysis. No essential tremor is appreciated. Result/EKG - Labs CBC & BMP: 11/16/16 04:57 11/16/16 04:57 Lab Results: I have reviewed the past 24 hour labs Labs: Laboratory Results - last 24 hr 11/15/16 11/16/16 11/16/16 17:54 04:57 04:57 WBC 9.4 RBC 3.32 L D Hgb 10.1 L D Hct 29.4 L MCV 88.6 MCH 30 MCHC 34.4 RDW 14.5 Plt Count 395 MPV 9.9 Neut % (Auto) 68.0 Lymph % (Auto) 13.1 L [place] % (Auto) 12.0 Eos % (Auto) 0.1 Baso % (Auto) 0.1 Neut # (Auto) 6.4 Lymph # (Auto) 1.2 L [place] # (Auto) 1.1 H Eos # (Auto) 0.0 Baso # (Auto) 0.0 Total Counted 100 Immature Gran % 6.7 Nucleated RBC % 0.4 Immature Gran # 0.63 Segmented Neutrophils 79 Band Neutrophils 5 Lymphocytes 7 L Monocytes 9 Nucleated RBCs # 0.04 Platelet Estimate Increased Hypochromasia Slight INR 1.1 PT Patient/Control Mix 11.7 Sodium Potassium Chloride Carbon Dioxide Anion Gap BUN Creatinine GFR Calculation BUN/Creatinine Ratio Glucose Calculated Osmolality Calcium Magnesium Blood Type A POSITIVE Antibody Screen Negative Crossmatch See Detail 11/16/16 04:57 WBC RBC Hgb Hct MCV MCH MCHC RDW Plt Count MPV Neut % (Auto) Lymph % (Auto) [place] % (Auto) Eos % (Auto) Baso % (Auto) Neut # (Auto) Lymph # (Auto) [place] # (Auto) Eos # (Auto) Baso # (Auto) Total Counted Immature Gran % Nucleated RBC % Immature Gran # Segmented Neutrophils Band Neutrophils Lymphocytes Monocytes Nucleated RBCs # Platelet Estimate Hypochromasia INR PT Patient/Control Mix Sodium 139 Potassium 4.8 Chloride 108 H Carbon Dioxide 22 Anion Gap 13.8 BUN 16 Creatinine 0.80 GFR Calculation 70 BUN/Creatinine Ratio 20.00 Glucose 127 H Calculated Osmolality 279.5 Calcium 8.5 Magnesium 2.0 Blood Type Antibody Screen Crossmatch - Diagnostic Findings Procedure: Chest x-ray: image reviewed by me, report reviewed by me - EKG EKG results: interpreted by me, no acute changes (Ventricular pacing) Quality Measures - VTE Contraindication to Pharmacological VTE Prophylaxis: Active Bleeding Calvin Richard John Timothy, MD, personally performed the services described in this documentation, ascribed by Lina Lau RN in my presence, and it is both accurate and complete [id number] .
[2016-11-16] MEDS: WARFARIN 3 MG TABLET PO SCH (17:36)
[2016-11-16] MEDS: MONTELUKAST 10 MG TABLET PO SCH (20:29)
[2016-11-16] MEDS: CARBOXYMETHYLCELLULOSE 1% OPH SOLN BOTH EYES PRN (20:46)
--- NOTE | 2016-11-16 21:08 | Internal Med Progress Note ---
Assessment and Plan (1) Hyponatremia Status: Resolved Current Visit: Yes (2) Pyelonephritis Status: Resolved Current Visit: Yes (3) Low blood pressure Problem details: excessive antihypertensive meds; history of HTN Status: Resolved Current Visit: Yes Qualifiers: Hypotension type: hypotension due to drug Qualified Code(s): I95.2 - Hypotension due to drugs (4) UTI (urinary tract infection) Status: Resolved Current Visit: Yes Qualifiers: Hematuria presence: without hematuria (5) Anxiety Status: Chronic Current Visit: Yes (6) Pacemaker Status: Chronic Current Visit: Yes (7) Anemia Status: Chronic Current Visit: Yes Qualifiers: Anemia type: iron deficiency Iron deficiency anemia type: inadequate dietary iron intake Qualified Code(s): D50.8 - Other iron deficiency anemias (8) Chronic anticoagulation Status: Chronic Current Visit: Yes (9) History of TIA (transient ischemic attack) Status: Chronic Current Visit: No (10) History of mitral valve replacement with mechanical valve Status: Chronic Current Visit: Yes (11) Sleep apnea Status: Chronic Current Visit: Yes Qualifiers: Sleep apnea type: obstructive Qualified Code(s): G47.33 - Obstructive sleep apnea (adult) (pediatric) (12) Bacteremia Status: Acute Current Visit: Yes (13) Back pain Status: Chronic Current Visit: Yes Qualifiers: Back pain location: thoracic back pain Chronicity: acute Back pain laterality: right Qualified Code(s): M54.6 - Pain in thoracic spine (14) History of GI bleed Status: Chronic Current Visit: Yes Internal Medicine - PN: Subj Interval history: Ms. Faith is a 81 year old female with history of atrial fib and status post ablation, pacemaker placement, CHF, hypothyroid, history of HTN, TIA, diverticulosis, asthma, LOLA on CPAP, mitral valve replacement mechanical valve and on coumadin therapy, OA, CAD, history of GI bleed, Glaucoma, who presented to ER with worsening back pain and UTI/pyelonephritis. She has worsening weakness and has been found to have bacteremia. Dr. Diaz will be consulted. She is anemic and there is a question of GI bleed. GI has been consulted through the ER. She was also found to have hyponatremia, which will be addressed. Sodium level needs to be improved. She is complaining of severe back pain. Dr. Garcia will be consulted. Attempting to avoid narcotics. She is hypotensive. Lidoderm patches have been ordered as well as Solumedrol low dose. She is much better today, with improved sodium level. Pain has improved. However, lowering Coumadin dose to 3 mg daily, after holding coumadin for two days. Desire INR to be just below 2. She is complaining of back pain. Will increase Zanaflex frequency. Today, November 15, she has been having hallucinations. Likely from Demerol. Will decrease dose to taper her off. She has behavioral issues. [facility] to see her. November 16, she is doing better today. Will send her to [facility] tomorrow if bed is available. Feeling better overall. Will continue Coumadin. She will have colonoscopy in 4-6 weeks outpatient if she continues to have evidence GI bleed. Had blood transfusion while here in hospital. Exam (Progress Note) - Constitutional Vitals: Period Temp Pulse Resp BP Sys/Ceballos Pulse Ox Last 24 Hr 97.7 F-98.9 F 72-79 18-22 138-182/57-83 95-100 Exam: General appearance: no acute distress - Respiratory Respiratory exam: Present: clear to auscultation bilaterally - Cardiovascular Cardiovascular exam: Present: regular rate and rhythm - GI/Abdominal GI/Abdominal exam: Present: soft. Absent: tenderness - Extremities Exam Extremities exam: Absent: edema - Neurological Exam Neurological exam: Present: alert, altered - Psychiatric Psychiatric exam: Present: normal mood - Skin Skin exam: Present: warm, dry Results - Labs CBC & BMP: 11/17/16 03:04 11/17/16 03:04 Quality Measures - VTE Contraindication to Pharmacological VTE Prophylaxis: Active Bleeding Specialty Discharge - Follow Up or Referrals Follow up with: Jairo Goetz MD [Physician] - (3-4 weeks )
[2016-11-17] MEDS: ALBUTEROL 2.5 MG/3 ML NEB RESP TX SCH ×5 (03:59→19:56)
[2016-11-17 04:13] LABS: Basophils % 0.1 % (0.0-0.8); Hematocrit 28.6 VOL% (35.7-47.0); Hemoglobin 9.8 GM/DL (12.0-16.0); Immature Granulocytes % 5.3 %; Immature Granulocytes Absolute 0.44 #; Lymphocytes # 0.9 10*3/uL (1.4-4.0); Lymphocytes % 11.2 % (21.3-54.2); Mean Corpuscular HGB Conc 34.3 GM/DL (32-36); Mean Corpuscular Hemoglobin 30 PG (27-34); Mean Corpuscular Volume 88.8 FL (87-102); Monocytes # 1.1 10*3/uL (0.11-0.8); Monocytes % 13.2 % (1.7-12.7); NRBC # 0.02 10*3/uL; Neutrophils # 5.8 10*3/uL (1.4-7.4); Neutrophils % 70.2 % (38.7-73.9); Platelet Count 384 T/CUMM (130-400); Red Blood Count 3.22 MC/CUMM (3.8-5.5); Red Cell Distribution Width 14.7 % (9.3-17.3); White Blood Count 8.3 T/CUMM (4-12)
[2016-11-17 04:24] LABS: INR 1.1; PT Patient Result 11.3 SECS
[2016-11-17 04:41] LABS: Calcium 8.6 MG/DL (8.5-10.1); Osmolality,Calculated 282.3 MOS/KG (273-304); Potassium 4.3 MMOL/L (3.5-5.1)
[2016-11-17 04:42] LABS: Band Neutrophils 5 % (0-10); Lymphocytes 12 % (20-55); Metamyelocytes 1 %; Myelocytes 8 %; Segmented Neutrophils 69 % (50-85)
[2016-11-17 04:43] LABS: Platelet Estimate Normal; Total Cells Counted 100
[2016-11-17] MEDS: CEFAZOLIN IV SCH ×3 (05:09→18:10)
[2016-11-17] MEDS: SODIUM CHLORIDE 0.9% IV SCH ×3 (05:09→18:10)
[2016-11-17] MEDS: methylPREDNISolone SOD SUC 40 MG/1 ML VIAL IV SCH ×2 (05:09→15:51)
[2016-11-17] MEDS: MEPERIDINE 25 MG/1 ML VIAL IV SCH ×3 (06:14→22:52)
[2016-11-17] MEDS: LOSARTAN 50 MG TABLET PO SCH ×2 (08:37→20:27)
[2016-11-17] MEDS: POTASSIUM CHLORIDE 10 MEQ TABLET PO SCH ×2 (08:37→20:28)
[2016-11-17] MEDS: LIDOCAINE 5% PATCH TRANSDERM SCH (08:38)
[2016-11-17] MEDS: LEVOTHYROXINE 25 MCG TABLET PO SCH (08:38)
[2016-11-17] MEDS: ALPRAZolam 0.25 MG TABLET PO SCH (08:38)
[2016-11-17] MEDS: CARVEDILOL 6.25 MG TABLET PO SCH ×2 (08:38→20:29)
[2016-11-17] MEDS: hydrALAZINE 25 MG TABLET PO SCH ×3 (08:38→20:30)
[2016-11-17] MEDS: DESITIN 4OZ/NYSTATIN 15 GRAM MIXTURE PASTE TOP SCH ×2 (08:38→20:30)
[2016-11-17] MEDS: FERROUS SULFATE 325 MG TABLET PO SCH (08:38)
[2016-11-17] MEDS: DOCUSATE SODIUM 100 MG CAPSULE PO SCH ×2 (08:38→20:29)
[2016-11-17] MEDS: amLODIPine 10 MG TABLET PO SCH (08:38)
[2016-11-17] MEDS: FAMOTIDINE 20 MG/2 ML VIAL IV SCH ×2 (08:39→20:30)
--- NOTE | 2016-11-17 09:49 | Discharge Summary ---
Hospital Course - Hospital Course Hospital Course: Ms. Faith is a 81 year old female with history of atrial fib and status post ablation, pacemaker placement, CHF, hypothyroid, history of HTN, TIA, diverticulosis, asthma, LOLA on CPAP, mitral valve replacement mechanical valve and on coumadin therapy, OA, CAD, history of GI bleed, Glaucoma, who presented to ER with worsening back pain and UTI/pyelonephritis. She has worsening weakness and has been found to have bacteremia. Dr. Diaz will be consulted. She is anemic and there is a question of GI bleed. GI has been consulted through the ER. She was also found to have hyponatremia, which will be addressed. Sodium level needs to be improved. She is complaining of severe back pain. Attempting to avoid narcotics. She is hypotensive. Lidoderm patches have been ordered as well as Solumedrol low dose. Will increase Zanaflex frequency. She has been having hallucinations. Likely from Demerol. Will decrease dose to taper her off. She has behavioral issues. [facility] to see her. She is doing better today. Will send her to [facility] tomorrow if bed is available. Feeling better overall. Will continue Coumadin. She will have colonoscopy in 4-6 weeks outpatient if she continues to have evidence GI bleed. Had blood transfusion while here in hospital. She will need antibiotic therapy for at least 6 weeks for bacteremia. Diagnosis - Discharge Diagnosis (1) Hyponatremia Status: Resolved (2) Pyelonephritis Status: Resolved (3) Low blood pressure Status: Resolved (4) UTI (urinary tract infection) Status: Resolved (5) Anxiety Status: Chronic (6) Pacemaker Status: Chronic (7) Anemia Status: Chronic (8) Chronic anticoagulation Status: Chronic (9) History of TIA (transient ischemic attack) Status: Chronic (10) History of mitral valve replacement with mechanical valve Status: Chronic (11) Sleep apnea Status: Chronic (12) Bacteremia Status: Acute (13) Back pain Status: Chronic (14) History of GI bleed Status: Chronic (15) GERD (gastroesophageal reflux disease) Status: Chronic (16) Anxiety Status: Chronic (17) Status post ablation of atrial fibrillation Status: Chronic Specialty Discharge - Follow Up or Referrals Follow up with: Elsy Forte MD [Physician] - Jairo Goetz MD [Physician] - (3-4 weeks ) Lou Zavaleta DO [Physician] - Discharge Plan - Discharge Data Disposition: Disch/Xfer-[facility] Condition at Discharge: Stable Discharge Diet: regular diet Activity: increase activity as tolerated - Discharge Medications New amLODIPine [Norvasc] 10 mg PO DAILY tablet Carboxymethylcell 1% Oph Soln [Refresh Celluvisc] 1 drop BOTH EYES QID PRN PRN Reason: Dry Eyes Carvedilol [Coreg] 6.25 mg PO BID #60 tablet ceFAZolin [Ancef] 1,500 mg IV Q6H vial Docusate Sodium Cap [Colace Cap] 100 mg PO BID capsule hydrALAZINE TAB [Apresoline Tab] 25 mg PO TID #90 tablet Lactulose Liquid [Chronulac] 10 gm PO DAILY PRN PRN Reason: Indigestion Losartan [Cozaar] 50 mg PO BID tablet Oxymetazoline 0.05% Nasal Spr [Afrin Nasal [place]] 2 spray BOTH NARES BID PRN bottle PRN Reason: Dry Nose Potassium Chloride Cap/Tab [K Dur] 20 meq PO BID #0 tablet predniSONE TAB [PredniSONE] 10 mg PO DAILY #30 tablet tiZANidine [Zanaflex] 6 mg PO Q6H PRN tablet PRN Reason: Muscle Spasm Cholecalciferol (Vitamin D3) [Vitamin D3 Chew Tab] 1,000 unit PO DAILY #30 tablet Lidocaine 5% Patch [Lidoderm 5% Patch] 3 patch TRANSDERM DAILY patch Warfarin [Coumadin] 3 mg PO DAILY@1800 tablet Continue Nitroglycerin [place] 1 spray TRANSLING PRN PRN PRN Reason: Chest Pain Levothyroxine Tab [Synthroid Tab] 25 mcg PO DAILY@0700 ALPRAZolam [Xanax] 0.25 tablet PO BID Gemfibrozil [Lopid] 600 mg PO BIDAC Montelukast Tab [Singulair Tab] 10 mg PO BEDTIME Loratadine 10 mg PO BEDTIME PRN PRN Reason: Allergy Symptoms Famotidine Tab [Pepcid Tab] 20 mg PO BID Losartan Potassium 50 mg PO BID Ipratropium Inhaler [Atrovent Inhaler] 2 puff INH Q6HR PRN PRN Reason: Shortness Of Breath Ferrous Sulfate 325 mg PO DAILY W/BREAKFAST Acetaminophen Tab [Tylenol Tab] 500 mg PO TID PRN #0 tablet PRN Reason: Fever, Headache, Mild Pain Albuterol Neb [Proventil Neb] 2.5 mg RESP TX RT Q8H Ondansetron Tab [Zofran Tab] 4 mg PO QID PRN #14 tablet PRN Reason: Nausea/Vomiting Polyethylene Glycol Powder [Miralax] 17 gm PO DAILY PRN #0 PRN Reason: Constipation Oxymetazoline 0.05% Nasal Spr [Afrin Nasal [place]] 2 spray BOTH NARES BID PRN PRN Reason: Dry Nose amLODIPine [Norvasc] 10 mg PO DAILY Carboxymethylcellulose Sodium [Refresh Tears] 1 drop BOTH EYES QID Warfarin [Coumadin] 4 mg PO DAILY@1800 Discontinued Potassium Chloride Cap/Tab [K Dur] 10 meq PO DAILY Chlorthalidone 25 mg PO DAILY Aspirin [Ecotrin] 325 mg PO DAILY Cholecalciferol (Vitamin D3) [Vitamin D3] 50,000 unit PO DIRECTED Amoxicillin/Clav Tab [Augmentin Tab] 500 mg PO BID #20 tablet - Follow Up or Referral Follow Up: Jairo Goetz MD [Physician] - (3-4 weeks ) Lou Zavaleta DO [Physician] - Emily-Elsy Alanis MD [Physician] - - Forms/Instructions Additional Discharge Instructions: Repeat blood cultures 2 sets in 6 weeks from [facility]; follow up with Dr. Ambreen Zavaleta at intermediate on rounds; follow up with Dr. Goetz in 4-6 weeks regarding GI bleed; follow up with Dr. Diaz in 6 weeks if necessary. She will continue Ancef per PICC line for at least 6 weeks for bacteremia. She will go to [facility], and then from there go to [facility] for PT/OT and general nursing care. Exam - Constitutional Vitals: Period Temp Pulse Resp BP Sys/Ceballos Pulse Ox Last 24 Hr 97.8 F-98.8 F 63-76 18-22 125-160/69-75 94-99 Exam: General appearance: no acute distress - Respiratory Respiratory exam: Present: clear to auscultation bilaterally - Cardiovascular Cardiovascular exam: Present: regular rate and rhythm - GI/Abdominal GI/Abdominal exam: Present: soft. Absent: tenderness - Extremities Exam Extremities exam: Absent: edema - Neurological Exam Neurological exam: Present: alert - Psychiatric Psychiatric exam: Present: normal mood - Skin Skin exam: Present: warm, dry Discharge Results Procedures and tests throughout hospitalization: Pending Orders 11/10/16 12:42 Occult Blood, Stool Routine 11/12/16 11:07 Blood Culture Stat 11/18/16 04:00 BMP w/ Mg [Basic Metabolic Panel w/Mg] IN AM CBC [Comp Blood Count Auto Diff] IN AM Prothrombin Time INR IN AM 11/19/16 04:00 BMP w/ Mg [Basic Metabolic Panel w/Mg] IN AM CBC [Comp Blood Count Auto Diff] IN AM Prothrombin Time INR IN AM Labs on day of discharge: Labs from last 24 hours 11/17/16 11/17/16 11/17/16 03:04 03:04 03:04 WBC 8.3 RBC 3.22 L Hgb 9.8 L Hct 28.6 L MCV 88.8 MCH 30 MCHC 34.3 RDW 14.7 Plt Count 384 MPV 10.0 Neut % (Auto) 70.2 Lymph % (Auto) 11.2 L [place] % (Auto) 13.2 H Eos % (Auto) 0.0 Baso % (Auto) 0.1 Neut # (Auto) 5.8 Lymph # (Auto) 0.9 L [place] # (Auto) 1.1 H Eos # (Auto) 0.0 Baso # (Auto) 0.0 Total Counted 100 Immature Gran % 5.3 Nucleated RBC % 0.2 Immature Gran # 0.44 Segmented Neutrophils 69 Band Neutrophils 5 Lymphocytes 12 L Monocytes 5 Metamyelocytes 1 Myelocytes 8 Nucleated RBCs # 0.02 Platelet Estimate Normal INR 1.1 PT Patient/Control Mix 11.3 Sodium 141 Potassium 4.3 Chloride 109 H Carbon Dioxide 23 Anion Gap 13.3 BUN 12 Creatinine 0.70 GFR Calculation 82 BUN/Creatinine Ratio 17.00 Glucose 134 H Calculated Osmolality 282.3 Calcium 8.6 Magnesium 2.0 Preliminary micro results at discharge 11/12/16 11:07 Blood Culture - Preliminary Blood No growth at 3 days 11/12/16 11:07 Blood Culture - Preliminary Blood No growth at 3 days DS: Provider Date of admission: 11/09/16 20:13 Primary care physician: . No PCP Attending physician on admission: Lou Zavaleta DO Consults: 11/09/16 20:58 Consult to Case Mgmt/Social Srvs [CONS] Routine Reason for Case Mgmt/Social Srvs: Discharge Planning Consult to Physician [CONS] Routine Comment: GI bleed Consulting Provider: Jairo Goetz When should Consulting Provider be notified: In am Person Notified: zachary hameed Date Notified: 11/10/16 Time Notified: 09:12 11/10/16 17:41 Consult to Physician [CONS] Routine Comment: bacteremia Consulting Provider: Elsy Forte Consulting Provider Notified: Yes Person Notified: Zachary Date Notified: 11/11/16 Time Notified: 09:56 11/10/16 17:48 Consult to Case Mgmt/Social Srvs [CONS] Routine Reason for Case Mgmt/Social Srvs: Swingbed/SNF/Care Home 11/10/16 17:57 Consult to Physician [CONS] Routine Comment: acute back pain Consulting Provider: Michel Oh Person Notified: Sindhu Date Notified: 11/11/16 Time Notified: 10:06 Consult Notification Comment: [id number] - clinic staff advised me that dr ann out of office all week & dr oh to do rounds this week . I checked w/ pt & she stated "never seen pain treatment so dr oh will be ok with me " . clinic aware 11/11/16 06:43 Consult to Dietitian [CONS] Routine Reason for Dietitian: Diet Recommendations Consult Comment: protein requirements 11/11/16 09:48 Consult to Occupational Therapy [CONS] Routine Reason for Occupational Therapy: Evaluate and Treat PT [Consult to Physical Therapy] [CONS] Routine Reason for Physical Therapy: Evaluate and Treat 11/11/16 11:46 Consult to Physical Therapy [CONS] Routine Reason for Physical Therapy: Other Consult Comment: GTB and lumbar facet pain 11/11/16 17:46 Consult to Physician [CONS] Routine Comment: known 2 U,cardiomyopathy,afib,mech.valve,gi bleed Consulting Provider: Sarath Rios Consulting Provider Notified: Yes When should Consulting Provider be notified: In am 11/14/16 11:10 Consult to Case Mgmt/Social Srvs [CONS] Routine Reason for Case Mgmt/Social Srvs: Psychiatric Management Consult Comment: consult to [facility] and then intermediate placement Discharging clinician: Lou Zavaleta DO Expected date of discharge: 11/17/16
--- NOTE | 2016-11-17 13:33 | Infectious Disease Progress ---
Assessment and Plan (1) Bacteremia Status: Acute Assessment and plan: E. coli septicemia due bilateral pyelonephritis. Clinically patient is doing better. Recommendations: Continue cefazolin until November 26. Can switch to ceftriaxone 1g daily, if convenient daily dosing required. I will sign off now. Call again as needed. Current Visit: Yes (2) Pyelonephritis Status: Resolved Current Visit: Yes (3) History of mitral valve replacement with mechanical valve Status: Chronic Assessment and plan: TTE without mention of endocarditis Current Visit: Yes (4) Pacemaker Status: Chronic Current Visit: Yes (5) Chronic atrial fibrillation Status: Chronic Current Visit: No (6) Hyperlipidemia Status: Chronic Current Visit: No Qualifiers: Hyperlipidemia type: pure hypercholesterolemia Qualified Code(s): E78.00 - Pure hypercholesterolemia, unspecified; E78.0 - Pure hypercholesterolemia (7) Hypertension Status: Chronic Current Visit: No Qualifiers: Hypertension type: essential hypertension Qualified Code(s): I10 - Essential (primary) hypertension Infectious Disease - PN: Subj Interval history: Patient doing well, says pain is under better control this is back pain. No fever. Tolerating antibiotic without nausea vomiting or diarrhea. Infectious Disease Exam (PN) - Constitutional Vitals: Temp Pulse Resp BP Pulse Ox 97.4 F L 97 H 20 158/74 99 11/17/16 08:00 11/17/16 10:40 11/17/16 10:40 11/17/16 08:00 11/17/16 10:40 General appearance: no acute distress Exam: General appearance: Relatively comfortable, sitting in chair - Eye Eye exam: Present: EOMI. no icterus Pupils: Present: EUGENIO - ENT ENT exam: no oral exudates - Respiratory Respiratory exam: vesicular BS, no crepitations or wheezes - Cardiovascular Cardiovascular exam: regular rate and rhythm, audible click from her artificial valve - GI/Abdominal GI/Abdominal exam: normal bowel sounds, soft, mild generalized tenderness, no organomegaly or mass - Extremities Exam Extremities exam: no edema - Skin Skin exam: no rash Results - Labs CBC & BMP: 11/17/16 03:04 11/17/16 03:04 Lab Results: I have reviewed the past 24 hour labs Quality Measures - VTE Contraindication to Pharmacological VTE Prophylaxis: Active Bleeding Specialty Discharge - Follow Up or Referrals Follow up with: Elsy Forte MD [Physician] - Jairo Goetz MD [Physician] - (3-4 weeks ) Lou Zavaleta DO [Physician] -
--- NOTE | 2016-11-17 15:07 | Cardiology Progress Note ---
Sid Richard Vanessa, RN, am scribing for, and in the presence of, Charly Simpson MD 15:04. Assessment and Plan - Time spent with patient Time spent with patient: Greater than 30 minutes (1) Chronic atrial fibrillation Status: Chronic Assessment and plan: Continue beta-adin as present. She has had previous AV nancy ablation, and she has a ventricular pacemaker. He has been on long-term chronic anticoagulation, and Coumadin has been restarted. Will be cautious about the warfarin and her INRs. Current Visit: No (2) Chronic anticoagulation Status: Chronic Assessment and plan: Supratherapeutic INR 7.5 on November 13. Trended down, and November 14 INR 1.2. Coumadin 4 mg on the afternoon of November 15, and has now been started on 3 mg by mouth each evening with first dose on November 16. INR remains at 1.1 yesterday and today. She is chronically anticoagulated for presence of mechanical mitral valve in addition to chronic atrial fib. We will cautiously increase her warfarin is needed. Current Visit: Yes (3) History of mitral valve replacement with mechanical valve Status: Chronic Assessment and plan: Placed per Dr. Greco 13 years ago. History of rheumatic fever as a child. Stable, but she will need to be chronically anticoagulated with Coumadin. Current Visit: Yes (4) Bacteremia Status: Acute Assessment and plan: She is on appropriate IV antibiotics. Patient is also followed by infectious disease medicine. Current Visit: Yes (5) GI bleed Status: Acute Assessment and plan: H&H stable. Status post total of 4 units PRBCs transfusion. No overt bleeding. Gastroenterology has evaluated for possible endoscopy. As her hematocrit is currently improved and she is without bleeding, need for colonoscopy will be reevaluated in around 4 weeks. Current Visit: Yes (6) Abdominal pain Status: Acute Assessment and plan: She has also experienced some bright red bleeding and dark stools. Continues to have some abdominal tenderness. Patient has been anemic but this is improved , and gastroenterology has evaluated. She will undergo colonoscopy in approximately 4 weeks if she has recurrent bleeding. Current Visit: No Qualifiers: Abdominal location: right lower quadrant Qualified Code(s): R10.31 - Right lower quadrant pain (7) Anemia Status: Chronic Assessment and plan: this continues to be stable. Current Visit: Yes Qualifiers: Anemia type: iron deficiency Iron deficiency anemia type: inadequate dietary iron intake Qualified Code(s): D50.8 - Other iron deficiency anemias (8) Pyelonephritis Status: Resolved Current Visit: Yes (9) Anxiety Status: Chronic Assessment and plan: This is chronic. Patient is on appropriate medication. Will defer to attending physician. Current Visit: Yes (10) Back pain Status: Chronic Assessment and plan: Chronic. She is routinely followed by Dr. Oh for pain management. Dr. Oh has seen during hospitalization, and he has just pain medications. Current Visit: Yes Qualifiers: Back pain location: thoracic back pain Chronicity: acute Back pain laterality: right Qualified Code(s): M54.6 - Pain in thoracic spine (11) GERD (gastroesophageal reflux disease) Status: Chronic Assessment and plan: Continue PPI Current Visit: Yes (12) History of GI bleed Status: Chronic Assessment and plan: This appears to be stable at this time. Patient has reported history of recurrent GI bleeding when INR greater than 2.5. Current Visit: Yes (13) Pacemaker Status: Chronic Assessment and plan: Device appears to be functioning appropriately, and she is ventricularly pacing per EKG. Current Visit: Yes (14) Sleep apnea Status: Chronic Assessment and plan: Continue CPAP. Current Visit: Yes Qualifiers: Sleep apnea type: obstructive Qualified Code(s): G47.33 - Obstructive sleep apnea (adult) (pediatric) (15) History of TIA (transient ischemic attack) Status: Chronic Assessment and plan: Stable at this time without neurological finding for acute event. And noted she has had TIA in the past when INR has been less than 2. Current Visit: No (16) Hypertension Status: Chronic Assessment and plan: Suboptimally controlled. Current Visit: No Qualifiers: Hypertension type: essential hypertension Qualified Code(s): I10 - Essential (primary) hypertension (17) Hypothyroidism Status: Chronic Assessment and plan: Thyroid supplement continued. Current Visit: No Qualifiers: Hypothyroidism type: acquired Qualified Code(s): E03.9 - Hypothyroidism, unspecified (18) Status post ablation of atrial fibrillation Status: Chronic Assessment and plan: Status post AV node ablation. Pacemaker in place and functioning appropriately. Current Visit: No Cardiology - PN: Subj Interval history: PRIMARY DEPUTY ATTORNEY GENERAL: DR. RIOS SUMMARY: Ms. Faith is an 81-year-old white female with risk factors significant for age, hypertension, dyslipidemia, sedentary lifestyle, family history of CAD. 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 She is chronically anticoagulated with Coumadin. Patient also has chronic pain and is followed by Dr. Oh. She does not have a history of known coronary artery disease. She has had multiple cardiac catheterizations with the most recent being in 2003, and she had no significant or fixed obstructive coronary artery disease. She was offered a stress test by Dr. Rios at the clinic visit in April 2016 when she had complaints of shortness of breath, and she declined. Patient admitted to the hospital on November 09 with complaints of back pain, neck pain, abdominal pain, and since admission has been diagnosed with E. coli septicemia due to bilateral pyelonephritis. Antibiotics have been administered, and she has since developed anemia with dark stools. Required 4 units PRBCs total transfusion. Supratherapeutic INR 7.5 on November 12, consecutively trended with INR 5.1 on November 13, and has now been SUBtherapeutic (1.2) since November 14. It is noted she has suffered TIA in the past due to insufficient anticoagulation with INR less than 2.0. She was transferred from CCU to the [facility] floor on November 15. November UPDATE: Ms. Faith is doing well today. No chest pain or shortness of breath. She had a good night slept well last night not having any pain she states the first time is quite a while. Coumadin dose currently at 3 mg by mouth daily. At home she was on 4 mg daily. INR today 1.1. She is ventricularly pacing per telemetry monitoring. Noted she had some brief, self sustained atrial tach overnight with pulse rate he received 130. Patient has not had any overt bleeding. H&H this morning 9.8/28.6. Electrolytes are within acceptable range. Systolic BP 130-160 mmHg. Patient is tentatively planned for discharge to [facility] facility tomorrow. Exam (Progress Note) - Constitutional Vitals: Period Temp Pulse Resp BP Sys/Ceballos Pulse Ox Last 24 Hr 97.4 F-98.8 F 63-76 18-22 125-159/69-75 94-99 Exam: General: [Appears well with no apparent distress.] [Pleasant and cooperative. ] [Appears comfortable.] HEENT: [PERRL, normocephalic, atraumatic. Mucous membranes moist. No jaundice noted. Conjunctiva moist and clear, sclerae anicteric] Neck: No JVD/HJR, no thyromegaly or lymphadenopathy noted. No carotid bruit appreciated Cardiac: [Regular rate and rhythm.] [No obvious murmur rub or gallop.] Lungs: [Clear to auscultation without accessory muscle use to assist the respiratory pattern.] No supplemental oxygen required. Abdomen: Soft, bowel sounds normoactive. Slight abdominal tenderness to palpation and nondistended. No abdominal bruit or thrill noted. No masses noted. Musculoskeletal: No fluid collection. Decreased range of motion is noted. Extremities: No clubbing, cyanosis noted. [ No edema noted.] Upper extremity pulses 2+. Lower extremity pulses 2+. Capillary refill less than 3 seconds. Skin: No unusual lesions or rashes. No skin breakdown appreciated. Ecchymotic bruising bilateral upper extremities. Neuro: Awake, alert and oriented 3. Moves all extremities well without hemiparesis or paralysis. No essential tremor is appreciated. Result/EKG - Labs CBC & BMP: 11/17/16 03:04 11/17/16 03:04 Lab Results: I have reviewed the past 24 hour labs Labs: Laboratory Results - last 24 hr 11/17/16 11/17/16 11/17/16 03:04 03:04 03:04 WBC 8.3 RBC 3.22 L Hgb 9.8 L Hct 28.6 L MCV 88.8 MCH 30 MCHC 34.3 RDW 14.7 Plt Count 384 MPV 10.0 Neut % (Auto) 70.2 Lymph % (Auto) 11.2 L Levy % (Auto) 13.2 H Eos % (Auto) 0.0 Baso % (Auto) 0.1 Neut # (Auto) 5.8 Lymph # (Auto) 0.9 L Levy # (Auto) 1.1 H Eos # (Auto) 0.0 Baso # (Auto) 0.0 Total Counted 100 Immature Gran % 5.3 Nucleated RBC % 0.2 Immature Gran # 0.44 Segmented Neutrophils 69 Band Neutrophils 5 Lymphocytes 12 L Monocytes 5 Metamyelocytes 1 Myelocytes 8 Nucleated RBCs # 0.02 Platelet Estimate Normal INR 1.1 PT Patient/Control Mix 11.3 Sodium 141 Potassium 4.3 Chloride 109 H Carbon Dioxide 23 Anion Gap 13.3 BUN 12 Creatinine 0.70 GFR Calculation 82 BUN/Creatinine Ratio 17.00 Glucose 134 H Calculated Osmolality 282.3 Calcium 8.6 Magnesium 2.0 - Impressions Impressions: Atrial fibrillation electronic ventricular pacing. She had one episode of probably SVT that was short and self-limiting. - EKG EKG results: interpreted by me, no acute changes (Ventricular pacing) Quality Measures - VTE Contraindication to Pharmacological VTE Prophylaxis: Active Bleeding Specialty Discharge - Follow Up or Referrals Follow up with: Elsy Forte MD [Physician] - Jairo Goetz MD [Physician] - 12/15/16 3:00 pm (3-4 weeks ) Lou Zavaleta DO [Physician] - (DR. ZAVALETA WILL SEE PT. ON ROUNDS AT [facility]) I, Charly Simpson MD, personally performed the services described in this documentation, ascribed by Lina Lau RN in my presence, and it is both accurate and complete [id number] .
[2016-11-17] MEDS: WARFARIN 3 MG TABLET PO SCH (18:10)
--- NOTE | 2016-11-17 19:45 | Internal Med Progress Note ---
Assessment and Plan (1) UTI (urinary tract infection) Status: Resolved Current Visit: Yes Qualifiers: Hematuria presence: without hematuria (2) Bacteremia Status: Acute Current Visit: Yes Internal Medicine - PN: Subj Interval history: Ms. Faith is a 81 year old female with history of atrial fib and status post ablation, pacemaker placement, CHF, hypothyroid, history of HTN, TIA, diverticulosis, asthma, LOLA on CPAP, mitral valve replacement mechanical valve and on coumadin therapy, OA, CAD, history of GI bleed, Glaucoma, who presented to ER with worsening back pain and UTI/pyelonephritis. She has worsening weakness and has been found to have bacteremia. Dr. Diaz will be consulted. She is anemic and there is a question of GI bleed. GI has been consulted through the ER. She was also found to have hyponatremia, which will be addressed. Sodium level needs to be improved. She is complaining of severe back pain. Dr. Garcia will be consulted. Attempting to avoid narcotics. She is hypotensive. Lidoderm patches have been ordered as well as Solumedrol low dose. She is much better today, with improved sodium level. Pain has improved. However, lowering Coumadin dose to 3 mg daily, after holding coumadin for two days. Desire INR to be just below 2. She is complaining of back pain. Will increase Zanaflex frequency. Today, November 15, she has been having hallucinations. Likely from Demerol. Will decrease dose to taper her off. She has behavioral issues. [facility] to see her. November 16, she is doing better today. Will send her to [facility] tomorrow if bed is available. Feeling better overall. Will continue Coumadin. She will have colonoscopy in 4-6 weeks outpatient if she continues to have evidence GI bleed. Had blood transfusion while here in hospital. November 17, she continues to improve, but [facility] not [facility] her because of IV antibiotic. She will go to [facility] soon. She is doing so well at this point, she no longer needs to be considered for [facility]. Exam (Progress Note) - Constitutional Vitals: Period Temp Pulse Resp BP Sys/Ceballos Pulse Ox Last 24 Hr 97.4 F-98.8 F 63-97 17-20 125-159/69-75 94-99 Exam: General appearance: no acute distress - Respiratory Respiratory exam: Present: clear to auscultation bilaterally - Cardiovascular Cardiovascular exam: Present: regular rate and rhythm - GI/Abdominal GI/Abdominal exam: Present: soft. Absent: tenderness - Extremities Exam Extremities exam: Absent: edema - Neurological Exam Neurological exam: Present: alert - Psychiatric Psychiatric exam: Present: normal mood - Skin Skin exam: Present: warm, dry Results - Labs CBC & BMP: 11/18/16 05:04 11/18/16 05:04 Quality Measures - VTE Contraindication to Pharmacological VTE Prophylaxis: Active Bleeding Specialty Discharge - Follow Up or Referrals Follow up with: Elsy Forte MD [Physician] - Jairo Goetz MD [Physician] - 12/15/16 3:00 pm (3-4 weeks ) Lou Zavaleta DO [Physician] - (DR. ZAVALETA WILL SEE PT. ON ROUNDS AT [facility])
[2016-11-17] MEDS: MONTELUKAST 10 MG TABLET PO SCH (20:28)
[2016-11-17] MEDS: CARBOXYMETHYLCELLULOSE 1% OPH SOLN BOTH EYES PRN (20:31)
[2016-11-18] MEDS: ALBUTEROL 2.5 MG/3 ML NEB RESP TX SCH ×6 (00:07→21:11)
[2016-11-18] MEDS: CEFAZOLIN IV SCH ×4 (01:21→17:55)
[2016-11-18] MEDS: SODIUM CHLORIDE 0.9% IV SCH ×4 (01:21→17:55)
[2016-11-18 05:35] LABS: Basophils % 0.1 % (0.0-0.8); Eosinophils # 0.1 10*3/uL (0.0-0.87); Eosinophils % 1.2 % (0.00-10.9); Hematocrit 30.1 VOL% (35.7-47.0); Hemoglobin 10.1 GM/DL (12.0-16.0); Immature Granulocytes % 2.2 %; Lymphocytes # 1.3 10*3/uL (1.4-4.0); Lymphocytes % 14.6 % (21.3-54.2); Mean Corpuscular HGB Conc 33.6 GM/DL (32-36); Mean Corpuscular Hemoglobin 31 PG (27-34); Mean Corpuscular Volume 90.9 FL (87-102); Mean Platelet Volume 9.6 FL (9.6-12.0); Monocytes # 1.2 10*3/uL (0.11-0.8); Monocytes % 13.6 % (1.7-12.7); Neutrophils # 6.2 10*3/uL (1.4-7.4); Neutrophils % 68.3 % (38.7-73.9); Platelet Count 366 T/CUMM (130-400); Red Blood Count 3.31 MC/CUMM (3.8-5.5)
[2016-11-18 05:44] LABS: INR 1.1; PT Patient Result 11.5 SECS
[2016-11-18] MEDS: methylPREDNISolone SOD SUC 40 MG/1 ML VIAL IV SCH ×2 (05:55→15:13)
[2016-11-18 06:02] LABS: Calcium 8.9 MG/DL (8.5-10.1); Potassium 4.4 MMOL/L (3.5-5.1)
[2016-11-18] MEDS: MEPERIDINE 25 MG/1 ML VIAL IV SCH ×3 (07:22→21:22)
[2016-11-18] MEDS: amLODIPine 10 MG TABLET PO SCH (08:41)
[2016-11-18] MEDS: FERROUS SULFATE 325 MG TABLET PO SCH (08:41)
[2016-11-18] MEDS: CARVEDILOL 6.25 MG TABLET PO SCH ×2 (08:42→21:06)
[2016-11-18] MEDS: LIDOCAINE 5% PATCH TRANSDERM SCH (08:42)
[2016-11-18] MEDS: LOSARTAN 50 MG TABLET PO SCH ×2 (08:42→21:06)
[2016-11-18] MEDS: FAMOTIDINE 20 MG/2 ML VIAL IV SCH ×2 (08:42→21:05)
[2016-11-18] MEDS: LEVOTHYROXINE 25 MCG TABLET PO SCH (08:42)
[2016-11-18] MEDS: ONDANSETRON 4 MG TABLET PO PRN (08:42)
[2016-11-18] MEDS: DESITIN 4OZ/NYSTATIN 15 GRAM MIXTURE PASTE TOP SCH ×2 (08:43→21:20)
[2016-11-18] MEDS: POTASSIUM CHLORIDE 20 MEQ TABLET PO PRN (08:48)
[2016-11-18] MEDS: POTASSIUM CHLORIDE 10 MEQ TABLET PO SCH ×2 (08:49→21:08)
[2016-11-18] MEDS: DOCUSATE SODIUM 100 MG CAPSULE PO SCH ×2 (08:49→21:08)
[2016-11-18] MEDS: hydrALAZINE 25 MG TABLET PO SCH ×3 (08:49→21:07)
--- NOTE | 2016-11-18 09:43 | Cardiology Progress Note ---
Assessment and Plan (1) Chronic atrial fibrillation Status: Chronic Assessment and plan: Continue beta-adin as present. She has had previous AV nancy ablation, and she has a ventricular pacemaker. He has been on long-term chronic anticoagulation, and Coumadin has been restarted. Will be cautious about the warfarin and her INRs. We will give an extra dose of warfarin today. Current Visit: No (2) Chronic anticoagulation Status: Chronic Assessment and plan: This is needed with her mechanical mitral valve and atrial fibrillation. INR is only 1.1 today. We will give extra warfarin today. Current Visit: Yes (3) History of mitral valve replacement with mechanical valve Status: Chronic Assessment and plan: Placed per Dr. Greco 13 years ago. History of rheumatic fever as a child. Stable, but she will need to be chronically anticoagulated with Coumadin. Current Visit: Yes (4) Bacteremia Status: Acute Assessment and plan: She is on appropriate IV antibiotics. Patient is also followed by infectious disease medicine. Current Visit: Yes (5) GI bleed Status: Acute Assessment and plan: H&H stable. This is now stable. Current Visit: Yes (6) Abdominal pain Status: Acute Assessment and plan: Stable at this time. Current Visit: No Qualifiers: Abdominal location: right lower quadrant Qualified Code(s): R10.31 - Right lower quadrant pain (7) Anemia Status: Chronic Assessment and plan: this continues to be stable. H&H is slowly increasing. Current Visit: Yes Qualifiers: Anemia type: iron deficiency Iron deficiency anemia type: inadequate dietary iron intake Qualified Code(s): D50.8 - Other iron deficiency anemias (8) Pyelonephritis Status: Resolved Current Visit: Yes (9) Anxiety Status: Chronic Assessment and plan: This is chronic. Patient is on appropriate medication. Will defer to attending physician. Current Visit: Yes (10) Back pain Status: Chronic Assessment and plan: Chronic. She is routinely followed by Dr. Oh for pain management. Dr. Oh has seen during hospitalization, and he has just pain medications. Current Visit: Yes Qualifiers: Back pain location: thoracic back pain Chronicity: acute Back pain laterality: right Qualified Code(s): M54.6 - Pain in thoracic spine (11) GERD (gastroesophageal reflux disease) Status: Chronic Assessment and plan: Continue PPI Current Visit: Yes (12) History of GI bleed Status: Chronic Assessment and plan: This appears to be stable at this time. Patient has reported history of recurrent GI bleeding when INR greater than 2.5. Current Visit: Yes (13) Pacemaker Status: Chronic Assessment and plan: Device appears to be functioning appropriately, and she is ventricularly pacing per EKG/telemetry. Current Visit: Yes (14) Sleep apnea Status: Chronic Assessment and plan: Continue CPAP. Current Visit: Yes Qualifiers: Sleep apnea type: obstructive Qualified Code(s): G47.33 - Obstructive sleep apnea (adult) (pediatric) (15) History of TIA (transient ischemic attack) Status: Chronic Assessment and plan: Stable at this time without neurological finding for acute event. And noted she has had TIA in the past when INR has been less than 2. Current Visit: No (16) Hypertension Status: Chronic Assessment and plan: Suboptimally controlled. Current Visit: No Qualifiers: Hypertension type: essential hypertension Qualified Code(s): I10 - Essential (primary) hypertension (17) Hypothyroidism Status: Chronic Assessment and plan: Thyroid supplement continued. Current Visit: No Qualifiers: Hypothyroidism type: acquired Qualified Code(s): E03.9 - Hypothyroidism, unspecified (18) Status post ablation of atrial fibrillation Status: Chronic Assessment and plan: Status post AV node ablation. Pacemaker in place and functioning appropriately. Current Visit: No Cardiology - PN: Subj Interval history: From cardiac standpoint the patient is generally doing well. She had another good night. She denies any shortness of breath chest pain. She is continued on her warfarin but her INR is only 1.1. She probably given an extra dose today. She certainly needs anticoagulated with her mechanical mitral valve and chronic atrial fibrillation. Her rates are stable. She is with her atrial fibrillation has good rate control and is essentially ventricular paced most of the time. I can gather the plan is to discharge her hopefully to a facility where she can continue IV antibiotics. Overall from a heart standpoint though she is stable. Exam (Progress Note) - Constitutional Vitals: Period Temp Pulse Resp BP Sys/Ceballos Pulse Ox Last 24 Hr 97.6 F-98.2 F 71-97 17-20 139-157/66-74 92-100 Exam: General: Patient alert cooperative no distress. She sitting up in a chair. HEENT: Atraumatic. Normocephalic, EOM intact, PERRL, mucous membranes moist. Neck: Supple with trachea midline. No carotid bruit appreciated and no JVD. Cardiac: Regular rate and rhythm with appropriate mechanical mitral valve sounds. Lungs: Clear anteriorly and posteriorly and bilaterally. Abdomen: Soft, bowel sounds normoactive. Slight abdominal tenderness to palpation and nondistended. No abdominal bruit or thrill noted. No masses noted. Musculoskeletal: No gross abnormalities. Extremities: No clubbing, cyanosis noted. No edema. Radial pulses 2+. Skin: No unusual lesions or rashes. No skin breakdown appreciated. Ecchymotic bruising bilateral upper extremities. Neuro: Awake, alert and oriented 3. Moves all extremities well without hemiparesis or paralysis. No essential tremor is appreciated. Result/EKG - Labs CBC & BMP: 11/18/16 05:04 11/18/16 05:04 Lab Results: I have reviewed the past 24 hour labs (INR is not adequately elevated yet.) Labs: Laboratory Results - last 24 hr 11/18/16 11/18/16 11/18/16 05:04 05:04 05:04 WBC 9.0 RBC 3.31 L Hgb 10.1 L Hct 30.1 L MCV 90.9 MCH 31 MCHC 33.6 RDW 15.0 Plt Count 366 MPV 9.6 Neut % (Auto) 68.3 Lymph % (Auto) 14.6 L Blair % (Auto) 13.6 H Eos % (Auto) 1.2 Baso % (Auto) 0.1 Neut # (Auto) 6.2 Lymph # (Auto) 1.3 L Blair # (Auto) 1.2 H Eos # (Auto) 0.1 Baso # (Auto) 0.0 Immature Gran % 2.2 Nucleated RBC % 0.0 Immature Gran # 0.20 Nucleated RBCs # 0.00 INR 1.1 PT Patient/Control Mix 11.5 Sodium 143 Potassium 4.4 Chloride 108 H Carbon Dioxide 27 Anion Gap 12.4 BUN 14 Creatinine 0.70 GFR Calculation 82 BUN/Creatinine Ratio 20.00 Glucose 97 Calculated Osmolality 285.0 Calcium 8.9 Magnesium 2.0 - Impressions Impressions: Telemetry atrial fibrillation electronic ventricular pacing. Quality Measures - VTE Contraindication to Pharmacological VTE Prophylaxis: Active Bleeding Specialty Discharge - Follow Up or Referrals Follow up with: Emily-Elsy Alanis MD [Physician] - Jairo Goetz MD [Physician] - 12/15/16 3:00 pm (3-4 weeks ) Lou Zavaleta DO [Physician] - (DR. ZAVALETA WILL SEE PT. ON ROUNDS AT [facility])
[2016-11-18] MEDS ORDERED: WARFARIN 5 MG TABLET PO ONE (09:53)
--- NOTE | 2016-11-18 13:34 | Case Mgmt Physician Query Form ---
TB Signs and Symptoms Screening ([place]) INSTRUCTIONS: To be completed annually on residents/staff with a significant Tuberculin Skin Test (TST) upon admission/hire or a prior significant TST. To be completed on all staff at hire. Please respond to each listed symptom with an (X) in either the "YES" or "NO" box. Do you currently have any of the following symptoms: YES NO ( ) (x ) A cough If yes, is it: ( ) Productive ( ) Non- productive ( ) (x ) Hemoptysis (spitting up blood) ( ) (x ) Chest pains ( x) ( ) Weight Loss ( ) ( x) Fever ( ) ( x) Night Sweats (x ) ( ) Weakness (x ) ( ) Loss of Appetite ( ) ( x) Difficulty Breathing If you answered YES" to any of the above questions, how long have symptoms been present? Comments: Generalized weakness and loss of appetite improving. MTDD
[2016-11-18] MEDS ORDERED: TUBERCULIN SKIN TEST 0.1 ML SYRINGE INTRADERM ONE (15:12)
[2016-11-18] MEDS: WARFARIN 3 MG TABLET PO SCH (17:55)
--- NOTE | 2016-11-18 19:11 | Internal Med Progress Note ---
Assessment and Plan (1) Hyponatremia Status: Resolved Current Visit: Yes (2) Pyelonephritis Status: Resolved Current Visit: Yes (3) Low blood pressure Problem details: excessive antihypertensive meds; history of HTN Status: Resolved Current Visit: Yes Qualifiers: Hypotension type: hypotension due to drug Qualified Code(s): I95.2 - Hypotension due to drugs (4) UTI (urinary tract infection) Status: Resolved Current Visit: Yes Qualifiers: Hematuria presence: without hematuria (5) Pacemaker Status: Chronic Current Visit: Yes (6) Anemia Status: Chronic Current Visit: Yes Qualifiers: Anemia type: iron deficiency Iron deficiency anemia type: inadequate dietary iron intake Qualified Code(s): D50.8 - Other iron deficiency anemias (7) Chronic anticoagulation Status: Chronic Current Visit: Yes (8) History of TIA (transient ischemic attack) Status: Chronic Current Visit: No (9) History of mitral valve replacement with mechanical valve Status: Chronic Current Visit: Yes (10) Sleep apnea Status: Chronic Current Visit: Yes Qualifiers: Sleep apnea type: obstructive Qualified Code(s): G47.33 - Obstructive sleep apnea (adult) (pediatric) (11) Bacteremia Status: Acute Current Visit: Yes (12) Back pain Status: Chronic Current Visit: Yes Qualifiers: Back pain location: thoracic back pain Chronicity: acute Back pain laterality: right Qualified Code(s): M54.6 - Pain in thoracic spine (13) History of GI bleed Status: Chronic Current Visit: Yes (14) GERD (gastroesophageal reflux disease) Status: Chronic Current Visit: Yes (15) Anxiety Status: Resolved Current Visit: Yes (16) Status post ablation of atrial fibrillation Status: Chronic Current Visit: No Internal Medicine - PN: Subj Interval history: Ms. Faith is a 81 year old female with history of atrial fib and status post ablation, pacemaker placement, CHF, hypothyroid, history of HTN, TIA, diverticulosis, asthma, LOLA on CPAP, mitral valve replacement mechanical valve and on coumadin therapy, OA, CAD, history of GI bleed, Glaucoma, who presented to ER with worsening back pain and UTI/pyelonephritis. She has worsening weakness and has been found to have bacteremia. Dr. Diaz will be consulted. She is anemic and there is a question of GI bleed. GI has been consulted through the ER. She was also found to have hyponatremia, which will be addressed. Sodium level needs to be improved. She is complaining of severe back pain. Dr. Garcia will be consulted. Attempting to avoid narcotics. She is hypotensive. Lidoderm patches have been ordered as well as Solumedrol low dose. She is much better today, with improved sodium level. Pain has improved. However, lowering Coumadin dose to 3 mg daily, after holding coumadin for two days. Desire INR to be just below 2. She is complaining of back pain. Will increase Zanaflex frequency. Today, November 15, she has been having hallucinations. Likely from Demerol. Will decrease dose to taper her off. She has behavioral issues. [facility] to see her. November 16, she is doing better today. Will send her to [facility] tomorrow if bed is available. Feeling better overall. Will continue Coumadin. She will have colonoscopy in 4-6 weeks outpatient if she continues to have evidence GI bleed. Had blood transfusion while here in hospital. November 17, she continues to improve, but [facility] will not [facility] her because of IV antibiotic. She will go to [facility] soon. She is doing so well at this point, she no longer needs to be considered for [facility]. November 18, continuing to improve and will be discharged in the morning to assisted for rehab. Exam (Progress Note) - Constitutional Vitals: Period Temp Pulse Resp BP Sys/Ceballos Pulse Ox Last 24 Hr 97.2 F-98.2 F 69-82 18-20 143-153/66-76 92-100 Exam: General appearance: no acute distress - Respiratory Respiratory exam: Present: clear to auscultation bilaterally - Cardiovascular Cardiovascular exam: Present: regular rate and rhythm - GI/Abdominal GI/Abdominal exam: Present: soft. Absent: tenderness - Extremities Exam Extremities exam: Absent: edema - Neurological Exam Neurological exam: Present: alert - Psychiatric Psychiatric exam: Present: normal mood - Skin Skin exam: Present: warm, dry Results - Labs CBC & BMP: 11/18/16 05:04 11/18/16 05:04 Quality Measures - VTE Contraindication to Pharmacological VTE Prophylaxis: Active Bleeding Specialty Discharge - Follow Up or Referrals Follow up with: Elsy Forte MD [Physician] - Jairo Goetz MD [Physician] - 12/15/16 3:00 pm (3-4 weeks ) Lou Zavaleta DO [Physician] - (DR. ZAVALETA WILL SEE PT. ON ROUNDS AT [facility])
[2016-11-18] MEDS: MONTELUKAST 10 MG TABLET PO SCH (21:06)
[2016-11-18] MEDS ORDERED: hydrALAZINE 25 MG TABLET PO SCH (21:37)
--- NOTE | 2016-11-18 21:49 | Discharge Summary ---
Hospital Course - Hospital Course Hospital Course: Ms. Faith is a 81 year old female with history of atrial fib and status post ablation, pacemaker placement, CHF, hypothyroid, history of HTN, TIA, diverticulosis, asthma, LOLA on CPAP, mitral valve replacement mechanical valve and on coumadin therapy, OA, CAD, history of GI bleed, Glaucoma, who presented to ER with worsening back pain and UTI/pyelonephritis. She has worsening weakness and has been found to have bacteremia. Dr. Diaz will be consulted. She is anemic and there is a question of GI bleed. GI has been consulted through the ER. She was also found to have hyponatremia, which will be addressed. Sodium level needs to be improved. She is complaining of severe back pain. Attempting to avoid narcotics. She is hypotensive. Lidoderm patches have been ordered as well as Solumedrol low dose. Will increase Zanaflex frequency. She has been having hallucinations. Likely from Demerol. Will decrease dose to taper her off. She has behavioral issues. [facility] to see her. She has improved and no longer needs [facility]. GI bleed has stopped, and she will resume Coumadin. She will have colonoscopy in 4-6 weeks outpatient if she continues to have evidence GI bleed. Had blood transfusion while here in hospital. She will need antibiotic therapy for at least 6 weeks for bacteremia. She will benefit from PT/OT at the snf. Diagnosis - Discharge Diagnosis (1) Hyponatremia Status: Resolved (2) Pyelonephritis Status: Resolved (3) Low blood pressure Status: Resolved (4) UTI (urinary tract infection) Status: Resolved (5) Pacemaker Status: Chronic (6) Anemia Status: Chronic (7) Chronic anticoagulation Status: Chronic (8) History of TIA (transient ischemic attack) Status: Chronic (9) History of mitral valve replacement with mechanical valve Status: Chronic (10) Sleep apnea Status: Chronic (11) Bacteremia Status: Acute (12) Back pain Status: Chronic (13) History of GI bleed Status: Chronic (14) GERD (gastroesophageal reflux disease) Status: Chronic (15) Anxiety Status: Resolved (16) Status post ablation of atrial fibrillation Status: Chronic (17) Asthma Status: Chronic (18) Hypertension Status: Chronic (19) Hypothyroidism Status: Chronic Specialty Discharge - Follow Up or Referrals Follow up with: Elsy Forte MD [Physician] - Jairo Goetz MD [Physician] - 12/15/16 3:00 pm (3-4 weeks ) Lou Macias DO [Physician] - (DR. MACIAS WILL SEE PT. ON ROUNDS AT [facility]) Discharge Plan - Discharge Data Disposition: Disch/Xfer to Snf Condition at Discharge: Stable Discharge Diet: regular diet Activity: as per physical therapy, increase activity as tolerated - Discharge Medications New RX: Carvedilol [Coreg] 6.25 mg PO BID #60 tablet RX: ceFAZolin [Ancef] 1,500 mg IV Q6H vial RX: Docusate Sodium Cap [Colace Cap] 100 mg PO BID capsule RX: Lactulose Liquid [Chronulac] 10 gm PO DAILY PRN PRN Reason: Indigestion RX: Losartan [Cozaar] 50 mg PO BID tablet RX: Oxymetazoline 0.05% Nasal Spr [Afrin Nasal [place]] 2 spray BOTH NARES BID PRN bottle PRN Reason: Dry Nose RX: predniSONE TAB [PredniSONE] 10 mg PO DAILY #30 tablet RX: tiZANidine [Zanaflex] 6 mg PO Q6H PRN tablet PRN Reason: Muscle Spasm RX: Albuterol Neb [Proventil Neb] 2.5 mg RESP TX RT Q4H RX: hydrALAZINE TAB [Apresoline Tab] 50 mg PO TID tablet RX: Potassium Chloride Cap/Tab [K Dur] 20 meq PO TID tablet RX: predniSONE TAB [PredniSONE] 10 mg PO DAILY tablet RX: Cholecalciferol (Vitamin D3) [Vitamin D3 Chew Tab] 1,000 unit PO DAILY # 30 tablet RX: Lidocaine 5% Patch [Lidoderm 5% Patch] 3 patch TRANSDERM DAILY patch RX: Warfarin [Coumadin] 3 mg PO DAILY@1800 tablet RX: Acetaminophen Tab [Tylenol Tab] 650 mg PO Q6H PRN tablet PRN Reason: Fever > 100.4 Or Headache Continue RX: Nitroglycerin [place] 1 spray TRANSLING PRN PRN PRN Reason: Chest Pain RX: Levothyroxine Tab [Synthroid Tab] 25 mcg PO DAILY@0700 RX: ALPRAZolam [Xanax] 0.25 tablet PO BID RX: Gemfibrozil [Lopid] 600 mg PO BIDAC RX: Montelukast Tab [Singulair Tab] 10 mg PO BEDTIME RX: Loratadine 10 mg PO BEDTIME PRN PRN Reason: Allergy Symptoms RX: Famotidine Tab [Pepcid Tab] 20 mg PO BID RX: Losartan Potassium 50 mg PO BID RX: Ipratropium Inhaler [Atrovent Inhaler] 2 puff INH Q6HR PRN PRN Reason: Shortness Of Breath RX: Ferrous Sulfate 325 mg PO DAILY W/BREAKFAST RX: Albuterol Neb [Proventil Neb] 2.5 mg RESP TX RT Q8H RX: Ondansetron Tab [Zofran Tab] 4 mg PO QID PRN #14 tablet PRN Reason: Nausea/Vomiting RX: Polyethylene Glycol Powder [Miralax] 17 gm PO DAILY PRN #0 PRN Reason: Constipation RX: Oxymetazoline 0.05% Nasal Spr [Afrin Nasal [place]] 2 spray BOTH NARES BID PRN PRN Reason: Dry Nose RX: amLODIPine [Norvasc] 10 mg PO DAILY RX: Carboxymethylcellulose Sodium [Refresh Tears] 1 drop BOTH EYES QID Discontinued RX: Potassium Chloride Cap/Tab [K Dur] 10 meq PO DAILY RX: Chlorthalidone 25 mg PO DAILY RX: Aspirin [Ecotrin] 325 mg PO DAILY RX: Cholecalciferol (Vitamin D3) [Vitamin D3] 50,000 unit PO DIRECTED RX: Acetaminophen Tab [Tylenol Tab] 500 mg PO TID PRN #0 tablet PRN Reason: Fever, Headache, Mild Pain RX: Amoxicillin/Clav Tab [Augmentin Tab] 500 mg PO BID #20 tablet RX: Warfarin [Coumadin] 4 mg PO DAILY@1800 - Follow Up or Referral Follow Up: Elsy Forte MD [Physician] - Jairo Goetz MD [Physician] - 12/15/16 3:00 pm (3-4 weeks ) Lou Macias DO [Physician] - (DR. MACIAS WILL SEE PT. ON ROUNDS AT [facility]) - Forms/Instructions Additional Discharge Instructions: Repeat blood cultures two sets in six weeks at snf; results to Dr. Diaz at [facility]. Follow up with Dr. Goetz in six weeks if evidence of GI Bleed. Draw CBC one weekly. Draw INR daily for 10 days until we see dose adjustment stabilized. INR to be between 1.8-2.0 because of GI bleed. She has mechanical mitral valve and requires Coumadin therapy. Exam - Constitutional Vitals: Period Temp Pulse Resp BP Sys/Ceballos Pulse Ox Last 24 Hr 97.2 F-98.2 F 69-82 18-20 143-153/66-76 92-99 Exam: General appearance: no acute distress - Respiratory Respiratory exam: Present: clear to auscultation bilaterally - Cardiovascular Cardiovascular exam: Present: regular rate and rhythm - GI/Abdominal GI/Abdominal exam: Present: soft. Absent: tenderness - Extremities Exam Extremities exam: Absent: edema - Neurological Exam Neurological exam: Present: alert - Psychiatric Psychiatric exam: Present: normal mood - Skin Skin exam: Present: warm, dry Discharge Results Procedures and tests throughout hospitalization: Pending Orders 11/10/16 12:42 Occult Blood, Stool Routine 11/19/16 04:00 BMP w/ Mg [Basic Metabolic Panel w/Mg] IN AM CBC [Comp Blood Count Auto Diff] IN AM Prothrombin Time INR IN AM Labs on day of discharge: Labs from last 24 hours 11/18/16 11/18/16 11/18/16 05:04 05:04 05:04 WBC 9.0 RBC 3.31 L Hgb 10.1 L Hct 30.1 L MCV 90.9 MCH 31 MCHC 33.6 RDW 15.0 Plt Count 366 MPV 9.6 Neut % (Auto) 68.3 Lymph % (Auto) 14.6 L Bee % (Auto) 13.6 H Eos % (Auto) 1.2 Baso % (Auto) 0.1 Neut # (Auto) 6.2 Lymph # (Auto) 1.3 L Bee # (Auto) 1.2 H Eos # (Auto) 0.1 Baso # (Auto) 0.0 Immature Gran % 2.2 Nucleated RBC % 0.0 Immature Gran # 0.20 Nucleated RBCs # 0.00 INR 1.1 PT Patient/Control Mix 11.5 Sodium 143 Potassium 4.4 Chloride 108 H Carbon Dioxide 27 Anion Gap 12.4 BUN 14 Creatinine 0.70 GFR Calculation 82 BUN/Creatinine Ratio 20.00 Glucose 97 Calculated Osmolality 285.0 Calcium 8.9 Magnesium 2.0 DS: Provider Date of admission: 11/09/16 20:13 Primary care physician: . No PCP Attending physician on admission: Lou Macias DO Consults: 11/09/16 20:58 Consult to Case Mgmt/Social Srvs [CONS] Routine Reason for Case Mgmt/Social Srvs: Discharge Planning Consult to Physician [CONS] Routine Comment: GI bleed Consulting Provider: Jairo Goetz When should Consulting Provider be notified: In am Person Notified: [email or web address] hameed Date Notified: 11/10/16 Time Notified: 09:12 11/10/16 17:41 Consult to Physician [CONS] Routine Comment: bacteremia Consulting Provider: Elsy Forte Consulting Provider Notified: Yes Person Notified: Zachary Date Notified: 11/11/16 Time Notified: 09:56 11/10/16 17:48 Consult to Case Mgmt/Social Srvs [CONS] Routine Reason for Case Mgmt/Social Srvs: Swingbed/SNF/Correction 11/10/16 17:57 Consult to Physician [CONS] Routine Comment: acute back pain Consulting Provider: Michel Oh Person Notified: Sindhu Date Notified: 11/11/16 Time Notified: 10:06 Consult Notification Comment: [id number] - clinic staff advised me that dr ann out of office all week & dr oh to do rounds this week . I checked w/ pt & she stated "never seen pain treatment so dr oh will be ok with me " . clinic aware 11/11/16 06:43 Consult to Dietitian [CONS] Routine Reason for Dietitian: Diet Recommendations Consult Comment: protein requirements 11/11/16 09:48 Consult to Occupational Therapy [CONS] Routine Reason for Occupational Therapy: Evaluate and Treat PT [Consult to Physical Therapy] [CONS] Routine Reason for Physical Therapy: Evaluate and Treat 11/11/16 11:46 Consult to Physical Therapy [CONS] Routine Reason for Physical Therapy: Other Consult Comment: GTB and lumbar facet pain 11/11/16 17:46 Consult to Physician [CONS] Routine Comment: known 2 U,cardiomyopathy,afib,mech.valve,gi bleed Consulting Provider: Sarath Rios Consulting Provider Notified: Yes When should Consulting Provider be notified: In am 11/14/16 11:10 Consult to Case Mgmt/Social Srvs [CONS] Routine Reason for Case Mgmt/Social Srvs: Psychiatric Management Consult Comment: consult to [facility] and then snf placement 11/18/16 10:08 Consult to Case Mgmt/Social Srvs [CONS] Routine Reason for Case Mgmt/Social Srvs: Discharge Planning Consult Comment: outpatient physical therapy Discharging clinician: Lou Macias DO Expected date of discharge: 11/19/16
[2016-11-19] MEDS: SODIUM CHLORIDE 0.9% IV SCH ×2 (00:04→06:18)
[2016-11-19] MEDS: CEFAZOLIN IV SCH ×2 (00:04→06:18)
[2016-11-19] MEDS: ALBUTEROL 2.5 MG/3 ML NEB RESP TX SCH ×4 (00:33→11:17)
[2016-11-19 06:04] LABS: Basophils % 0.1 % (0.0-0.8); Eosinophils # 0.1 10*3/uL (0.0-0.87); Eosinophils % 0.6 % (0.00-10.9); Hematocrit 34.1 VOL% (35.7-47.0); Hemoglobin 11.2 GM/DL (12.0-16.0); Immature Granulocytes % 1.5 %; Immature Granulocytes Absolute 0.15 #; Lymphocytes % 10.2 % (21.3-54.2); Mean Corpuscular HGB Conc 32.8 GM/DL (32-36); Mean Corpuscular Hemoglobin 30 PG (27-34); Mean Corpuscular Volume 91.4 FL (87-102); Mean Platelet Volume 9.9 FL (9.6-12.0); Monocytes # 1.1 10*3/uL (0.11-0.8); Monocytes % 11.5 % (1.7-12.7); Neutrophils # 7.5 10*3/uL (1.4-7.4); Neutrophils % 76.1 % (38.7-73.9); Platelet Count 393 T/CUMM (130-400); Red Blood Count 3.73 MC/CUMM (3.8-5.5); Red Cell Distribution Width 15.2 % (9.3-17.3); White Blood Count 9.9 T/CUMM (4-12)
[2016-11-19] MEDS: LEVOTHYROXINE 25 MCG TABLET PO SCH (06:18)
[2016-11-19 06:21] LABS: INR 1.2; PT Patient Result 12.4 SECS
[2016-11-19 06:30] LABS: Calcium 9.5 MG/DL (8.5-10.1); Osmolality,Calculated 282.1 MOS/KG (273-304); Potassium 4.3 MMOL/L (3.5-5.1)
[2016-11-19 07:58] VITALS: BP 188/83
[2016-11-19] MEDS: FAMOTIDINE 20 MG/2 ML VIAL IV SCH (08:43)
[2016-11-19] MEDS: ONDANSETRON 4 MG TABLET PO PRN (08:44)
[2016-11-19] MEDS: LOSARTAN 50 MG TABLET PO SCH (08:44)
[2016-11-19] MEDS: FERROUS SULFATE 325 MG TABLET PO SCH (08:44)
[2016-11-19] MEDS: CARVEDILOL 6.25 MG TABLET PO SCH (08:44)
[2016-11-19] MEDS: DOCUSATE SODIUM 100 MG CAPSULE PO SCH (08:45)
[2016-11-19] MEDS: DESITIN 4OZ/NYSTATIN 15 GRAM MIXTURE PASTE TOP SCH (08:45)
[2016-11-19] MEDS: LIDOCAINE 5% PATCH TRANSDERM SCH (08:45)
[2016-11-19] MEDS: amLODIPine 10 MG TABLET PO SCH (08:45)
[2016-11-19] MEDS ORDERED: predniSONE 10 MG TABLET PO SCH (09:00)
[2016-11-19] MEDS ORDERED: POTASSIUM CHLORIDE 10 MEQ TABLET PO SCH (09:00)
--- NOTE | 2016-11-19 11:11 | Event Note ---
jail nurse called me requesting daily antibiotic if possible. Switch from cefazolin to ceftriaxone 1 g daily, first dose this morning before she leaves to the longterm.
[2016-11-19] MEDS ORDERED: cefTRIAXone 1,000 MG in SODIUM CHLORIDE 0.9% 100 ML IV SCH (11:30)
== END 2016-11-19 11:50 | DRG 690 ==
LOC: EDUNIT# → EDBD → N.ED 17:29 → N.EDINP 20:13 → N.CC 20:36 → N.2E 11-15 21:58
PROVIDERS: ADMIT Internal Medicine; ATTEND Internal Medicine

== ENCOUNTER 2017-03-17 18:21 | Inpatient (IN) ==
[2017-03-17] MEDS ORDERED: ONDANSETRON 4 MG/2 ML VIAL IV PRN (21:09)
[2017-03-17] MEDS ORDERED: ZALEPLON 5 MG CAPSULE PO PRN (21:09)
[2017-03-17] MEDS ORDERED: MAGNESIUM SULF RIDER 2 GM in PREMIX 1 EACH IV PRN (21:09)
[2017-03-17] MEDS ORDERED: MAGNESIUM SULF RIDER 4 GM in PREMIX 1 EACH IV PRN (21:09)
[2017-03-17] MEDS ORDERED: NITROGLYCERIN TRANSLING PRN (21:20)
[2017-03-17] MEDS ORDERED: ALBUTEROL 0.63 MG/3 ML NEB RESP TX PRN (21:20)
[2017-03-17] MEDS ORDERED: ALPRAZolam 0.25 MG TABLET PO PRN (21:20)
[2017-03-17 21:58] LABS: Basophils % 0.5 % (0.0-0.8); Eosinophils # 0.1 10*3/uL (0.0-0.87); Eosinophils % 1.8 % (0.00-10.9); Hematocrit 32.3 VOL% (35.7-47.0); Hemoglobin 11.5 GM/DL (12.0-16.0); Immature Granulocytes % 0.3 %; Immature Granulocytes Absolute 0.01 #; Lymphocytes % 26.2 % (21.3-54.2); Mean Corpuscular HGB Conc 35.6 GM/DL (32-36); Mean Corpuscular Hemoglobin 32 PG (27-34); Mean Platelet Volume 10.5 FL (9.6-12.0); Monocytes # 0.6 10*3/uL (0.11-0.8); Neutrophils # 2.2 10*3/uL (1.4-7.4); Neutrophils % 56.2 % (38.7-73.9); Platelet Count 250 T/CUMM (130-400); Red Blood Count 3.59 MC/CUMM (3.8-5.5); Red Cell Distribution Width 12.5 % (9.3-17.3); White Blood Count 3.9 T/CUMM (4-12)
[2017-03-17 22:19] LABS: Albumin 3.9 G/DL (3.4-5.0); Bilirubin,Total 0.5 MG/DL (0.2-1.0); Calcium 9.3 MG/DL (8.5-10.1); Osmolality,Calculated 281.5 MOS/KG (273-304); Potassium 3.5 MMOL/L (3.5-5.1); Total Protein 6.7 G/DL (6.4-8.3)
[2017-03-17 22:28] LABS: Free T4 (Free Thyroxine) 1.22 NG/DL (0.76-1.46); Thyroid Stimulating Hormone 1.22 uIU/ml (0.358-3.74)
[2017-03-17] MEDS: SERTRALINE 25 MG TABLET PO SCH (22:30)
[2017-03-17] MEDS: CLORAZEPATE 3.75 MG TABLET PO SCH (22:30)
[2017-03-17 22:35] LABS: Troponin I Only < 0.015 NG/ML (0.00-0.045)
[2017-03-18 05:53] LABS: INR 1.2; PT Patient Result 12.6 SECS
[2017-03-18 06:10] LABS: Troponin I Only < 0.015 NG/ML (0.00-0.045)
[2017-03-18] MEDS: LEVOTHYROXINE 25 MCG TABLET PO SCH (06:36)
[2017-03-18] MEDS: ACETAMINOPHEN 500 MG TABLET PO SCH ×2 (09:00→22:07)
[2017-03-18] MEDS: CHOLECALCIFEROL 1,000 UNIT TABLET PO SCH (09:04)
[2017-03-18] MEDS: ASPIRIN EC 81 MG TABLET PO SCH (09:04)
[2017-03-18] MEDS: POTASSIUM CHLORIDE 20 MEQ TABLET PO SCH ×3 (09:04→22:08)
[2017-03-18] MEDS: FERROUS SULFATE 325 MG TABLET PO SCH (09:05)
[2017-03-18] MEDS: CALCIUM (CARBONATE)/VITAMIN D 600 MG-400 UNIT TABLET PO SCH (09:05)
[2017-03-18] MEDS: CHLORTHALIDONE 25 MG TABLET PO SCH (09:05)
[2017-03-18] MEDS: CLORAZEPATE 3.75 MG TABLET PO SCH ×2 (09:05→22:08)
[2017-03-18] MEDS: amLODIPine 10 MG TABLET PO SCH (09:05)
[2017-03-18] MEDS: GEMFIBROZIL 600 MG TABLET PO SCH ×2 (09:06→16:45)
[2017-03-18] MEDS: DOCUSATE SODIUM 100 MG CAPSULE PO SCH ×2 (09:06→22:08)
[2017-03-18] MEDS: FAMOTIDINE 20 MG TABLET PO SCH ×2 (09:06→22:08)
[2017-03-18] MEDS: LOSARTAN 50 MG TABLET PO SCH ×2 (09:07→22:08)
[2017-03-18] MEDS: CARBOXYMETHYLCELLULOSE 1% OPH SOLN BOTH EYES SCH ×4 (09:09→22:16)
[2017-03-18 10:07] LABS: Troponin I Only < 0.015 NG/ML (0.00-0.045)
[2017-03-18] MEDS: HEPARIN DRIP 25,000 UNITS/500 ML PREMIX IV SCH (13:04)
[2017-03-18 16:40] LABS: Troponin I Only < 0.015 NG/ML (0.00-0.045)
[2017-03-18] MEDS ORDERED: WARFARIN 5 MG TABLET PO SCH (18:00)
[2017-03-18] MEDS: SERTRALINE 25 MG TABLET PO SCH (22:07)
[2017-03-18] MEDS: MONTELUKAST 10 MG TABLET PO SCH (22:08)
[2017-03-19 04:13] LABS: Basophils % 0.7 % (0.0-0.8); Eosinophils # 0.2 10*3/uL (0.0-0.87); Eosinophils % 3.3 % (0.00-10.9); Hematocrit 34.2 VOL% (35.7-47.0); Immature Granulocytes % 0.2 %; Immature Granulocytes Absolute 0.01 #; Lymphocytes # 1.1 10*3/uL (1.4-4.0); Lymphocytes % 24.3 % (21.3-54.2); Mean Corpuscular HGB Conc 35.1 GM/DL (32-36); Mean Corpuscular Hemoglobin 32 PG (27-34); Mean Corpuscular Volume 90.2 FL (87-102); Mean Platelet Volume 10.6 FL (9.6-12.0); Monocytes # 0.6 10*3/uL (0.11-0.8); Monocytes % 14.2 % (1.7-12.7); Neutrophils # 2.6 10*3/uL (1.4-7.4); Neutrophils % 57.3 % (38.7-73.9); Platelet Count 261 T/CUMM (130-400); Red Blood Count 3.79 MC/CUMM (3.8-5.5); Red Cell Distribution Width 12.6 % (9.3-17.3); White Blood Count 4.5 T/CUMM (4-12)
[2017-03-19 04:16] LABS: INR 1.1; PT Patient Result 11.4 SECS
[2017-03-19 04:56] LABS: Magnesium 2.1 MG/DL (1.8-2.4); Osmolality,Calculated 274.8 MOS/KG (273-304); Potassium 3.5 MMOL/L (3.5-5.1)
[2017-03-19] MEDS: LEVOTHYROXINE 25 MCG TABLET PO SCH (06:38)
[2017-03-19] MEDS: DOCUSATE SODIUM 100 MG CAPSULE PO SCH ×2 (09:11→20:38)
[2017-03-19] MEDS: CHOLECALCIFEROL 1,000 UNIT TABLET PO SCH (09:11)
[2017-03-19] MEDS: GEMFIBROZIL 600 MG TABLET PO SCH ×2 (09:11→15:53)
[2017-03-19] MEDS: POTASSIUM CHLORIDE 20 MEQ TABLET PO SCH ×3 (09:11→20:38)
[2017-03-19] MEDS: LOSARTAN 50 MG TABLET PO SCH ×2 (09:11→20:38)
[2017-03-19] MEDS: FERROUS SULFATE 325 MG TABLET PO SCH (09:11)
[2017-03-19] MEDS: CALCIUM (CARBONATE)/VITAMIN D 600 MG-400 UNIT TABLET PO SCH (09:11)
[2017-03-19] MEDS: ACETAMINOPHEN 500 MG TABLET PO SCH ×2 (09:11→20:38)
[2017-03-19] MEDS: ASPIRIN EC 81 MG TABLET PO SCH (09:12)
[2017-03-19] MEDS: CLORAZEPATE 3.75 MG TABLET PO SCH (09:12)
[2017-03-19] MEDS: CHLORTHALIDONE 25 MG TABLET PO SCH (09:12)
[2017-03-19] MEDS: FAMOTIDINE 20 MG TABLET PO SCH ×2 (09:12→20:39)
[2017-03-19] MEDS: amLODIPine 10 MG TABLET PO SCH (09:12)
[2017-03-19] MEDS: CARBOXYMETHYLCELLULOSE 1% OPH SOLN BOTH EYES SCH ×4 (09:18→20:40)
[2017-03-19] MEDS: HEPARIN DRIP 25,000 UNITS/500 ML PREMIX IV SCH (13:45)
[2017-03-19] MEDS ORDERED: POTASSIUM CHLORIDE 20 MEQ PACK PO ONE (18:15)
[2017-03-19] MEDS: SERTRALINE 25 MG TABLET PO SCH (20:39)
[2017-03-19] MEDS: MONTELUKAST 10 MG TABLET PO SCH (20:43)
[2017-03-20 04:49] LABS: Basophils % 1.1 % (0.0-0.8); Eosinophils # 0.2 10*3/uL (0.0-0.87); Eosinophils % 4.2 % (0.00-10.9); Hematocrit 32.8 VOL% (35.7-47.0); Hemoglobin 11.6 GM/DL (12.0-16.0); Immature Granulocytes % 0.3 %; Immature Granulocytes Absolute 0.01 #; Lymphocytes # 1.2 10*3/uL (1.4-4.0); Mean Corpuscular HGB Conc 35.4 GM/DL (32-36); Mean Corpuscular Hemoglobin 32 PG (27-34); Mean Corpuscular Volume 90.4 FL (87-102); Mean Platelet Volume 10.6 FL (9.6-12.0); Monocytes # 0.6 10*3/uL (0.11-0.8); Monocytes % 14.6 % (1.7-12.7); Neutrophils # 1.8 10*3/uL (1.4-7.4); Neutrophils % 47.8 % (38.7-73.9); Platelet Count 248 T/CUMM (130-400); Red Blood Count 3.63 MC/CUMM (3.8-5.5); Red Cell Distribution Width 12.7 % (9.3-17.3); White Blood Count 3.8 T/CUMM (4-12)
[2017-03-20] MEDS: CLORAZEPATE 3.75 MG TABLET PO PRN (05:21)
[2017-03-20] MEDS: LEVOTHYROXINE 25 MCG TABLET PO SCH (06:08)
[2017-03-20 06:33] LABS: Calcium 9.1 MG/DL (8.5-10.1); Magnesium 1.8 MG/DL (1.8-2.4); Osmolality,Calculated 278.5 MOS/KG (273-304); Potassium 4.1 MMOL/L (3.5-5.1)
[2017-03-20] MEDS: GEMFIBROZIL 600 MG TABLET PO SCH ×2 (08:00→16:52)
[2017-03-20] MEDS: LOSARTAN 50 MG TABLET PO SCH ×2 (09:38→20:54)
[2017-03-20] MEDS: CHLORTHALIDONE 25 MG TABLET PO SCH ×2 (09:38→10:06)
[2017-03-20] MEDS: CHOLECALCIFEROL 1,000 UNIT TABLET PO SCH (09:38)
[2017-03-20] MEDS: FAMOTIDINE 20 MG TABLET PO SCH ×2 (09:38→20:54)
[2017-03-20] MEDS: amLODIPine 10 MG TABLET PO SCH (09:38)
[2017-03-20] MEDS: FERROUS SULFATE 325 MG TABLET PO SCH (09:38)
[2017-03-20] MEDS: ACETAMINOPHEN 500 MG TABLET PO SCH ×2 (09:39→20:54)
[2017-03-20] MEDS: POTASSIUM CHLORIDE 20 MEQ TABLET PO SCH ×3 (09:39→20:54)
[2017-03-20] MEDS: CALCIUM (CARBONATE)/VITAMIN D 600 MG-400 UNIT TABLET PO SCH (09:39)
[2017-03-20] MEDS: ASPIRIN EC 81 MG TABLET PO SCH (09:40)
[2017-03-20] MEDS: CARBOXYMETHYLCELLULOSE 1% OPH SOLN BOTH EYES SCH ×4 (09:41→20:55)
[2017-03-20] MEDS: DOCUSATE SODIUM 100 MG CAPSULE PO SCH ×2 (09:41→20:54)
[2017-03-20] MEDS: HEPARIN DRIP 25,000 UNITS/500 ML PREMIX IV SCH (14:09)
[2017-03-20] MEDS ORDERED: ASPIRIN CHEW 81 MG TABLET PO ONE (14:27)
[2017-03-20] MEDS ORDERED: POTASSIUM CHLORIDE RIDER 10 MEQ in PREMIX 1 EACH IV PRN (14:40)
[2017-03-20] MEDS ORDERED: MAGNESIUM SULF RIDER 2 GM in PREMIX 1 EACH IV PRN (14:40)
[2017-03-20] MEDS: LORATADINE 10 MG TABLET PO SCH (14:41)
[2017-03-20] MEDS: predniSONE 50 MG TABLET PO SCH ×2 (16:52→22:25)
[2017-03-20] MEDS: MONTELUKAST 10 MG TABLET PO SCH (20:54)
[2017-03-20] MEDS: SERTRALINE 25 MG TABLET PO SCH (20:54)
[2017-03-20] MEDS: SODIUM CHLORIDE 0.9% 1,000 ML IV SCH (22:25)
[2017-03-21 02:31] LABS: Basophils % 0.2 % (0.0-0.8); Hematocrit 31.5 VOL% (35.7-47.0); Hemoglobin 11.3 GM/DL (12.0-16.0); Immature Granulocytes % 0.4 %; Immature Granulocytes Absolute 0.02 #; Lymphocytes # 0.5 10*3/uL (1.4-4.0); Lymphocytes % 10.5 % (21.3-54.2); Mean Corpuscular HGB Conc 35.9 GM/DL (32-36); Mean Corpuscular Hemoglobin 32 PG (27-34); Mean Corpuscular Volume 89.2 FL (87-102); Mean Platelet Volume 10.5 FL (9.6-12.0); Monocytes # 0.1 10*3/uL (0.11-0.8); Neutrophils # 4.5 10*3/uL (1.4-7.4); Neutrophils % 87.9 % (38.7-73.9); Platelet Count 259 T/CUMM (130-400); Red Blood Count 3.53 MC/CUMM (3.8-5.5); Red Cell Distribution Width 12.5 % (9.3-17.3); White Blood Count 5.1 T/CUMM (4-12)
[2017-03-21 02:51] LABS: Calcium 8.8 MG/DL (8.5-10.1); Magnesium 1.9 MG/DL (1.8-2.4); Osmolality,Calculated 278.8 MOS/KG (273-304); Potassium 4.2 MMOL/L (3.5-5.1)
[2017-03-21 03:54] LABS: Platelet Estimate Normal
[2017-03-21] MEDS: predniSONE 50 MG TABLET PO SCH ×2 (05:18→10:09)
[2017-03-21] MEDS ORDERED: diphenhydrAMINE CAP 25 MG CAPSULE PO ONE (06:00)
[2017-03-21] MEDS: LEVOTHYROXINE 25 MCG TABLET PO SCH (06:20)
[2017-03-21] MEDS ORDERED: LIDOCAINE 1% 20 ML VIAL ONE (07:38)
[2017-03-21] MEDS ORDERED: MEPERIDINE 25 MG/1 ML VIAL ONE (07:43)
[2017-03-21] MEDS ORDERED: MIDAZOLAM 2 MG/2 ML VIAL ONE (07:44)
[2017-03-21] MEDS ORDERED: HEPARIN 5,000 UNIT/1 ML VIAL ONE (07:51)
[2017-03-21] MEDS: GEMFIBROZIL 600 MG TABLET PO SCH ×2 (09:11→17:28)
[2017-03-21] MEDS: LOSARTAN 50 MG TABLET PO SCH ×3 (09:12→21:18)
[2017-03-21] MEDS: CHLORTHALIDONE 25 MG TABLET PO SCH (09:13)
[2017-03-21 09:21] LABS: Risk Ratio 2.17; VLDL CHOLESTEROL 7.6 MG/DL
[2017-03-21] MEDS: SODIUM CHLORIDE 0.9% 1,000 ML IV SCH (10:01)
[2017-03-21] MEDS: ACETAMINOPHEN 500 MG TABLET PO SCH ×2 (10:03→21:19)
[2017-03-21] MEDS: POTASSIUM CHLORIDE 20 MEQ TABLET PO SCH ×3 (10:04→21:18)
[2017-03-21] MEDS: FERROUS SULFATE 325 MG TABLET PO SCH (10:05)
[2017-03-21] MEDS: CALCIUM (CARBONATE)/VITAMIN D 600 MG-400 UNIT TABLET PO SCH (10:05)
[2017-03-21] MEDS: amLODIPine 5 MG TABLET PO SCH (10:05)
[2017-03-21] MEDS: LORATADINE 10 MG TABLET PO SCH (10:06)
[2017-03-21] MEDS: CARBOXYMETHYLCELLULOSE 1% OPH SOLN BOTH EYES SCH ×4 (10:06→21:34)
[2017-03-21] MEDS: FAMOTIDINE 20 MG TABLET PO SCH ×2 (10:06→21:19)
[2017-03-21] MEDS: CHOLECALCIFEROL 1,000 UNIT TABLET PO SCH (10:06)
[2017-03-21] MEDS: DOCUSATE SODIUM 100 MG CAPSULE PO SCH ×2 (10:06→21:19)
[2017-03-21] MEDS: ASPIRIN EC 81 MG TABLET PO SCH (10:06)
[2017-03-21] MEDS: SERTRALINE 25 MG TABLET PO SCH (10:07)
[2017-03-21] MEDS ORDERED: WARFARIN 10 MG TABLET PO ONE (10:28)
[2017-03-21] MEDS: ACETAMINOPHEN 325 MG TABLET PO PRN (14:15)
[2017-03-21] MEDS: HEPARIN DRIP 25,000 UNITS/500 ML PREMIX IV SCH (17:26)
[2017-03-21] MEDS: WARFARIN 5 MG TABLET PO SCH (17:28)
[2017-03-21] MEDS ORDERED: ROSUVASTATIN 10 MG TABLET PO SCH (21:00)
[2017-03-21] MEDS: MONTELUKAST 10 MG TABLET PO SCH (21:19)
[2017-03-22] MEDS ORDERED: HEPARIN 5,000 UNIT/1 ML VIAL ONE (00:02)
[2017-03-22] MEDS ORDERED: HEPARIN 5,000 UNIT/1 ML VIAL IV PRN (00:12)
[2017-03-22] MEDS: HEPARIN DRIP 25,000 UNITS/500 ML PREMIX IV SCH ×2 (03:32→13:31)
[2017-03-22 05:50] LABS: Basophils % 0.1 % (0.0-0.8); Eosinophils % 0.1 % (0.00-10.9); Hematocrit 31.3 VOL% (35.7-47.0); Hemoglobin 11.1 GM/DL (12.0-16.0); Immature Granulocytes % 0.5 %; Immature Granulocytes Absolute 0.06 #; Lymphocytes % 7.5 % (21.3-54.2); Mean Corpuscular HGB Conc 35.5 GM/DL (32-36); Mean Corpuscular Hemoglobin 32 PG (27-34); Mean Corpuscular Volume 90.2 FL (87-102); Mean Platelet Volume 10.7 FL (9.6-12.0); Monocytes # 1.1 10*3/uL (0.11-0.8); Monocytes % 8.2 % (1.7-12.7); Neutrophils # 10.7 10*3/uL (1.4-7.4); Neutrophils % 83.6 % (38.7-73.9); Platelet Count 268 T/CUMM (130-400); Red Blood Count 3.47 MC/CUMM (3.8-5.5); Red Cell Distribution Width 12.8 % (9.3-17.3); White Blood Count 12.8 T/CUMM (4-12)
[2017-03-22 05:57] LABS: INR 1.2; PT Patient Result 12.4 SECS
[2017-03-22] MEDS: LEVOTHYROXINE 25 MCG TABLET PO SCH (06:42)
[2017-03-22 06:52] LABS: Alanine Aminotransferase 15 U/L (13-56); Albumin 3.1 G/DL (3.4-5.0); Alkaline Phosphatase 57 U/L (45-117); Aspartate Amino Transferase 21 U/L (0-37); Bilirubin,Total < 0.39 MG/DL (0.2-1.0); Blood Urea Nitrogen 17 MG/DL (7-18); Calcium 8.8 MG/DL (8.5-10.1); Glucose 96 MG/DL (74-106); Osmolality,Calculated 278.5 MOS/KG (273-304); Potassium 3.9 MMOL/L (3.5-5.1); Sodium 139 MMOL/L (136-145); Total Protein 6.1 G/DL (6.4-8.3)
[2017-03-22] MEDS: CLORAZEPATE 3.75 MG TABLET PO PRN (08:33)
[2017-03-22] MEDS: GEMFIBROZIL 600 MG TABLET PO SCH ×2 (08:33→15:45)
[2017-03-22] MEDS: CALCIUM (CARBONATE)/VITAMIN D 600 MG-400 UNIT TABLET PO SCH (08:33)
[2017-03-22] MEDS: ACETAMINOPHEN 500 MG TABLET PO SCH ×2 (08:33→21:37)
[2017-03-22] MEDS: FAMOTIDINE 20 MG TABLET PO SCH ×2 (08:34→21:37)
[2017-03-22] MEDS: POTASSIUM CHLORIDE 20 MEQ TABLET PO SCH ×3 (08:34→21:37)
[2017-03-22] MEDS: CHLORTHALIDONE 25 MG TABLET PO SCH (08:34)
[2017-03-22] MEDS: DOCUSATE SODIUM 100 MG CAPSULE PO SCH ×2 (08:34→21:37)
[2017-03-22] MEDS: FERROUS SULFATE 325 MG TABLET PO SCH (08:34)
[2017-03-22] MEDS: amLODIPine 5 MG TABLET PO SCH (08:34)
[2017-03-22] MEDS: LOSARTAN 50 MG TABLET PO SCH ×2 (08:34→21:37)
[2017-03-22] MEDS: SERTRALINE 25 MG TABLET PO SCH (08:34)
[2017-03-22] MEDS: LORATADINE 10 MG TABLET PO SCH (08:34)
[2017-03-22] MEDS: ASPIRIN EC 81 MG TABLET PO SCH (08:34)
[2017-03-22] MEDS: CARBOXYMETHYLCELLULOSE 1% OPH SOLN BOTH EYES SCH ×4 (08:35→21:38)
[2017-03-22] MEDS: CHOLECALCIFEROL 1,000 UNIT TABLET PO SCH (08:35)
[2017-03-22 12:14] LABS: INR 1.5; PT Patient Result 15.7 SECS
[2017-03-22 12:16] LABS: INR 1.5; PT Patient Result 15.4 SECS
[2017-03-22 12:25] LABS: Partial Thromboplastin Time 76.5 SECS (0-40)
[2017-03-22] MEDS: WARFARIN 5 MG TABLET PO SCH (17:13)
[2017-03-22] MEDS ORDERED: WARFARIN 3 MG TABLET PO SCH (18:00)
[2017-03-22] MEDS: ACETAMINOPHEN 325 MG TABLET PO PRN (18:29)
[2017-03-22] MEDS ORDERED: FUROSEMIDE 20 MG/2 ML VIAL IV ONE (19:05)
[2017-03-22 19:51] LABS: INR 1.9; PT Patient Result 19.4 SECS
[2017-03-22] MEDS: MONTELUKAST 10 MG TABLET PO SCH (21:37)
[2017-03-22] MEDS: methylPREDNISolone SOD SUC 40 MG/1 ML VIAL IV SCH (21:38)
[2017-03-22 22:16] LABS: Apearance,Urine CLOUDY (Clear); Bacteria,Urine Few /HPF (Few); Bilirubin,Urine Negative (Negative); Blood, Urine Small mg/dL (Negative); Glucose,Urine (UA) Negative (Negative); Ketones,Urine Negative (Negative); Nitrite,Urine Negative (Negative); Protein,Urine Negative; RBC,Urine 3 /HPF (0-4); Urine Color Yellow (Yellow); Urine Specific Gravity 1.013 (1.001-1.035); Urine Urobilinogen < 2.0 EU/DL (0.2-1.0); WBC,Urine 145 /HPF (0-6)
[2017-03-22] MEDS ORDERED: WARFARIN 4 MG TABLET PO SCH (23:39)
[2017-03-23] MEDS: BUDESONIDE 0.25 MG/2 ML NEB RESP TX SCH ×3 (00:20→22:06)
[2017-03-23] MEDS: ALBUTEROL/IPRATROPIUM 3 ML NEB RESP TX SCH ×3 (01:48→07:50)
[2017-03-23] MEDS ORDERED: LIDOCAINE 5% PATCH TRANSDERM PRN (01:58)
[2017-03-23] MEDS: methylPREDNISolone SOD SUC 40 MG/1 ML VIAL IV SCH (04:07)
[2017-03-23] MEDS: LEVOTHYROXINE 25 MCG TABLET PO SCH (06:03)
[2017-03-23 06:09] LABS: Basophils % 0.2 % (0.0-0.8); Hematocrit 29.5 VOL% (35.7-47.0); Hemoglobin 10.6 GM/DL (12.0-16.0); Immature Granulocytes % 1.1 %; Immature Granulocytes Absolute 0.14 #; Lymphocytes # 0.1 10*3/uL (1.4-4.0); Lymphocytes % 1.1 % (21.3-54.2); Mean Corpuscular HGB Conc 35.9 GM/DL (32-36); Mean Corpuscular Hemoglobin 32 PG (27-34); Mean Corpuscular Volume 89.4 FL (87-102); Mean Platelet Volume 10.7 FL (9.6-12.0); Monocytes # 0.4 10*3/uL (0.11-0.8); Monocytes % 2.8 % (1.7-12.7); Neutrophils # 12.4 10*3/uL (1.4-7.4); Neutrophils % 94.8 % (38.7-73.9); Platelet Count 205 T/CUMM (130-400); Red Cell Distribution Width 13.1 % (9.3-17.3)
[2017-03-23 06:18] LABS: Partial Thromboplastin Time 33.4 SECS (0-40)
[2017-03-23 06:23] LABS: INR 2.2
[2017-03-23 06:25] LABS: PT Patient Result 22.7 SECS
[2017-03-23 06:26] LABS: PT Patient Result 22.6 SECS
[2017-03-23 06:36] LABS: Calcium 8.7 MG/DL (8.5-10.1); Magnesium 1.6 MG/DL (1.8-2.4); Osmolality,Calculated 276.2 MOS/KG (273-304); Potassium 3.3 MMOL/L (3.5-5.1)
[2017-03-23 06:42] LABS: Band Neutrophils 8 % (0-10); Hypochromasia 1+; Lymphocytes 2 % (20-55); Ovalocytes Slight; Platelet Estimate Adequate; Segmented Neutrophils 85 % (50-85); Total Cells Counted 100
[2017-03-23 06:44] LABS: Burr Cells Slight
[2017-03-23] MEDS: GEMFIBROZIL 600 MG TABLET PO SCH ×2 (09:04→16:24)
[2017-03-23] MEDS: DOCUSATE SODIUM 100 MG CAPSULE PO SCH ×2 (09:04→22:06)
[2017-03-23] MEDS: ACETAMINOPHEN 500 MG TABLET PO SCH ×2 (09:04→22:07)
[2017-03-23] MEDS: amLODIPine 5 MG TABLET PO SCH (09:05)
[2017-03-23] MEDS: CALCIUM (CARBONATE)/VITAMIN D 600 MG-400 UNIT TABLET PO SCH (09:05)
[2017-03-23] MEDS: CHOLECALCIFEROL 1,000 UNIT TABLET PO SCH (09:05)
[2017-03-23] MEDS: LOSARTAN 50 MG TABLET PO SCH ×2 (09:05→22:06)
[2017-03-23] MEDS: POTASSIUM CHLORIDE 20 MEQ TABLET PO SCH ×3 (09:05→22:06)
[2017-03-23] MEDS: LORATADINE 10 MG TABLET PO SCH (09:05)
[2017-03-23] MEDS: FERROUS SULFATE 325 MG TABLET PO SCH (09:06)
[2017-03-23] MEDS: ASPIRIN EC 81 MG TABLET PO SCH (09:06)
[2017-03-23] MEDS: FAMOTIDINE 20 MG TABLET PO SCH ×2 (09:06→22:06)
[2017-03-23] MEDS: CARBOXYMETHYLCELLULOSE 1% OPH SOLN BOTH EYES SCH ×4 (09:06→22:06)
[2017-03-23] MEDS: SERTRALINE 25 MG TABLET PO SCH (09:09)
[2017-03-23] MEDS: FUROSEMIDE 20 MG/2 ML VIAL IV SCH (09:09)
[2017-03-23] MEDS: CHLORTHALIDONE 25 MG TABLET PO SCH (09:12)
[2017-03-23] MEDS: NITROFURANTOIN MACRO/MONO 100 MG CAPSULE PO SCH ×2 (12:20→22:06)
[2017-03-23] MEDS: ALBUTEROL 0.63 MG/3 ML NEB RESP TX SCH (15:28)
[2017-03-23 21:27] LABS: Basophils % 0.3 % (0.0-0.8); Hematocrit 29.8 VOL% (35.7-47.0); Hemoglobin 10.7 GM/DL (12.0-16.0); Immature Granulocytes % 0.7 %; Immature Granulocytes Absolute 0.09 #; Lymphocytes # 0.3 10*3/uL (1.4-4.0); Lymphocytes % 2.1 % (21.3-54.2); Mean Corpuscular HGB Conc 35.9 GM/DL (32-36); Mean Corpuscular Hemoglobin 32 PG (27-34); Mean Corpuscular Volume 88.7 FL (87-102); Monocytes # 0.3 10*3/uL (0.11-0.8); Monocytes % 2.3 % (1.7-12.7); Neutrophils # 11.4 10*3/uL (1.4-7.4); Neutrophils % 94.6 % (38.7-73.9); Platelet Count 146 T/CUMM (130-400); Red Blood Count 3.36 MC/CUMM (3.8-5.5); White Blood Count 12.1 T/CUMM (4-12)
[2017-03-23 21:48] LABS: INR 2.9
[2017-03-23 21:49] LABS: PT Patient Result 29.4 SECS; Partial Thromboplastin Time 44.2 SECS (0-40)
[2017-03-23 21:50] LABS: Calcium 8.5 MG/DL (8.5-10.1); Magnesium 2.3 MG/DL (1.8-2.4); Osmolality,Calculated 284.1 MOS/KG (273-304); Potassium 2.8 MMOL/L (3.5-5.1)
[2017-03-23 21:51] LABS: Band Neutrophils 18 % (0-10); Lactic Acid 3.1 MMOL/L (0.4-2.0); Lymphocytes 4 % (20-55); Platelet Estimate Normal; Segmented Neutrophils 76 % (50-85); Total Cells Counted 100
[2017-03-23 21:52] LABS: Burr Cells Few; Poikilocytosis 1+; Tear Drop Cells Few
[2017-03-23] MEDS: MONTELUKAST 10 MG TABLET PO SCH (22:07)
[2017-03-24] MEDS: ALBUTEROL 0.63 MG/3 ML NEB RESP TX SCH ×4 (00:01→23:15)
[2017-03-24] MEDS ORDERED: POTASSIUM CHLORIDE 20 MEQ TABLET PO PRN (02:40)
[2017-03-24] MEDS: POTASSIUM CHLORIDE RIDER 10 MEQ in PREMIX 1 EACH IV PRN ×3 (03:30→07:02)
[2017-03-24] MEDS ORDERED: ACETAMINOPHEN 325 MG SUPP RECTAL PRN (04:30)
[2017-03-24 05:52] LABS: Basophils # 0.1 10*3/uL (0.0-0.2); Basophils % 0.7 % (0.0-0.8); Hematocrit 29.6 VOL% (35.7-47.0); Hemoglobin 10.8 GM/DL (12.0-16.0); Immature Granulocytes % 1.6 %; Lymphocytes # 0.2 10*3/uL (1.4-4.0); Lymphocytes % 1.6 % (21.3-54.2); Mean Corpuscular HGB Conc 36.5 GM/DL (32-36); Mean Corpuscular Hemoglobin 32 PG (27-34); Mean Corpuscular Volume 88.4 FL (87-102); Mean Platelet Volume 11.4 FL (9.6-12.0); Monocytes # 0.5 10*3/uL (0.11-0.8); Monocytes % 4.4 % (1.7-12.7); Neutrophils # 11.2 10*3/uL (1.4-7.4); Neutrophils % 91.7 % (38.7-73.9); Platelet Count 118 T/CUMM (130-400); Red Blood Count 3.35 MC/CUMM (3.8-5.5); Red Cell Distribution Width 13.1 % (9.3-17.3); White Blood Count 12.2 T/CUMM (4-12)
[2017-03-24] MEDS: LEVOTHYROXINE 25 MCG TABLET PO SCH (06:09)
[2017-03-24 06:26] LABS: Calcium 8.4 MG/DL (8.5-10.1); Magnesium 2.7 MG/DL (1.8-2.4); Osmolality,Calculated 288.8 MOS/KG (273-304); Potassium 2.6 MMOL/L (3.5-5.1)
[2017-03-24 06:34] LABS: Albumin 2.6 G/DL (3.4-5.0); Bilirubin,Direct 0.18 MG/DL (0.0-0.20); Bilirubin,Indirect 0.4 MG/DL (0.0-1.0); Bilirubin,Total 0.6 MG/DL (0.2-1.0); Total Protein 5.7 G/DL (6.4-8.3)
[2017-03-24 06:36] LABS: INR 3.2
[2017-03-24 06:44] LABS: PT Patient Result 32.4 SECS
[2017-03-24 07:03] LABS: Anisocytosis 1+; Band Neutrophils 14 % (0-10); Lymphocytes 1 % (20-55); Macrocytosis 1+; Metamyelocytes 7 %; Platelet Estimate Decreased; Segmented Neutrophils 75 % (50-85); Total Cells Counted 100
[2017-03-24] MEDS: BUDESONIDE 0.25 MG/2 ML NEB RESP TX SCH ×3 (07:05→23:15)
[2017-03-24] MEDS: CHOLECALCIFEROL 1,000 UNIT TABLET PO SCH (09:52)
[2017-03-24] MEDS: ACETAMINOPHEN 500 MG TABLET PO SCH ×2 (09:52→22:06)
[2017-03-24] MEDS: SERTRALINE 25 MG TABLET PO SCH (09:53)
[2017-03-24] MEDS: CALCIUM (CARBONATE)/VITAMIN D 600 MG-400 UNIT TABLET PO SCH (09:53)
[2017-03-24] MEDS: CHLORTHALIDONE 25 MG TABLET PO SCH (09:53)
[2017-03-24] MEDS: POTASSIUM CHLORIDE 20 MEQ TABLET PO SCH ×3 (09:53→22:05)
[2017-03-24] MEDS: DOCUSATE SODIUM 100 MG CAPSULE PO SCH ×2 (09:53→22:05)
[2017-03-24] MEDS: LOSARTAN 50 MG TABLET PO SCH ×2 (09:53→22:05)
[2017-03-24] MEDS: FERROUS SULFATE 325 MG TABLET PO SCH (09:53)
[2017-03-24] MEDS: GEMFIBROZIL 600 MG TABLET PO SCH ×2 (09:53→16:23)
[2017-03-24] MEDS: ASPIRIN EC 81 MG TABLET PO SCH (09:54)
[2017-03-24] MEDS: amLODIPine 5 MG TABLET PO SCH (09:54)
[2017-03-24] MEDS: FAMOTIDINE 20 MG TABLET PO SCH ×2 (09:54→22:05)
[2017-03-24] MEDS: LORATADINE 10 MG TABLET PO SCH (09:54)
[2017-03-24] MEDS: LACTULOSE 20 GM/30 ML UDCUP PO SCH (09:55)
[2017-03-24] MEDS: CARBOXYMETHYLCELLULOSE 1% OPH SOLN BOTH EYES SCH ×4 (10:18→22:06)
[2017-03-24] MEDS: FUROSEMIDE 20 MG/2 ML VIAL IV SCH (10:19)
[2017-03-24] MEDS ORDERED: WARFARIN 1 MG TABLET PO SCH (17:07)
[2017-03-24] MEDS ORDERED: POTASSIUM CHLORIDE 20 MEQ TABLET PO ONE (17:32)
[2017-03-24] MEDS ORDERED: MORPHINE 2 MG/1 ML SYRINGE IV PRN (18:20)
[2017-03-24] MEDS: LORazepam 2 MG/1 ML VIAL IV PRN (21:17)
[2017-03-24] MEDS: MONTELUKAST 10 MG TABLET PO SCH (22:06)
[2017-03-25] MEDS: LORazepam 2 MG/1 ML VIAL IV PRN (00:24)
[2017-03-25 05:29] LABS: Basophils # 0.1 10*3/uL (0.0-0.2); Basophils % 0.5 % (0.0-0.8); Eosinophils % 0.1 % (0.00-10.9); Hematocrit 30.2 VOL% (35.7-47.0); Hemoglobin 10.8 GM/DL (12.0-16.0); Immature Granulocytes % 1.3 %; Immature Granulocytes Absolute 0.16 #; Lymphocytes # 0.3 10*3/uL (1.4-4.0); Lymphocytes % 2.5 % (21.3-54.2); Mean Corpuscular HGB Conc 35.8 GM/DL (32-36); Mean Corpuscular Hemoglobin 32 PG (27-34); Mean Corpuscular Volume 88.6 FL (87-102); Mean Platelet Volume 12.8 FL (9.6-12.0); Monocytes % 8.3 % (1.7-12.7); Neutrophils % 87.3 % (38.7-73.9); Platelet Count 86 T/CUMM (130-400); Red Blood Count 3.41 MC/CUMM (3.8-5.5); Red Cell Distribution Width 13.2 % (9.3-17.3); White Blood Count 12.6 T/CUMM (4-12)
[2017-03-25 05:48] LABS: Magnesium 3.3 MG/DL (1.8-2.4); Potassium 2.8 MMOL/L (3.5-5.1)
[2017-03-25] MEDS: LEVOTHYROXINE 25 MCG TABLET PO SCH (06:17)
[2017-03-25 06:20] LABS: PT Patient Result 77.4 SECS
[2017-03-25 06:26] LABS: INR 7.9
[2017-03-25 06:56] LABS: Band Neutrophils 8 % (0-10); Burr Cells Slight; Hypochromasia 1+; Lymphocytes 1 % (20-55); Platelet Estimate Decreased; Segmented Neutrophils 88 % (50-85); Total Cells Counted 100
[2017-03-25] MEDS ORDERED: PHYTONADIONE 10 MG/1 ML AMP SUBCUT ONE (07:01)
[2017-03-25] MEDS: BUDESONIDE 0.25 MG/2 ML NEB RESP TX SCH ×2 (07:11→23:00)
[2017-03-25] MEDS: ALBUTEROL 0.63 MG/3 ML NEB RESP TX SCH ×2 (07:11→15:16)
[2017-03-25] MEDS ORDERED: ZINC OXIDE PASTE 113 GM TUBE TOP PRN (08:42)
[2017-03-25] MEDS: ASPIRIN EC 81 MG TABLET PO SCH (10:28)
[2017-03-25] MEDS: LACTULOSE 20 GM/30 ML UDCUP PO SCH (10:28)
[2017-03-25] MEDS: GEMFIBROZIL 600 MG TABLET PO SCH ×2 (10:28→16:28)
[2017-03-25] MEDS: CALCIUM (CARBONATE)/VITAMIN D 600 MG-400 UNIT TABLET PO SCH (10:28)
[2017-03-25] MEDS: LORATADINE 10 MG TABLET PO SCH (10:29)
[2017-03-25] MEDS: DOCUSATE SODIUM 100 MG CAPSULE PO SCH ×2 (10:29→20:54)
[2017-03-25] MEDS: FERROUS SULFATE 325 MG TABLET PO SCH (10:29)
[2017-03-25] MEDS: POTASSIUM CHLORIDE 20 MEQ TABLET PO SCH ×3 (10:29→20:54)
[2017-03-25] MEDS: CHLORTHALIDONE 25 MG TABLET PO SCH (10:29)
[2017-03-25] MEDS: LOSARTAN 50 MG TABLET PO SCH ×2 (10:29→20:54)
[2017-03-25] MEDS: ACETAMINOPHEN 500 MG TABLET PO SCH ×2 (10:30→20:54)
[2017-03-25] MEDS: CHOLECALCIFEROL 1,000 UNIT TABLET PO SCH (10:30)
[2017-03-25] MEDS: SERTRALINE 25 MG TABLET PO SCH (10:30)
[2017-03-25] MEDS: FAMOTIDINE 20 MG TABLET PO SCH ×2 (10:30→20:54)
[2017-03-25] MEDS: amLODIPine 5 MG TABLET PO SCH (10:30)
[2017-03-25] MEDS: CARBOXYMETHYLCELLULOSE 1% OPH SOLN BOTH EYES SCH ×4 (11:14→21:59)
[2017-03-25] MEDS: POTASSIUM CHLORIDE RIDER 10 MEQ in PREMIX 1 EACH IV PRN (16:12)
[2017-03-25] MEDS ORDERED: LORazepam 2 MG/1 ML VIAL IV PRN (20:09)
[2017-03-25] MEDS: MONTELUKAST 10 MG TABLET PO SCH (20:54)
[2017-03-26] MEDS: CHLORTHALIDONE 25 MG TABLET PO SCH (09:29)
[2017-03-26] MEDS: CHOLECALCIFEROL 1,000 UNIT TABLET PO SCH (09:30)
[2017-03-26] MEDS: CARBOXYMETHYLCELLULOSE 1% OPH SOLN BOTH EYES SCH ×4 (09:30→21:39)
[2017-03-26] MEDS: MONTELUKAST 10 MG TABLET PO SCH (21:39)
[2017-03-27] MEDS: CARBOXYMETHYLCELLULOSE 1% OPH SOLN BOTH EYES SCH ×3 (09:15→16:44)
[2017-03-27] MEDS: CHLORTHALIDONE 25 MG TABLET PO SCH (09:15)
[2017-03-27] MEDS: CHOLECALCIFEROL 1,000 UNIT TABLET PO SCH (09:15)
[2017-03-27] MEDS: MONTELUKAST 10 MG TABLET PO SCH (21:13)
[2017-03-27 23:47] VITALS: BP 110/51
[2017-03-28] MEDS: CARBOXYMETHYLCELLULOSE 1% OPH SOLN BOTH EYES SCH (00:36)
== END 2017-03-28 12:04 | disposition expired | DRG 286 ==
LOC: N.TELEN
PROVIDERS: ADMIT Internal Medicine Cardiovascular Disease; ATTEND Internal Medicine Cardiovascular Disease
PROC: CLCCHCL (ICD-10-PCS; 2017-03-21 09:15)